=== PATIENT | male | born 1945 | race Caucasian/White ===

== ENCOUNTER 2017-06-21 17:58 | Emergency (ER) | payer OTHER, BC, MEDICARE ==
[2017-06-21] MEDS ORDERED: HYDROmorphone 0.5 MG/0.5 ML SYRINGE IVPUSH ONE (18:29)
[2017-06-21] MEDS ORDERED: Sodium Chloride 0.9% 10 ML Syringe FLUSH PRN (18:29)
--- NOTE | 2017-06-21 19:23 | CT ---
Head CT Technique: Multiple axial sections through the brain were obtained. Intravenous contrast was not utilized. Comparison: No previous intracranial imaging is available. Findings: Ventricles along with basal cisterns and sulci over the convexities are mildly prominent. Mild diminished density is noted within the periventricular and subcortical white matter which is compatible with small vessel ischemic demyelination change. No evidence of intracranial hemorrhage. No midline shift or mass effect is seen. No acute calvarial abnormality is seen. No acute calvarial abnormality is seen. Atherosclerotic calcification is seen within the vertebral vessels and carotid siphon. Impression: 1. Mild senescent change as described above. 2. No acute intracranial abnormality is seen. No skull fracture is identified. Diagnostic code #2
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
--- NOTE | 2017-06-22 07:22 | CR ---
Chest: Portable view of the chest was obtained. Comparison: No prior chest x-ray. Heart size is normal. Tortuous thoracic aorta is seen. Minimal scarring is seen within the right mid to lower lung. Lungs otherwise are clear. Slight degenerative change is scattered within the spine. Degenerative spurring is seen inferiorly within the acromioclavicular joint on the right side. Impression: 1. Incidental findings. Nothing acute is appreciated on portable chest x-ray. Diagnostic code #2
== END 2017-06-21 21:31 | disposition home or self-care (01) ==
LOC: JD.ED 17:58
DX: R07.89 Other chest pain (principal); I10 Essential (primary) hypertension; E11.9 Type 2 diabetes mellitus without complications; Z87.891 Personal history of nicotine dependence; Z88.8 Allergy status to other drugs, medicaments and biological substances; Z79.899 Other long term (current) drug therapy
CPT/HCPCS: 36415; 70450; 71045; 80053; 82962; 83880; 84484; 85025; 93005; 96374; 99285; J1170; J7050; 93010; 99284

== ENCOUNTER 2017-08-21 09:06 | Day surgery (SDC) | payer MEDICARE, BC ==
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
[~2017-08-21 09:06] MED LIST: Lactated Ringers 1,000 ML IV SCH; Lidocaine 1%/Sod Bicarbonate in NS 8.4% 1 ML Syringe IDERM PRN; Sodium Chloride 0.9% 10 ML Syringe FLUSH PRN
[2017-08-21] MEDS ORDERED: Lidocaine 1% 2 ML ONE ×2 (09:22→09:23)
[2017-08-21] MEDS ORDERED: Propofol 200 MG/20 ML SDV ONE ×2 (09:23→10:49)
--- NOTE | 2017-08-21 10:07 | PCM.PREANE ---
Preanesthetic Assessment - Anesthesia/Transfusion/Family Hx Anesthesia History: Prior Anesthesia Without Reaction Family History of Anesthesia Reaction: No - Review of Systems General: No Symptoms Pulmonary: Other (Sleep apnea, CPAP. Former smoker. ) Cardiovascular: No Symptoms Gastrointestinal: Difficulty Swallowing (Occasional feeling of food becoming stuck, passes with time. Magdalena JOHNSON aware. ) Neurological: Pre-Existing Deficit (Back Surgery x 5, Chronic Pain, Pain radiates to his left side. Op) Other: Reports: Diabetes (DM Type II, a little higher today than usual 212 mg/ dl. Dr. Jones aware. ), Depression - Physical Assessment NPO Status Date: 08/20/17 NPO Status Time: 23:59 O2 Sat by Pulse Oximetry: 95 Respiratory Rate: 16 Vital Signs: Last Vital Signs Temp 37.1 C 08/21/17 09:20 Pulse 82 08/21/17 09:20 Resp 16 08/21/17 09:20 BP 151/67 H 08/21/17 09:20 Pulse Ox 95 08/21/17 09:20 ASA Class: 3 Mental Status: Alert & Oriented x3 Airway Class: Mallampati = 2 Dentition: Reports: Dentures (Upper, prefers to leave in for his procedure. ) Thyro-Mental Finger Breadths: 2 Mouth Opening Finger Breadths: 3 ROM/Head Extension: Full Lungs: Clear to Auscultation, Normal Respiratory Effort Cardiovascular: Regular Rate, Regular Rhythm - Allergies Allergies/Adverse Reactions: Allergies Allergy/AdvReac Type Severity Reaction Status Date / Time zolpidem [Zolpidem] AdvReac Mild Change Verified 06/21/17 18:05 Mental Status - Acknowledgements Anesthesia Type Planned: MAC Pt an Appropriate Candidate for the Planned Anesthesia: Yes Alternatives and Risks of Anesthesia Discussed w Pt/Guardian: Yes Pt/Guardian Understands and Agrees with Anesthesia Plan: Yes PreAnesthesia Questionnaire HEENT History: Reports: Hard of Hearing Cardiovascular History: Reports: High Cholesterol, Hypertension Respiratory History: Reports: Sleep Apnea Gastrointestinal History: Reports: GERD Musculoskeletal History: Reports: Osteoarthritis Neurological History: Reports: Neuropathy, Diabetic Psychiatric History: Reports: Depression, Other (See Below) Other Psychiatric History: insomnia Endocrine/Metabolic History: Reports: Diabetes, Type II, Hypothyroidism - Past Surgical History GI Surgical History: Reports: EGD - SUBSTANCE USE Smoking Status *Q: Former Smoker Recreational Drug Use History: No - HOME MEDS Home Medications: Home Meds Citalopram [Citalopram HBr] 20 mg PO DAILY 06/21/17 [History] Insulin Glarg,Human.Rec.Analog [Lantus] 30 units SUBCUT QPM 06/21/17 [History] Levothyroxine 150 mcg PO DAILY 06/21/17 [History] Lisinopril [Zestril] 5 mg PO DAILY 06/21/17 [History] atorvaSTATin Calcium [Atorvastatin Calcium] 40 mg PO DAILY 06/21/17 [History] Aspirin 325 mg PO DAILY 08/18/17 [History] Cholecalciferol (Vitamin D3) [Vitamin D3] 1 cap PO DAILY 08/18/17 [History] Insulin Aspart [NovoLOG] 1 unit SUBCUT ASDIRECTED 08/18/17 [History] Ranitidine HCl [Zantac] 150 mg PO DAILY 08/18/17 [History] SUMAtriptan Succinate [Imitrex] 100 mg PO ASDIRECTED PRN 08/18/17 [History] - CURRENT (IN HOUSE) MEDS Current Meds: Current Medications Lactated Ringer's (Ringers, Lactated) 1,000 mls @ 125 mls/hr IV ASDIRECTED KARMEN Stop: 08/21/17 23:00 Lidocaine/Sodium Bicarbonate (Buffered Lidocaine 1% In Ns 8.4%) 0.25 ml IDERM ONETIME PRN PRN Reason: Prior to IV Start Stop: 08/21/17 18:00 Sodium Chloride (Saline Flush) 10 ml FLUSH ASDIRECTED PRN PRN Reason: Keep Vein Open Stop: 08/21/17 18:00 Discontinued Medications Lidocaine HCl (Xylocaine-Mpf 1%) Confirm Administered Dose 2 mls @ as directed .ROUTE .STK-MED ONE Stop: 08/21/17 09:23 Lidocaine HCl (Xylocaine-Mpf 1%) Confirm Administered Dose 2 mls @ as directed .ROUTE .STK-MED ONE Stop: 08/21/17 09:24 Propofol (Diprivan 20 Ml) Confirm Administered Dose 200 mg .ROUTE .STK-MED ONE Stop: 08/21/17 09:24
--- NOTE | 2017-08-21 11:09 | PCM48HPAN ---
Post Anesthesia Note - EVALUATION WITHIN 48HRS OF ANESTHETIC Vital Signs in Normal Range: Yes Patient Participated in Evaluation: Yes Respiratory Function Stable: Yes Airway Patent: Yes Cardiovascular Function Stable: Yes Hydration Status Stable: Yes Pain Control Satisfactory: Yes Nausea and Vomiting Control Satisfactory: Yes Mental Status Recovered: Yes Pulse Rate: 79 SaO2: 95 Resp Rate: 14 Temperature: 97.6 C Blood Pressure: 111/72
--- NOTE | 2017-08-21 11:47 | OR ---
DATE OF OPERATION: 08/21/2017 SURGEON: Kg Jones MD PREOPERATIVE DIAGNOSIS: Screening colonoscopy. POSTOPERATIVE DIAGNOSIS: Screening colonoscopy. OPERATION PERFORMED: Colonoscopy to cecum. FINDINGS: Normal study. ANESTHESIA: Done under IV sedation. RECOMMENDATION: No further screening colonoscopies. DESCRIPTION OF PROCEDURE: The patient was taken to the endoscopy room, placed in a supine position, connected to monitoring equipment, given IV sedation. The patient was placed in left lateral position. Perianal area was inspected, was normal rectal exam, showed good sphincter tone. A video Olympus colonoscope was then introduced into the rectum and threaded up without problem to the cecum, where the appendicular orifice and ileocecal valve was noted. The prep was excellent throughout the colon, [place] Cleansing Scale grade A and the scope was slowly withdrawn showing the cecum, ascending colon, transverse colon, descending colon, and sigmoid colon. The study was normal. The patient tolerated the procedure, sent to recovery room in a stable condition, will be followed up as needed in the clinic. ESTIMATED BLOOD LOSS: MMODAL /[id number]
== END 2017-08-21 11:31 | disposition home or self-care (01) ==
LOC: JD.SDS 09:06
PROVIDERS: ATTEND Surgery
DX: D50.9 Iron deficiency anemia, unspecified (principal); I12.9 Hypertensive chronic kidney disease with stage 1 through stage 4 chronic kidney disease, or unspecified chronic kidney disease; E11.22 Type 2 diabetes mellitus with diabetic chronic kidney disease; N18.3 Chronic kidney disease, stage 3 (moderate); E11.40 Type 2 diabetes mellitus with diabetic neuropathy, unspecified; E03.9 Hypothyroidism, unspecified; E78.00 Pure hypercholesterolemia, unspecified; K21.9 Gastro-esophageal reflux disease without esophagitis; G47.33 Obstructive sleep apnea (adult) (pediatric); Z99.89 Dependence on other enabling machines and devices; Z87.891 Personal history of nicotine dependence; Z79.82 Long term (current) use of aspirin; Z79.4 Long term (current) use of insulin; Z79.899 Other long term (current) drug therapy; Z88.8 Allergy status to other drugs, medicaments and biological substances
CPT/HCPCS: 45378; J2001; J7120; J2704

== ENCOUNTER 2018-09-29 16:47 | Emergency (ER) | payer MEDICARE, BC, OTHER ==
[2018-09-29] MEDS ORDERED: HYDROmorphone 0.5 MG/0.5 ML Syringe IVPUSH ONE (17:14)
--- NOTE | 2018-09-29 17:14 | EDM.PDOC ---
<Fritz Jones - Last Filed: 09/29/18 22:44> ED HPI GENERAL MEDICAL PROBLEM - General Chief Complaint: Abdominal Pain Stated Complaint: [facility] Time Seen by Provider: 09/29/18 17:08 - Related Data Allergies Allergy/AdvReac Type Severity Reaction Status Date / Time zolpidem [Zolpidem] AdvReac Mild Change Verified 09/29/18 16:58 Mental Status Home Meds: Home Meds Insulin Glarg,Human.Rec.Analog [Lantus] 16 units SUBCUT QPM 06/21/17 [History] Levothyroxine 25 mcg PO BEDTIME 06/21/17 [History] Insulin Aspart [NovoLOG] 1 unit SUBCUT ASDIRECTED 08/18/17 [History] SUMAtriptan Succinate [Imitrex] 50 mg PO ASDIRECTED PRN 08/18/17 [History] Hydrocodone/Acetaminophen [Hydrocodon-Acetaminophn 10-325] 2 tab PO Q4H PRN 03/27 [History] Polyethylene Glycol 3350 [MiraLAX] 17 gm PO BID 08/07/18 [History] Sennosides [Senna] 17.2 mg PO DAILY 08/07/18 [History] fentaNYL [Fentanyl] 75 mcg TRDERM ASDIRECTED 08/07/18 [History] Lisinopril 2.5 mg PO DAILY 08/08/18 [History] Simvastatin [Zocor] 40 mg PO BEDTIME 08/08/18 [History] Alum Hydrox/Mag Hydrox/Simeth [Mag-Al Plus] 30 ml PO Q4H PRN cup 08/12/18 [Rx] Aspirin [Halfprin] 81 mg PO DAILY tab.ec 08/12/18 [Rx] DULoxetine [Cymbalta] 60 mg PO DAILY cap 08/12/18 [Rx] Enoxaparin [Lovenox] 40 mg SUBCUT DAILY syringe 08/12/18 [Rx] Famotidine [Pepcid] 20 mg PO DAILY tablet 08/12/18 [Rx] Fludrocortisone [Florinef] 0.1 mg PO DAILY tablet 08/12/18 [Rx] Gabapentin [Neurontin] 600 mg PO TID tablet 08/12/18 [Rx] Lidocaine 4% [Aspercreme 4%] 1 each TOP DAILY patch 08/12/18 [Rx] Ondansetron [Zofran] 4 mg IVPUSH Q4H PRN vial 08/12/18 [Rx] Potassium Chloride [Klor-Con M20] 40 meq PO BID tab.er 08/12/18 [Rx] Tamsulosin [Flomax] 0.4 mg PO PCBREAKFAST cap.er 08/12/18 [Rx] Temazepam [Restoril] 7.5 mg PO BEDTIME PRN cap 08/12/18 [Rx] buPROPion [Wellbutrin SR] 100 mg PO DAILY tab.sr 08/12/18 [Rx] Course - Vital Signs Last Recorded V/S: Last Vital Signs Temp 36.6 C 09/29/18 16:54 Pulse 92 09/29/18 16:54 Resp 18 09/29/18 16:54 BP 106/53 L 09/29/18 16:54 Pulse Ox 96 09/29/18 16:54 - Orders/Labs/Meds Labs: Laboratory Tests 09/29/18 09/29/18 09/29/18 Range/Units 17:25 17:52 17:52 WBC 5.74 (4.23-9.07) K/mm3 RBC 3.44 L (4.63-6.08) M/mm3 Hgb 10.1 L D (13.7-17.5) gm/L Hct 31.1 L (40.1-51.0) % MCV 90.4 D (79.0-92.2) fl MCH 29.4 (25.7-32.2) pg MCHC 32.5 (32.2-35.5) g/dl RDW Std Deviation 41.5 (35.1-43.9) fL Plt Count 340 H (163-337) K/mm3 MPV 8.1 L (9.4-12.3) fl Neut % (Auto) 79.4 H (34.0-67.9) % Lymph % (Auto) 9.2 L (21.8-53.1) % [place] % (Auto) 10.5 (5.3-12.2) % Eos % (Auto) 0.3 L (0.8-7.0) Baso % (Auto) 0.3 (0.1-1.2) % Neut # (Auto) 4.55 (1.78-5.38) K/mm3 Lymph # (Auto) 0.53 L (1.32-3.57) K/mm3 [place] # (Auto) 0.60 (0.30-0.82) K/mm3 Eos # (Auto) 0.02 L (0.04-0.54) K/mm3 Baso # (Auto) 0.02 (0.01-0.08) K/mm3 Manual Slide Review Abnormal smear ESR (0-15) mm/hr PT 10.5 (9.7-12.0) SECONDS INR 0.96 Sodium (136-145) mEq/L Potassium (3.5-5.1) mEq/L Chloride (98-107) mEq/L Carbon Dioxide (21-32) mEq/L Anion Gap (5-15) BUN (7-18) mg/dL Creatinine (0.7-1.3) mg/dL Est Cr Clr Drug Dosing mL/min Estimated GFR (MDRD) (>60) mL/min BUN/Creatinine Ratio (14-18) Glucose (83-115) mg/dL POC Glucose (83-110) mg/dL Calcium (8.5-10.1) mg/dL Magnesium (1.8-2.4) mg/dl Total Bilirubin (0.2-1.0) mg/dL AST (15-37) U/L ALT (16-63) U/L Alkaline Phosphatase (46-116) U/L C-Reactive Protein (<1.0) mg/dL NT-Pro-B Natriuret Pep (0-125) pg/mL Total Protein (6.4-8.2) g/dl Albumin (3.4-5.0) g/dl Globulin gm/dL Albumin/Globulin Ratio (1-2) Urine Color Yellow (Yellow) Urine Appearance Clear (Clear) Urine pH 6.0 (5.0-8.0) Ur Specific [place] 1.015 (1.005-1.030) Urine Protein Negative (Negative) Urine Glucose (UA) 2+ H (Negative) Urine Ketones 1+ H (Negative) Urine Occult Blood Negative (Negative) Urine Nitrite Negative (Negative) Urine Bilirubin Negative (Negative) Urine Urobilinogen 0.2 (0.2-1.0) Ur Leukocyte Esterase Negative (Negative) Urine RBC 0-5 (0-5) /hpf Urine WBC 0-5 (0-5) /hpf Ur Squamous Epith Cells 0-5 (0-5) /hpf Urine Bacteria Few (FEW) /hpf Hyaline Casts 0-5 (0-5) /lpf Urine Mucus Not seen (FEW) /hpf 09/29/18 09/29/18 09/29/18 Range/Units 17:52 17:52 17:52 WBC (4.23-9.07) K/mm3 RBC (4.63-6.08) M/mm3 Hgb (13.7-17.5) gm/L Hct (40.1-51.0) % MCV (79.0-92.2) fl MCH (25.7-32.2) pg MCHC (32.2-35.5) g/dl RDW Std Deviation (35.1-43.9) fL Plt Count (163-337) K/mm3 MPV (9.4-12.3) fl Neut % (Auto) (34.0-67.9) % Lymph % (Auto) (21.8-53.1) % [place] % (Auto) (5.3-12.2) % Eos % (Auto) (0.8-7.0) Baso % (Auto) (0.1-1.2) % Neut # (Auto) (1.78-5.38) K/mm3 Lymph # (Auto) (1.32-3.57) K/mm3 [place] # (Auto) (0.30-0.82) K/mm3 Eos # (Auto) (0.04-0.54) K/mm3 Baso # (Auto) (0.01-0.08) K/mm3 Manual Slide Review ESR 33 H (0-15) mm/hr PT (9.7-12.0) SECONDS INR Sodium 144 (136-145) mEq/L Potassium 4.8 (3.5-5.1) mEq/L Chloride 107 (98-107) mEq/L Carbon Dioxide 34 H (21-32) mEq/L Anion Gap 7.8 (5-15) BUN 32 H (7-18) mg/dL Creatinine 1.6 H (0.7-1.3) mg/dL Est Cr Clr Drug Dosing 41.73 mL/min Estimated GFR (MDRD) 43 (>60) mL/min BUN/Creatinine Ratio 20.0 H (14-18) Glucose 56 L (83-115) mg/dL POC Glucose (83-110) mg/dL Calcium 9.8 (8.5-10.1) mg/dL Magnesium 2.2 (1.8-2.4) mg/dl Total Bilirubin 0.3 (0.2-1.0) mg/dL AST 43 H (15-37) U/L ALT 38 (16-63) U/L Alkaline Phosphatase 159 H (46-116) U/L C-Reactive Protein 1.1 H* (<1.0) mg/dL NT-Pro-B Natriuret Pep 457 H (0-125) pg/mL Total Protein 7.6 (6.4-8.2) g/dl Albumin 3.2 L (3.4-5.0) g/dl Globulin 4.4 gm/dL Albumin/Globulin Ratio 0.7 L (1-2) Urine Color (Yellow) Urine Appearance (Clear) Urine pH (5.0-8.0) Ur Specific [place] (1.005-1.030) Urine Protein (Negative) Urine Glucose (UA) (Negative) Urine Ketones (Negative) Urine Occult Blood (Negative) Urine Nitrite (Negative) Urine Bilirubin (Negative) Urine Urobilinogen (0.2-1.0) Ur Leukocyte Esterase (Negative) Urine RBC (0-5) /hpf Urine WBC (0-5) /hpf Ur Squamous Epith Cells (0-5) /hpf Urine Bacteria (FEW) /hpf Hyaline Casts (0-5) /lpf Urine Mucus (FEW) /hpf 09/29/18 09/29/18 09/29/18 Range/Units 19:13 19:47 22:29 WBC (4.23-9.07) K/mm3 RBC (4.63-6.08) M/mm3 Hgb (13.7-17.5) gm/L Hct (40.1-51.0) % MCV (79.0-92.2) fl MCH (25.7-32.2) pg MCHC (32.2-35.5) g/dl RDW Std Deviation (35.1-43.9) fL Plt Count (163-337) K/mm3 MPV (9.4-12.3) fl Neut % (Auto) (34.0-67.9) % Lymph % (Auto) (21.8-53.1) % [place] % (Auto) (5.3-12.2) % Eos % (Auto) (0.8-7.0) Baso % (Auto) (0.1-1.2) % Neut # (Auto) (1.78-5.38) K/mm3 Lymph # (Auto) (1.32-3.57) K/mm3 [place] # (Auto) (0.30-0.82) K/mm3 Eos # (Auto) (0.04-0.54) K/mm3 Baso # (Auto) (0.01-0.08) K/mm3 Manual Slide Review ESR (0-15) mm/hr PT (9.7-12.0) SECONDS INR Sodium (136-145) mEq/L Potassium (3.5-5.1) mEq/L Chloride (98-107) mEq/L Carbon Dioxide (21-32) mEq/L Anion Gap (5-15) BUN (7-18) mg/dL Creatinine (0.7-1.3) mg/dL Est Cr Clr Drug Dosing mL/min Estimated GFR (MDRD) (>60) mL/min BUN/Creatinine Ratio (14-18) Glucose (83-115) mg/dL POC Glucose 38 L 140 H 124 H (83-110) mg/dL Calcium (8.5-10.1) mg/dL Magnesium (1.8-2.4) mg/dl Total Bilirubin (0.2-1.0) mg/dL AST (15-37) U/L ALT (16-63) U/L Alkaline Phosphatase (46-116) U/L C-Reactive Protein (<1.0) mg/dL NT-Pro-B Natriuret Pep (0-125) pg/mL Total Protein (6.4-8.2) g/dl Albumin (3.4-5.0) g/dl Globulin gm/dL Albumin/Globulin Ratio (1-2) Urine Color (Yellow) Urine Appearance (Clear) Urine pH (5.0-8.0) Ur Specific [place] (1.005-1.030) Urine Protein (Negative) Urine Glucose (UA) (Negative) Urine Ketones (Negative) Urine Occult Blood (Negative) Urine Nitrite (Negative) Urine Bilirubin (Negative) Urine Urobilinogen (0.2-1.0) Ur Leukocyte Esterase (Negative) Urine RBC (0-5) /hpf Urine WBC (0-5) /hpf Ur Squamous Epith Cells (0-5) /hpf Urine Bacteria (FEW) /hpf Hyaline Casts (0-5) /lpf Urine Mucus (FEW) /hpf Meds: Medications Discontinued Medications Generic Name Dose Route Start Last Admin Trade Name Jennifer PRN Reason Stop Dose Admin Dextrose/Water Confirm 09/29/18 19:15 09/29/18 19:20 Dextrose 50% In Water Administered 09/29/18 19:16 Not Given Dose 50 ml .ROUTE .STK-MED ONE Dextrose/Water 50 ml 09/29/18 19:15 09/29/18 19:17 Dextrose 50% In Water IVPUSH 09/29/18 19:16 50 ml ASDIRECTED ONE Administration Hydromorphone HCl 0.5 mg 09/29/18 17:14 09/29/18 17:37 Dilaudid IVPUSH 09/29/18 17:15 0.5 mg ONETIME ONE Administration Hydromorphone HCl 1 mg 09/29/18 18:28 09/29/18 19:07 Dilaudid IVPUSH 09/29/18 18:29 1 mg ONETIME ONE Administration Sodium Chloride 1,000 mls @ 150 mls/hr 09/29/18 17:15 09/29/18 17:39 Normal Saline IV 150 mls/hr ASDIRECTED KARMEN Administration Ketorolac Tromethamine 30 mg 09/29/18 22:31 09/29/18 22:39 Toradol IVPUSH 09/29/18 22:32 30 mg ONETIME STA Administration Lidocaine HCl 10 ml 09/29/18 17:22 09/29/18 19:28 Xylocaine 2% Jelly MUCMEM 09/29/18 17:23 10 ml ONETIME ONE Administration Sumatriptan Succinate 50 mg 09/29/18 21:47 09/29/18 22:16 Imitrex PO 09/29/18 21:48 50 mg ONETIME ONE Administration - Re-Assessments/Exams Free Text/Narrative Re-Assessment/Exam: 09/29/18 20:48 Notified by Nadeen RIBERA that the patient was given 2 mineral oil enemas without relief, followed by a soapsuds enema without relief, followed by a third mineral oil enema, still without relief, therefore the nurses are currently manually disimpacting the patient. 09/29/18 22:00 I evaluated the patient by performing a digital rectal exam, finding a moderate amount of relatively soft stool in the rectum. The consistency of the stool was soft enough that the patient should have been able to pass it, however, I proceeded with a manual disimpaction until there was only a tiny amount of stool remaining. The patient should be able to defecate that tiny amount. I cannot say whether or not there is more stool further up the colon, but it is my understanding that the KUB found constipation only in the rectum, not throughout the colon. I have asked the patient to try to defecate the remaining amount of stool. In the meantime, the patient will be given a dose of Imitrex to address his headache. 09/29/18 22:45 The patient was able to have a small bowel movement. Repeat Accu-Chek is 124. The patient will be discharged back to the long-term Departure - Departure Time of Disposition: 22:45 Disposition: Home, Self-Care 01 Clinical Impression: Constipation due to opioid therapy, Hypoglycemia Anemia Qualifiers: Anemia type: due to chronic kidney disease Chronic kidney disease stage: stage 3 (moderate) Qualified Code(s): N18.3 - Chronic kidney disease, stage 3 ( moderate) Congestive heart failure Qualifiers: Heart failure type: unspecified Heart failure chronicity: chronic Qualified Code(s): I50.9 - Heart failure, unspecified - Discharge Information Instructions: Constipation, Adult, [id number], Hypoglycemia Referrals: PCP,None [Primary Care Provider] - Forms: ED Department Discharge Additional Instructions: You were seen in the emergency room for constipation, headache, and, on evaluation, your blood sugar was found to be low. You received several enemas and a manual disimpaction. You received Imitrex for headache, and replacement blood sugar. Going forward, we recommend that you continue to take MiraLAX on a daily basis, along with plenty of water, to prevent constipation. Follow-up with your PCP as needed. If any other problems, please do not hesitate to return to the ER. <Dallin Schmitz - Last Filed: 10/01/18 10:18> ED HPI GENERAL MEDICAL PROBLEM - General Source of Information: Reports: Patient History Limitations: Reports: No Limitations - History of Present Illness INITIAL COMMENTS - FREE TEXT/NARRATIVE: 73-year-old male sent down to the hospital from [facility] in [facility] where he resides. He complains of diffuse abdominal pain which is constant and occasionally worsens ie colicky component. . Feels like he is not ablwe to completely empty his bladder. He has a strong sense of urinary urgency. Patient states he's not had a bowel movement for about a week. He has constant severe rectal pressure discomfort. He states he has had a problem like this 3 or 4 times in the past and had to come to the hospital. [facility] nurses record a hard stool in the rectal vault but did not try an enema etc. He has been able to eat for 2 days. He doesn't believe he's had a fever or any chills. His only abdominal surgery is that of a cholecystectomy. Paramedics have given him 300 bolus of IV fluid en route to [place]. He also recieved fentanyl 50 g 2 doses and Zofran 4 mg IV for relief of abdominal pain. He believes there has been some blood when wiping the anus or rectum. Patient's med list reveals that he is on transdermal fentanyl 75 g per hour coupled with other medications are the cause of his constipation problems. Patient is a type II diabetic controlled with insulin. Onset: Gradual Onset Date: 09/22/18 (He reports no bowel movement for at least a week.) Duration: Day(s):, Getting Worse, Other (Pain is constant but does get worse intermittently compatible with intestinal colic.) Location: Reports: Abdomen (Diffuse abdominal pain with a lot of pressure in the rectal vault. Feels an incomplete sense of ability to empty his bladder as well.) Quality: Reports: Other (Describes the pain as a deep constant aching pain that worsens periodically particularly in the rectum.) Severity: Moderate Improves with: Reports: None (8 out of 10) Worsens with: Reports: None Context: Denies: Activity, Exercise, Lifting, Sick Contact, Trauma, Other Associated Symptoms: Reports: cough w sputum, Loss of Appetite, Malaise, Other ( rectal pain/preasure ). Denies: Confusion, Chest Pain, Cough Treatments [employer]: Reports: Other (see below) (none) Abdominal Pain Score (Numeric/FACES): 9 Past Medical History HEENT History: Reports: Hard of Hearing Cardiovascular History: Reports: High Cholesterol Respiratory History: Reports: Sleep Apnea Gastrointestinal History: Reports: Chronic Constipation, GERD Genitourinary History: Reports: Prostate Disorder Other Genitourinary History: stress incontinence Musculoskeletal History: Reports: Back Pain, Chronic, Osteoarthritis Neurological History: Reports: Neuropathy, Diabetic Psychiatric History: Reports: Depression, Other (See Below) Other Psychiatric History: insomnia Endocrine/Metabolic History: Reports: Diabetes, Type II, Hypothyroidism - Infectious Disease History Infectious Disease History: Reports: Chicken Pox, Measles, Mumps - Past Surgical History HEENT Surgical History: Reports: None Other HEENT Surgeries/Procedures: veneries implants Cardiovascular Surgical History: Reports: None Respiratory Surgical History: Reports: None GI Surgical History: Reports: EGD Endocrine Surgical History: Reports: None Neurological Surgical History: Reports: Discectomy, Spinal Fusion Other Neurological Surgeries/Procedures: 5x disc and fusion surgeries Social & Family History - Family History Family Medical History: Noncontributory - Caffeine Use Caffeine Use: Reports: Coffee, Soda, Tea - Living Situation & Occupation Living situation: Reports: Extended Care Facility (Lives at [facility].) Occupation: Retired ED ROS GENERAL - Review of Systems Review Of Systems: See Below Constitutional: Reports: Malaise, Weakness, Fatigue, Decreased Appetite, Weight Loss (Hasn't been able to eat for 2 days.). Denies: Fever, Chills HEENT: Reports: Hearing Loss (Mild hearing loss.) Respiratory: Denies: Shortness of Breath, Wheezing, Pleuritic Chest Pain, Cough Cardiovascular: Reports: Lightheadedness. Denies: Chest Pain, Blood Pressure Problem, Claudication, Dyspnea on Exertion, Edema, Orthopnea, Palpitations Endocrine: Reports: Fatigue, High Glucose GI/Abdominal: Reports: Abdominal Pain (See history of present illness), Constipation, Decreased Appetite (Chronic constipation issues), Nausea. Denies : Stool Incontinence, Vomiting : Reports: Frequency, Incontinence (Urgency component), Urgency. Denies: Dysuria Musculoskeletal: Reports: Back Pain, Joint Pain (Knees hips lower back and neck at times) Skin: Reports: No Symptoms Neurological: Reports: Headache, Weakness. Denies: Confusion, Dizziness, Pre- Existing Deficit, Syncope, Trouble Speaking, Change in Speech Psychiatric: Reports: Depression, Other (Chronic insomnia) Hematologic/Lymphatic: Reports: No Symptoms Immunologic: Reports: No Symptoms ED EXAM, GI/ABD - Physical Exam Exam: See Below Exam Limited By: No Limitations (Mildly hard of hearing.) General Appearance: Alert, WD/WN, Mild Distress Eyes: Bilateral: Normal Appearance (No scleral icterus or pallor.) Throat/Mouth: Other Head: No: Atraumatic, Normocephalic Neck: Normal Inspection, Tender Lateral (Mild bilaterally). No: Carotid Bruit, Lymphadenopathy (L), Lymphadenopathy (R), Thyromegaly Respiratory/Chest: No Respiratory Distress, Lungs Clear, Normal Breath Sounds, Chest Non-Tender Cardiovascular: Normal Peripheral Pulses, Regular Rate, Rhythm, No Edema, No Gallop, No Murmur, No Rub GI/Abdominal Exam: No Organomegaly, No Abnormal Bruit, Pelvis Stable, Distended (Stented and tympanitic to percussion in all 4 quadrants.), Tender, Abnormal Bowel Sounds (Does have high hyperactive bowel sounds throughout.), Other ( Evidence of laparoscopic cholecystectomy.). No: No Mass (Moderate tenderness left lower quadrant and suprapubically.) (Male) Exam: No Hernia Rectal (Males) Exam: Fecal Impaction Back Exam: Normal Inspection. No: CVA Tenderness (L), CVA Tenderness (R) Extremities: Normal Inspection, Normal Range of Motion, No Pedal Edema Neurological: Alert, Oriented, CN II-XII Intact, Normal Cognition Psychiatric: Flat Affect Skin Exam: Warm, Dry, Intact, Normal Color, No Rash Course - Orders/Labs/Meds Labs: Laboratory Tests 09/29/18 09/29/18 09/29/18 Range/Units 17:25 17:52 17:52 WBC 5.74 (4.23-9.07) K/mm3 RBC 3.44 L (4.63-6.08) M/mm3 Hgb 10.1 L D (13.7-17.5) gm/L Hct 31.1 L (40.1-51.0) % MCV 90.4 D (79.0-92.2) fl MCH 29.4 (25.7-32.2) pg MCHC 32.5 (32.2-35.5) g/dl RDW Std Deviation 41.5 (35.1-43.9) fL Plt Count 340 H (163-337) K/mm3 MPV 8.1 L (9.4-12.3) fl Neut % (Auto) 79.4 H (34.0-67.9) % Lymph % (Auto) 9.2 L (21.8-53.1) % [place] % (Auto) 10.5 (5.3-12.2) % Eos % (Auto) 0.3 L (0.8-7.0) Baso % (Auto) 0.3 (0.1-1.2) % Neut # (Auto) 4.55 (1.78-5.38) K/mm3 Lymph # (Auto) 0.53 L (1.32-3.57) K/mm3 [place] # (Auto) 0.60 (0.30-0.82) K/mm3 Eos # (Auto) 0.02 L (0.04-0.54) K/mm3 Baso # (Auto) 0.02 (0.01-0.08) K/mm3 Manual Slide Review Abnormal smear ESR (0-15) mm/hr PT 10.5 (9.7-12.0) SECONDS INR 0.96 Sodium (136-145) mEq/L Potassium (3.5-5.1) mEq/L Chloride (98-107) mEq/L Carbon Dioxide (21-32) mEq/L Anion Gap (5-15) BUN (7-18) mg/dL Creatinine (0.7-1.3) mg/dL Est Cr Clr Drug Dosing mL/min Estimated GFR (MDRD) (>60) mL/min BUN/Creatinine Ratio (14-18) Glucose (83-115) mg/dL POC Glucose (83-110) mg/dL Calcium (8.5-10.1) mg/dL Magnesium (1.8-2.4) mg/dl Total Bilirubin (0.2-1.0) mg/dL AST (15-37) U/L ALT (16-63) U/L Alkaline Phosphatase (46-116) U/L C-Reactive Protein (<1.0) mg/dL NT-Pro-B Natriuret Pep (0-125) pg/mL Total Protein (6.4-8.2) g/dl Albumin (3.4-5.0) g/dl Globulin gm/dL Albumin/Globulin Ratio (1-2) Urine Color Yellow (Yellow) Urine Appearance Clear (Clear) Urine pH 6.0 (5.0-8.0) Ur Specific [place] 1.015 (1.005-1.030) Urine Protein Negative (Negative) Urine Glucose (UA) 2+ H (Negative) Urine Ketones 1+ H (Negative) Urine Occult Blood Negative (Negative) Urine Nitrite Negative (Negative) Urine Bilirubin Negative (Negative) Urine Urobilinogen 0.2 (0.2-1.0) Ur Leukocyte Esterase Negative (Negative) Urine RBC 0-5 (0-5) /hpf Urine WBC 0-5 (0-5) /hpf Ur Squamous Epith Cells 0-5 (0-5) /hpf Urine Bacteria Few (FEW) /hpf Hyaline Casts 0-5 (0-5) /lpf Urine Mucus Not seen (FEW) /hpf 09/29/18 09/29/18 09/29/18 Range/Units 17:52 17:52 17:52 WBC (4.23-9.07) K/mm3 RBC (4.63-6.08) M/mm3 Hgb (13.7-17.5) gm/L Hct (40.1-51.0) % MCV (79.0-92.2) fl MCH (25.7-32.2) pg MCHC (32.2-35.5) g/dl RDW Std Deviation (35.1-43.9) fL Plt Count (163-337) K/mm3 MPV (9.4-12.3) fl Neut % (Auto) (34.0-67.9) % Lymph % (Auto) (21.8-53.1) % [place] % (Auto) (5.3-12.2) % Eos % (Auto) (0.8-7.0) Baso % (Auto) (0.1-1.2) % Neut # (Auto) (1.78-5.38) K/mm3 Lymph # (Auto) (1.32-3.57) K/mm3 [place] # (Auto) (0.30-0.82) K/mm3 Eos # (Auto) (0.04-0.54) K/mm3 Baso # (Auto) (0.01-0.08) K/mm3 Manual Slide Review ESR 33 H (0-15) mm/hr PT (9.7-12.0) SECONDS INR Sodium 144 (136-145) mEq/L Potassium 4.8 (3.5-5.1) mEq/L Chloride 107 (98-107) mEq/L Carbon Dioxide 34 H (21-32) mEq/L Anion Gap 7.8 (5-15) BUN 32 H (7-18) mg/dL Creatinine 1.6 H (0.7-1.3) mg/dL Est Cr Clr Drug Dosing 41.73 mL/min Estimated GFR (MDRD) 43 (>60) mL/min BUN/Creatinine Ratio 20.0 H (14-18) Glucose 56 L (83-115) mg/dL POC Glucose (83-110) mg/dL Calcium 9.8 (8.5-10.1) mg/dL Magnesium 2.2 (1.8-2.4) mg/dl Total Bilirubin 0.3 (0.2-1.0) mg/dL AST 43 H (15-37) U/L ALT 38 (16-63) U/L Alkaline Phosphatase 159 H (46-116) U/L C-Reactive Protein 1.1 H* (<1.0) mg/dL NT-Pro-B Natriuret Pep 457 H (0-125) pg/mL Total Protein 7.6 (6.4-8.2) g/dl Albumin 3.2 L (3.4-5.0) g/dl Globulin 4.4 gm/dL Albumin/Globulin Ratio 0.7 L (1-2) Urine Color (Yellow) Urine Appearance (Clear) Urine pH (5.0-8.0) Ur Specific [place] (1.005-1.030) Urine Protein (Negative) Urine Glucose (UA) (Negative) Urine Ketones (Negative) Urine Occult Blood (Negative) Urine Nitrite (Negative) Urine Bilirubin (Negative) Urine Urobilinogen (0.2-1.0) Ur Leukocyte Esterase (Negative) Urine RBC (0-5) /hpf Urine WBC (0-5) /hpf Ur Squamous Epith Cells (0-5) /hpf Urine Bacteria (FEW) /hpf Hyaline Casts (0-5) /lpf Urine Mucus (FEW) /hpf 09/29/18 09/29/18 09/29/18 Range/Units 19:13 19:47 22:29 WBC (4.23-9.07) K/mm3 RBC (4.63-6.08) M/mm3 Hgb (13.7-17.5) gm/L Hct (40.1-51.0) % MCV (79.0-92.2) fl MCH (25.7-32.2) pg MCHC (32.2-35.5) g/dl RDW Std Deviation (35.1-43.9) fL Plt Count (163-337) K/mm3 MPV (9.4-12.3) fl Neut % (Auto) (34.0-67.9) % Lymph % (Auto) (21.8-53.1) % [place] % (Auto) (5.3-12.2) % Eos % (Auto) (0.8-7.0) Baso % (Auto) (0.1-1.2) % Neut # (Auto) (1.78-5.38) K/mm3 Lymph # (Auto) (1.32-3.57) K/mm3 [place] # (Auto) (0.30-0.82) K/mm3 Eos # (Auto) (0.04-0.54) K/mm3 Baso # (Auto) (0.01-0.08) K/mm3 Manual Slide Review ESR (0-15) mm/hr PT (9.7-12.0) SECONDS INR Sodium (136-145) mEq/L Potassium (3.5-5.1) mEq/L Chloride (98-107) mEq/L Carbon Dioxide (21-32) mEq/L Anion Gap (5-15) BUN (7-18) mg/dL Creatinine (0.7-1.3) mg/dL Est Cr Clr Drug Dosing mL/min Estimated GFR (MDRD) (>60) mL/min BUN/Creatinine Ratio (14-18) Glucose (83-115) mg/dL POC Glucose 38 L 140 H 124 H (83-110) mg/dL Calcium (8.5-10.1) mg/dL Magnesium (1.8-2.4) mg/dl Total Bilirubin (0.2-1.0) mg/dL AST (15-37) U/L ALT (16-63) U/L Alkaline Phosphatase (46-116) U/L C-Reactive Protein (<1.0) mg/dL NT-Pro-B Natriuret Pep (0-125) pg/mL Total Protein (6.4-8.2) g/dl Albumin (3.4-5.0) g/dl Globulin gm/dL Albumin/Globulin Ratio (1-2) Urine Color (Yellow) Urine Appearance (Clear) Urine pH (5.0-8.0) Ur Specific [place] (1.005-1.030) Urine Protein (Negative) Urine Glucose (UA) (Negative) Urine Ketones (Negative) Urine Occult Blood (Negative) Urine Nitrite (Negative) Urine Bilirubin (Negative) Urine Urobilinogen (0.2-1.0) Ur Leukocyte Esterase (Negative) Urine RBC (0-5) /hpf Urine WBC (0-5) /hpf Ur Squamous Epith Cells (0-5) /hpf Urine Bacteria (FEW) /hpf Hyaline Casts (0-5) /lpf Urine Mucus (FEW) /hpf Meds: Medications Discontinued Medications Generic Name Dose Route Start Last Admin Trade Name Freq PRN Reason Stop Dose Admin Dextrose/Water Confirm 09/29/18 19:15 09/29/18 19:20 Dextrose 50% In Water Administered 09/29/18 19:16 Not Given Dose 50 ml .ROUTE .STK-MED ONE Dextrose/Water 50 ml 09/29/18 19:15 09/29/18 19:17 Dextrose 50% In Water IVPUSH 09/29/18 19:16 50 ml ASDIRECTED ONE Administration Hydromorphone HCl 0.5 mg 09/29/18 17:14 09/29/18 17:37 Dilaudid IVPUSH 09/29/18 17:15 0.5 mg ONETIME ONE Administration Hydromorphone HCl 1 mg 09/29/18 18:28 09/29/18 19:07 Dilaudid IVPUSH 09/29/18 18:29 1 mg ONETIME ONE Administration Sodium Chloride 1,000 mls @ 150 mls/hr 09/29/18 17:15 09/29/18 17:39 Normal Saline IV 150 mls/hr ASDIRECTED KARMEN Administration Ketorolac Tromethamine 30 mg 09/29/18 22:31 09/29/18 22:39 Toradol IVPUSH 09/29/18 22:32 30 mg ONETIME STA Administration Lidocaine HCl 10 ml 09/29/18 17:22 09/29/18 19:28 Xylocaine 2% Jelly MUCMEM 09/29/18 17:23 10 ml ONETIME ONE Administration Sumatriptan Succinate 50 mg 09/29/18 21:47 09/29/18 22:16 Imitrex PO 09/29/18 21:48 50 mg ONETIME ONE Administration - Radiology Interpretation Free Text/Narrative:: 73-year-old male presents to the ED per [facility] from [facility] which is a long-term where he resides. Her to me why he is in the long-term. He apparently has a chronic pain problem and reportedly is on fentanyl transdermal patch 75 g per hour. He does have diabetic no retinopathy in both lower extremities. His chief complaint is diffuse abdominal pain for a week with no bowel movement for a week. Pain is constant and everyone straw gets worse suggesting a colicky component to the pain. Has a lot of pressure in the rectal vault with inability to pass any solid stool. Exam reveals hard stool impacted in the rectal vault. I also suspect that he may be in mild retention as he has pain suprapubically. Reports that he often has urgency to void and will become incontinent if he doesn't get immediate access to a urinal. Shortly after I examined his lower abdomen he had to void. This suggests a neurogenic component to his bladder problem. Possibly related to diabetes. When he will have lab work carried out. Will continue IV fluids i.e. normal saline at 125 mils per hour. Dilaudid 0.5 mg IV as the fentanyl he had received is now worn off. One view of the abdomen will be done and a bladder scan will be completed after he voids. - Re-Assessments/Exams Free Text/Narrative Re-Assessment/Exam: 09/29/18 17:57 bladder scan consistently reveals 121 mils of urine in the bladder after voiding. Mild retention. 09/29/18 18:28 KUB reveals stool primarily in the rectal vault. There is scattered stool in the cecum hepatic flexure and parts of the transverse colon but no signs of significant severe constipation other than the rectal vault. There is some dilated loops of small bowel in the midabdomen. Lab a dilated cecum. No signs of bowel obstruction. Will proceed therefore with Urojet lidocaine to the anus in the hopes of reducing his pain. Will give Fleet enemas with mineral oil 2 and failing this proceed with soap suds enema. He still complaining bitterly of severe pain primarily in the rectal vault. He has a tolerance to narcotics as he is on fentanyl patch 75 g per hour for severe low back pain. The KUB reveals multiple hardware fixation in lumbar 4-5 and S1. I will give him Dilaudid 1 mg IV. 09/29/18 19:11 labs are back.Labs reveal a white count of 5.74 with auto differential of 79.4%. Troponin slightly low at 10.1 with hematocrit of 31.1. Platelet count 340,000 slightly elevated. He is 90.4. There is evidence of macrocytosis on the smear. No sign of band cells. PT was 10.5 with an INR of 0.96. Sodium 144 with potassium of 4.8. Chloride is 107 with a bicarbonate elevated at 34 suggesting is a CO2 retainer. Anion gap is 7.8. BUN is elevated at 32 with a creatinine of 1.6. BUN/creatinine ratio is 20.0. Glucose is low at 56. Calcium is 9.8. Magnesium is 2.2. AST is slightly elevated at 43. Alkaline phosphatase is slightly elevated at 159. C-reactive protein is 1.1. BNP is elevated at 457. Total protein 7.6 with an albumin fraction of 3.2. Urinalysis shows 2+ glucosuria 1+ ketonuria. No signs of infection. Will have his blood sugar checked immediately and see if he needs dextrose. His normal saline infusion will be discontinued as he is in mild heart failure. 09/29/18 19:15: Blood sugar came back at 38. He will therefore receive a full amp of D50 percent dextrose. Blood sugar will be checked every half hour. Care will be transferred to Dr. Jones as it is change of shift. Departure - Departure Condition: Fair - Discharge Information *PRESCRIPTION DRUG MONITORING PROGRAM REVIEWED*: Not Applicable *COPY OF PRESCRIPTION DRUG MONITORING REPORT IN PATIENT JHONY: Not Applicable
[2018-09-29] MEDS ORDERED: Sodium Chloride 0.9% 1,000 ML IV SCH (17:15)
[2018-09-29] MEDS ORDERED: Lidocaine 2% Jelly 10 ML Urojet MUCMEM ONE (17:22)
[2018-09-29] MEDS ORDERED: HYDROmorphone 1 MG/ML Syringe IVPUSH ONE (18:28)
[2018-09-29] MEDS ORDERED: 50% Dextrose in Water 50 ML Syringe ONE (19:15)
[2018-09-29] MEDS ORDERED: 50% Dextrose in Water 50 ML Syringe IVPUSH ONE (19:15)
[2018-09-29] MEDS ORDERED: SUMAtriptan 50 MG Tab PO ONE (21:47)
[2018-09-29] MEDS ORDERED: Ketorolac 30 MG/ML SDV IVPUSH STA (22:31)
--- NOTE | 2018-10-01 07:00 | CR ---
Abdomen: Supine view of the abdomen was obtained. Comparison: Prior CT abdomen and pelvis exam of 08/09/18. Findings: Biliary stent is again noted. Surgical clips are seen within the upper right abdomen. Previous lower lumbar spine surgery is noted. Mild degenerative change is seen within other portions of the spine. Bowel gas pattern is within normal limits. Slight vascular calcification is noted as well as phleboliths within the pelvis. Mild joint space narrowing is seen superiorly within the right hip. Impression: 1. Findings as described above. 2. Nothing acute is appreciated. Diagnostic code #2
== END 2018-09-29 23:53 | disposition home or self-care (01) ==
LOC: JD.ED 16:47
DX: T40.2X1A Poisoning by other opioids, accidental (unintentional), initial encounter (principal); K59.03 Drug induced constipation; I50.9 Heart failure, unspecified; E11.649 Type 2 diabetes mellitus with hypoglycemia without coma; E11.40 Type 2 diabetes mellitus with diabetic neuropathy, unspecified; E11.22 Type 2 diabetes mellitus with diabetic chronic kidney disease; N18.3 Chronic kidney disease, stage 3 (moderate); D63.1 Anemia in chronic kidney disease; E03.9 Hypothyroidism, unspecified; E78.00 Pure hypercholesterolemia, unspecified; M19.90 Unspecified osteoarthritis, unspecified site; Z88.8 Allergy status to other drugs, medicaments and biological substances; Z79.82 Long term (current) use of aspirin; Z79.4 Long term (current) use of insulin; Z79.899 Other long term (current) drug therapy
CPT/HCPCS: 36415; 74018; 80053; 81001; 82962; 83735; 83880; 85025; 85610; 85652; 86140; 96361; 96374; 96375; 96376; 99284; A9270; J1170; J1885; J7040; J7060

== ENCOUNTER 2018-10-14 16:30 | Emergency (ER) | payer MEDICARE, BC, OTHER ==
--- NOTE | 2018-10-14 18:57 | EDM.PDOC ---
ED HPI GENERAL MEDICAL PROBLEM - General Chief Complaint: General Stated Complaint: FALLING Time Seen by Provider: 10/14/18 18:57 Source of Information: Reports: Patient History Limitations: Reports: No Limitations - History of Present Illness INITIAL COMMENTS - FREE TEXT/NARRATIVE: 73-year-old male is brought in by his for falls and increased weakness. Patient reports this is been going on for 2 years. patient was seen by myself in August. He was admitted primarily for pain control. Ultimately he was sent to [facility] for Surgery on his back. This has significantly improved his back pain. He still some pain radiating down his legs but this has significantly improved. He was admitted to [facility] post[facility] for rehabilitation. He was there maybe 5-6 weeks. According to his , he begged them him to release him. He was released just one week ago. reports he is too weak to be cared for at home. They have not followed up with physical therapy since leaving [facility] and his weakness has gotten worse. She feels that he is having more confusion. She states that he will talk to people who aren't there and thinks he is in other places. reports urinary frequency but this is also chronic for him. No fevers or cough. No complaints of any chest pain or abdominal pain. No vomiting or diarrhea. Primary care providers Dr. Farmer Back Pain Score (Numeric/FACES): 7 - Related Data Allergies Allergy/AdvReac Type Severity Reaction Status Date / Time zolpidem [Zolpidem] AdvReac Mild Change Verified 10/14/18 16:44 Mental Status Home Meds: Home Meds Insulin Glarg,Human.Rec.Analog [Lantus] 25 units SUBCUT QAM 06/21/17 [History] Levothyroxine 150 mcg PO QAM 06/21/17 [History] Polyethylene Glycol 3350 [MiraLAX] 17 gm PO BID 08/07/18 [History] fentaNYL [Fentanyl] 50 mcg TRDERM ASDIRECTED 08/07/18 [History] Tamsulosin [Flomax] 0.4 mg PO PCBREAKFAST cap.er 08/12/18 [Rx] buPROPion [Wellbutrin SR] 100 mg PO DAILY tab.sr 08/12/18 [Rx] Gabapentin [Neurontin] 300 mg PO TID 10/14/18 [History] Melatonin 5 mg PO QPM 10/14/18 [History] Ondansetron [Zofran] 4 mg IVPUSH Q6H PRN 10/14/18 [History] Potassium Chloride [Klor-Con M20] 20 meq PO BID 10/14/18 [History] atorvaSTATin [Lipitor] 20 mg PO BEDTIME 10/14/18 [History] buPROPion HCl [Zyban] 100 mg PO QAM 10/14/18 [History] Past Medical History HEENT History: Reports: Hard of Hearing Other HEENT History: wears eyeglasses. Cardiovascular History: Reports: High Cholesterol Respiratory History: Reports: Sleep Apnea Other Respiratory History: states has C-PAP but doesn't use it due to "It's so loud." Gastrointestinal History: Reports: Chronic Constipation, GERD Genitourinary History: Reports: Prostate Disorder Other Genitourinary History: stress incontinence Musculoskeletal History: Reports: Back Pain, Chronic, Osteoarthritis Neurological History: Reports: Neuropathy, Diabetic Psychiatric History: Reports: Depression, Other (See Below) Other Psychiatric History: insomnia Endocrine/Metabolic History: Reports: Diabetes, Type II, Hypothyroidism - Infectious Disease History Infectious Disease History: Reports: Chicken Pox, Measles, Mumps - Past Surgical History HEENT Surgical History: Reports: None Other HEENT Surgeries/Procedures: veneries implants Cardiovascular Surgical History: Reports: None Respiratory Surgical History: Reports: None GI Surgical History: Reports: EGD Endocrine Surgical History: Reports: None Neurological Surgical History: Reports: Discectomy, Spinal Fusion Other Neurological Surgeries/Procedures: 5x disc and fusion surgeries Social & Family History - Family History Family Medical History: Noncontributory - Tobacco Use Smoking Status *Q: Former Smoker Used Tobacco, but Quit: Yes Month/Year Tobacco Last Used: 1994 - Caffeine Use Caffeine Use: Reports: Coffee, Soda - Recreational Drug Use Recreational Drug Use: No - Living Situation & Occupation Living situation: Reports: Extended Care Facility (Lives at [facility].) Occupation: Retired ED ROS GENERAL - Review of Systems Review Of Systems: See Below Constitutional: Reports: Weakness. Denies: Fever Respiratory: Denies: Cough Cardiovascular: Denies: Chest Pain GI/Abdominal: Denies: Abdominal Pain, Diarrhea, Vomiting : Reports: Frequency (chronic) Neurological: Reports: Confusion. Denies: Headache Psychiatric: Reports: Hallucinations ED EXAM, GENERAL - Physical Exam Exam: See Below Exam Limited By: No Limitations General Appearance: Alert, WD/WN, No Apparent Distress Nose: Normal Inspection Throat/Mouth: Normal Inspection, Normal Lips, Normal Voice, No Airway Compromise Respiratory/Chest: No Respiratory Distress, Lungs Clear, Normal Breath Sounds Cardiovascular: Normal Peripheral Pulses, Regular Rate, Rhythm, No Murmur GI/Abdominal: Normal Bowel Sounds, Soft, Non-Tender Neurological: Alert, Oriented, Normal Cognition Psychiatric: Normal Affect, Normal Mood Skin Exam: Warm, Dry, Normal Color EKG INTERPRETATION EKG Date: 10/14/18 Time: 18:02 Rhythm: NSR Rate (Beats/Min): 81 Kent: LAD-Left Kent Deviation P-Wave: Present QRS: Normal ST-T: Normal QT: Normal EKG Interpretation Comments: NSR at 81 bpm. Occasion PAC. Early "R" wave transition. Consider RVH/septal hypertrophy pattern. Near Q wave II, Q waves III, AVF - old inferior wall TX. RSR' V1, V2- RVH. LAD (-95 degrees). Reviewed by myself and Dr. Schmitz. Course - Vital Signs Last Recorded V/S: Last Vital Signs Temp 97.8 F 10/14/18 16:40 Pulse 89 10/14/18 16:40 Resp 16 10/14/18 16:40 BP 145/80 H 10/14/18 16:40 Pulse Ox 100 10/14/18 16:40 - Orders/Labs/Meds Labs: Laboratory Tests 10/14/18 10/14/18 10/14/18 Range/Units 18:04 18:04 18:04 WBC 8.50 (4.23-9.07) K/mm3 RBC 3.59 L (4.63-6.08) M/mm3 Hgb 10.5 L (13.7-17.5) gm/L Hct 31.1 L (40.1-51.0) % MCV 86.6 D (79.0-92.2) fl MCH 29.2 (25.7-32.2) pg MCHC 33.8 (32.2-35.5) g/dl RDW Std Deviation 37.7 (35.1-43.9) fL Plt Count 237 D (163-337) K/mm3 MPV 8.9 L (9.4-12.3) fl Neut % (Auto) 68.3 H (34.0-67.9) % Lymph % (Auto) 17.9 L (21.8-53.1) % Day % (Auto) 10.5 (5.3-12.2) % Eos % (Auto) 2.9 (0.8-7.0) Baso % (Auto) 0.2 (0.1-1.2) % Neut # (Auto) 5.80 H (1.78-5.38) K/mm3 Lymph # (Auto) 1.52 (1.32-3.57) K/mm3 Day # (Auto) 0.89 H (0.30-0.82) K/mm3 Eos # (Auto) 0.25 (0.04-0.54) K/mm3 Baso # (Auto) 0.02 (0.01-0.08) K/mm3 Sodium 138 (136-145) mEq/L Potassium 4.2 (3.5-5.1) mEq/L Chloride 103 (98-107) mEq/L Carbon Dioxide 28 (21-32) mEq/L Anion Gap 11.2 (5-15) BUN 28 H (7-18) mg/dL Creatinine 1.8 H (0.7-1.3) mg/dL Est Cr Clr Drug Dosing 35.70 mL/min Estimated GFR (MDRD) 37 (>60) mL/min BUN/Creatinine Ratio 15.6 (14-18) Glucose 84 (83-115) mg/dL Calcium 9.6 (8.5-10.1) mg/dL Total Bilirubin 0.2 (0.2-1.0) mg/dL AST 22 (15-37) U/L ALT 36 (16-63) U/L Alkaline Phosphatase 184 H (46-116) U/L Total Protein 7.6 (6.4-8.2) g/dl Albumin 3.6 (3.4-5.0) g/dl Globulin 4.0 gm/dL Albumin/Globulin Ratio 0.9 L (1-2) TSH 3rd Generation 0.229 L (0.358-3.74) uIU/mL Urine Color (Yellow) Urine Appearance (Clear) Urine pH (5.0-8.0) Ur Specific Slater (1.005-1.030) Urine Protein (Negative) Urine Glucose (UA) (Negative) Urine Ketones (Negative) Urine Occult Blood (Negative) Urine Nitrite (Negative) Urine Bilirubin (Negative) Urine Urobilinogen (0.2-1.0) Ur Leukocyte Esterase (Negative) Urine RBC (0-5) /hpf Urine WBC (0-5) /hpf Ur Epithelial Cells (0-5) /hpf Urine Bacteria (FEW) /hpf Urine Mucus (FEW) /hpf 10/14/18 Range/Units 19:55 WBC (4.23-9.07) K/mm3 RBC (4.63-6.08) M/mm3 Hgb (13.7-17.5) gm/L Hct (40.1-51.0) % MCV (79.0-92.2) fl MCH (25.7-32.2) pg MCHC (32.2-35.5) g/dl RDW Std Deviation (35.1-43.9) fL Plt Count (163-337) K/mm3 MPV (9.4-12.3) fl Neut % (Auto) (34.0-67.9) % Lymph % (Auto) (21.8-53.1) % Day % (Auto) (5.3-12.2) % Eos % (Auto) (0.8-7.0) Baso % (Auto) (0.1-1.2) % Neut # (Auto) (1.78-5.38) K/mm3 Lymph # (Auto) (1.32-3.57) K/mm3 Day # (Auto) (0.30-0.82) K/mm3 Eos # (Auto) (0.04-0.54) K/mm3 Baso # (Auto) (0.01-0.08) K/mm3 Sodium (136-145) mEq/L Potassium (3.5-5.1) mEq/L Chloride (98-107) mEq/L Carbon Dioxide (21-32) mEq/L Anion Gap (5-15) BUN (7-18) mg/dL Creatinine (0.7-1.3) mg/dL Est Cr Clr Drug Dosing mL/min Estimated GFR (MDRD) (>60) mL/min BUN/Creatinine Ratio (14-18) Glucose (83-115) mg/dL Calcium (8.5-10.1) mg/dL Total Bilirubin (0.2-1.0) mg/dL AST (15-37) U/L ALT (16-63) U/L Alkaline Phosphatase (46-116) U/L Total Protein (6.4-8.2) g/dl Albumin (3.4-5.0) g/dl Globulin gm/dL Albumin/Globulin Ratio (1-2) TSH 3rd Generation (0.358-3.74) uIU/mL Urine Color Yellow (Yellow) Urine Appearance Clear (Clear) Urine pH 5.0 (5.0-8.0) Ur Specific Slater 1.025 (1.005-1.030) Urine Protein Negative (Negative) Urine Glucose (UA) 2+ H (Negative) Urine Ketones Negative (Negative) Urine Occult Blood Negative (Negative) Urine Nitrite Negative (Negative) Urine Bilirubin Negative (Negative) Urine Urobilinogen 0.2 (0.2-1.0) Ur Leukocyte Esterase Negative (Negative) Urine RBC 0-5 (0-5) /hpf Urine WBC 0-5 (0-5) /hpf Ur Epithelial Cells 0-5 (0-5) /hpf Urine Bacteria Not seen (FEW) /hpf Urine Mucus Not seen (FEW) /hpf - Radiology Interpretation Free Text/Narrative:: chest xray shows no acute intrathoracic process. Formal radiology read pending. CT of the head without contrast impression per [facility]: no evidence for acute transcortical infarct, acute intracranial hemorrhage or mass effect. - Re-Assessments/Exams Free Text/Narrative Re-Assessment/Exam: 10/14/18 20:36 I reviewed the labs, EKG and imaging with the patient and his . I am not finding any medical reason that he needs to be admitted tonight. While he is weak, he was able to transfer and stand on his own. I do feel that the best course of action would be for them to contact [facility] of tomorrow about readmission. Their primary care provider can provide him with a referral if needed. Discharge instructions as documented. Departure - Departure Time of Disposition: 20:40 Disposition: Home, Self-Care 01 Condition: Fair Clinical Impression: Weakness - Discharge Information *PRESCRIPTION DRUG MONITORING PROGRAM REVIEWED*: No *COPY OF PRESCRIPTION DRUG MONITORING REPORT IN PATIENT JHONY: No Instructions: Weakness, Qttv-wd-Lpts Referrals: PCP,Not In Area [Primary Care Provider] - Mark Rivas MD [Physician] - Forms: ED Department Discharge Additional Instructions: Contact [facility] tomorrow about the readmission process. Contact Dr. Farmer as needed for assistance with a referral back to [facility]. Recommend getting back into physical therapy. Please return to the ER should your symptoms change or worsen.
--- NOTE | 2018-10-15 09:22 | CT ---
Head CT Technique: Multiple axial sections through the brain were obtained. Intravenous contrast was not utilized. Comparison: No prior intracranial imaging. Findings: Ventricles along with basal cisterns and sulci over the convexities are mildly prominent. Diminished density is noted within the periventricular white matter compatible with small vessel ischemic demyelination change. Similar findings are seen within portions of the basal ganglia. No other abnormal parenchymal densities are seen. No evidence of intracranial hemorrhage. No midline shift or mass effect is seen. Mild atherosclerotic calcification is seen within the carotid siphon and within both vertebral vessels. Bone window settings were reviewed which show no acute calvarial abnormality. Visualized sinuses are clear. Mastoid sinuses are clear. No acute calvarial abnormality is seen. Impression: 1. Senescent change as noted above. 2. No acute intracranial abnormality is identified on noncontrast head CT study. Diagnostic code #2 I agree with preliminary report from [facility], finalized on 10/14/18, 7:22 PM Central Time
--- NOTE | 2018-10-15 09:22 | CR ---
Chest: Portable view of the chest was obtained. Comparison: Prior chest x-ray of 06/21/17. Heart size is normal. Tortuous thoracic aorta is seen. Lungs are clear. Bony structures are grossly intact. Impression: 1. Nothing acute is seen on portable chest x-ray. Diagnostic code #1
== END 2018-10-14 21:00 | disposition home or self-care (01) ==
LOC: JD.ED 16:30
DX: R53.1 Weakness (principal); F32.9 Major depressive disorder, single episode, unspecified; E78.00 Pure hypercholesterolemia, unspecified; K21.9 Gastro-esophageal reflux disease without esophagitis; E03.9 Hypothyroidism, unspecified; E11.9 Type 2 diabetes mellitus without complications; Z88.8 Allergy status to other drugs, medicaments and biological substances; Z79.4 Long term (current) use of insulin; Z79.899 Other long term (current) drug therapy; Z87.891 Personal history of nicotine dependence
CPT/HCPCS: 36415; 51701; 70450; 70450-26; 71045; 71045-26; 80053; 81001; 84443; 85025; 93005; 99284-25

== ENCOUNTER 2018-10-30 18:28 | Inpatient (IN) | payer MEDICARE, BC, OTHER ==
[2018-10-30] MEDS ORDERED: Sodium Chloride 0.9% 1,000 ML IV ONE ×2 (19:33→22:31)
[2018-10-30] MEDS ORDERED: Insulin Regular, Human 100 Units/ML 3 ML Vial IV STA (19:34)
--- NOTE | 2018-10-30 19:36 | EDM.PDOC ---
ED HPI GENERAL MEDICAL PROBLEM - General Chief Complaint: General Stated Complaint: SENT BY GINETTE Time Seen by Provider: 10/30/18 19:06 Source of Information: Reports: Significant Other (Fianc) History Limitations: Reports: Altered Mental Status (Lethargic - did not contribute to history at all) - History of Present Illness INITIAL COMMENTS - FREE TEXT/NARRATIVE: According to the patient's very pleasant fianc, from whom the entire history is acquired, the patient underwent lumbar surgery at [facility] in early July. He then underwent rehabilitation and physical therapy at [place], however, he was either released or checked himself out on 10/05/2018. The patient's fianc states that since coming home from [place], the patient has been weak, and has fallen several times a day. He struck his head when he fell today, although he was not knocked unconscious. She states that he checks his blood sugar several times a day, with typical blood glucoses being between 180 and the low-200s, however, his blood glucoses have been in the 300-400 range over the past couple of weeks. The patient did not check his blood sugar today, which was unusual for him. She states that he was very thirsty today. According to his fiance, he saw his PCP after surgery once, while at [place], then a second time earlier today. Blood work was obtained, the patient was discharged home, however, when the blood results returned to his PCP, the patient was instructed to go to the ER. The blood results were forwarded to us: His CBC was remarkable for an H/H of 11.6/35.3, and was otherwise unremarkable. His CMP was remarkable for sodium of 129, potassium 6.3, and bicarbonate normal at 25. His BUN/Cr were elevated at 33/2.62, and his blood glucose elevated at 911. His aqua phosphatase was elevated at 272. The remainder of his CMP was unremarkable. His hemoglobin A1c was elevated at 10.5%. Here in the ED, the patient appears to be comfortable, although he is lethargic and prefers to sleep. The patient's PCP is Dr. Mark Rivas. - Related Data Allergies Allergy/AdvReac Type Severity Reaction Status Date / Time alprazolam Allergy Change Verified 10/30/18 19:16 Mental Status diazepam Allergy Change Verified 10/30/18 19:16 Mental Status trazodone Allergy Change Verified 10/30/18 19:16 Mental Status zolpidem [Zolpidem] AdvReac Mild Change Verified 10/14/18 16:44 Mental Status Home Meds: Home Meds Insulin Glarg,Human.Rec.Analog [Lantus] 25 units SUBCUT QAM 06/21/17 [History] Levothyroxine 150 mcg PO QAM 06/21/17 [History] Polyethylene Glycol 3350 [MiraLAX] 17 gm PO DAILY PRN 08/07/18 [History] fentaNYL [Fentanyl] 50 mcg TRDERM ASDIRECTED 08/07/18 [History] Tamsulosin [Flomax] 0.4 mg PO PCBREAKFAST cap.er 08/12/18 [Rx] buPROPion [Wellbutrin SR] 100 mg PO DAILY tab.sr 08/12/18 [Rx] Gabapentin [Neurontin] 300 mg PO TID 10/14/18 [History] Melatonin 5 mg PO QPM 10/14/18 [History] Potassium Chloride [Klor-Con M20] 20 meq PO DAILY 10/14/18 [History] atorvaSTATin [Lipitor] 20 mg PO BEDTIME 10/14/18 [History] Aspirin [Halfprin] 81 mg PO DAILY 10/30/18 [History] Cholecalciferol (Vitamin D3) [Vitamin D3] 1,000 unit PO DAILY 10/30/18 [History] Citalopram [Citalopram HBr] 20 mg PO DAILY 10/30/18 [History] DULoxetine [Cymbalta] 40 mg PO DAILY 10/30/18 [History] Finasteride [Proscar] 5 mg PO DAILY 10/30/18 [History] Hydrocodone/Acetaminophen [Hydrocodon-Acetaminophn 10-325] 1 tab PO Q4H PRN [History] Insulin Aspart [NovoLOG] 5 - 10 unit SQ TID 10/30/18 [History] Insulin Lispro [Insulin Lispro Kwikpen U-100] 3 - 21 units SQ QID 10/30/18 [ History] Lidocaine 5% [Lidoderm 5%] 1 patch TOP DAILY 10/30/18 [History] Lisinopril 2.5 mg PO DAILY 10/30/18 [History] Ondansetron [Zofran ODT] 4 mg PO Q6H PRN 10/30/18 [History] Ranitidine [Zantac] 150 mg PO BEDTIME 10/30/18 [History] SUMAtriptan Succinate [Imitrex] 100 mg PO Q2H PRN 10/30/18 [History] Sennosides/Docusate Sodium [Senna-Docusate Sodium Tablet] 2 tab PO BID 10/30/18 [History] Sildenafil [Revatio] 100 mg PO DAILY PRN 10/30/18 [History] diphenhydrAMINE [Benadryl] 25 mg PO QID PRN 10/30/18 [History] Past Medical History HEENT History: Reports: Hard of Hearing Other HEENT History: wears eyeglasses. Cardiovascular History: Reports: High Cholesterol, Hypertension Respiratory History: Reports: Sleep Apnea (noncompliant with CPAP) Gastrointestinal History: Reports: GERD Genitourinary History: Reports: BPH Musculoskeletal History: Reports: Osteoarthritis Neurological History: Reports: Neuropathy, Diabetic, Other (See Below) ( Restless leg syndrome) Psychiatric History: Reports: Addiction (Opioid dependancy), Depression, Other ( See Below) (Insomnia) Endocrine/Metabolic History: Reports: Diabetes, Type II, Hypothyroidism - Infectious Disease History Infectious Disease History: Reports: Chicken Pox, Measles, Mumps - Past Surgical History GI Surgical History: Reports: Cholecystectomy (Jan 2018), Colonoscopy, EGD Neurological Surgical History: Reports: Lumbar Spine (x 5, incl discectomy & fusion) Social & Family History - Family History Family Medical History: Noncontributory - Tobacco Use Smoking Status *Q: Former Smoker Years of Tobacco use: 20 Packs/Tins Daily: 1 Month/Year Tobacco Last Used: Quit 1994 - Caffeine Use Caffeine Use: Reports: Coffee, Soda - Alcohol Use Alcohol Use History: Yes Alcohol Use Frequency: Rarely - Recreational Drug Use Recreational Drug Use: No - Living Situation & Occupation Living situation: Reports: , with Significant Other (Fiance) Occupation: Retired ED ROS GENERAL - Review of Systems Review Of Systems: ROS reveals no pertinent complaints other than HPI. GI/Abdominal: Reports: Constipation (chronic) Musculoskeletal: Reports: Back Pain (chronic) ED EXAM, GENERAL - Physical Exam Exam: See Below Exam Limited By: No Limitations General Appearance: No Apparent Distress, Lethargic (copperates with exam) Eye Exam: Bilateral Eye: EOMI, Normal Inspection Ears: Normal External Exam Nose: Normal Inspection Throat/Mouth: Normal Inspection, Normal Lips, Normal Voice, No Airway Compromise Head: Atraumatic (no visible or palpable injury), Normocephalic Neck: Normal Inspection, Full Range of Motion Respiratory/Chest: No Respiratory Distress, Lungs Clear, Normal Breath Sounds, No Accessory Muscle Use Cardiovascular: Normal Peripheral Pulses, Regular Rate, Rhythm, No Edema, No Gallop, No JVD, No Murmur, No Rub Peripheral Pulses: 4+: Radial (L), Radial (R) GI/Abdominal: Normal Bowel Sounds, Soft, Non-Tender, No Organomegaly, No Distention, No Abnormal Bruit, No Mass (Male) Exam: Deferred Rectal (Males) Exam: Deferred Back Exam: Normal Inspection, Full Range of Motion, NT Extremities: Normal Inspection, Normal Range of Motion, No Pedal Edema, Normal Capillary Refill Neurological: No Motor/Sensory Deficits Skin Exam: Warm, Dry, Intact, Normal Color, No Rash EKG INTERPRETATION EKG Date: 10/30/18 Time: 21:16 Rhythm: NSR Rate (Beats/Min): 80 [place]: LAD-Left [place] Deviation P-Wave: Present QRS: Normal (Late transition) ST-T: Normal QT: Normal Comparison: No Change (10/14/2018) Course - Vital Signs Last Recorded V/S: Last Vital Signs Temp 36.8 C 10/30/18 19:01 Pulse 88 10/30/18 19:01 Resp 22 H 10/30/18 19:01 BP 136/71 10/30/18 19:01 Pulse Ox 97 10/30/18 19:01 - Orders/Labs/Meds Orders: Active Orders 24 hr Category Date Time Status BIPAP Adult [RT BiPAP/CPAP] [RC] ASDIRECTED Care 10/30/18 20:12 Active Blood Glucose Check, Bedside [RC] Q1HR Care 10/30/18 21:38 Active EKG Documentation Completion [RC] STAT Care 10/30/18 19:14 Active Chest 1V Frontal [CR] Stat Exams 10/30/18 19:14 Taken CULTURE BLOOD [BC] Stat Lab 10/30/18 19:40 Received CULTURE BLOOD [BC] Stat Lab 10/30/18 19:57 Received REFLEX LACTIC ACID YES OR NO [CHEM] Routine Lab 10/30/18 19:48 Received Insulin Regular, Human [HumuLIN R] 100 unit Med 10/30/18 19:45 Active Sodium Chloride 0.9% [Normal Saline] 99 ml IV TITRATE Sodium Chloride 0.9% [Normal Saline] 1,000 ml Med 10/30/18 22:31 Ordered IV ONETIME Blood Culture x2 Reflex Set [OM.PC] Stat Oth 10/30/18 19:14 Ordered Medication Orders Insulin Human Regular 100 unit (/ Sodium Chloride) 100 mls @ 7.03 mls/hr IV TITRATE KARMEN; Protocol Last Admin: 10/30/18 20:11 Dose: 0.1 units/kg/hr, 7.03 mls/hr Sodium Chloride (Normal Saline) 1,000 mls @ 999 mls/hr IV ONETIME ONE Stop: 10/30/18 23:31 Last Admin: 10/30/18 22:46 Dose: 999 mls/hr Labs: Laboratory Tests 10/30/18 10/30/18 10/30/18 Range/Units 19:00 19:00 19:00 WBC 8.58 (4.23-9.07) K/mm3 RBC 3.83 L (4.63-6.08) M/mm3 Hgb 11.0 L (13.7-17.5) gm/dl Hct 33.3 L (40.1-51.0) % MCV 86.9 (79.0-92.2) fl MCH 28.7 (25.7-32.2) pg MCHC 33.0 (32.2-35.5) g/dl RDW Std Deviation 38.2 (35.1-43.9) fL Plt Count 298 (163-337) K/mm3 MPV 9.2 L (9.4-12.3) fl Neutrophils % (Manual) 85 H (40-60) % Band Neutrophils % 0 (0-10) % Lymphocytes % (Manual) 9 L (20-40) % Atypical Lymphs % 0 % Monocytes % (Manual) 5 (2-10) % Eosinophils % (Manual) 1 (0.8-7.0) % Basophils % (Manual) 0 L (0.2-1.2) Platelet Estimate Adequate RBC Morph Comment Normal Puncture Site ABG pH (7.35-7.45) ABG pCO2 (35.0-45.0) mmHg ABG pO2 (80.0-100.0) mmHg ABG HCO3 (22.0-26.0) meq/L ABG O2 Saturation (96.0-97.0) % ABG Base Excess (-2-2.0) Melchor Test A-a Gradient mmHg O2 Delivery Device Oxygen Flow Rate FiO2 (21.00-100.00) % Sodium 127 L D (136-145) mEq/L Potassium 5.7 H D (3.5-5.1) mEq/L Chloride 90 L D (98-107) mEq/L Carbon Dioxide 25 (21-32) mEq/L Anion Gap 17.7 H (5-15) BUN 36 H (7-18) mg/dL Creatinine 2.5 H (0.7-1.3) mg/dL Est Cr Clr Drug Dosing 25.84 mL/min Estimated GFR (MDRD) 26 (>60) mL/min BUN/Creatinine Ratio 14.4 (14-18) Glucose 972 H* (83-115) mg/dL Lactic Acid 5.3 H (0.4-2.0) mmol/L Calcium 9.6 (8.5-10.1) mg/dL Magnesium 2.1 (1.8-2.4) mg/dl Total Bilirubin 0.2 (0.2-1.0) mg/dL AST 11 L (15-37) U/L ALT 30 (16-63) U/L Alkaline Phosphatase 276 H (46-116) U/L Troponin I 0.020 (0.00-0.056) ng/mL Total Protein 7.5 (6.4-8.2) g/dl Albumin 3.2 L (3.4-5.0) g/dl Globulin 4.3 gm/dL Albumin/Globulin Ratio 0.7 L (1-2) Urine Color (Yellow) Urine Appearance (Clear) Urine pH (5.0-8.0) Ur Specific [place] (1.005-1.030) Urine Protein (Negative) Urine Glucose (UA) (Negative) Urine Ketones (Negative) Urine Occult Blood (Negative) Urine Nitrite (Negative) Urine Bilirubin (Negative) Urine Urobilinogen (0.2-1.0) Ur Leukocyte Esterase (Negative) Urine RBC (0-5) /hpf Urine WBC (0-5) /hpf Ur Epithelial Cells (0-5) /hpf Urine Bacteria (FEW) /hpf Urine Mucus (FEW) /hpf Ketones (0.0-0.3) mM 10/30/18 10/30/18 10/30/18 Range/Units 19:40 20:03 21:10 WBC (4.23-9.07) K/mm3 RBC (4.63-6.08) M/mm3 Hgb (13.7-17.5) gm/dl Hct (40.1-51.0) % MCV (79.0-92.2) fl MCH (25.7-32.2) pg MCHC (32.2-35.5) g/dl RDW Std Deviation (35.1-43.9) fL Plt Count (163-337) K/mm3 MPV (9.4-12.3) fl Neutrophils % (Manual) (40-60) % Band Neutrophils % (0-10) % Lymphocytes % (Manual) (20-40) % Atypical Lymphs % % Monocytes % (Manual) (2-10) % Eosinophils % (Manual) (0.8-7.0) % Basophils % (Manual) (0.2-1.2) Platelet Estimate RBC Morph Comment Puncture Site Rt radial ABG pH 7.32 L (7.35-7.45) ABG pCO2 48.8 H (35.0-45.0) mmHg ABG pO2 63.0 L (80.0-100.0) mmHg ABG HCO3 24.1 (22.0-26.0) meq/L ABG O2 Saturation 91.4 L (96.0-97.0) % ABG Base Excess -1.7 (-2-2.0) Melchor Test Positive A-a Gradient 27 mmHg O2 Delivery Device Room air Oxygen Flow Rate 0.0 FiO2 21.00 (21.00-100.00) % Sodium (136-145) mEq/L Potassium (3.5-5.1) mEq/L Chloride (98-107) mEq/L Carbon Dioxide (21-32) mEq/L Anion Gap (5-15) BUN (7-18) mg/dL Creatinine (0.7-1.3) mg/dL Est Cr Clr Drug Dosing mL/min Estimated GFR (MDRD) (>60) mL/min BUN/Creatinine Ratio (14-18) Glucose (83-115) mg/dL Lactic Acid (0.4-2.0) mmol/L Calcium (8.5-10.1) mg/dL Magnesium (1.8-2.4) mg/dl Total Bilirubin (0.2-1.0) mg/dL AST (15-37) U/L ALT (16-63) U/L Alkaline Phosphatase (46-116) U/L Troponin I (0.00-0.056) ng/mL Total Protein (6.4-8.2) g/dl Albumin (3.4-5.0) g/dl Globulin gm/dL Albumin/Globulin Ratio (1-2) Urine Color Yellow (Yellow) Urine Appearance Clear (Clear) Urine pH 5.5 (5.0-8.0) Ur Specific [place] 1.010 (1.005-1.030) Urine Protein Negative (Negative) Urine Glucose (UA) 2+ H (Negative) Urine Ketones Trace H (Negative) Urine Occult Blood Negative (Negative) Urine Nitrite Negative (Negative) Urine Bilirubin Negative (Negative) Urine Urobilinogen 0.2 (0.2-1.0) Ur Leukocyte Esterase Negative (Negative) Urine RBC 0-5 (0-5) /hpf Urine WBC 0-5 (0-5) /hpf Ur Epithelial Cells 0-5 (0-5) /hpf Urine Bacteria Few (FEW) /hpf Urine Mucus Few (FEW) /hpf Ketones 0.21 (0.0-0.3) mM 10/30/18 Range/Units 21:40 WBC (4.23-9.07) K/mm3 RBC (4.63-6.08) M/mm3 Hgb (13.7-17.5) gm/dl Hct (40.1-51.0) % MCV (79.0-92.2) fl MCH (25.7-32.2) pg MCHC (32.2-35.5) g/dl RDW Std Deviation (35.1-43.9) fL Plt Count (163-337) K/mm3 MPV (9.4-12.3) fl Neutrophils % (Manual) (40-60) % Band Neutrophils % (0-10) % Lymphocytes % (Manual) (20-40) % Atypical Lymphs % % Monocytes % (Manual) (2-10) % Eosinophils % (Manual) (0.8-7.0) % Basophils % (Manual) (0.2-1.2) Platelet Estimate RBC Morph Comment Puncture Site ABG pH (7.35-7.45) ABG pCO2 (35.0-45.0) mmHg ABG pO2 (80.0-100.0) mmHg ABG HCO3 (22.0-26.0) meq/L ABG O2 Saturation (96.0-97.0) % ABG Base Excess (-2-2.0) Melchor Test A-a Gradient mmHg O2 Delivery Device Oxygen Flow Rate FiO2 (21.00-100.00) % Sodium 128 L (136-145) mEq/L Potassium 4.1 D (3.5-5.1) mEq/L Chloride 94 L (98-107) mEq/L Carbon Dioxide 23 (21-32) mEq/L Anion Gap 15.1 H (5-15) BUN 38 H (7-18) mg/dL Creatinine 2.4 H (0.7-1.3) mg/dL Est Cr Clr Drug Dosing 26.92 mL/min Estimated GFR (MDRD) 27 (>60) mL/min BUN/Creatinine Ratio 15.8 (14-18) Glucose 710 H* (83-115) mg/dL Lactic Acid (0.4-2.0) mmol/L Calcium 9.0 (8.5-10.1) mg/dL Magnesium (1.8-2.4) mg/dl Total Bilirubin (0.2-1.0) mg/dL AST (15-37) U/L ALT (16-63) U/L Alkaline Phosphatase (46-116) U/L Troponin I (0.00-0.056) ng/mL Total Protein (6.4-8.2) g/dl Albumin (3.4-5.0) g/dl Globulin gm/dL Albumin/Globulin Ratio (1-2) Urine Color (Yellow) Urine Appearance (Clear) Urine pH (5.0-8.0) Ur Specific [place] (1.005-1.030) Urine Protein (Negative) Urine Glucose (UA) (Negative) Urine Ketones (Negative) Urine Occult Blood (Negative) Urine Nitrite (Negative) Urine Bilirubin (Negative) Urine Urobilinogen (0.2-1.0) Ur Leukocyte Esterase (Negative) Urine RBC (0-5) /hpf Urine WBC (0-5) /hpf Ur Epithelial Cells (0-5) /hpf Urine Bacteria (FEW) /hpf Urine Mucus (FEW) /hpf Ketones (0.0-0.3) mM Meds: Medications Generic Name Dose Route Start Last Admin Trade Name Freq PRN Reason Stop Dose Admin Insulin Human Regular 100 unit 100 mls @ 7.03 mls/hr 10/30/18 19:45 10/30/18 20:11 / Sodium Chloride IV 0.1 units/kg/hr TITRATE KARMEN 7.03 mls/hr Administration Protocol 0.1 UNITS/KG/HR Sodium Chloride 1,000 mls @ 999 mls/hr 10/30/18 22:31 10/30/18 22:46 Normal Saline IV 10/30/18 23:31 999 mls/hr ONETIME ONE Administration Discontinued Medications Generic Name Dose Route Start Last Admin Trade Name Freq PRN Reason Stop Dose Admin Sodium Chloride 1,000 mls @ 999 mls/hr 10/30/18 19:33 10/30/18 20:08 Normal Saline IV 10/30/18 20:33 999 mls/hr ONETIME ONE Administration Insulin Human Regular 10 unit 10/30/18 19:34 10/30/18 20:08 Humulin R IV 10/30/18 19:35 10 units ONETIME STA Administration - Re-Assessments/Exams Free Text/Narrative Re-Assessment/Exam: 10/30/18 19:33 As per the HPI, lab work drawn earlier today indicates that the patient is hyperglycemic, with a blood glucose of 911. Because of his history of falls, including striking his head today, I have ordered a CT scan of his head without contrast. I have ordered an extensive workup that includes an ABG and a ketone level. In the meantime, the patient will be started on aggressive IV hydration, a small dose of initial insulin, and an insulin drip. He will require admission to the ICU, but it is my understanding at this time that no ICU beds are available at this facility. That may change by the time we are ready for disposition, but if no ICU beds are available, then he will require transfer back to [facility]. 10/30/18 20:13 Notified of the respiratory therapist that when he was drawing the blood gas, the patient appeared to be having periods of apnea while sleeping. The patient does have a history of obstructive sleep apnea, noncompliant with his CPAP. I asked the respiratory therapist to place the patient on BiPAP. We will start at 10/4. 10/30/18 20:56 Portable chest radiograph appears to be grossly normal. The cardiac silhouette is within normal limits. No pulmonary vascular congestion. No pleural effusions seen on this AP view. No focal infiltrate. No pneumothorax. Formal read per the Radiologist pending. 10/30/18 21:04 CT of the head without contrast is read by Dr. Jj as: 1. Senescent change as noted above. No change is identified from previous study. 2. No acute intracranial abnormality is appreciated. 10/30/18 22:04 The patient's CBC is remarkable for an H/H mildly depressed at 11.0/33.3. The remainder of his CBC is unremarkable. The patient's CMP is remarkable for a sodium depressed at 127. His potassium is elevated at 5.7. His bicarbonate is normal at 25. His BUN/Cr are elevated at 36/ 2.5, and his blood glucose is elevated at 972. The remainder of his CMP is unremarkable. His magnesium level is within normal limits at 2.1. His lactic acid level is elevated at 5.3. His troponin is within normal limits at 0.020. His ketones are within normal limits at 0.21. His ABG demonstrates an acute respiratory acidosis with mild hypoxemia. His urinalysis is unremarkable. The patient's sodium corrects to 138. His BUN/Cr were 28/1.8 on 10/14/2018, indicating that this is an [id number] renal failure. Because the patient is not acidotic, his elevated lactic acid appears to be a type B lactic acidosis, due to diabetes, not due to sepsis. I have ordered a BMP, in order to check on the rate of decline of the patient's blood glucose, and to check on his potassium level. 10/30/18 22:19 I was informed that we do have an ICU bed available. Case discussed with Dr. Sun at 22:17. He accepted the patient for admission to the ICU. Departure - Departure Time of Disposition: 22:19 Disposition: Admitted As Inpatient 67 Condition: Fair Clinical Impression: Hyperglycemia due to type 2 diabetes mellitus, [id number] renal failure, Obstructive sleep apnea - Discharge Information *PRESCRIPTION DRUG MONITORING PROGRAM REVIEWED*: Not Applicable *COPY OF PRESCRIPTION DRUG MONITORING REPORT IN PATIENT JHONY: Not Applicable Referrals: Mark Rivas MD [Primary Care Provider] - Forms: ED Department Discharge - My Orders Last 24 Hours: My Active Orders 10/30/18 19:14 EKG Documentation Completion [RC] STAT Chest 1V Frontal [CR] Stat Blood Culture x2 Reflex Set [OM.PC] Stat 10/30/18 19:40 CULTURE BLOOD [BC] Stat 10/30/18 19:45 Insulin Regular, Human [HumuLIN R] 100 unit Sodium Chloride 0.9% [Normal Saline] 99 ml IV TITRATE 10/30/18 19:48 REFLEX LACTIC ACID YES OR NO [CHEM] Routine 10/30/18 19:57 CULTURE BLOOD [BC] Stat 10/30/18 20:12 BIPAP Adult [RT BiPAP/CPAP] [RC] ASDIRECTED 10/30/18 21:38 Blood Glucose Check, Bedside [RC] Q1HR 10/30/18 22:31 Sodium Chloride 0.9% [Normal Saline] 1,000 ml IV ONETIME - Assessment/Plan Last 24 Hours: My Active Orders 10/30/18 19:14 EKG Documentation Completion [RC] STAT Chest 1V Frontal [CR] Stat Blood Culture x2 Reflex Set [OM.PC] Stat 10/30/18 19:40 CULTURE BLOOD [BC] Stat 10/30/18 19:45 Insulin Regular, Human [HumuLIN R] 100 unit Sodium Chloride 0.9% [Normal Saline] 99 ml IV TITRATE 10/30/18 19:48 REFLEX LACTIC ACID YES OR NO [CHEM] Routine 10/30/18 19:57 CULTURE BLOOD [BC] Stat 10/30/18 20:12 BIPAP Adult [RT BiPAP/CPAP] [RC] ASDIRECTED 10/30/18 21:38 Blood Glucose Check, Bedside [RC] Q1HR 10/30/18 22:31 Sodium Chloride 0.9% [Normal Saline] 1,000 ml IV ONETIME
--- NOTE | 2018-10-30 20:55 | CT ---
Head CT Technique: Multiple axial sections through the brain were obtained. Intravenous contrast was not utilized. Comparison: Prior head CT study of 10/14/18. Findings: Ventricles along with basal cisterns and sulci over convexities are mildly prominent. Diminished density is noted within the periventricular white matter which is compatible with small vessel ischemic demyelination change. Mild areas of diminished density are noted within the base basal ganglia compatible with small vessel ischemic demyelination change. No other abnormal parenchymal densities are seen. No evidence of intracranial hemorrhage. No midline shift or mass effect is seen. Bone window settings were reviewed which shows the visualized paranasal sinuses to appear clear. Visualized mastoid sinuses are also clear. No acute calvarial abnormality is seen. Impression: 1. Senescent change as noted above. No change is identified from previous study. 2. No acute intracranial abnormality is appreciated. Diagnostic code #2
[2018-10-30] MEDS ORDERED: Polyethylene Glycol 3350 Powder 17 GM Packet PO PRN ×2 (23:35→23:43)
[2018-10-30] MEDS ORDERED: HYDROmorphone 0.5 MG/0.5 ML Syringe IVPUSH PRN (23:35)
[2018-10-30] MEDS ORDERED: LORazepam 2 MG/ML SDV IV PRN (23:35)
[2018-10-30] MEDS ORDERED: Ondansetron 4 MG/2 ML SDV IV PRN (23:35)
[2018-10-30] MEDS ORDERED: Acetaminophen/HYDROcodone 325-5 MG Tab PO PRN (23:35)
[2018-10-30] MEDS ORDERED: Docusate Sodium 100 MG Cap PO PRN (23:35)
[2018-10-30] MEDS ORDERED: Bisacodyl 5 MG Tab PO PRN (23:35)
[2018-10-30] MEDS ORDERED: Promethazine 6.25 MG in Sodium Chloride 0.9% 50 ML IV PRN (23:35)
[2018-10-30] MEDS ORDERED: Albuterol/Ipratropium 3.0-0.5 MG/3 ML Neb Soln NEB PRN (23:35)
[2018-10-30] MEDS ORDERED: Acetaminophen 325 MG Tab PO PRN (23:35)
[2018-10-30] MEDS ORDERED: Sildenafil 20 MG Tab PO PRN (23:43)
[2018-10-30] MEDS ORDERED: Non-Formulary Medication 1 Each (Hydrocodone/Acetaminophen 1 TAB) PO PRN (23:43)
[2018-10-30] MEDS ORDERED: Ondansetron 4 MG Tab.DIS PO PRN (23:43)
[2018-10-30] MEDS ORDERED: SUMAtriptan 50 MG Tab PO PRN (23:43)
[2018-10-30] MEDS ORDERED: Lactated Ringers 1,000 ML IV SCH (23:45)
[2018-10-31 00:34] LABS: VITAMIN D,25-HYDROXY 19.6 ng/ml (30.0-100.0)
[2018-10-31 00:34] LABS: HEMOGLOBIN A1C 10.5 % (4.50-6.20)
[2018-10-31] MEDS ORDERED: Levothyroxine 50 MCG Tab PO SCH (06:00)
--- NOTE | 2018-10-31 07:25 | CR ---
Chest: Portable view of the chest was obtained. Comparison: Prior chest x-ray of 10/14/18. Heart size is normal. Tortuous thoracic aorta is seen. Lungs are clear with no acute parenchymal change. Bony structures are grossly intact. Surgical clips are noted from prior cholecystectomy. Impression: 1. Findings which are believed to be incidental. Nothing acute is appreciated on portable chest x-ray. Diagnostic code #2
[2018-10-31] MEDS ORDERED: Sodium Chloride 0.9% 1,000 ML IV SCH (09:00)
[2018-10-31] MEDS ORDERED: Pantoprazole 40 MG Vial IV SCH (09:00)
[2018-10-31] MEDS: Cholecalciferol (Vitamin D3) 25 MCG Tab PO SCH (09:19)
[2018-10-31] MEDS: Pantoprazole 40 MG Tab.CR PO SCH ×2 (09:19→21:31)
[2018-10-31] MEDS: buPROPion 100 MG Tab.SR PO SCH (09:20)
[2018-10-31] MEDS: Citalopram 20 MG Tab PO SCH (09:20)
[2018-10-31] MEDS: Finasteride 5 MG Tab PO SCH (09:20)
[2018-10-31] MEDS: Aspirin 81 MG Tab.EC PO SCH (09:20)
[2018-10-31] MEDS: Insulin Glarg,Human.Rec.Analog 100 UNIT/ML ML SUBCUT SCH ×2 (09:20→18:38)
[2018-10-31] MEDS: Tamsulosin 0.4 MG Cap.ER PO SCH (09:20)
[2018-10-31] MEDS: Lidocaine 4% 1 each Patch TOP SCH (09:21)
--- NOTE | 2018-10-31 11:49 | US ---
Renal ultrasound: Multiple real-time images of the kidneys were obtained. Kidneys show no hydronephrosis or mass. Small hyperechoic area is seen within the right kidney possibly due to small cortical calcification. This does not appear to represent an actual nonobstructing calculus. There is diffuse vascular calcification noted within both kidneys. Small cyst is noted within the upper right kidney measuring 1.1 cm. Resistivity indices are increased within both kidneys compatible with medical renal disease. Prevoid bladder volume is 403 mL and post void bladder volume is 38 mL. Impression: 1. Vascular calcification within both kidneys. Other findings believed to be incidental. 2. No hydronephrosis is seen of either kidney. 3. Elevated resistivity indices within both kidneys compatible with medical renal disease. 4. Postvoid residual within the bladder of 38 mL. Diagnostic code #3
[2018-10-31] MEDS ORDERED: Insulin Glarg,Human.Rec.Analog 100 UNIT/ML ML ONE (12:08)
--- NOTE | 2018-10-31 15:51 | PCM.HP.2 ---
<Marcos Stern - Last Filed: 10/31/18 15:40> H&P History of Present Illness - General Date of Service: 10/31/18 Admit Problem/Dx: Admission Diagnosis/Problem Admission Diagnosis/Problem Hyperglycemia without ketosis Source of Information: Patient, EMS Notes Reviewed, Family History Limitations: Reports: Other (Patient history inconsistent with family history) - History of Present Illness Initial Comments - Free Text/Narative: Pt is 73 yo male with history of DM Type II, hyperlipidemia, hypertension, sleep apnea, GERD, BPH, osteoarthritis, diabetic neuropathy, depression, opioid addiction, and hypothyroidism, admitted today from ED with complaints of altered mental status and hyperglycemia. Pt states that yesterday 10/30/18 he saw his PCP for routine lab work, and was notified by the PCP's office that his labs were abnormal and he should come to the ED. Upon presentation to the ED the patient had a blood glucose of 911 and was obtunded. The entire history was received from the patient's fiance. She states the patient had a back surgery in early July, and stayed at [facility] for rehabilitation until 10/05/09. Since returning home, he has fallen down several times, including today. He has not lost consciousness. Today the patient is alert and oriented, but his recall is poor. He states that he has been feeling well preceding this event. He states he has been eating and drinking well, and only missed 2 doses of insulin after his meals in the last 2 days. He states that he did not feel any indication that his blood sugar may be high. Patient's history appears to be unreliable. He was unsure as to the date of his back surgery, stating it may have been at the end of August, as well as being unsure of when he returned to his home. He states the only medicines he takes are insulin and pain medication PRN. In reality, he takes numerous medications on a daily basis, many of which are sedating. His social history has also been presented to different staff members in different ways. He did not seem to recall the events leading up to his admission until he was prompted. Labs drawn in ED show Na+ 127, K+ 5.7, anion gap 17.7, BUN 36, Creatinine 2.5, glucose 972, lactic acid 5.3, alk phos 276. ABG shows pH of 7.32, pCO2 of 68.8, pO2 63. UA shows trace ketones and 2+ glucose. CXR and CT show no acute changes. Generalized Pain Score (Numeric/FACES): 0 - Related Data Allergies/Adverse Reactions: Allergies Allergy/AdvReac Type Severity Reaction Status Date / Time zolpidem [Zolpidem] AdvReac Mild Change Verified 10/14/18 16:44 Mental Status alprazolam AdvReac Change Verified 10/31/18 07:08 Mental Status diazepam AdvReac Change Verified 10/31/18 07:08 Mental Status trazodone AdvReac Change Verified 10/31/18 07:08 Mental Status Home Medications: Home Meds Insulin Glarg,Human.Rec.Analog [Lantus] 25 units SUBCUT QAM 06/21/17 [History] Levothyroxine 150 mcg PO QAM 06/21/17 [History] Polyethylene Glycol 3350 [MiraLAX] 17 gm PO DAILY PRN 08/07/18 [History] fentaNYL [Fentanyl] 50 mcg TRDERM ASDIRECTED 08/07/18 [History] Tamsulosin [Flomax] 0.4 mg PO PCBREAKFAST cap.er 08/12/18 [Rx] buPROPion [Wellbutrin SR] 100 mg PO DAILY tab.sr 08/12/18 [Rx] Gabapentin [Neurontin] 300 mg PO TID 10/14/18 [History] Melatonin 5 mg PO QPM 10/14/18 [History] Potassium Chloride [Klor-Con M20] 20 meq PO DAILY 10/14/18 [History] atorvaSTATin [Lipitor] 20 mg PO BEDTIME 10/14/18 [History] Aspirin [Halfprin] 81 mg PO DAILY 10/30/18 [History] Cholecalciferol (Vitamin D3) [Vitamin D3] 1,000 unit PO DAILY 10/30/18 [History] Citalopram [Citalopram HBr] 20 mg PO DAILY 10/30/18 [History] DULoxetine [Cymbalta] 40 mg PO DAILY 10/30/18 [History] Finasteride [Proscar] 5 mg PO DAILY 10/30/18 [History] Hydrocodone/Acetaminophen [Hydrocodon-Acetaminophn 10-325] 1 tab PO Q4H PRN [History] Insulin Aspart [NovoLOG] 5 - 10 unit SQ TID 10/30/18 [History] Insulin Lispro [Insulin Lispro Kwikpen U-100] 3 - 21 units SQ QID 10/30/18 [ History] Lidocaine 5% [Lidoderm 5%] 1 patch TOP DAILY 10/30/18 [History] Lisinopril 2.5 mg PO DAILY 10/30/18 [History] Ondansetron [Zofran ODT] 4 mg PO Q6H PRN 10/30/18 [History] Ranitidine [Zantac] 150 mg PO BEDTIME 10/30/18 [History] SUMAtriptan Succinate [Imitrex] 100 mg PO Q2H PRN 10/30/18 [History] Sennosides/Docusate Sodium [Senna-Docusate Sodium Tablet] 2 tab PO BID 10/30/18 [History] Sildenafil [Revatio] 100 mg PO DAILY PRN 10/30/18 [History] diphenhydrAMINE [Benadryl] 25 mg PO QID PRN 10/30/18 [History] Past Medical History HEENT History: Reports: Hard of Hearing Other HEENT History: wears eyeglasses. Cardiovascular History: Reports: High Cholesterol, Hypertension Respiratory History: Reports: Sleep Apnea Other Respiratory History: states has C-PAP but doesn't use it due to "It's so loud." Gastrointestinal History: Reports: GERD Genitourinary History: Reports: BPH Other Genitourinary History: stress incontinence Musculoskeletal History: Reports: Osteoarthritis Neurological History: Reports: Neuropathy, Diabetic, Other (See Below) Psychiatric History: Reports: Addiction, Depression, Other (See Below) Other Psychiatric History: insomnia Endocrine/Metabolic History: Reports: Diabetes, Type II, Hypothyroidism - Infectious Disease History Infectious Disease History: Reports: Chicken Pox, Measles, Mumps - Past Surgical History GI Surgical History: Reports: Cholecystectomy, Colonoscopy, EGD Neurological Surgical History: Reports: Lumbar Spine Social & Family History - Family History Family Medical History: Noncontributory - Tobacco Use Smoking Status *Q: Former Smoker Years of Tobacco use: 20 Packs/Tins Daily: 1 Used Tobacco, but Quit: Yes Month/Year Tobacco Last Used: 20 years ago - Caffeine Use Caffeine Use: Reports: Coffee, Soda - Recreational Drug Use Recreational Drug Use: Yes - Living Situation & Occupation Living situation: Reports: , with Significant Other (Fiance) Occupation: Retired H&P Review of Systems - Review of Systems: Review Of Systems: See Below General: Reports: Weakness, Fatigue HEENT: Reports: No Symptoms Pulmonary: Reports: No Symptoms Cardiovascular: Reports: No Symptoms Gastrointestinal: Reports: No Symptoms Genitourinary: Reports: No Symptoms Musculoskeletal: Reports: No Symptoms Skin: Reports: No Symptoms Psychiatric: Reports: No Symptoms Neurological: Reports: No Symptoms Hematologic/Lymphatic: Reports: No Symptoms Immunologic: Reports: No Symptoms Exam - Exam Exam: See Below - Vital Signs Vital Signs: Last Vital Signs Temp 98.3 F 10/31/18 14:00 Pulse 87 10/31/18 14:00 Resp 16 10/31/18 14:00 BP 117/53 L 10/31/18 14:00 Pulse Ox 97 10/31/18 14:00 Weight: 70.54 kg - Exam General: Alert, Oriented HEENT: Conjunctiva Clear, EACs Clear, EOMI, Hearing Intact, Mucosa Moist & [place] , Nares Patent, Normal Nasal Septum Neck: Supple, Trachea Midline Lungs: Clear to Auscultation, Normal Respiratory Effort Cardiovascular: Regular Rhythm, Normal S1, Normal S2, Tachycardia GI/Abdominal Exam: Normal Bowel Sounds, Soft, Non-Tender, No Organomegaly, No Distention, No Mass (Male) Exam: Deferred Rectal (Males) Exam: Deferred Back Exam: Normal Inspection, Full Range of Motion Extremities: Normal Inspection, Normal Range of Motion, Non-Tender, No Pedal Edema, Normal Capillary Refill Skin: Warm, Dry, Intact Neurological: Cranial Nerves Intact. No: Focal Deficit Neuro Extensive - Mental Status: Alert, Oriented x3, Normal Mood/Affect, Normal Cognition, Memory Loss-Recent Events, Nl Response to Commands. No: Memory Intact Neuro Extensive - Motor, Sensory, Reflexes: CN II-XII Intact Psychiatric: Alert, Normal Affect, Normal Mood - Patient Data Lab Results Last 24 hrs: Laboratory Results - last 24 hr 10/30/18 10/30/18 10/30/18 Range/Units 19:00 19:00 19:00 WBC 8.58 (4.23-9.07) K/mm3 RBC 3.83 L (4.63-6.08) M/mm3 Hgb 11.0 L (13.7-17.5) gm/dl Hct 33.3 L (40.1-51.0) % MCV 86.9 (79.0-92.2) fl MCH 28.7 (25.7-32.2) pg MCHC 33.0 (32.2-35.5) g/dl RDW Std Deviation 38.2 (35.1-43.9) fL Plt Count 298 (163-337) K/mm3 MPV 9.2 L (9.4-12.3) fl Neut % (Auto) (34.0-67.9) % Lymph % (Auto) (21.8-53.1) % [place] % (Auto) (5.3-12.2) % Eos % (Auto) (0.8-7.0) Baso % (Auto) (0.1-1.2) % Neut # (Auto) (1.78-5.38) K/mm3 Lymph # (Auto) (1.32-3.57) K/mm3 [place] # (Auto) (0.30-0.82) K/mm3 Eos # (Auto) (0.04-0.54) K/mm3 Baso # (Auto) (0.01-0.08) K/mm3 Neutrophils % (Manual) 85 H (40-60) % Band Neutrophils % 0 (0-10) % Lymphocytes % (Manual) 9 L (20-40) % Atypical Lymphs % 0 % Monocytes % (Manual) 5 (2-10) % Eosinophils % (Manual) 1 (0.8-7.0) % Basophils % (Manual) 0 L (0.2-1.2) Platelet Estimate Adequate RBC Morph Comment Normal Puncture Site ABG pH (7.35-7.45) ABG pCO2 (35.0-45.0) mmHg ABG pO2 (80.0-100.0) mmHg ABG HCO3 (22.0-26.0) meq/L ABG O2 Saturation (96.0-97.0) % ABG Base Excess (-2-2.0) Melchor Test A-a Gradient mmHg O2 Delivery Device Oxygen Flow Rate FiO2 (21.00-100.00) % Sodium 127 L D (136-145) mEq/L Potassium 5.7 H D (3.5-5.1) mEq/L Chloride 90 L D (98-107) mEq/L Carbon Dioxide 25 (21-32) mEq/L Anion Gap 17.7 H (5-15) BUN 36 H (7-18) mg/dL Creatinine 2.5 H (0.7-1.3) mg/dL Est Cr Clr Drug Dosing 25.84 mL/min Estimated GFR (MDRD) 26 (>60) mL/min BUN/Creatinine Ratio 14.4 (14-18) Glucose 972 H* (83-115) mg/dL POC Glucose (83-110) mg/dL Hemoglobin A1c (4.50-6.20) % Serum Osmolality (280-300) mosm/kg Lactic Acid 5.3 H (0.4-2.0) mmol/L Calcium 9.6 (8.5-10.1) mg/dL Phosphorus (2.6-4.7) mg/dL Magnesium 2.1 (1.8-2.4) mg/dl Total Bilirubin 0.2 (0.2-1.0) mg/dL AST 11 L (15-37) U/L ALT 30 (16-63) U/L Alkaline Phosphatase 276 H (46-116) U/L Troponin I 0.020 (0.00-0.056) ng/mL Total Protein 7.5 (6.4-8.2) g/dl Albumin 3.2 L (3.4-5.0) g/dl Globulin 4.3 gm/dL Albumin/Globulin Ratio 0.7 L (1-2) Vitamin D 25-Hydroxy (30.0-100.0) ng/ml Free T4 (0.76-1.46) ng/dL TSH 3rd Generation (0.358-3.74) uIU/mL Urine Color (Yellow) Urine Appearance (Clear) Urine pH (5.0-8.0) Ur Specific [place] (1.005-1.030) Urine Protein (Negative) Urine Glucose (UA) (Negative) Urine Ketones (Negative) Urine Occult Blood (Negative) Urine Nitrite (Negative) Urine Bilirubin (Negative) Urine Urobilinogen (0.2-1.0) Ur Leukocyte Esterase (Negative) Urine RBC (0-5) /hpf Urine WBC (0-5) /hpf Ur Epithelial Cells (0-5) /hpf Urine Bacteria (FEW) /hpf Urine Mucus (FEW) /hpf Urine Osmolality (400-1100) mosm/kg Ur Random Creatinine (30.0-125.0) mg/dL Ur Random Microalbumin (1.3-20.0) mg/L Ur Random Sodium (40-220) mEq/L Microalb/Creat Ratio (0-30) mg/g Ketones (0.0-0.3) mM 10/30/18 10/30/18 10/30/18 Range/Units 19:40 19:40 19:40 WBC (4.23-9.07) K/mm3 RBC (4.63-6.08) M/mm3 Hgb (13.7-17.5) gm/dl Hct (40.1-51.0) % MCV (79.0-92.2) fl MCH (25.7-32.2) pg MCHC (32.2-35.5) g/dl RDW Std Deviation (35.1-43.9) fL Plt Count (163-337) K/mm3 MPV (9.4-12.3) fl Neut % (Auto) (34.0-67.9) % Lymph % (Auto) (21.8-53.1) % [place] % (Auto) (5.3-12.2) % Eos % (Auto) (0.8-7.0) Baso % (Auto) (0.1-1.2) % Neut # (Auto) (1.78-5.38) K/mm3 Lymph # (Auto) (1.32-3.57) K/mm3 [place] # (Auto) (0.30-0.82) K/mm3 Eos # (Auto) (0.04-0.54) K/mm3 Baso # (Auto) (0.01-0.08) K/mm3 Neutrophils % (Manual) (40-60) % Band Neutrophils % (0-10) % Lymphocytes % (Manual) (20-40) % Atypical Lymphs % % Monocytes % (Manual) (2-10) % Eosinophils % (Manual) (0.8-7.0) % Basophils % (Manual) (0.2-1.2) Platelet Estimate RBC Morph Comment Puncture Site ABG pH (7.35-7.45) ABG pCO2 (35.0-45.0) mmHg ABG pO2 (80.0-100.0) mmHg ABG HCO3 (22.0-26.0) meq/L ABG O2 Saturation (96.0-97.0) % ABG Base Excess (-2-2.0) Melchor Test A-a Gradient mmHg O2 Delivery Device Oxygen Flow Rate FiO2 (21.00-100.00) % Sodium (136-145) mEq/L Potassium (3.5-5.1) mEq/L Chloride (98-107) mEq/L Carbon Dioxide (21-32) mEq/L Anion Gap (5-15) BUN (7-18) mg/dL Creatinine (0.7-1.3) mg/dL Est Cr Clr Drug Dosing mL/min Estimated GFR (MDRD) (>60) mL/min BUN/Creatinine Ratio (14-18) Glucose (83-115) mg/dL POC Glucose (83-110) mg/dL Hemoglobin A1c 10.50 H (4.50-6.20) % Serum Osmolality 329 H (280-300) mosm/kg Lactic Acid (0.4-2.0) mmol/L Calcium (8.5-10.1) mg/dL Phosphorus (2.6-4.7) mg/dL Magnesium (1.8-2.4) mg/dl Total Bilirubin (0.2-1.0) mg/dL AST (15-37) U/L ALT (16-63) U/L Alkaline Phosphatase (46-116) U/L Troponin I (0.00-0.056) ng/mL Total Protein (6.4-8.2) g/dl Albumin (3.4-5.0) g/dl Globulin gm/dL Albumin/Globulin Ratio (1-2) Vitamin D 25-Hydroxy (30.0-100.0) ng/ml Free T4 (0.76-1.46) ng/dL TSH 3rd Generation (0.358-3.74) uIU/mL Urine Color (Yellow) Urine Appearance (Clear) Urine pH (5.0-8.0) Ur Specific [place] (1.005-1.030) Urine Protein (Negative) Urine Glucose (UA) (Negative) Urine Ketones (Negative) Urine Occult Blood (Negative) Urine Nitrite (Negative) Urine Bilirubin (Negative) Urine Urobilinogen (0.2-1.0) Ur Leukocyte Esterase (Negative) Urine RBC (0-5) /hpf Urine WBC (0-5) /hpf Ur Epithelial Cells (0-5) /hpf Urine Bacteria (FEW) /hpf Urine Mucus (FEW) /hpf Urine Osmolality (400-1100) mosm/kg Ur Random Creatinine (30.0-125.0) mg/dL Ur Random Microalbumin (1.3-20.0) mg/L Ur Random Sodium (40-220) mEq/L Microalb/Creat Ratio (0-30) mg/g Ketones 0.21 (0.0-0.3) mM 10/30/18 10/30/18 10/30/18 Range/Units 20:03 21:10 21:10 WBC (4.23-9.07) K/mm3 RBC (4.63-6.08) M/mm3 Hgb (13.7-17.5) gm/dl Hct (40.1-51.0) % MCV (79.0-92.2) fl MCH (25.7-32.2) pg MCHC (32.2-35.5) g/dl RDW Std Deviation (35.1-43.9) fL Plt Count (163-337) K/mm3 MPV (9.4-12.3) fl Neut % (Auto) (34.0-67.9) % Lymph % (Auto) (21.8-53.1) % [place] % (Auto) (5.3-12.2) % Eos % (Auto) (0.8-7.0) Baso % (Auto) (0.1-1.2) % Neut # (Auto) (1.78-5.38) K/mm3 Lymph # (Auto) (1.32-3.57) K/mm3 [place] # (Auto) (0.30-0.82) K/mm3 Eos # (Auto) (0.04-0.54) K/mm3 Baso # (Auto) (0.01-0.08) K/mm3 Neutrophils % (Manual) (40-60) % Band Neutrophils % (0-10) % Lymphocytes % (Manual) (20-40) % Atypical Lymphs % % Monocytes % (Manual) (2-10) % Eosinophils % (Manual) (0.8-7.0) % Basophils % (Manual) (0.2-1.2) Platelet Estimate RBC Morph Comment Puncture Site Rt radial ABG pH 7.32 L (7.35-7.45) ABG pCO2 48.8 H (35.0-45.0) mmHg ABG pO2 63.0 L (80.0-100.0) mmHg ABG HCO3 24.1 (22.0-26.0) meq/L ABG O2 Saturation 91.4 L (96.0-97.0) % ABG Base Excess -1.7 (-2-2.0) Melchor Test Positive A-a Gradient 27 mmHg O2 Delivery Device Room air Oxygen Flow Rate 0.0 FiO2 21.00 (21.00-100.00) % Sodium (136-145) mEq/L Potassium (3.5-5.1) mEq/L Chloride (98-107) mEq/L Carbon Dioxide (21-32) mEq/L Anion Gap (5-15) BUN (7-18) mg/dL Creatinine (0.7-1.3) mg/dL Est Cr Clr Drug Dosing mL/min Estimated GFR (MDRD) (>60) mL/min BUN/Creatinine Ratio (14-18) Glucose (83-115) mg/dL POC Glucose (83-110) mg/dL Hemoglobin A1c (4.50-6.20) % Serum Osmolality (280-300) mosm/kg Lactic Acid (0.4-2.0) mmol/L Calcium (8.5-10.1) mg/dL Phosphorus (2.6-4.7) mg/dL Magnesium (1.8-2.4) mg/dl Total Bilirubin (0.2-1.0) mg/dL AST (15-37) U/L ALT (16-63) U/L Alkaline Phosphatase (46-116) U/L Troponin I (0.00-0.056) ng/mL Total Protein (6.4-8.2) g/dl Albumin (3.4-5.0) g/dl Globulin gm/dL Albumin/Globulin Ratio (1-2) Vitamin D 25-Hydroxy (30.0-100.0) ng/ml Free T4 (0.76-1.46) ng/dL TSH 3rd Generation (0.358-3.74) uIU/mL Urine Color Yellow (Yellow) Urine Appearance Clear (Clear) Urine pH 5.5 (5.0-8.0) Ur Specific [place] 1.010 (1.005-1.030) Urine Protein Negative (Negative) Urine Glucose (UA) 2+ H (Negative) Urine Ketones Trace H (Negative) Urine Occult Blood Negative (Negative) Urine Nitrite Negative (Negative) Urine Bilirubin Negative (Negative) Urine Urobilinogen 0.2 (0.2-1.0) Ur Leukocyte Esterase Negative (Negative) Urine RBC 0-5 (0-5) /hpf Urine WBC 0-5 (0-5) /hpf Ur Epithelial Cells 0-5 (0-5) /hpf Urine Bacteria Few (FEW) /hpf Urine Mucus Few (FEW) /hpf Urine Osmolality (400-1100) mosm/kg Ur Random Creatinine 26.3 L (30.0-125.0) mg/dL Ur Random Microalbumin 2.9 (1.3-20.0) mg/L Ur Random Sodium (40-220) mEq/L Microalb/Creat Ratio 11.0 (0-30) mg/g Ketones (0.0-0.3) mM 10/30/18 10/30/18 10/30/18 Range/Units 21:10 21:10 21:40 WBC (4.23-9.07) K/mm3 RBC (4.63-6.08) M/mm3 Hgb (13.7-17.5) gm/dl Hct (40.1-51.0) % MCV (79.0-92.2) fl MCH (25.7-32.2) pg MCHC (32.2-35.5) g/dl RDW Std Deviation (35.1-43.9) fL Plt Count (163-337) K/mm3 MPV (9.4-12.3) fl Neut % (Auto) (34.0-67.9) % Lymph % (Auto) (21.8-53.1) % [place] % (Auto) (5.3-12.2) % Eos % (Auto) (0.8-7.0) Baso % (Auto) (0.1-1.2) % Neut # (Auto) (1.78-5.38) K/mm3 Lymph # (Auto) (1.32-3.57) K/mm3 [place] # (Auto) (0.30-0.82) K/mm3 Eos # (Auto) (0.04-0.54) K/mm3 Baso # (Auto) (0.01-0.08) K/mm3 Neutrophils % (Manual) (40-60) % Band Neutrophils % (0-10) % Lymphocytes % (Manual) (20-40) % Atypical Lymphs % % Monocytes % (Manual) (2-10) % Eosinophils % (Manual) (0.8-7.0) % Basophils % (Manual) (0.2-1.2) Platelet Estimate RBC Morph Comment Puncture Site ABG pH (7.35-7.45) ABG pCO2 (35.0-45.0) mmHg ABG pO2 (80.0-100.0) mmHg ABG HCO3 (22.0-26.0) meq/L ABG O2 Saturation (96.0-97.0) % ABG Base Excess (-2-2.0) Melchor Test A-a Gradient mmHg O2 Delivery Device Oxygen Flow Rate FiO2 (21.00-100.00) % Sodium 128 L (136-145) mEq/L Potassium 4.1 D (3.5-5.1) mEq/L Chloride 94 L (98-107) mEq/L Carbon Dioxide 23 (21-32) mEq/L Anion Gap 15.1 H (5-15) BUN 38 H (7-18) mg/dL Creatinine 2.4 H (0.7-1.3) mg/dL Est Cr Clr Drug Dosing 26.92 mL/min Estimated GFR (MDRD) 27 (>60) mL/min BUN/Creatinine Ratio 15.8 (14-18) Glucose 710 H* (83-115) mg/dL POC Glucose (83-110) mg/dL Hemoglobin A1c (4.50-6.20) % Serum Osmolality (280-300) mosm/kg Lactic Acid (0.4-2.0) mmol/L Calcium 9.0 (8.5-10.1) mg/dL Phosphorus (2.6-4.7) mg/dL Magnesium (1.8-2.4) mg/dl Total Bilirubin (0.2-1.0) mg/dL AST (15-37) U/L ALT (16-63) U/L Alkaline Phosphatase (46-116) U/L Troponin I (0.00-0.056) ng/mL Total Protein (6.4-8.2) g/dl Albumin (3.4-5.0) g/dl Globulin gm/dL Albumin/Globulin Ratio (1-2) Vitamin D 25-Hydroxy (30.0-100.0) ng/ml Free T4 (0.76-1.46) ng/dL TSH 3rd Generation (0.358-3.74) uIU/mL Urine Color (Yellow) Urine Appearance (Clear) Urine pH (5.0-8.0) Ur Specific [place] (1.005-1.030) Urine Protein (Negative) Urine Glucose (UA) (Negative) Urine Ketones (Negative) Urine Occult Blood (Negative) Urine Nitrite (Negative) Urine Bilirubin (Negative) Urine Urobilinogen (0.2-1.0) Ur Leukocyte Esterase (Negative) Urine RBC (0-5) /hpf Urine WBC (0-5) /hpf Ur Epithelial Cells (0-5) /hpf Urine Bacteria (FEW) /hpf Urine Mucus (FEW) /hpf Urine Osmolality 536 (400-1100) mosm/kg Ur Random Creatinine (30.0-125.0) mg/dL Ur Random Microalbumin (1.3-20.0) mg/L Ur Random Sodium 22 L (40-220) mEq/L Microalb/Creat Ratio (0-30) mg/g Ketones (0.0-0.3) mM 10/30/18 10/31/18 10/31/18 Range/Units 21:40 00:40 00:40 WBC (4.23-9.07) K/mm3 RBC (4.63-6.08) M/mm3 Hgb (13.7-17.5) gm/dl Hct (40.1-51.0) % MCV (79.0-92.2) fl MCH (25.7-32.2) pg MCHC (32.2-35.5) g/dl RDW Std Deviation (35.1-43.9) fL Plt Count (163-337) K/mm3 MPV (9.4-12.3) fl Neut % (Auto) (34.0-67.9) % Lymph % (Auto) (21.8-53.1) % [place] % (Auto) (5.3-12.2) % Eos % (Auto) (0.8-7.0) Baso % (Auto) (0.1-1.2) % Neut # (Auto) (1.78-5.38) K/mm3 Lymph # (Auto) (1.32-3.57) K/mm3 [place] # (Auto) (0.30-0.82) K/mm3 Eos # (Auto) (0.04-0.54) K/mm3 Baso # (Auto) (0.01-0.08) K/mm3 Neutrophils % (Manual) (40-60) % Band Neutrophils % (0-10) % Lymphocytes % (Manual) (20-40) % Atypical Lymphs % % Monocytes % (Manual) (2-10) % Eosinophils % (Manual) (0.8-7.0) % Basophils % (Manual) (0.2-1.2) Platelet Estimate RBC Morph Comment Puncture Site ABG pH (7.35-7.45) ABG pCO2 (35.0-45.0) mmHg ABG pO2 (80.0-100.0) mmHg ABG HCO3 (22.0-26.0) meq/L ABG O2 Saturation (96.0-97.0) % ABG Base Excess (-2-2.0) Melchor Test A-a Gradient mmHg O2 Delivery Device Oxygen Flow Rate FiO2 (21.00-100.00) % Sodium (136-145) mEq/L Potassium (3.5-5.1) mEq/L Chloride (98-107) mEq/L Carbon Dioxide (21-32) mEq/L Anion Gap (5-15) BUN (7-18) mg/dL Creatinine (0.7-1.3) mg/dL Est Cr Clr Drug Dosing mL/min Estimated GFR (MDRD) (>60) mL/min BUN/Creatinine Ratio (14-18) Glucose 413 H (83-115) mg/dL POC Glucose (83-110) mg/dL Hemoglobin A1c (4.50-6.20) % Serum Osmolality (280-300) mosm/kg Lactic Acid 2.3 H (0.4-2.0) mmol/L Calcium (8.5-10.1) mg/dL Phosphorus (2.6-4.7) mg/dL Magnesium (1.8-2.4) mg/dl Total Bilirubin (0.2-1.0) mg/dL AST (15-37) U/L ALT (16-63) U/L Alkaline Phosphatase (46-116) U/L Troponin I (0.00-0.056) ng/mL Total Protein (6.4-8.2) g/dl Albumin (3.4-5.0) g/dl Globulin gm/dL Albumin/Globulin Ratio (1-2) Vitamin D 25-Hydroxy 19.6 L (30.0-100.0) ng/ml Free T4 1.34 (0.76-1.46) ng/dL TSH 3rd Generation 0.080 L (0.358-3.74) uIU/mL Urine Color (Yellow) Urine Appearance (Clear) Urine pH (5.0-8.0) Ur Specific [place] (1.005-1.030) Urine Protein (Negative) Urine Glucose (UA) (Negative) Urine Ketones (Negative) Urine Occult Blood (Negative) Urine Nitrite (Negative) Urine Bilirubin (Negative) Urine Urobilinogen (0.2-1.0) Ur Leukocyte Esterase (Negative) Urine RBC (0-5) /hpf Urine WBC (0-5) /hpf Ur Epithelial Cells (0-5) /hpf Urine Bacteria (FEW) /hpf Urine Mucus (FEW) /hpf Urine Osmolality (400-1100) mosm/kg Ur Random Creatinine (30.0-125.0) mg/dL Ur Random Microalbumin (1.3-20.0) mg/L Ur Random Sodium (40-220) mEq/L Microalb/Creat Ratio (0-30) mg/g Ketones (0.0-0.3) mM 10/31/18 10/31/18 10/31/18 Range/Units 02:08 03:12 04:17 WBC (4.23-9.07) K/mm3 RBC (4.63-6.08) M/mm3 Hgb (13.7-17.5) gm/dl Hct (40.1-51.0) % MCV (79.0-92.2) fl MCH (25.7-32.2) pg MCHC (32.2-35.5) g/dl RDW Std Deviation (35.1-43.9) fL Plt Count (163-337) K/mm3 MPV (9.4-12.3) fl Neut % (Auto) (34.0-67.9) % Lymph % (Auto) (21.8-53.1) % [place] % (Auto) (5.3-12.2) % Eos % (Auto) (0.8-7.0) Baso % (Auto) (0.1-1.2) % Neut # (Auto) (1.78-5.38) K/mm3 Lymph # (Auto) (1.32-3.57) K/mm3 [place] # (Auto) (0.30-0.82) K/mm3 Eos # (Auto) (0.04-0.54) K/mm3 Baso # (Auto) (0.01-0.08) K/mm3 Neutrophils % (Manual) (40-60) % Band Neutrophils % (0-10) % Lymphocytes % (Manual) (20-40) % Atypical Lymphs % % Monocytes % (Manual) (2-10) % Eosinophils % (Manual) (0.8-7.0) % Basophils % (Manual) (0.2-1.2) Platelet Estimate RBC Morph Comment Puncture Site ABG pH (7.35-7.45) ABG pCO2 (35.0-45.0) mmHg ABG pO2 (80.0-100.0) mmHg ABG HCO3 (22.0-26.0) meq/L ABG O2 Saturation (96.0-97.0) % ABG Base Excess (-2-2.0) Melchor Test A-a Gradient mmHg O2 Delivery Device Oxygen Flow Rate FiO2 (21.00-100.00) % Sodium (136-145) mEq/L Potassium (3.5-5.1) mEq/L Chloride (98-107) mEq/L Carbon Dioxide (21-32) mEq/L Anion Gap (5-15) BUN (7-18) mg/dL Creatinine (0.7-1.3) mg/dL Est Cr Clr Drug Dosing mL/min Estimated GFR (MDRD) (>60) mL/min BUN/Creatinine Ratio (14-18) Glucose (83-115) mg/dL POC Glucose 222 H 108 74 L (83-110) mg/dL Hemoglobin A1c (4.50-6.20) % Serum Osmolality (280-300) mosm/kg Lactic Acid (0.4-2.0) mmol/L Calcium (8.5-10.1) mg/dL Phosphorus (2.6-4.7) mg/dL Magnesium (1.8-2.4) mg/dl Total Bilirubin (0.2-1.0) mg/dL AST (15-37) U/L ALT (16-63) U/L Alkaline Phosphatase (46-116) U/L Troponin I (0.00-0.056) ng/mL Total Protein (6.4-8.2) g/dl Albumin (3.4-5.0) g/dl Globulin gm/dL Albumin/Globulin Ratio (1-2) Vitamin D 25-Hydroxy (30.0-100.0) ng/ml Free T4 (0.76-1.46) ng/dL TSH 3rd Generation (0.358-3.74) uIU/mL Urine Color (Yellow) Urine Appearance (Clear) Urine pH (5.0-8.0) Ur Specific [place] (1.005-1.030) Urine Protein (Negative) Urine Glucose (UA) (Negative) Urine Ketones (Negative) Urine Occult Blood (Negative) Urine Nitrite (Negative) Urine Bilirubin (Negative) Urine Urobilinogen (0.2-1.0) Ur Leukocyte Esterase (Negative) Urine RBC (0-5) /hpf Urine WBC (0-5) /hpf Ur Epithelial Cells (0-5) /hpf Urine Bacteria (FEW) /hpf Urine Mucus (FEW) /hpf Urine Osmolality (400-1100) mosm/kg Ur Random Creatinine (30.0-125.0) mg/dL Ur Random Microalbumin (1.3-20.0) mg/L Ur Random Sodium (40-220) mEq/L Microalb/Creat Ratio (0-30) mg/g Ketones (0.0-0.3) mM 10/31/18 10/31/18 10/31/18 Range/Units 05:00 05:00 05:00 WBC 8.62 (4.23-9.07) K/mm3 RBC 3.36 L (4.63-6.08) M/mm3 Hgb 9.6 L (13.7-17.5) gm/dl Hct 28.8 L (40.1-51.0) % MCV 85.7 (79.0-92.2) fl MCH 28.6 (25.7-32.2) pg MCHC 33.3 (32.2-35.5) g/dl RDW Std Deviation 36.0 (35.1-43.9) fL Plt Count 256 (163-337) K/mm3 MPV 8.7 L (9.4-12.3) fl Neut % (Auto) 62.4 (34.0-67.9) % Lymph % (Auto) 21.5 L (21.8-53.1) % [place] % (Auto) 12.3 H (5.3-12.2) % Eos % (Auto) 2.9 (0.8-7.0) Baso % (Auto) 0.3 (0.1-1.2) % Neut # (Auto) 5.38 (1.78-5.38) K/mm3 Lymph # (Auto) 1.85 (1.32-3.57) K/mm3 [place] # (Auto) 1.06 H (0.30-0.82) K/mm3 Eos # (Auto) 0.25 (0.04-0.54) K/mm3 Baso # (Auto) 0.03 (0.01-0.08) K/mm3 Neutrophils % (Manual) (40-60) % Band Neutrophils % (0-10) % Lymphocytes % (Manual) (20-40) % Atypical Lymphs % % Monocytes % (Manual) (2-10) % Eosinophils % (Manual) (0.8-7.0) % Basophils % (Manual) (0.2-1.2) Platelet Estimate RBC Morph Comment Puncture Site ABG pH (7.35-7.45) ABG pCO2 (35.0-45.0) mmHg ABG pO2 (80.0-100.0) mmHg ABG HCO3 (22.0-26.0) meq/L ABG O2 Saturation (96.0-97.0) % ABG Base Excess (-2-2.0) Melchor Test A-a Gradient mmHg O2 Delivery Device Oxygen Flow Rate FiO2 (21.00-100.00) % Sodium 139 D (136-145) mEq/L Potassium 4.3 (3.5-5.1) mEq/L Chloride 103 (98-107) mEq/L Carbon Dioxide 28 (21-32) mEq/L Anion Gap 12.3 (5-15) BUN 30 H (7-18) mg/dL Creatinine 1.6 H (0.7-1.3) mg/dL Est Cr Clr Drug Dosing 40.52 mL/min Estimated GFR (MDRD) 43 (>60) mL/min BUN/Creatinine Ratio 18.8 H (14-18) Glucose 104 (83-115) mg/dL POC Glucose (83-110) mg/dL Hemoglobin A1c (4.50-6.20) % Serum Osmolality (280-300) mosm/kg Lactic Acid 0.8 (0.4-2.0) mmol/L Calcium 9.4 (8.5-10.1) mg/dL Phosphorus 4.8 H (2.6-4.7) mg/dL Magnesium 1.8 (1.8-2.4) mg/dl Total Bilirubin (0.2-1.0) mg/dL AST (15-37) U/L ALT (16-63) U/L Alkaline Phosphatase (46-116) U/L Troponin I (0.00-0.056) ng/mL Total Protein (6.4-8.2) g/dl Albumin (3.4-5.0) g/dl Globulin gm/dL Albumin/Globulin Ratio (1-2) Vitamin D 25-Hydroxy (30.0-100.0) ng/ml Free T4 (0.76-1.46) ng/dL TSH 3rd Generation (0.358-3.74) uIU/mL Urine Color (Yellow) Urine Appearance (Clear) Urine pH (5.0-8.0) Ur Specific [place] (1.005-1.030) Urine Protein (Negative) Urine Glucose (UA) (Negative) Urine Ketones (Negative) Urine Occult Blood (Negative) Urine Nitrite (Negative) Urine Bilirubin (Negative) Urine Urobilinogen (0.2-1.0) Ur Leukocyte Esterase (Negative) Urine RBC (0-5) /hpf Urine WBC (0-5) /hpf Ur Epithelial Cells (0-5) /hpf Urine Bacteria (FEW) /hpf Urine Mucus (FEW) /hpf Urine Osmolality (400-1100) mosm/kg Ur Random Creatinine (30.0-125.0) mg/dL Ur Random Microalbumin (1.3-20.0) mg/L Ur Random Sodium (40-220) mEq/L Microalb/Creat Ratio (0-30) mg/g Ketones (0.0-0.3) mM 10/31/18 10/31/18 10/31/18 Range/Units 05:12 06:08 06:56 WBC (4.23-9.07) K/mm3 RBC (4.63-6.08) M/mm3 Hgb (13.7-17.5) gm/dl Hct (40.1-51.0) % MCV (79.0-92.2) fl MCH (25.7-32.2) pg MCHC (32.2-35.5) g/dl RDW Std Deviation (35.1-43.9) fL Plt Count (163-337) K/mm3 MPV (9.4-12.3) fl Neut % (Auto) (34.0-67.9) % Lymph % (Auto) (21.8-53.1) % [place] % (Auto) (5.3-12.2) % Eos % (Auto) (0.8-7.0) Baso % (Auto) (0.1-1.2) % Neut # (Auto) (1.78-5.38) K/mm3 Lymph # (Auto) (1.32-3.57) K/mm3 [place] # (Auto) (0.30-0.82) K/mm3 Eos # (Auto) (0.04-0.54) K/mm3 Baso # (Auto) (0.01-0.08) K/mm3 Neutrophils % (Manual) (40-60) % Band Neutrophils % (0-10) % Lymphocytes % (Manual) (20-40) % Atypical Lymphs % % Monocytes % (Manual) (2-10) % Eosinophils % (Manual) (0.8-7.0) % Basophils % (Manual) (0.2-1.2) Platelet Estimate RBC Morph Comment Puncture Site ABG pH (7.35-7.45) ABG pCO2 (35.0-45.0) mmHg ABG pO2 (80.0-100.0) mmHg ABG HCO3 (22.0-26.0) meq/L ABG O2 Saturation (96.0-97.0) % ABG Base Excess (-2-2.0) Melchor Test A-a Gradient mmHg O2 Delivery Device Oxygen Flow Rate FiO2 (21.00-100.00) % Sodium (136-145) mEq/L Potassium (3.5-5.1) mEq/L Chloride (98-107) mEq/L Carbon Dioxide (21-32) mEq/L Anion Gap (5-15) BUN (7-18) mg/dL Creatinine (0.7-1.3) mg/dL Est Cr Clr Drug Dosing mL/min Estimated GFR (MDRD) (>60) mL/min BUN/Creatinine Ratio (14-18) Glucose (83-115) mg/dL POC Glucose 96 144 H 165 H (83-110) mg/dL Hemoglobin A1c (4.50-6.20) % Serum Osmolality (280-300) mosm/kg Lactic Acid (0.4-2.0) mmol/L Calcium (8.5-10.1) mg/dL Phosphorus (2.6-4.7) mg/dL Magnesium (1.8-2.4) mg/dl Total Bilirubin (0.2-1.0) mg/dL AST (15-37) U/L ALT (16-63) U/L Alkaline Phosphatase (46-116) U/L Troponin I (0.00-0.056) ng/mL Total Protein (6.4-8.2) g/dl Albumin (3.4-5.0) g/dl Globulin gm/dL Albumin/Globulin Ratio (1-2) Vitamin D 25-Hydroxy (30.0-100.0) ng/ml Free T4 (0.76-1.46) ng/dL TSH 3rd Generation (0.358-3.74) uIU/mL Urine Color (Yellow) Urine Appearance (Clear) Urine pH (5.0-8.0) Ur Specific [place] (1.005-1.030) Urine Protein (Negative) Urine Glucose (UA) (Negative) Urine Ketones (Negative) Urine Occult Blood (Negative) Urine Nitrite (Negative) Urine Bilirubin (Negative) Urine Urobilinogen (0.2-1.0) Ur Leukocyte Esterase (Negative) Urine RBC (0-5) /hpf Urine WBC (0-5) /hpf Ur Epithelial Cells (0-5) /hpf Urine Bacteria (FEW) /hpf Urine Mucus (FEW) /hpf Urine Osmolality (400-1100) mosm/kg Ur Random Creatinine (30.0-125.0) mg/dL Ur Random Microalbumin (1.3-20.0) mg/L Ur Random Sodium (40-220) mEq/L Microalb/Creat Ratio (0-30) mg/g Ketones (0.0-0.3) mM 10/31/18 10/31/18 Range/Units 11:30 14:31 WBC (4.23-9.07) K/mm3 RBC (4.63-6.08) M/mm3 Hgb (13.7-17.5) gm/dl Hct (40.1-51.0) % MCV (79.0-92.2) fl MCH (25.7-32.2) pg MCHC (32.2-35.5) g/dl RDW Std Deviation (35.1-43.9) fL Plt Count (163-337) K/mm3 MPV (9.4-12.3) fl Neut % (Auto) (34.0-67.9) % Lymph % (Auto) (21.8-53.1) % [place] % (Auto) (5.3-12.2) % Eos % (Auto) (0.8-7.0) Baso % (Auto) (0.1-1.2) % Neut # (Auto) (1.78-5.38) K/mm3 Lymph # (Auto) (1.32-3.57) K/mm3 [place] # (Auto) (0.30-0.82) K/mm3 Eos # (Auto) (0.04-0.54) K/mm3 Baso # (Auto) (0.01-0.08) K/mm3 Neutrophils % (Manual) (40-60) % Band Neutrophils % (0-10) % Lymphocytes % (Manual) (20-40) % Atypical Lymphs % % Monocytes % (Manual) (2-10) % Eosinophils % (Manual) (0.8-7.0) % Basophils % (Manual) (0.2-1.2) Platelet Estimate RBC Morph Comment Puncture Site ABG pH (7.35-7.45) ABG pCO2 (35.0-45.0) mmHg ABG pO2 (80.0-100.0) mmHg ABG HCO3 (22.0-26.0) meq/L ABG O2 Saturation (96.0-97.0) % ABG Base Excess (-2-2.0) Melchor Test A-a Gradient mmHg O2 Delivery Device Oxygen Flow Rate FiO2 (21.00-100.00) % Sodium (136-145) mEq/L Potassium (3.5-5.1) mEq/L Chloride (98-107) mEq/L Carbon Dioxide (21-32) mEq/L Anion Gap (5-15) BUN (7-18) mg/dL Creatinine (0.7-1.3) mg/dL Est Cr Clr Drug Dosing mL/min Estimated GFR (MDRD) (>60) mL/min BUN/Creatinine Ratio (14-18) Glucose 533 H (83-115) mg/dL POC Glucose 384 H (83-110) mg/dL Hemoglobin A1c (4.50-6.20) % Serum Osmolality (280-300) mosm/kg Lactic Acid (0.4-2.0) mmol/L Calcium (8.5-10.1) mg/dL Phosphorus (2.6-4.7) mg/dL Magnesium (1.8-2.4) mg/dl Total Bilirubin (0.2-1.0) mg/dL AST (15-37) U/L ALT (16-63) U/L Alkaline Phosphatase (46-116) U/L Troponin I (0.00-0.056) ng/mL Total Protein (6.4-8.2) g/dl Albumin (3.4-5.0) g/dl Globulin gm/dL Albumin/Globulin Ratio (1-2) Vitamin D 25-Hydroxy (30.0-100.0) ng/ml Free T4 (0.76-1.46) ng/dL TSH 3rd Generation (0.358-3.74) uIU/mL Urine Color (Yellow) Urine Appearance (Clear) Urine pH (5.0-8.0) Ur Specific [place] (1.005-1.030) Urine Protein (Negative) Urine Glucose (UA) (Negative) Urine Ketones (Negative) Urine Occult Blood (Negative) Urine Nitrite (Negative) Urine Bilirubin (Negative) Urine Urobilinogen (0.2-1.0) Ur Leukocyte Esterase (Negative) Urine RBC (0-5) /hpf Urine WBC (0-5) /hpf Ur Epithelial Cells (0-5) /hpf Urine Bacteria (FEW) /hpf Urine Mucus (FEW) /hpf Urine Osmolality (400-1100) mosm/kg Ur Random Creatinine (30.0-125.0) mg/dL Ur Random Microalbumin (1.3-20.0) mg/L Ur Random Sodium (40-220) mEq/L Microalb/Creat Ratio (0-30) mg/g Ketones (0.0-0.3) mM Result Diagrams: 10/31/18 05:00 10/31/18 05:00 Problem List Initiated/Reviewed/Updated: Yes Orders Last 24hrs: Active Orders 24 hr Category Date Time Status Admission Status [Patient Status] [ADT] Routine ADT 10/30/18 23:34 Active Antiembolic Devices [RC] Q4HR Care 10/30/18 23:36 Active BIPAP Adult [RT BiPAP/CPAP] [RC] ASDIRECTED Care 10/30/18 20:12 Active Blood Glucose Check, Bedside [RC] Q2HR Care 10/30/18 21:38 Active EKG Documentation Completion [RC] STAT Care 10/30/18 19:14 Active Floyd Catheter Insertion [Insert Urinary Catheter] [OM. Care 10/30/18 23:45 Ordered PC] Q24H Intake and Output [RC] Q4HR Care 10/30/18 23:36 Active Oxygen Therapy [RC] Q4HR Care 10/30/18 23:35 Active RT Aerosol Therapy [RC] ASDIRECTED Care 10/30/18 23:38 Active Up With Assistance [RC] BID Care 10/30/18 23:35 Active VTE/DVT Education [RC] BID Care 10/30/18 23:35 Active Vital Signs [RC] Q2HR Care 10/30/18 23:35 Active Consult to Case Management/Bread Wrapper [CONS] Cons 10/30/18 23:35 Active Routine Consult to Diabetic Nurse Specialist [CONS] Routine Cons 10/30/18 23:35 Active Consult to Tester Vibrator Equipment [CONS] Routine Cons 10/30/18 23:35 Active Consult to Speech Language Pathology [SOUR BLEACHING PLEATER Evaluation Cons 10/31/18 09:51 Active and Treatment] [CONS] Routine Consult to Spiritual Care [CONS] Routine Cons 10/30/18 23:35 Active OT Evaluation and Treatment [CONS] Routine Cons 10/30/18 23:35 Active PT Evaluation and Treatment [CONS] Routine Cons 10/30/18 23:35 Active Respiratory Care Assess and Treatment [CONS] Routine Cons 10/30/18 23:35 Active Consistent Carbohydrate Diet [DIET] Diet 10/31/18 Breakfast Active Heart Healthy Diet [DIET] Diet 10/31/18 Breakfast Active BASIC METABOLIC PANEL,BMP [CHEM] AM Lab 11/01/18 05:11 Ordered BASIC METABOLIC PANEL,BMP [CHEM] AM Lab 11/02/18 05:11 Ordered BASIC METABOLIC PANEL,BMP [CHEM] AM Lab 11/03/18 05:11 Ordered BASIC METABOLIC PANEL,BMP [CHEM] AM Lab 11/04/18 05:11 Ordered CBC WITH AUTO DIFF [HEME] AM Lab 11/01/18 05:11 Ordered CBC WITH AUTO DIFF [HEME] AM Lab 11/02/18 05:11 Ordered CBC WITH AUTO DIFF [HEME] AM Lab 11/03/18 05:11 Ordered CBC WITH AUTO DIFF [HEME] AM Lab 11/04/18 05:11 Ordered CULTURE BLOOD [BC] Stat Lab 10/30/18 19:40 Received CULTURE BLOOD [BC] Stat Lab 10/30/18 19:57 Received MAGNESIUM [CHEM] AM Lab 11/01/18 05:11 Ordered MAGNESIUM [CHEM] AM Lab 11/02/18 05:11 Ordered MAGNESIUM [CHEM] AM Lab 11/03/18 05:11 Ordered MAGNESIUM [CHEM] AM Lab 11/04/18 05:11 Ordered PHOSPHORUS [CHEM] AM Lab 11/01/18 05:11 Ordered PHOSPHORUS [CHEM] AM Lab 11/02/18 05:11 Ordered PHOSPHORUS [CHEM] AM Lab 11/03/18 05:11 Ordered PHOSPHORUS [CHEM] AM Lab 11/04/18 05:11 Ordered Acetaminophen [Tylenol] Med 10/30/18 23:35 Active 650 mg PO Q4H PRN Acetaminophen/HYDROcodone [[place] 325-5 MG] Med 10/30/18 23:35 Active 1 tab PO Q4H PRN Albuterol/Ipratropium [DuoNeb 3.0-0.5 MG/3 ML] Med 10/30/18 23:35 Active 3 ml NEB Q4H PRN Aspirin [Halfprin] Med 10/31/18 09:00 Active 81 mg PO DAILY Bisacodyl [Dulcolax] Med 10/30/18 23:35 Active 5 mg PO DAILY PRN Cholecalciferol (Vitamin D3) [Vitamin D3] Med 10/31/18 09:00 Active 25 mcg PO DAILY Citalopram [Celexa] Med 10/31/18 09:00 Active 20 mg PO DAILY Docusate Sodium [Colace] Med 10/30/18 23:35 Active 100 mg PO BID PRN Docusate Sodium/Sennosides [Senna Plus] Med 10/30/18 23:35 Active 1 tab PO BID PRN Docusate Sodium/Sennosides [Senna Plus] Med 10/31/18 09:00 Active 2 tab PO BID Finasteride [Proscar] Med 10/31/18 09:00 Active 5 mg PO DAILY HYDROmorphone [Dilaudid] Med 10/30/18 23:35 Active 0.25 mg IVPUSH Q2H PRN Insulin Glarg,Human.Rec.Analog [LantUS] Med 10/31/18 21:00 Active 25 unit SUBCUT BEDTIME Insulin Regular, Human [HumuLIN R] 100 unit Med 10/30/18 19:45 Active Sodium Chloride 0.9% [Normal Saline] 99 ml IV TITRATE LORazepam [Ativan] Med 10/30/18 23:35 Active 0.25 mg IV Q6H PRN Levothyroxine [Synthroid] Med 11/01/18 06:00 Active 150 mcg PO ACBREAKFAST Lidocaine 4% [Aspercreme 4%] Med 10/31/18 09:00 Active 1 each TOP DAILY Melatonin Med 10/31/18 18:00 Active 6 mg PO QPM Ondansetron [Zofran ODT] Med 10/30/18 23:43 Active 4 mg PO Q6H PRN Ondansetron [Zofran] Med 10/30/18 23:35 Active 4 mg IV Q6H PRN Pantoprazole [ProTONIX] Med 10/31/18 09:00 Active 40 mg PO BID Polyethylene Glycol 3350 [MiraLAX] Med 10/30/18 23:35 Active 17 gm PO DAILY PRN Promethazine [Phenergan] 6.25 mg Med 10/30/18 23:35 Active Sodium Chloride 0.9% [Normal Saline] 50 ml IV Q6H Remove Patch Med 10/31/18 21:00 Active 1 ea TRDERM BEDTIME SUMAtriptan [Imitrex] Med 10/30/18 23:43 Active 100 mg PO Q2H PRN Simvastatin [Zocor] Med 10/31/18 21:00 Active 20 mg PO BEDTIME Sodium Chloride 0.9% [Normal Saline] 1,000 ml Med 10/31/18 09:00 Active IV ASDIRECTED Tamsulosin [Flomax] Med 10/31/18 10:00 Active 0.4 mg PO PCBREAKFAST Temazepam [Restoril] Med 10/30/18 23:35 Active 7.5 mg PO BEDTIME PRN buPROPion [Wellbutrin SR] Med 10/31/18 09:00 Active 100 mg PO DAILY Blood Culture x2 Reflex Set [OM.PC] Stat Oth 10/30/18 19:14 Ordered Sequential Compression Device [OM.PC] Per Unit Routine Oth 10/30/18 23:36 Ordered Medication Orders Acetaminophen (Tylenol) 650 mg PO Q4H PRN PRN Reason: Pain (Mild 1-3)/fever Hydrocodone Bitart/Acetaminophen ([place] 325-5 Mg) 1 tab PO Q4H PRN PRN Reason: Pain (moderate 4-6) Albuterol/Ipratropium (Duoneb 3.0-0.5 Mg/3 Ml) 3 ml NEB Q4H PRN PRN Reason: Shortness Of Breath/wheezing Aspirin (Halfprin) 81 mg PO DAILY [facility] Last Admin: 10/31/18 09:20 Dose: 81 mg Bisacodyl (Dulcolax) 5 mg PO DAILY PRN PRN Reason: Constipation Bupropion HCl (Wellbutrin Sr) 100 mg PO DAILY [facility] Last Admin: 10/31/18 09:20 Dose: 100 mg Cholecalciferol (Vitamin D3) 25 mcg PO DAILY [facility] Last Admin: 10/31/18 09:19 Dose: 25 mcg Citalopram Hydrobromide (Celexa) 20 mg PO DAILY [facility] Last Admin: 10/31/18 09:20 Dose: 20 mg Docusate Sodium (Colace) 100 mg PO BID PRN PRN Reason: Constipation Finasteride (Proscar) 5 mg PO DAILY [facility] Last Admin: 10/31/18 09:20 Dose: 5 mg Hydromorphone HCl (Dilaudid) 0.25 mg IVPUSH Q2H PRN PRN Reason: Pain (severe 7-10) Insulin Human Regular 100 unit (/ Sodium Chloride) 100 mls @ 7.03 mls/hr IV TITRATE KARMEN; Protocol Last Admin: 10/31/18 12:35 Dose: 0.1 units/kg/hr, 7.03 mls/hr Titration: 10/31/18 12:33 Dose: 0.1 units/kg/hr, 7.03 mls/hr Titration: 10/31/18 12:16 Dose: 7 units/kg/hr, 492.14 mls/hr Titration: 10/31/18 03:16 Dose: 0 units/kg/hr, 0 mls/hr Titration: 10/31/18 02:18 Dose: 0.07 units/kg/hr, 5.2 mls/hr Admin: 10/30/18 20:11 Dose: 0.1 units/kg/hr, 7.03 mls/hr Promethazine HCl 6.25 mg/ (Sodium Chloride) 50.25 mls @ 100 mls/hr IV Q6H PRN PRN Reason: Nausea/Vomiting Sodium Chloride (Normal Saline) 1,000 mls @ 50 mls/hr IV ASDIRECTED [facility] Last Admin: 10/31/18 09:39 Dose: 50 mls/hr Insulin Glargine (Lantus) 25 unit SUBCUT BEDTIME [facility]ARMEN Last Admin: 10/31/18 12:08 Dose: 25 units Levothyroxine Sodium (Synthroid) 150 mcg PO ACBREAKFAST [facility] Lidocaine (Aspercreme 4%) 1 each TOP DAILY [facility] Last Admin: 10/31/18 09:21 Dose: 1 each Lorazepam (Ativan) 0.25 mg IV Q6H PRN PRN Reason: Anxiety Melatonin (Melatonin) 6 mg PO QPM [facility] Miscellaneous Information (Remove Patch) 1 ea TRDERM BEDTIME [facility] Ondansetron HCl (Zofran) 4 mg IV Q6H PRN PRN Reason: Nausea/Vomiting Last Admin: 10/31/18 09:44 Dose: 4 mg Ondansetron HCl (Zofran Odt) 4 mg PO Q6H PRN PRN Reason: Nausea Pantoprazole Sodium (Protonix) 40 mg PO BID [facility] Last Admin: 10/31/18 09:19 Dose: 40 mg Polyethylene Glycol (Miralax) 17 gm PO DAILY PRN PRN Reason: Constipation Senna/Docusate Sodium (Senna Plus) 1 tab PO BID PRN PRN Reason: Constipation Senna/Docusate Sodium (Senna Plus) 2 tab PO BID [facility] Last Admin: 10/31/18 09:20 Dose: 2 tab Simvastatin (Zocor) 20 mg PO BEDTIME KARMEN Sumatriptan Succinate (Imitrex) 100 mg PO Q2H PRN PRN Reason: Headache Tamsulosin HCl (Flomax) 0.4 mg PO PCBREAKFAST [facility] Last Admin: 10/31/18 09:20 Dose: 0.4 mg Temazepam (Restoril) 7.5 mg PO BEDTIME PRN PRN Reason: Sleep Assessment/Plan Comment:: Assessment: Acute: Altered Mental status 2/2 hypoketotic hyperglycemic syndrome - BG of 972 in ED - UA shows trace ketones and 2+ glucose - Pt is on multiple sedating medications--> poor intake - Pt claims he missed 2 doses of insulin - Pt was admitted overnight, started on insulin drip - Pt spiked BG today 2/2 refusal to take lantus, as he states he only takes lantus at night Polypharmacy - pt is on multiple sedating medications including fentanyl patch, bupropion , gabapentin, melatonin, citalopram, duloxetine, hydrocodone, dyphenhydramine - will hold home medications for now Acute Kidney injury - BUN 36 - Creatinine 2.5 - BUN/Creat ratio 14.4 - Likely prerenal azotemia 2/2 volume depletion - Will monitor output - Retroperitoneal US to rule out obstructive nephropathy Chronic: Hyperlipidemia, hypertension, sleep apnea, GERD, BPH, Osteoarthritis, diabetic neuropathy, Depression, opioid addiction, hypothyroidism Plan: -Insulin drip -Initiate sliding scale insulin once glucose is less than 200 - Retroperitoneal US to evaluate nephropathy - Monitor urine output - Cognition eval to assess for mental impairment - Diabetes education consult - Hold home medications - LOS 2-3 days - Prognosis guarded - poor <Miladys Sun T - Last Filed: 10/31/18 17:57> H&P History of Present Illness - General Admit Problem/Dx: Admission Diagnosis/Problem Admission Diagnosis/Problem Hyperglycemia without ketosis Exam - Vital Signs Vital Signs: Last Vital Signs Temp 36.7 C 10/31/18 16:00 Pulse 97 10/31/18 16:00 Resp 16 10/31/18 16:00 BP 115/56 L 10/31/18 16:00 Pulse Ox 96 10/31/18 16:00 - Patient Data Lab Results Last 24 hrs: Laboratory Results - last 24 hr 10/30/18 10/30/18 10/30/18 Range/Units 19:00 19:00 19:00 WBC 8.58 (4.23-9.07) K/mm3 RBC 3.83 L (4.63-6.08) M/mm3 Hgb 11.0 L (13.7-17.5) gm/dl Hct 33.3 L (40.1-51.0) % MCV 86.9 (79.0-92.2) fl MCH 28.7 (25.7-32.2) pg MCHC 33.0 (32.2-35.5) g/dl RDW Std Deviation 38.2 (35.1-43.9) fL Plt Count 298 (163-337) K/mm3 MPV 9.2 L (9.4-12.3) fl Neut % (Auto) (34.0-67.9) % Lymph % (Auto) (21.8-53.1) % [place] % (Auto) (5.3-12.2) % Eos % (Auto) (0.8-7.0) Baso % (Auto) (0.1-1.2) % Neut # (Auto) (1.78-5.38) K/mm3 Lymph # (Auto) (1.32-3.57) K/mm3 [place] # (Auto) (0.30-0.82) K/mm3 Eos # (Auto) (0.04-0.54) K/mm3 Baso # (Auto) (0.01-0.08) K/mm3 Neutrophils % (Manual) 85 H (40-60) % Band Neutrophils % 0 (0-10) % Lymphocytes % (Manual) 9 L (20-40) % Atypical Lymphs % 0 % Monocytes % (Manual) 5 (2-10) % Eosinophils % (Manual) 1 (0.8-7.0) % Basophils % (Manual) 0 L (0.2-1.2) Platelet Estimate Adequate RBC Morph Comment Normal Puncture Site ABG pH (7.35-7.45) ABG pCO2 (35.0-45.0) mmHg ABG pO2 (80.0-100.0) mmHg ABG HCO3 (22.0-26.0) meq/L ABG O2 Saturation (96.0-97.0) % ABG Base Excess (-2-2.0) Melchor Test A-a Gradient mmHg O2 Delivery Device Oxygen Flow Rate FiO2 (21.00-100.00) % Sodium 127 L D (136-145) mEq/L Potassium 5.7 H D (3.5-5.1) mEq/L Chloride 90 L D (98-107) mEq/L Carbon Dioxide 25 (21-32) mEq/L Anion Gap 17.7 H (5-15) BUN 36 H (7-18) mg/dL Creatinine 2.5 H (0.7-1.3) mg/dL Est Cr Clr Drug Dosing 25.84 mL/min Estimated GFR (MDRD) 26 (>60) mL/min BUN/Creatinine Ratio 14.4 (14-18) Glucose 972 H* (83-115) mg/dL POC Glucose (83-110) mg/dL Hemoglobin A1c (4.50-6.20) % Serum Osmolality (280-300) mosm/kg Lactic Acid 5.3 H (0.4-2.0) mmol/L Calcium 9.6 (8.5-10.1) mg/dL Phosphorus (2.6-4.7) mg/dL Magnesium 2.1 (1.8-2.4) mg/dl Total Bilirubin 0.2 (0.2-1.0) mg/dL AST 11 L (15-37) U/L ALT 30 (16-63) U/L Alkaline Phosphatase 276 H (46-116) U/L Troponin I 0.020 (0.00-0.056) ng/mL Total Protein 7.5 (6.4-8.2) g/dl Albumin 3.2 L (3.4-5.0) g/dl Globulin 4.3 gm/dL Albumin/Globulin Ratio 0.7 L (1-2) Vitamin D 25-Hydroxy (30.0-100.0) ng/ml Free T4 (0.76-1.46) ng/dL TSH 3rd Generation (0.358-3.74) uIU/mL Urine Color (Yellow) Urine Appearance (Clear) Urine pH (5.0-8.0) Ur Specific [place] (1.005-1.030) Urine Protein (Negative) Urine Glucose (UA) (Negative) Urine Ketones (Negative) Urine Occult Blood (Negative) Urine Nitrite (Negative) Urine Bilirubin (Negative) Urine Urobilinogen (0.2-1.0) Ur Leukocyte Esterase (Negative) Urine RBC (0-5) /hpf Urine WBC (0-5) /hpf Ur Epithelial Cells (0-5) /hpf Urine Bacteria (FEW) /hpf Urine Mucus (FEW) /hpf Urine Osmolality (400-1100) mosm/kg Ur Random Creatinine (30.0-125.0) mg/dL Ur Random Microalbumin (1.3-20.0) mg/L Ur Random Sodium (40-220) mEq/L Microalb/Creat Ratio (0-30) mg/g Ketones (0.0-0.3) mM 10/30/18 10/30/18 10/30/18 Range/Units 19:40 19:40 19:40 WBC (4.23-9.07) K/mm3 RBC (4.63-6.08) M/mm3 Hgb (13.7-17.5) gm/dl Hct (40.1-51.0) % MCV (79.0-92.2) fl MCH (25.7-32.2) pg MCHC (32.2-35.5) g/dl RDW Std Deviation (35.1-43.9) fL Plt Count (163-337) K/mm3 MPV (9.4-12.3) fl Neut % (Auto) (34.0-67.9) % Lymph % (Auto) (21.8-53.1) % [place] % (Auto) (5.3-12.2) % Eos % (Auto) (0.8-7.0) Baso % (Auto) (0.1-1.2) % Neut # (Auto) (1.78-5.38) K/mm3 Lymph # (Auto) (1.32-3.57) K/mm3 [place] # (Auto) (0.30-0.82) K/mm3 Eos # (Auto) (0.04-0.54) K/mm3 Baso # (Auto) (0.01-0.08) K/mm3 Neutrophils % (Manual) (40-60) % Band Neutrophils % (0-10) % Lymphocytes % (Manual) (20-40) % Atypical Lymphs % % Monocytes % (Manual) (2-10) % Eosinophils % (Manual) (0.8-7.0) % Basophils % (Manual) (0.2-1.2) Platelet Estimate RBC Morph Comment Puncture Site ABG pH (7.35-7.45) ABG pCO2 (35.0-45.0) mmHg ABG pO2 (80.0-100.0) mmHg ABG HCO3 (22.0-26.0) meq/L ABG O2 Saturation (96.0-97.0) % ABG Base Excess (-2-2.0) Melchor Test A-a Gradient mmHg O2 Delivery Device Oxygen Flow Rate FiO2 (21.00-100.00) % Sodium (136-145) mEq/L Potassium (3.5-5.1) mEq/L Chloride (98-107) mEq/L Carbon Dioxide (21-32) mEq/L Anion Gap (5-15) BUN (7-18) mg/dL Creatinine (0.7-1.3) mg/dL Est Cr Clr Drug Dosing mL/min Estimated GFR (MDRD) (>60) mL/min BUN/Creatinine Ratio (14-18) Glucose (83-115) mg/dL POC Glucose (83-110) mg/dL Hemoglobin A1c 10.50 H (4.50-6.20) % Serum Osmolality 329 H (280-300) mosm/kg Lactic Acid (0.4-2.0) mmol/L Calcium (8.5-10.1) mg/dL Phosphorus (2.6-4.7) mg/dL Magnesium (1.8-2.4) mg/dl Total Bilirubin (0.2-1.0) mg/dL AST (15-37) U/L ALT (16-63) U/L Alkaline Phosphatase (46-116) U/L Troponin I (0.00-0.056) ng/mL Total Protein (6.4-8.2) g/dl Albumin (3.4-5.0) g/dl Globulin gm/dL Albumin/Globulin Ratio (1-2) Vitamin D 25-Hydroxy (30.0-100.0) ng/ml Free T4 (0.76-1.46) ng/dL TSH 3rd Generation (0.358-3.74) uIU/mL Urine Color (Yellow) Urine Appearance (Clear) Urine pH (5.0-8.0) Ur Specific [place] (1.005-1.030) Urine Protein (Negative) Urine Glucose (UA) (Negative) Urine Ketones (Negative) Urine Occult Blood (Negative) Urine Nitrite (Negative) Urine Bilirubin (Negative) Urine Urobilinogen (0.2-1.0) Ur Leukocyte Esterase (Negative) Urine RBC (0-5) /hpf Urine WBC (0-5) /hpf Ur Epithelial Cells (0-5) /hpf Urine Bacteria (FEW) /hpf Urine Mucus (FEW) /hpf Urine Osmolality (400-1100) mosm/kg Ur Random Creatinine (30.0-125.0) mg/dL Ur Random Microalbumin (1.3-20.0) mg/L Ur Random Sodium (40-220) mEq/L Microalb/Creat Ratio (0-30) mg/g Ketones 0.21 (0.0-0.3) mM 10/30/18 10/30/18 10/30/18 Range/Units 20:03 21:10 21:10 WBC (4.23-9.07) K/mm3 RBC (4.63-6.08) M/mm3 Hgb (13.7-17.5) gm/dl Hct (40.1-51.0) % MCV (79.0-92.2) fl MCH (25.7-32.2) pg MCHC (32.2-35.5) g/dl RDW Std Deviation (35.1-43.9) fL Plt Count (163-337) K/mm3 MPV (9.4-12.3) fl Neut % (Auto) (34.0-67.9) % Lymph % (Auto) (21.8-53.1) % [place] % (Auto) (5.3-12.2) % Eos % (Auto) (0.8-7.0) Baso % (Auto) (0.1-1.2) % Neut # (Auto) (1.78-5.38) K/mm3 Lymph # (Auto) (1.32-3.57) K/mm3 [place] # (Auto) (0.30-0.82) K/mm3 Eos # (Auto) (0.04-0.54) K/mm3 Baso # (Auto) (0.01-0.08) K/mm3 Neutrophils % (Manual) (40-60) % Band Neutrophils % (0-10) % Lymphocytes % (Manual) (20-40) % Atypical Lymphs % % Monocytes % (Manual) (2-10) % Eosinophils % (Manual) (0.8-7.0) % Basophils % (Manual) (0.2-1.2) Platelet Estimate RBC Morph Comment Puncture Site Rt radial ABG pH 7.32 L (7.35-7.45) ABG pCO2 48.8 H (35.0-45.0) mmHg ABG pO2 63.0 L (80.0-100.0) mmHg ABG HCO3 24.1 (22.0-26.0) meq/L ABG O2 Saturation 91.4 L (96.0-97.0) % ABG Base Excess -1.7 (-2-2.0) Melchor Test Positive A-a Gradient 27 mmHg O2 Delivery Device Room air Oxygen Flow Rate 0.0 FiO2 21.00 (21.00-100.00) % Sodium (136-145) mEq/L Potassium (3.5-5.1) mEq/L Chloride (98-107) mEq/L Carbon Dioxide (21-32) mEq/L Anion Gap (5-15) BUN (7-18) mg/dL Creatinine (0.7-1.3) mg/dL Est Cr Clr Drug Dosing mL/min Estimated GFR (MDRD) (>60) mL/min BUN/Creatinine Ratio (14-18) Glucose (83-115) mg/dL POC Glucose (83-110) mg/dL Hemoglobin A1c (4.50-6.20) % Serum Osmolality (280-300) mosm/kg Lactic Acid (0.4-2.0) mmol/L Calcium (8.5-10.1) mg/dL Phosphorus (2.6-4.7) mg/dL Magnesium (1.8-2.4) mg/dl Total Bilirubin (0.2-1.0) mg/dL AST (15-37) U/L ALT (16-63) U/L Alkaline Phosphatase (46-116) U/L Troponin I (0.00-0.056) ng/mL Total Protein (6.4-8.2) g/dl Albumin (3.4-5.0) g/dl Globulin gm/dL Albumin/Globulin Ratio (1-2) Vitamin D 25-Hydroxy (30.0-100.0) ng/ml Free T4 (0.76-1.46) ng/dL TSH 3rd Generation (0.358-3.74) uIU/mL Urine Color Yellow (Yellow) Urine Appearance Clear (Clear) Urine pH 5.5 (5.0-8.0) Ur Specific [place] 1.010 (1.005-1.030) Urine Protein Negative (Negative) Urine Glucose (UA) 2+ H (Negative) Urine Ketones Trace H (Negative) Urine Occult Blood Negative (Negative) Urine Nitrite Negative (Negative) Urine Bilirubin Negative (Negative) Urine Urobilinogen 0.2 (0.2-1.0) Ur Leukocyte Esterase Negative (Negative) Urine RBC 0-5 (0-5) /hpf Urine WBC 0-5 (0-5) /hpf Ur Epithelial Cells 0-5 (0-5) /hpf Urine Bacteria Few (FEW) /hpf Urine Mucus Few (FEW) /hpf Urine Osmolality (400-1100) mosm/kg Ur Random Creatinine 26.3 L (30.0-125.0) mg/dL Ur Random Microalbumin 2.9 (1.3-20.0) mg/L Ur Random Sodium (40-220) mEq/L Microalb/Creat Ratio 11.0 (0-30) mg/g Ketones (0.0-0.3) mM 10/30/18 10/30/18 10/30/18 Range/Units 21:10 21:10 21:40 WBC (4.23-9.07) K/mm3 RBC (4.63-6.08) M/mm3 Hgb (13.7-17.5) gm/dl Hct (40.1-51.0) % MCV (79.0-92.2) fl MCH (25.7-32.2) pg MCHC (32.2-35.5) g/dl RDW Std Deviation (35.1-43.9) fL Plt Count (163-337) K/mm3 MPV (9.4-12.3) fl Neut % (Auto) (34.0-67.9) % Lymph % (Auto) (21.8-53.1) % [place] % (Auto) (5.3-12.2) % Eos % (Auto) (0.8-7.0) Baso % (Auto) (0.1-1.2) % Neut # (Auto) (1.78-5.38) K/mm3 Lymph # (Auto) (1.32-3.57) K/mm3 [place] # (Auto) (0.30-0.82) K/mm3 Eos # (Auto) (0.04-0.54) K/mm3 Baso # (Auto) (0.01-0.08) K/mm3 Neutrophils % (Manual) (40-60) % Band Neutrophils % (0-10) % Lymphocytes % (Manual) (20-40) % Atypical Lymphs % % Monocytes % (Manual) (2-10) % Eosinophils % (Manual) (0.8-7.0) % Basophils % (Manual) (0.2-1.2) Platelet Estimate RBC Morph Comment Puncture Site ABG pH (7.35-7.45) ABG pCO2 (35.0-45.0) mmHg ABG pO2 (80.0-100.0) mmHg ABG HCO3 (22.0-26.0) meq/L ABG O2 Saturation (96.0-97.0) % ABG Base Excess (-2-2.0) Melchor Test A-a Gradient mmHg O2 Delivery Device Oxygen Flow Rate FiO2 (21.00-100.00) % Sodium 128 L (136-145) mEq/L Potassium 4.1 D (3.5-5.1) mEq/L Chloride 94 L (98-107) mEq/L Carbon Dioxide 23 (21-32) mEq/L Anion Gap 15.1 H (5-15) BUN 38 H (7-18) mg/dL Creatinine 2.4 H (0.7-1.3) mg/dL Est Cr Clr Drug Dosing 26.92 mL/min Estimated GFR (MDRD) 27 (>60) mL/min BUN/Creatinine Ratio 15.8 (14-18) Glucose 710 H* (83-115) mg/dL POC Glucose (83-110) mg/dL Hemoglobin A1c (4.50-6.20) % Serum Osmolality (280-300) mosm/kg Lactic Acid (0.4-2.0) mmol/L Calcium 9.0 (8.5-10.1) mg/dL Phosphorus (2.6-4.7) mg/dL Magnesium (1.8-2.4) mg/dl Total Bilirubin (0.2-1.0) mg/dL AST (15-37) U/L ALT (16-63) U/L Alkaline Phosphatase (46-116) U/L Troponin I (0.00-0.056) ng/mL Total Protein (6.4-8.2) g/dl Albumin (3.4-5.0) g/dl Globulin gm/dL Albumin/Globulin Ratio (1-2) Vitamin D 25-Hydroxy (30.0-100.0) ng/ml Free T4 (0.76-1.46) ng/dL TSH 3rd Generation (0.358-3.74) uIU/mL Urine Color (Yellow) Urine Appearance (Clear) Urine pH (5.0-8.0) Ur Specific [place] (1.005-1.030) Urine Protein (Negative) Urine Glucose (UA) (Negative) Urine Ketones (Negative) Urine Occult Blood (Negative) Urine Nitrite (Negative) Urine Bilirubin (Negative) Urine Urobilinogen (0.2-1.0) Ur Leukocyte Esterase (Negative) Urine RBC (0-5) /hpf Urine WBC (0-5) /hpf Ur Epithelial Cells (0-5) /hpf Urine Bacteria (FEW) /hpf Urine Mucus (FEW) /hpf Urine Osmolality 536 (400-1100) mosm/kg Ur Random Creatinine (30.0-125.0) mg/dL Ur Random Microalbumin (1.3-20.0) mg/L Ur Random Sodium 22 L (40-220) mEq/L Microalb/Creat Ratio (0-30) mg/g Ketones (0.0-0.3) mM 10/30/18 10/31/18 10/31/18 Range/Units 21:40 00:40 00:40 WBC (4.23-9.07) K/mm3 RBC (4.63-6.08) M/mm3 Hgb (13.7-17.5) gm/dl Hct (40.1-51.0) % MCV (79.0-92.2) fl MCH (25.7-32.2) pg MCHC (32.2-35.5) g/dl RDW Std Deviation (35.1-43.9) fL Plt Count (163-337) K/mm3 MPV (9.4-12.3) fl Neut % (Auto) (34.0-67.9) % Lymph % (Auto) (21.8-53.1) % [place] % (Auto) (5.3-12.2) % Eos % (Auto) (0.8-7.0) Baso % (Auto) (0.1-1.2) % Neut # (Auto) (1.78-5.38) K/mm3 Lymph # (Auto) (1.32-3.57) K/mm3 [place] # (Auto) (0.30-0.82) K/mm3 Eos # (Auto) (0.04-0.54) K/mm3 Baso # (Auto) (0.01-0.08) K/mm3 Neutrophils % (Manual) (40-60) % Band Neutrophils % (0-10) % Lymphocytes % (Manual) (20-40) % Atypical Lymphs % % Monocytes % (Manual) (2-10) % Eosinophils % (Manual) (0.8-7.0) % Basophils % (Manual) (0.2-1.2) Platelet Estimate RBC Morph Comment Puncture Site ABG pH (7.35-7.45) ABG pCO2 (35.0-45.0) mmHg ABG pO2 (80.0-100.0) mmHg ABG HCO3 (22.0-26.0) meq/L ABG O2 Saturation (96.0-97.0) % ABG Base Excess (-2-2.0) Melchor Test A-a Gradient mmHg O2 Delivery Device Oxygen Flow Rate FiO2 (21.00-100.00) % Sodium (136-145) mEq/L Potassium (3.5-5.1) mEq/L Chloride (98-107) mEq/L Carbon Dioxide (21-32) mEq/L Anion Gap (5-15) BUN (7-18) mg/dL Creatinine (0.7-1.3) mg/dL Est Cr Clr Drug Dosing mL/min Estimated GFR (MDRD) (>60) mL/min BUN/Creatinine Ratio (14-18) Glucose 413 H (83-115) mg/dL POC Glucose (83-110) mg/dL Hemoglobin A1c (4.50-6.20) % Serum Osmolality (280-300) mosm/kg Lactic Acid 2.3 H (0.4-2.0) mmol/L Calcium (8.5-10.1) mg/dL Phosphorus (2.6-4.7) mg/dL Magnesium (1.8-2.4) mg/dl Total Bilirubin (0.2-1.0) mg/dL AST (15-37) U/L ALT (16-63) U/L Alkaline Phosphatase (46-116) U/L Troponin I (0.00-0.056) ng/mL Total Protein (6.4-8.2) g/dl Albumin (3.4-5.0) g/dl Globulin gm/dL Albumin/Globulin Ratio (1-2) Vitamin D 25-Hydroxy 19.6 L (30.0-100.0) ng/ml Free T4 1.34 (0.76-1.46) ng/dL TSH 3rd Generation 0.080 L (0.358-3.74) uIU/mL Urine Color (Yellow) Urine Appearance (Clear) Urine pH (5.0-8.0) Ur Specific [place] (1.005-1.030) Urine Protein (Negative) Urine Glucose (UA) (Negative) Urine Ketones (Negative) Urine Occult Blood (Negative) Urine Nitrite (Negative) Urine Bilirubin (Negative) Urine Urobilinogen (0.2-1.0) Ur Leukocyte Esterase (Negative) Urine RBC (0-5) /hpf Urine WBC (0-5) /hpf Ur Epithelial Cells (0-5) /hpf Urine Bacteria (FEW) /hpf Urine Mucus (FEW) /hpf Urine Osmolality (400-1100) mosm/kg Ur Random Creatinine (30.0-125.0) mg/dL Ur Random Microalbumin (1.3-20.0) mg/L Ur Random Sodium (40-220) mEq/L Microalb/Creat Ratio (0-30) mg/g Ketones (0.0-0.3) mM 10/31/18 10/31/18 10/31/18 Range/Units 02:08 03:12 04:17 WBC (4.23-9.07) K/mm3 RBC (4.63-6.08) M/mm3 Hgb (13.7-17.5) gm/dl Hct (40.1-51.0) % MCV (79.0-92.2) fl MCH (25.7-32.2) pg MCHC (32.2-35.5) g/dl RDW Std Deviation (35.1-43.9) fL Plt Count (163-337) K/mm3 MPV (9.4-12.3) fl Neut % (Auto) (34.0-67.9) % Lymph % (Auto) (21.8-53.1) % [place] % (Auto) (5.3-12.2) % Eos % (Auto) (0.8-7.0) Baso % (Auto) (0.1-1.2) % Neut # (Auto) (1.78-5.38) K/mm3 Lymph # (Auto) (1.32-3.57) K/mm3 [place] # (Auto) (0.30-0.82) K/mm3 Eos # (Auto) (0.04-0.54) K/mm3 Baso # (Auto) (0.01-0.08) K/mm3 Neutrophils % (Manual) (40-60) % Band Neutrophils % (0-10) % Lymphocytes % (Manual) (20-40) % Atypical Lymphs % % Monocytes % (Manual) (2-10) % Eosinophils % (Manual) (0.8-7.0) % Basophils % (Manual) (0.2-1.2) Platelet Estimate RBC Morph Comment Puncture Site ABG pH (7.35-7.45) ABG pCO2 (35.0-45.0) mmHg ABG pO2 (80.0-100.0) mmHg ABG HCO3 (22.0-26.0) meq/L ABG O2 Saturation (96.0-97.0) % ABG Base Excess (-2-2.0) Melchor Test A-a Gradient mmHg O2 Delivery Device Oxygen Flow Rate FiO2 (21.00-100.00) % Sodium (136-145) mEq/L Potassium (3.5-5.1) mEq/L Chloride (98-107) mEq/L Carbon Dioxide (21-32) mEq/L Anion Gap (5-15) BUN (7-18) mg/dL Creatinine (0.7-1.3) mg/dL Est Cr Clr Drug Dosing mL/min Estimated GFR (MDRD) (>60) mL/min BUN/Creatinine Ratio (14-18) Glucose (83-115) mg/dL POC Glucose 222 H 108 74 L (83-110) mg/dL Hemoglobin A1c (4.50-6.20) % Serum Osmolality (280-300) mosm/kg Lactic Acid (0.4-2.0) mmol/L Calcium (8.5-10.1) mg/dL Phosphorus (2.6-4.7) mg/dL Magnesium (1.8-2.4) mg/dl Total Bilirubin (0.2-1.0) mg/dL AST (15-37) U/L ALT (16-63) U/L Alkaline Phosphatase (46-116) U/L Troponin I (0.00-0.056) ng/mL Total Protein (6.4-8.2) g/dl Albumin (3.4-5.0) g/dl Globulin gm/dL Albumin/Globulin Ratio (1-2) Vitamin D 25-Hydroxy (30.0-100.0) ng/ml Free T4 (0.76-1.46) ng/dL TSH 3rd Generation (0.358-3.74) uIU/mL Urine Color (Yellow) Urine Appearance (Clear) Urine pH (5.0-8.0) Ur Specific [place] (1.005-1.030) Urine Protein (Negative) Urine Glucose (UA) (Negative) Urine Ketones (Negative) Urine Occult Blood (Negative) Urine Nitrite (Negative) Urine Bilirubin (Negative) Urine Urobilinogen (0.2-1.0) Ur Leukocyte Esterase (Negative) Urine RBC (0-5) /hpf Urine WBC (0-5) /hpf Ur Epithelial Cells (0-5) /hpf Urine Bacteria (FEW) /hpf Urine Mucus (FEW) /hpf Urine Osmolality (400-1100) mosm/kg Ur Random Creatinine (30.0-125.0) mg/dL Ur Random Microalbumin (1.3-20.0) mg/L Ur Random Sodium (40-220) mEq/L Microalb/Creat Ratio (0-30) mg/g Ketones (0.0-0.3) mM 10/31/18 10/31/18 10/31/18 Range/Units 05:00 05:00 05:00 WBC 8.62 (4.23-9.07) K/mm3 RBC 3.36 L (4.63-6.08) M/mm3 Hgb 9.6 L (13.7-17.5) gm/dl Hct 28.8 L (40.1-51.0) % MCV 85.7 (79.0-92.2) fl MCH 28.6 (25.7-32.2) pg MCHC 33.3 (32.2-35.5) g/dl RDW Std Deviation 36.0 (35.1-43.9) fL Plt Count 256 (163-337) K/mm3 MPV 8.7 L (9.4-12.3) fl Neut % (Auto) 62.4 (34.0-67.9) % Lymph % (Auto) 21.5 L (21.8-53.1) % [place] % (Auto) 12.3 H (5.3-12.2) % Eos % (Auto) 2.9 (0.8-7.0) Baso % (Auto) 0.3 (0.1-1.2) % Neut # (Auto) 5.38 (1.78-5.38) K/mm3 Lymph # (Auto) 1.85 (1.32-3.57) K/mm3 [place] # (Auto) 1.06 H (0.30-0.82) K/mm3 Eos # (Auto) 0.25 (0.04-0.54) K/mm3 Baso # (Auto) 0.03 (0.01-0.08) K/mm3 Neutrophils % (Manual) (40-60) % Band Neutrophils % (0-10) % Lymphocytes % (Manual) (20-40) % Atypical Lymphs % % Monocytes % (Manual) (2-10) % Eosinophils % (Manual) (0.8-7.0) % Basophils % (Manual) (0.2-1.2) Platelet Estimate RBC Morph Comment Puncture Site ABG pH (7.35-7.45) ABG pCO2 (35.0-45.0) mmHg ABG pO2 (80.0-100.0) mmHg ABG HCO3 (22.0-26.0) meq/L ABG O2 Saturation (96.0-97.0) % ABG Base Excess (-2-2.0) Melchor Test A-a Gradient mmHg O2 Delivery Device Oxygen Flow Rate FiO2 (21.00-100.00) % Sodium 139 D (136-145) mEq/L Potassium 4.3 (3.5-5.1) mEq/L Chloride 103 (98-107) mEq/L Carbon Dioxide 28 (21-32) mEq/L Anion Gap 12.3 (5-15) BUN 30 H (7-18) mg/dL Creatinine 1.6 H (0.7-1.3) mg/dL Est Cr Clr Drug Dosing 40.52 mL/min Estimated GFR (MDRD) 43 (>60) mL/min BUN/Creatinine Ratio 18.8 H (14-18) Glucose 104 (83-115) mg/dL POC Glucose (83-110) mg/dL Hemoglobin A1c (4.50-6.20) % Serum Osmolality (280-300) mosm/kg Lactic Acid 0.8 (0.4-2.0) mmol/L Calcium 9.4 (8.5-10.1) mg/dL Phosphorus 4.8 H (2.6-4.7) mg/dL Magnesium 1.8 (1.8-2.4) mg/dl Total Bilirubin (0.2-1.0) mg/dL AST (15-37) U/L ALT (16-63) U/L Alkaline Phosphatase (46-116) U/L Troponin I (0.00-0.056) ng/mL Total Protein (6.4-8.2) g/dl Albumin (3.4-5.0) g/dl Globulin gm/dL Albumin/Globulin Ratio (1-2) Vitamin D 25-Hydroxy (30.0-100.0) ng/ml Free T4 (0.76-1.46) ng/dL TSH 3rd Generation (0.358-3.74) uIU/mL Urine Color (Yellow) Urine Appearance (Clear) Urine pH (5.0-8.0) Ur Specific [place] (1.005-1.030) Urine Protein (Negative) Urine Glucose (UA) (Negative) Urine Ketones (Negative) Urine Occult Blood (Negative) Urine Nitrite (Negative) Urine Bilirubin (Negative) Urine Urobilinogen (0.2-1.0) Ur Leukocyte Esterase (Negative) Urine RBC (0-5) /hpf Urine WBC (0-5) /hpf Ur Epithelial Cells (0-5) /hpf Urine Bacteria (FEW) /hpf Urine Mucus (FEW) /hpf Urine Osmolality (400-1100) mosm/kg Ur Random Creatinine (30.0-125.0) mg/dL Ur Random Microalbumin (1.3-20.0) mg/L Ur Random Sodium (40-220) mEq/L Microalb/Creat Ratio (0-30) mg/g Ketones (0.0-0.3) mM 10/31/18 10/31/18 10/31/18 Range/Units 05:12 06:08 06:56 WBC (4.23-9.07) K/mm3 RBC (4.63-6.08) M/mm3 Hgb (13.7-17.5) gm/dl Hct (40.1-51.0) % MCV (79.0-92.2) fl MCH (25.7-32.2) pg MCHC (32.2-35.5) g/dl RDW Std Deviation (35.1-43.9) fL Plt Count (163-337) K/mm3 MPV (9.4-12.3) fl Neut % (Auto) (34.0-67.9) % Lymph % (Auto) (21.8-53.1) % [place] % (Auto) (5.3-12.2) % Eos % (Auto) (0.8-7.0) Baso % (Auto) (0.1-1.2) % Neut # (Auto) (1.78-5.38) K/mm3 Lymph # (Auto) (1.32-3.57) K/mm3 [place] # (Auto) (0.30-0.82) K/mm3 Eos # (Auto) (0.04-0.54) K/mm3 Baso # (Auto) (0.01-0.08) K/mm3 Neutrophils % (Manual) (40-60) % Band Neutrophils % (0-10) % Lymphocytes % (Manual) (20-40) % Atypical Lymphs % % Monocytes % (Manual) (2-10) % Eosinophils % (Manual) (0.8-7.0) % Basophils % (Manual) (0.2-1.2) Platelet Estimate RBC Morph Comment Puncture Site ABG pH (7.35-7.45) ABG pCO2 (35.0-45.0) mmHg ABG pO2 (80.0-100.0) mmHg ABG HCO3 (22.0-26.0) meq/L ABG O2 Saturation (96.0-97.0) % ABG Base Excess (-2-2.0) Melchor Test A-a Gradient mmHg O2 Delivery Device Oxygen Flow Rate FiO2 (21.00-100.00) % Sodium (136-145) mEq/L Potassium (3.5-5.1) mEq/L Chloride (98-107) mEq/L Carbon Dioxide (21-32) mEq/L Anion Gap (5-15) BUN (7-18) mg/dL Creatinine (0.7-1.3) mg/dL Est Cr Clr Drug Dosing mL/min Estimated GFR (MDRD) (>60) mL/min BUN/Creatinine Ratio (14-18) Glucose (83-115) mg/dL POC Glucose 96 144 H 165 H (83-110) mg/dL Hemoglobin A1c (4.50-6.20) % Serum Osmolality (280-300) mosm/kg Lactic Acid (0.4-2.0) mmol/L Calcium (8.5-10.1) mg/dL Phosphorus (2.6-4.7) mg/dL Magnesium (1.8-2.4) mg/dl Total Bilirubin (0.2-1.0) mg/dL AST (15-37) U/L ALT (16-63) U/L Alkaline Phosphatase (46-116) U/L Troponin I (0.00-0.056) ng/mL Total Protein (6.4-8.2) g/dl Albumin (3.4-5.0) g/dl Globulin gm/dL Albumin/Globulin Ratio (1-2) Vitamin D 25-Hydroxy (30.0-100.0) ng/ml Free T4 (0.76-1.46) ng/dL TSH 3rd Generation (0.358-3.74) uIU/mL Urine Color (Yellow) Urine Appearance (Clear) Urine pH (5.0-8.0) Ur Specific [place] (1.005-1.030) Urine Protein (Negative) Urine Glucose (UA) (Negative) Urine Ketones (Negative) Urine Occult Blood (Negative) Urine Nitrite (Negative) Urine Bilirubin (Negative) Urine Urobilinogen (0.2-1.0) Ur Leukocyte Esterase (Negative) Urine RBC (0-5) /hpf Urine WBC (0-5) /hpf Ur Epithelial Cells (0-5) /hpf Urine Bacteria (FEW) /hpf Urine Mucus (FEW) /hpf Urine Osmolality (400-1100) mosm/kg Ur Random Creatinine (30.0-125.0) mg/dL Ur Random Microalbumin (1.3-20.0) mg/L Ur Random Sodium (40-220) mEq/L Microalb/Creat Ratio (0-30) mg/g Ketones (0.0-0.3) mM 10/31/18 10/31/18 10/31/18 Range/Units 11:30 14:31 16:37 WBC (4.23-9.07) K/mm3 RBC (4.63-6.08) M/mm3 Hgb (13.7-17.5) gm/dl Hct (40.1-51.0) % MCV (79.0-92.2) fl MCH (25.7-32.2) pg MCHC (32.2-35.5) g/dl RDW Std Deviation (35.1-43.9) fL Plt Count (163-337) K/mm3 MPV (9.4-12.3) fl Neut % (Auto) (34.0-67.9) % Lymph % (Auto) (21.8-53.1) % [place] % (Auto) (5.3-12.2) % Eos % (Auto) (0.8-7.0) Baso % (Auto) (0.1-1.2) % Neut # (Auto) (1.78-5.38) K/mm3 Lymph # (Auto) (1.32-3.57) K/mm3 [place] # (Auto) (0.30-0.82) K/mm3 Eos # (Auto) (0.04-0.54) K/mm3 Baso # (Auto) (0.01-0.08) K/mm3 Neutrophils % (Manual) (40-60) % Band Neutrophils % (0-10) % Lymphocytes % (Manual) (20-40) % Atypical Lymphs % % Monocytes % (Manual) (2-10) % Eosinophils % (Manual) (0.8-7.0) % Basophils % (Manual) (0.2-1.2) Platelet Estimate RBC Morph Comment Puncture Site ABG pH (7.35-7.45) ABG pCO2 (35.0-45.0) mmHg ABG pO2 (80.0-100.0) mmHg ABG HCO3 (22.0-26.0) meq/L ABG O2 Saturation (96.0-97.0) % ABG Base Excess (-2-2.0) Melchor Test A-a Gradient mmHg O2 Delivery Device Oxygen Flow Rate FiO2 (21.00-100.00) % Sodium (136-145) mEq/L Potassium (3.5-5.1) mEq/L Chloride (98-107) mEq/L Carbon Dioxide (21-32) mEq/L Anion Gap (5-15) BUN (7-18) mg/dL Creatinine (0.7-1.3) mg/dL Est Cr Clr Drug Dosing mL/min Estimated GFR (MDRD) (>60) mL/min BUN/Creatinine Ratio (14-18) Glucose 533 H (83-115) mg/dL POC Glucose 384 H 253 H (83-110) mg/dL Hemoglobin A1c (4.50-6.20) % Serum Osmolality (280-300) mosm/kg Lactic Acid (0.4-2.0) mmol/L Calcium (8.5-10.1) mg/dL Phosphorus (2.6-4.7) mg/dL Magnesium (1.8-2.4) mg/dl Total Bilirubin (0.2-1.0) mg/dL AST (15-37) U/L ALT (16-63) U/L Alkaline Phosphatase (46-116) U/L Troponin I (0.00-0.056) ng/mL Total Protein (6.4-8.2) g/dl Albumin (3.4-5.0) g/dl Globulin gm/dL Albumin/Globulin Ratio (1-2) Vitamin D 25-Hydroxy (30.0-100.0) ng/ml Free T4 (0.76-1.46) ng/dL TSH 3rd Generation (0.358-3.74) uIU/mL Urine Color (Yellow) Urine Appearance (Clear) Urine pH (5.0-8.0) Ur Specific [place] (1.005-1.030) Urine Protein (Negative) Urine Glucose (UA) (Negative) Urine Ketones (Negative) Urine Occult Blood (Negative) Urine Nitrite (Negative) Urine Bilirubin (Negative) Urine Urobilinogen (0.2-1.0) Ur Leukocyte Esterase (Negative) Urine RBC (0-5) /hpf Urine WBC (0-5) /hpf Ur Epithelial Cells (0-5) /hpf Urine Bacteria (FEW) /hpf Urine Mucus (FEW) /hpf Urine Osmolality (400-1100) mosm/kg Ur Random Creatinine (30.0-125.0) mg/dL Ur Random Microalbumin (1.3-20.0) mg/L Ur Random Sodium (40-220) mEq/L Microalb/Creat Ratio (0-30) mg/g Ketones (0.0-0.3) mM 10/31/18 Range/Units 17:32 WBC (4.23-9.07) K/mm3 RBC (4.63-6.08) M/mm3 Hgb (13.7-17.5) gm/dl Hct (40.1-51.0) % MCV (79.0-92.2) fl MCH (25.7-32.2) pg MCHC (32.2-35.5) g/dl RDW Std Deviation (35.1-43.9) fL Plt Count (163-337) K/mm3 MPV (9.4-12.3) fl Neut % (Auto) (34.0-67.9) % Lymph % (Auto) (21.8-53.1) % [place] % (Auto) (5.3-12.2) % Eos % (Auto) (0.8-7.0) Baso % (Auto) (0.1-1.2) % Neut # (Auto) (1.78-5.38) K/mm3 Lymph # (Auto) (1.32-3.57) K/mm3 [place] # (Auto) (0.30-0.82) K/mm3 Eos # (Auto) (0.04-0.54) K/mm3 Baso # (Auto) (0.01-0.08) K/mm3 Neutrophils % (Manual) (40-60) % Band Neutrophils % (0-10) % Lymphocytes % (Manual) (20-40) % Atypical Lymphs % % Monocytes % (Manual) (2-10) % Eosinophils % (Manual) (0.8-7.0) % Basophils % (Manual) (0.2-1.2) Platelet Estimate RBC Morph Comment Puncture Site ABG pH (7.35-7.45) ABG pCO2 (35.0-45.0) mmHg ABG pO2 (80.0-100.0) mmHg ABG HCO3 (22.0-26.0) meq/L ABG O2 Saturation (96.0-97.0) % ABG Base Excess (-2-2.0) Melchor Test A-a Gradient mmHg O2 Delivery Device Oxygen Flow Rate FiO2 (21.00-100.00) % Sodium (136-145) mEq/L Potassium (3.5-5.1) mEq/L Chloride (98-107) mEq/L Carbon Dioxide (21-32) mEq/L Anion Gap (5-15) BUN (7-18) mg/dL Creatinine (0.7-1.3) mg/dL Est Cr Clr Drug Dosing mL/min Estimated GFR (MDRD) (>60) mL/min BUN/Creatinine Ratio (14-18) Glucose (83-115) mg/dL POC Glucose 180 H (83-110) mg/dL Hemoglobin A1c (4.50-6.20) % Serum Osmolality (280-300) mosm/kg Lactic Acid (0.4-2.0) mmol/L Calcium (8.5-10.1) mg/dL Phosphorus (2.6-4.7) mg/dL Magnesium (1.8-2.4) mg/dl Total Bilirubin (0.2-1.0) mg/dL AST (15-37) U/L ALT (16-63) U/L Alkaline Phosphatase (46-116) U/L Troponin I (0.00-0.056) ng/mL Total Protein (6.4-8.2) g/dl Albumin (3.4-5.0) g/dl Globulin gm/dL Albumin/Globulin Ratio (1-2) Vitamin D 25-Hydroxy (30.0-100.0) ng/ml Free T4 (0.76-1.46) ng/dL TSH 3rd Generation (0.358-3.74) uIU/mL Urine Color (Yellow) Urine Appearance (Clear) Urine pH (5.0-8.0) Ur Specific [place] (1.005-1.030) Urine Protein (Negative) Urine Glucose (UA) (Negative) Urine Ketones (Negative) Urine Occult Blood (Negative) Urine Nitrite (Negative) Urine Bilirubin (Negative) Urine Urobilinogen (0.2-1.0) Ur Leukocyte Esterase (Negative) Urine RBC (0-5) /hpf Urine WBC (0-5) /hpf Ur Epithelial Cells (0-5) /hpf Urine Bacteria (FEW) /hpf Urine Mucus (FEW) /hpf Urine Osmolality (400-1100) mosm/kg Ur Random Creatinine (30.0-125.0) mg/dL Ur Random Microalbumin (1.3-20.0) mg/L Ur Random Sodium (40-220) mEq/L Microalb/Creat Ratio (0-30) mg/g Ketones (0.0-0.3) mM Result Diagrams: 10/31/18 05:00 10/31/18 05:00 Orders Last 24hrs: Active Orders 24 hr Category Date Time Status Admission Status [Patient Status] [ADT] Routine ADT 10/30/18 23:34 Active Antiembolic Devices [RC] Q4HR Care 10/30/18 23:36 Active BIPAP Adult [RT BiPAP/CPAP] [RC] ASDIRECTED Care 10/30/18 20:12 Active Blood Glucose Check, Bedside [RC] Q2HR Care 10/30/18 21:38 Active EKG Documentation Completion [RC] STAT Care 10/30/18 19:14 Active Floyd Catheter Insertion [Insert Urinary Catheter] [OM. Care 10/30/18 23:45 Ordered PC] Q24H Intake and Output [RC] Q4HR Care 10/30/18 23:36 Active Oxygen Therapy [RC] Q4HR Care 10/30/18 23:35 Active RT Aerosol Therapy [RC] ASDIRECTED Care 10/30/18 23:38 Active Up With Assistance [RC] BID Care 10/30/18 23:35 Active VTE/DVT Education [RC] BID Care 10/30/18 23:35 Active Vital Signs [RC] Q2HR Care 10/30/18 23:35 Active Consult to Case Management/Bread Wrapper [CONS] Cons 10/30/18 23:35 Active Routine Consult to Diabetic Nurse Specialist [CONS] Routine Cons 10/30/18 23:35 Active Consult to Tester Vibrator Equipment [CONS] Routine Cons 10/30/18 23:35 Active Consult to Speech Language Pathology [SOUR BLEACHING PLEATER Evaluation Cons 10/31/18 09:51 Active and Treatment] [CONS] Routine Consult to Spiritual Care [CONS] Routine Cons 10/30/18 23:35 Active OT Evaluation and Treatment [CONS] Routine Cons 10/30/18 23:35 Active PT Evaluation and Treatment [CONS] Routine Cons 10/30/18 23:35 Active Respiratory Care Assess and Treatment [CONS] Routine Cons 10/30/18 23:35 Active Consistent Carbohydrate Diet [DIET] Diet 10/31/18 Breakfast Active Heart Healthy Diet [DIET] Diet 10/31/18 Breakfast Active BASIC METABOLIC PANEL,BMP [CHEM] AM Lab 11/01/18 05:11 Ordered BASIC METABOLIC PANEL,BMP [CHEM] AM Lab 11/02/18 05:11 Ordered BASIC METABOLIC PANEL,BMP [CHEM] AM Lab 11/03/18 05:11 Ordered BASIC METABOLIC PANEL,BMP [CHEM] AM Lab 11/04/18 05:11 Ordered CBC WITH AUTO DIFF [HEME] AM Lab 11/01/18 05:11 Ordered CBC WITH AUTO DIFF [HEME] AM Lab 11/02/18 05:11 Ordered CBC WITH AUTO DIFF [HEME] AM Lab 11/03/18 05:11 Ordered CBC WITH AUTO DIFF [HEME] AM Lab 11/04/18 05:11 Ordered CULTURE BLOOD [BC] Stat Lab 10/30/18 19:40 Received CULTURE BLOOD [BC] Stat Lab 10/30/18 19:57 Received MAGNESIUM [CHEM] AM Lab 11/01/18 05:11 Ordered MAGNESIUM [CHEM] AM Lab 11/02/18 05:11 Ordered MAGNESIUM [CHEM] AM Lab 11/03/18 05:11 Ordered MAGNESIUM [CHEM] AM Lab 11/04/18 05:11 Ordered PHOSPHORUS [CHEM] AM Lab 11/01/18 05:11 Ordered PHOSPHORUS [CHEM] AM Lab 11/02/18 05:11 Ordered PHOSPHORUS [CHEM] AM Lab 11/03/18 05:11 Ordered PHOSPHORUS [CHEM] AM Lab 11/04/18 05:11 Ordered Acetaminophen [Tylenol] Med 10/30/18 23:35 Active 650 mg PO Q4H PRN Acetaminophen/HYDROcodone [[place] 325-5 MG] Med 10/30/18 23:35 Active 1 tab PO Q4H PRN Albuterol/Ipratropium [DuoNeb 3.0-0.5 MG/3 ML] Med 10/30/18 23:35 Active 3 ml NEB Q4H PRN Aspirin [Halfprin] Med 10/31/18 09:00 Active 81 mg PO DAILY Bisacodyl [Dulcolax] Med 10/30/18 23:35 Active 5 mg PO DAILY PRN Cholecalciferol (Vitamin D3) [Vitamin D3] Med 10/31/18 09:00 Active 25 mcg PO DAILY Citalopram [Celexa] Med 10/31/18 09:00 Active 20 mg PO DAILY Docusate Sodium [Colace] Med 10/30/18 23:35 Active 100 mg PO BID PRN Docusate Sodium/Sennosides [Senna Plus] Med 10/30/18 23:35 Active 1 tab PO BID PRN Docusate Sodium/Sennosides [Senna Plus] Med 10/31/18 09:00 Active 2 tab PO BID Finasteride [Proscar] Med 10/31/18 09:00 Active 5 mg PO DAILY HYDROmorphone [Dilaudid] Med 10/30/18 23:35 Active 0.25 mg IVPUSH Q2H PRN Insulin Glarg,Human.Rec.Analog [LantUS] Med 10/31/18 21:00 Active 25 unit SUBCUT BEDTIME Insulin Lispro [HumaLOG] Med 10/31/18 22:00 Active See Protocol SUBCUT QIDACANDBED Insulin Regular, Human [HumuLIN R] 100 unit Med 10/30/18 19:45 Active Sodium Chloride 0.9% [Normal Saline] 99 ml IV TITRATE LORazepam [Ativan] Med 10/30/18 23:35 Active 0.25 mg IV Q6H PRN Levothyroxine [Synthroid] Med 11/01/18 06:00 Active 150 mcg PO ACBREAKFAST Lidocaine 4% [Aspercreme 4%] Med 10/31/18 09:00 Active 1 each TOP DAILY Melatonin Med 10/31/18 18:00 Active 6 mg PO QPM Ondansetron [Zofran ODT] Med 10/30/18 23:43 Active 4 mg PO Q6H PRN Ondansetron [Zofran] Med 10/30/18 23:35 Active 4 mg IV Q6H PRN Pantoprazole [ProTONIX] Med 10/31/18 09:00 Active 40 mg PO BID Polyethylene Glycol 3350 [MiraLAX] Med 10/30/18 23:35 Active 17 gm PO DAILY PRN Promethazine [Phenergan] 6.25 mg Med 10/30/18 23:35 Active Sodium Chloride 0.9% [Normal Saline] 50 ml IV Q6H Remove Patch Med 10/31/18 21:00 Active 1 ea TRDERM BEDTIME SUMAtriptan [Imitrex] Med 10/30/18 23:43 Active 100 mg PO Q2H PRN Simvastatin [Zocor] Med 10/31/18 21:00 Active 20 mg PO BEDTIME Sodium Chloride 0.9% [Normal Saline] 1,000 ml Med 10/31/18 09:00 Active IV ASDIRECTED Tamsulosin [Flomax] Med 10/31/18 10:00 Active 0.4 mg PO PCBREAKFAST Temazepam [Restoril] Med 10/30/18 23:35 Active 7.5 mg PO BEDTIME PRN buPROPion [Wellbutrin SR] Med 10/31/18 09:00 Active 100 mg PO DAILY Blood Culture x2 Reflex Set [OM.PC] Stat Ot 10/30/18 19:14 Ordered Sequential Compression Device [OM.PC] Per Unit Routine Ot 10/30/18 23:36 Ordered Medication Orders Acetaminophen (Tylenol) 650 mg PO Q4H PRN PRN Reason: Pain (Mild 1-3)/fever Hydrocodone Bitart/Acetaminophen ([place] 325-5 Mg) 1 tab PO Q4H PRN PRN Reason: Pain (moderate 4-6) Albuterol/Ipratropium (Duoneb 3.0-0.5 Mg/3 Ml) 3 ml NEB Q4H PRN PRN Reason: Shortness Of Breath/wheezing Aspirin (Halfprin) 81 mg PO DAILY [facility] Last Admin: 10/31/18 09:20 Dose: 81 mg Bisacodyl (Dulcolax) 5 mg PO DAILY PRN PRN Reason: Constipation Bupropion HCl (Wellbutrin Sr) 100 mg PO DAILY [facility] Last Admin: 10/31/18 09:20 Dose: 100 mg Cholecalciferol (Vitamin D3) 25 mcg PO DAILY [facility] Last Admin: 10/31/18 09:19 Dose: 25 mcg Citalopram Hydrobromide (Celexa) 20 mg PO DAILY [facility] Last Admin: 10/31/18 09:20 Dose: 20 mg Docusate Sodium (Colace) 100 mg PO BID PRN PRN Reason: Constipation Finasteride (Proscar) 5 mg PO DAILY [facility] Last Admin: 10/31/18 09:20 Dose: 5 mg Hydromorphone HCl (Dilaudid) 0.25 mg IVPUSH Q2H PRN PRN Reason: Pain (severe 7-10) Insulin Human Regular 100 unit (/ Sodium Chloride) 100 mls @ 7.03 mls/hr IV TITRATE [facility]; Protocol Last Titration: 10/31/18 17:35 Dose: 0 units/kg/hr, 0 mls/hr Admin: 10/31/18 12:35 Dose: 0.1 units/kg/hr, 7.03 mls/hr Titration: 10/31/18 12:33 Dose: 0.1 units/kg/hr, 7.03 mls/hr Titration: 10/31/18 12:16 Dose: 7 units/kg/hr, 492.14 mls/hr Titration: 10/31/18 03:16 Dose: 0 units/kg/hr, 0 mls/hr Titration: 10/31/18 02:18 Dose: 0.07 units/kg/hr, 5.2 mls/hr Admin: 10/30/18 20:11 Dose: 0.1 units/kg/hr, 7.03 mls/hr Promethazine HCl 6.25 mg/ (Sodium Chloride) 50.25 mls @ 100 mls/hr IV Q6H PRN PRN Reason: Nausea/Vomiting Sodium Chloride (Normal Saline) 1,000 mls @ 50 mls/hr IV ASDIRECTED [facility] Last Admin: 10/31/18 09:39 Dose: 50 mls/hr Insulin Glargine (Lantus) 25 unit SUBCUT BEDTIME [facility] Last Admin: 10/31/18 12:08 Dose: 25 units Insulin Human Lispro (Humalog) 0 unit SUBCUT QIDACANDBED [facility]; Protocol Levothyroxine Sodium (Synthroid) 150 mcg PO ACBREAKFAST [facility] Lidocaine (Aspercreme 4%) 1 each TOP DAILY [facility] Last Admin: 10/31/18 09:21 Dose: 1 each Lorazepam (Ativan) 0.25 mg IV Q6H PRN PRN Reason: Anxiety Melatonin (Melatonin) 6 mg PO QPM [facility] Miscellaneous Information (Remove Patch) 1 ea TRDERM BEDTIME [facility] Ondansetron HCl (Zofran) 4 mg IV Q6H PRN PRN Reason: Nausea/Vomiting Last Admin: 10/31/18 09:44 Dose: 4 mg Ondansetron HCl (Zofran Odt) 4 mg PO Q6H PRN PRN Reason: Nausea Pantoprazole Sodium (Protonix) 40 mg PO BID [facility] Last Admin: 10/31/18 09:19 Dose: 40 mg Polyethylene Glycol (Miralax) 17 gm PO DAILY PRN PRN Reason: Constipation Senna/Docusate Sodium (Senna Plus) 1 tab PO BID PRN PRN Reason: Constipation Senna/Docusate Sodium (Senna Plus) 2 tab PO BID [facility] Last Admin: 10/31/18 09:20 Dose: 2 tab Simvastatin (Zocor) 20 mg PO BEDTIME [facility] Sumatriptan Succinate (Imitrex) 100 mg PO Q2H PRN PRN Reason: Headache Tamsulosin HCl (Flomax) 0.4 mg PO PCBREAKFAST [facility] Last Admin: 10/31/18 09:20 Dose: 0.4 mg Temazepam (Restoril) 7.5 mg PO BEDTIME PRN PRN Reason: Sleep Assessment/Plan Comment:: Patient was seen and examined in concert with the medical student. The admission assessment and plans were discussed and agreed upon with me. In additional to above diagnoses, we are also concern of an undiagnosed cognitive dysfunction. His girlfriend confided with me about some memory impairment but she felt maybe due to numerous medications he was on. We will consult [facility] for cognitive eval and Tele-psych to help possibly trim down his psych medications. Earlier today, his glucose shot back up to > 500 because he refused 25 units of Lantus this morning. Hence, we had to re-start insulin drip with the goal of improving his glucose to < 200. Educated patient about the importance of medical compliance. - Mortality Measure Prognosis:: Good
[2018-10-31] MEDS ORDERED: Insulin Glarg,Human.Rec.Analog 100 UNIT/ML ML SUBCUT SCH ×2 (19:00→21:00)
[2018-10-31] MEDS: Insulin Lispro 100 Units/ML 3 ML Vial SUBCUT SCH ×2 (19:11→21:31)
[2018-10-31] MEDS: Melatonin 3 MG Tab PO SCH (19:12)
[2018-10-31] MEDS ORDERED: Insulin Glarg,Human.Rec.Analog 100 UNIT/ML ML SUBCUT ONE (19:45)
[2018-10-31] MEDS ORDERED: Non-Formulary Medication 1 Each (Atorvastatin 20 MG) PO SCH (21:00)
[2018-10-31] MEDS: Simvastatin 20 MG Tab PO SCH (21:31)
[2018-10-31] MEDS: Temazepam 7.5 MG Cap PO PRN (21:36)
[2018-11-01] MEDS: Levothyroxine 50 MCG Tab PO SCH (06:31)
[2018-11-01] MEDS: Insulin Lispro 100 Units/ML 3 ML Vial SUBCUT SCH ×4 (06:33→21:15)
--- NOTE | 2018-11-01 08:31 | CONS ---
CONSULTING PHYSICIAN: Hieu Obrien MD DATE OF CONSULTATION: 10/31/2018 Site where the services are provided is at [facility] in [place], [place]. Site where the services are provided from our office is in [facility]. Length of service for this 60-minute inpatient telemedicine event is 60 minutes. IDENTIFICATION: The patient is a 73-year-old male, who was admitted to the inpatient MICU at [facility] in [place], [place], on 10/30/2018. He is seen for psychiatric consultation per the request of staff attending, Dr. Sun and his treatment team. CHIEF COMPLAINT: "I am a diabetic, and I had a bad diabetic fall out yesterday." HISTORY OF PRESENT ILLNESS: The patient is a 73-year-old male, who reports "I have been doing good," but notes that he got hyperglycemic yesterday, had to come in for medical attention and was subsequently admitted to the MICU at [facility]. The patient states he has been having some problems with his memory. He has been a little bit more down because "I lost my son about 10 years ago," also the diabetes and this is around the anniversary of the time his son . He states "yesterday was just a horrible day for him," and he states he was not managing his diabetes well like he normally does and this is why he is in the hospital. He says that he does acknowledge that he has a history of depression, which has been treated for "about 10 or 15 years" quite well with a combination of Wellbutrin SR and Celexa. He states he is medication compliant with his medications, does really well, but just not been feeling so good just around this time here in general because of the anniversary of his son passing. He states "overall, I feel medications are very effective for me." He denies any problems from a clinical standpoint with depression. He feels that his mood has been actually quite good overall. He states if he can medically stabilized and get discharged back home, he will be doing just fine. He denies any sleep issues or energy issues. Denies any illicit substance use or excessive alcohol use complicating his clinical picture. He denies that he is suicidal or homicidal. He denies any psychotic, delusional, or paranoid symptoms. MEDICATIONS: Psychiatric medications at the time of presentation: 1. Wellbutrin SR 100 mg daily. 2. Celexa 20 mg daily. 3. Melatonin p.r.n. insomnia. ALLERGIES: No known drug allergies. PAST MEDICAL HISTORY: 1. Type 1 diabetes. 2. Status post back surgery in the past in July of 2018. 3. History of sleep apnea. REVIEW OF SYSTEMS: Aside from endocrine, musculoskeletal, and neuro, all other major organ systems are negative at this point in time for acute difficulties or complications. FAMILY PSYCHIATRIC AND CD HISTORY: The patient denies past psychiatric and CD history. The patient reports 1 psychiatric hospitalization in 2009 after his son and then "when I was going through from my divorce." Denies any chemical dependency treatment. He is a nontobacco user x25 years. Denies any previous suicide attempts. He has been treated for depression for the past 10 years. Primary MD is out of the [place]. He really does not have a regular MD; he just goes to [facility] periodically to get a check-up and then he gets prescribed these medications. SOCIAL HISTORY: The patient was born and raised in [place], [place]. He has been twice in his life, first marriage was for 17 years, second marriage was for 18 years. He has been in a current relationship for 14 years. He had 1 boy who is and then 2 girls, they are all from the first marriage. 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 He currently lives [place] of [place] with his girlfriend of 14 years. He was in the [employer] for 3-1/2 years with honorable discharge. Denies any legal difficulties. He was raised [facility] in terms of his wily formation. He enjoys gardening in his spare time. MENTAL STATUS EXAM: The patient is a 73-year-old, pleasant, soft-spoken white male, in no apparent distress. Speech is of regular rate and rhythm. The patient is cognitively oriented. Psychomotor activity is within normal limits. There are no abnormal motor movements or tics observed. Gait and station are not observed. This patient is lying in bed during the consult. Mood is tired, but good overall. Affect is cooperative overall for the purposes of the inpatient consult. There is no behavioral or stated evidence of acute suicidal or homicidal ideation, or acute psychotic, delusional, or paranoid symptoms. Thought processes are organized. There are no manic symptoms or loose associations evident. Judgment and insight appear unimpaired at this point in time. Motivation for help is good. VITALS: 115/56, 97, 16, and 98 degrees. IMPRESSION: Hawkins I: 1. Major depressive disorder, F32. Hawkins II: None. Hawkins III: 1. Type 1 diabetes, currently with complications of hyperglycemia. 2. Status post back surgery in July of 2018. 3. History of sleep apnea. Hawkins IV: Severe. Hawkins V: 60 to 65. PLAN: 1. Continue Celexa 20 mg q.a.m. for mood. 2. Continue Wellbutrin SR 100 mg daily, also for mood. 3. Melatonin p.r.n. for insomnia as currently prescribed by his outpatient care provider at the [facility]. 4. Other medications per patient's primary inpatient medical treatment team. 5. [facility] basis when the patient is medically stabilized and discharged back to community. 6. We will continue to follow up with the patient on an as-needed basis while the patient remains on the inpatient MICU. 7. We will follow up with the patient sooner if any complications in the interim. 8. Crisis plan is in place. ROX /[id number]
[2018-11-01] MEDS ORDERED: fentaNYL 50 MCG/HR Transdermal Patch TRDERM SCH ×2 (09:00→12:30)
[2018-11-01] MEDS: Pantoprazole 40 MG Tab.CR PO SCH ×2 (09:09→21:16)
[2018-11-01] MEDS: Aspirin 81 MG Tab.EC PO SCH (09:09)
[2018-11-01] MEDS: Citalopram 20 MG Tab PO SCH (09:09)
[2018-11-01] MEDS: buPROPion 100 MG Tab.SR PO SCH (09:09)
[2018-11-01] MEDS: Finasteride 5 MG Tab PO SCH (09:09)
[2018-11-01] MEDS: Cholecalciferol (Vitamin D3) 25 MCG Tab PO SCH (09:09)
[2018-11-01] MEDS: Tamsulosin 0.4 MG Cap.ER PO SCH (09:09)
[2018-11-01] MEDS: Lidocaine 4% 1 each Patch TOP SCH ×2 (09:11)
--- NOTE | 2018-11-01 12:16 | PCM.PN ---
<Marcos Stern - Last Filed: 11/01/18 12:19> - General Info Date of Service: 11/01/18 Admission Dx/Problem (Free Text): Admission Diagnosis/Problem Admission Diagnosis/Problem Hyperglycemia without ketosis Subjective Update: Pt is feeling well today. States he slept well and is feeling more energized than yesterday. He is eager to go home, and hopes he can go home today. He had a conversation with Dr. Obrien last night which he found very beneficial. Functional Status: Reports: Pain Controlled - Review of Systems General: Reports: No Symptoms HEENT: Reports: No Symptoms Pulmonary: Reports: No Symptoms Cardiovascular: Reports: No Symptoms Gastrointestinal: Reports: No Symptoms Genitourinary: Reports: No Symptoms Musculoskeletal: Reports: No Symptoms Skin: Reports: No Symptoms Neurological: Reports: No Symptoms Psychiatric: Reports: No Symptoms - Patient Data Vitals - Most Recent: Last Vital Signs Temp 98.1 F 11/01/18 08:00 Pulse 82 11/01/18 08:00 Resp 16 11/01/18 08:00 BP 142/68 H 11/01/18 08:00 Pulse Ox 98 11/01/18 08:00 Weight - Most Recent: 158 lb 11.725 oz I&O - Last 24 Hours: Intake & Output 10/31/18 11/01/18 11/01/18 22:59 06:59 14:59 Intake Total 1463 957 320 Output Total 700 200 200 Balance 763 757 120 Lab Results Last 24 Hours: Laboratory Results - last 24 hr 10/30/18 10/30/18 10/30/18 Range/Units 09:25 09:25 09:25 WBC (4.23-9.07) K/mm3 RBC (4.63-6.08) M/mm3 Hgb (13.7-17.5) gm/dl Hct (40.1-51.0) % MCV (79.0-92.2) fl MCH (25.7-32.2) pg MCHC (32.2-35.5) g/dl RDW Std Deviation (35.1-43.9) fL Plt Count (163-337) K/mm3 MPV (9.4-12.3) fl Neut % (Auto) (34.0-67.9) % Lymph % (Auto) (21.8-53.1) % Elliott % (Auto) (5.3-12.2) % Eos % (Auto) (0.8-7.0) Baso % (Auto) (0.1-1.2) % Neut # (Auto) (1.78-5.38) K/mm3 Lymph # (Auto) (1.32-3.57) K/mm3 Elliott # (Auto) (0.30-0.82) K/mm3 Eos # (Auto) (0.04-0.54) K/mm3 Baso # (Auto) (0.01-0.08) K/mm3 Sodium (136-145) mEq/L Potassium (3.5-5.1) mEq/L Chloride (98-107) mEq/L Carbon Dioxide (21-32) mEq/L Anion Gap (5-15) BUN (7-18) mg/dL Creatinine (0.7-1.3) mg/dL Est Cr Clr Drug Dosing mL/min Estimated GFR (MDRD) (>60) mL/min BUN/Creatinine Ratio (14-18) Glucose (83-115) mg/dL POC Glucose (83-110) mg/dL Calcium (8.5-10.1) mg/dL Phosphorus (2.6-4.7) mg/dL Magnesium (1.8-2.4) mg/dl Ur Eosinophil Smear Eos absent (Eos Absent) % EOS Ur Uric Acid Concent 14.3 mg/dL Ur Urea Nitrogen Conc 462 mg/dL 10/31/18 10/31/18 10/31/18 Range/Units 14:31 16:37 17:32 WBC (4.23-9.07) K/mm3 RBC (4.63-6.08) M/mm3 Hgb (13.7-17.5) gm/dl Hct (40.1-51.0) % MCV (79.0-92.2) fl MCH (25.7-32.2) pg MCHC (32.2-35.5) g/dl RDW Std Deviation (35.1-43.9) fL Plt Count (163-337) K/mm3 MPV (9.4-12.3) fl Neut % (Auto) (34.0-67.9) % Lymph % (Auto) (21.8-53.1) % Elliott % (Auto) (5.3-12.2) % Eos % (Auto) (0.8-7.0) Baso % (Auto) (0.1-1.2) % Neut # (Auto) (1.78-5.38) K/mm3 Lymph # (Auto) (1.32-3.57) K/mm3 Elliott # (Auto) (0.30-0.82) K/mm3 Eos # (Auto) (0.04-0.54) K/mm3 Baso # (Auto) (0.01-0.08) K/mm3 Sodium (136-145) mEq/L Potassium (3.5-5.1) mEq/L Chloride (98-107) mEq/L Carbon Dioxide (21-32) mEq/L Anion Gap (5-15) BUN (7-18) mg/dL Creatinine (0.7-1.3) mg/dL Est Cr Clr Drug Dosing mL/min Estimated GFR (MDRD) (>60) mL/min BUN/Creatinine Ratio (14-18) Glucose (83-115) mg/dL POC Glucose 384 H 253 H 180 H (83-110) mg/dL Calcium (8.5-10.1) mg/dL Phosphorus (2.6-4.7) mg/dL Magnesium (1.8-2.4) mg/dl Ur Eosinophil Smear (Eos Absent) % EOS Ur Uric Acid Concent mg/dL Ur Urea Nitrogen Conc mg/dL 10/31/18 11/01/18 11/01/18 Range/Units 21:30 00:29 02:17 WBC (4.23-9.07) K/mm3 RBC (4.63-6.08) M/mm3 Hgb (13.7-17.5) gm/dl Hct (40.1-51.0) % MCV (79.0-92.2) fl MCH (25.7-32.2) pg MCHC (32.2-35.5) g/dl RDW Std Deviation (35.1-43.9) fL Plt Count (163-337) K/mm3 MPV (9.4-12.3) fl Neut % (Auto) (34.0-67.9) % Lymph % (Auto) (21.8-53.1) % Elliott % (Auto) (5.3-12.2) % Eos % (Auto) (0.8-7.0) Baso % (Auto) (0.1-1.2) % Neut # (Auto) (1.78-5.38) K/mm3 Lymph # (Auto) (1.32-3.57) K/mm3 Elliott # (Auto) (0.30-0.82) K/mm3 Eos # (Auto) (0.04-0.54) K/mm3 Baso # (Auto) (0.01-0.08) K/mm3 Sodium (136-145) mEq/L Potassium (3.5-5.1) mEq/L Chloride (98-107) mEq/L Carbon Dioxide (21-32) mEq/L Anion Gap (5-15) BUN (7-18) mg/dL Creatinine (0.7-1.3) mg/dL Est Cr Clr Drug Dosing mL/min Estimated GFR (MDRD) (>60) mL/min BUN/Creatinine Ratio (14-18) Glucose (83-115) mg/dL POC Glucose 219 H 209 H 191 H (83-110) mg/dL Calcium (8.5-10.1) mg/dL Phosphorus (2.6-4.7) mg/dL Magnesium (1.8-2.4) mg/dl Ur Eosinophil Smear (Eos Absent) % EOS Ur Uric Acid Concent mg/dL Ur Urea Nitrogen Conc mg/dL 11/01/18 11/01/18 11/01/18 Range/Units 04:44 04:49 04:49 WBC 7.20 (4.23-9.07) K/mm3 RBC 3.33 L (4.63-6.08) M/mm3 Hgb 9.5 L (13.7-17.5) gm/dl Hct 28.9 L (40.1-51.0) % MCV 86.8 (79.0-92.2) fl MCH 28.5 (25.7-32.2) pg MCHC 32.9 (32.2-35.5) g/dl RDW Std Deviation 36.7 (35.1-43.9) fL Plt Count 280 (163-337) K/mm3 MPV 9.0 L (9.4-12.3) fl Neut % (Auto) 60.6 (34.0-67.9) % Lymph % (Auto) 27.4 (21.8-53.1) % Elliott % (Auto) 7.9 (5.3-12.2) % Eos % (Auto) 3.3 (0.8-7.0) Baso % (Auto) 0.4 (0.1-1.2) % Neut # (Auto) 4.36 (1.78-5.38) K/mm3 Lymph # (Auto) 1.97 (1.32-3.57) K/mm3 Elliott # (Auto) 0.57 (0.30-0.82) K/mm3 Eos # (Auto) 0.24 (0.04-0.54) K/mm3 Baso # (Auto) 0.03 (0.01-0.08) K/mm3 Sodium 140 (136-145) mEq/L Potassium 4.2 (3.5-5.1) mEq/L Chloride 104 (98-107) mEq/L Carbon Dioxide 26 (21-32) mEq/L Anion Gap 14.2 (5-15) BUN 23 H (7-18) mg/dL Creatinine 1.4 H (0.7-1.3) mg/dL Est Cr Clr Drug Dosing 46.31 mL/min Estimated GFR (MDRD) 50 (>60) mL/min BUN/Creatinine Ratio 16.4 (14-18) Glucose 150 H (83-115) mg/dL POC Glucose 176 H (83-110) mg/dL Calcium 9.1 (8.5-10.1) mg/dL Phosphorus 4.2 (2.6-4.7) mg/dL Magnesium 1.7 L (1.8-2.4) mg/dl Ur Eosinophil Smear (Eos Absent) % EOS Ur Uric Acid Concent mg/dL Ur Urea Nitrogen Conc mg/dL 11/01/18 Range/Units 06:32 WBC (4.23-9.07) K/mm3 RBC (4.63-6.08) M/mm3 Hgb (13.7-17.5) gm/dl Hct (40.1-51.0) % MCV (79.0-92.2) fl MCH (25.7-32.2) pg MCHC (32.2-35.5) g/dl RDW Std Deviation (35.1-43.9) fL Plt Count (163-337) K/mm3 MPV (9.4-12.3) fl Neut % (Auto) (34.0-67.9) % Lymph % (Auto) (21.8-53.1) % Elliott % (Auto) (5.3-12.2) % Eos % (Auto) (0.8-7.0) Baso % (Auto) (0.1-1.2) % Neut # (Auto) (1.78-5.38) K/mm3 Lymph # (Auto) (1.32-3.57) K/mm3 Elliott # (Auto) (0.30-0.82) K/mm3 Eos # (Auto) (0.04-0.54) K/mm3 Baso # (Auto) (0.01-0.08) K/mm3 Sodium (136-145) mEq/L Potassium (3.5-5.1) mEq/L Chloride (98-107) mEq/L Carbon Dioxide (21-32) mEq/L Anion Gap (5-15) BUN (7-18) mg/dL Creatinine (0.7-1.3) mg/dL Est Cr Clr Drug Dosing mL/min Estimated GFR (MDRD) (>60) mL/min BUN/Creatinine Ratio (14-18) Glucose (83-115) mg/dL POC Glucose 118 H (83-110) mg/dL Calcium (8.5-10.1) mg/dL Phosphorus (2.6-4.7) mg/dL Magnesium (1.8-2.4) mg/dl Ur Eosinophil Smear (Eos Absent) % EOS Ur Uric Acid Concent mg/dL Ur Urea Nitrogen Conc mg/dL Panchito Results Last 24 Hours: Microbiology 10/30/18 19:57 Aerobic Blood Culture - Preliminary Blood - Venous - Lab Draw NO GROWTH AFTER 1 DAY Anaerobic Blood Culture - Preliminary NO GROWTH AFTER 1 DAY 10/30/18 19:40 Aerobic Blood Culture - Preliminary Blood - Venous NO GROWTH AFTER 1 DAY Anaerobic Blood Culture - Preliminary NO GROWTH AFTER 1 DAY Med Orders - Current: Current Medications Acetaminophen (Tylenol) 650 mg PO Q4H PRN PRN Reason: Pain (Mild 1-3)/fever Hydrocodone Bitart/Acetaminophen ([place] 325-5 Mg) 1 tab PO Q4H PRN PRN Reason: Pain (moderate 4-6) Albuterol/Ipratropium (Duoneb 3.0-0.5 Mg/3 Ml) 3 ml NEB Q4H PRN PRN Reason: Shortness Of Breath/wheezing Aspirin (Halfprin) 81 mg PO DAILY [facility] Last Admin: 11/01/18 09:09 Dose: 81 mg Bisacodyl (Dulcolax) 5 mg PO DAILY PRN PRN Reason: Constipation Bupropion HCl (Wellbutrin Sr) 100 mg PO DAILY [facility] Last Admin: 11/01/18 09:09 Dose: 100 mg Cholecalciferol (Vitamin D3) 25 mcg PO DAILY [facility] Last Admin: 11/01/18 09:09 Dose: 25 mcg Citalopram Hydrobromide (Celexa) 20 mg PO DAILY [facility] Last Admin: 11/01/18 09:09 Dose: 20 mg Docusate Sodium (Colace) 100 mg PO BID PRN PRN Reason: Constipation Finasteride (Proscar) 5 mg PO DAILY [facility] Last Admin: 11/01/18 09:09 Dose: 5 mg Hydromorphone HCl (Dilaudid) 0.25 mg IVPUSH Q2H PRN PRN Reason: Pain (severe 7-10) Insulin Human Regular 100 unit (/ Sodium Chloride) 100 mls @ 7.03 mls/hr IV TITRATE KARMEN; Protocol Last Titration: 10/31/18 17:35 Dose: 0 units/kg/hr, 0 mls/hr Promethazine HCl 6.25 mg/ (Sodium Chloride) 50.25 mls @ 100 mls/hr IV Q6H PRN PRN Reason: Nausea/Vomiting Sodium Chloride (Normal Saline) 1,000 mls @ 50 mls/hr IV ASDIRECTED [facility] Last Admin: 10/31/18 09:39 Dose: 50 mls/hr Insulin Human Lispro (Humalog) 0 unit SUBCUT QIDACANDBED [facility]; Protocol Last Admin: 11/01/18 06:33 Dose: Not Given Levothyroxine Sodium (Synthroid) 150 mcg PO ACBREAKFAST [facility] Last Admin: 11/01/18 06:31 Dose: 150 mcg Lidocaine (Aspercreme 4%) 1 each TOP DAILY [facility] Last Admin: 11/01/18 09:11 Dose: Not Given Lorazepam (Ativan) 0.25 mg IV Q6H PRN PRN Reason: Anxiety Last Admin: 10/31/18 23:40 Dose: 0.25 mg Melatonin (Melatonin) 6 mg PO QPM [facility] Last Admin: 10/31/18 19:12 Dose: 6 mg Miscellaneous Information (Remove Patch) 1 ea TRDERM BEDTIME [facility] Last Admin: 10/31/18 21:44 Dose: Not Given Ondansetron HCl (Zofran) 4 mg IV Q6H PRN PRN Reason: Nausea/Vomiting Last Admin: 10/31/18 09:44 Dose: 4 mg Ondansetron HCl (Zofran Odt) 4 mg PO Q6H PRN PRN Reason: Nausea Pantoprazole Sodium (Protonix) 40 mg PO BID [facility] Last Admin: 11/01/18 09:09 Dose: 40 mg Polyethylene Glycol (Miralax) 17 gm PO DAILY PRN PRN Reason: Constipation Senna/Docusate Sodium (Senna Plus) 1 tab PO BID PRN PRN Reason: Constipation Senna/Docusate Sodium (Senna Plus) 2 tab PO BID [facility] Last Admin: 11/01/18 09:10 Dose: 2 tab Simvastatin (Zocor) 20 mg PO BEDTIME [facility] Last Admin: 10/31/18 21:31 Dose: 20 mg Sumatriptan Succinate (Imitrex) 100 mg PO Q2H PRN PRN Reason: Headache Tamsulosin HCl (Flomax) 0.4 mg PO PCBREAKFAST [facility] Last Admin: 11/01/18 09:09 Dose: 0.4 mg Temazepam (Restoril) 7.5 mg PO BEDTIME PRN PRN Reason: Sleep Last Admin: 10/31/18 21:36 Dose: 7.5 mg Discontinued Medications Fentanyl (Duragesic) 50 mcg TRDERM Q72H [facility] Sodium Chloride (Normal Saline) 1,000 mls @ 999 mls/hr IV ONETIME ONE Stop: 10/30/18 20:33 Last Admin: 10/30/18 20:08 Dose: 999 mls/hr Sodium Chloride (Normal Saline) 1,000 mls @ 999 mls/hr IV ONETIME ONE Stop: 10/30/18 23:31 Last Admin: 10/30/18 22:46 Dose: 999 mls/hr Lactated Ringer's (Ringers, Lactated) 1,000 mls @ 125 mls/hr IV ASDIRECTED [facility] Last Admin: 10/31/18 00:14 Dose: 125 mls/hr Insulin Glargine (Lantus) 25 unit SUBCUT QAM [facility] Last Admin: 10/31/18 18:38 Dose: Not Given Insulin Glargine (Lantus) 25 unit SUBCUT BEDTIME [facility] Last Admin: 10/31/18 12:08 Dose: 25 units Insulin Glargine (Lantus) 12 unit SUBCUT BEDTIME [facility] Insulin Glargine (Lantus) 12 unit SUBCUT ONETIME ONE Stop: 10/31/18 19:46 Last Admin: 10/31/18 19:50 Dose: 12 units Insulin Glargine (Lantus) 25 unit .ROUTE .STK-MED ONE Stop: 10/31/18 12:09 Insulin Human Regular (Humulin R) 10 unit IV ONETIME STA Stop: 10/30/18 19:35 Last Admin: 10/30/18 20:08 Dose: 10 units Levothyroxine Sodium (Synthroid) 150 mcg PO ACBREAKFAST [facility] Last Admin: 10/31/18 06:03 Dose: 150 mcg Miscellaneous Information (Remove Patch) 0 ea TRDERM Q72H [facility] Non-Formulary Medication (Hydrocodone/Acetaminophen) 1 tab PO Q4H PRN PRN Reason: Pain Pantoprazole Sodium (Protonix Iv) 40 mg IV Q12HR [facility] Polyethylene Glycol (Miralax) 17 gm PO DAILY PRN PRN Reason: Constipation Sildenafil Citrate (Revatio) 100 mg PO DAILY PRN PRN Reason: other - Exam General: Alert, Oriented, Cooperative, No Acute Distress HEENT: Pupils Equal, Pupils Reactive, EOMI, Mucous Membr. Moist/[place] Neck: Supple, Trachea Midline, No JVD, No Thyromegaly Lungs: Clear to Auscultation, Normal Respiratory Effort. No: Crackles, Rales, Rhonchi, Rub, Wheezing Cardiovascular: Regular Rate, Regular Rhythm, No Murmurs. No: Gallops, Rubs GI/Abdominal Exam: Normal Bowel Sounds, Soft, Non-Tender, No Organomegaly, No Distention, No Mass. No: Rigid, Rebound (Male) Exam: Deferred Back Exam: Normal Inspection, Full Range of Motion. No: CVA Tenderness (L), CVA Tenderness (R) Extremities: Normal Inspection, Normal Range of Motion, Non-Tender, No Pedal Edema. No: Joint Swelling, Arm Pain, Leg Pain Skin: Warm, Dry, Intact Neurological: No New Focal Deficit, Normal Gait, Normal Speech, Normal Tone, Cranial Nerves Intact Psy/Mental Status: Alert, Normal Affect, Normal Mood - Plan Plan:: Assessment: Acute: Altered Mental status 2/2 hypoketotic hyperglycemic syndrome - BG of 972 in ED - UA shows trace ketones and 2+ glucose - Pt is on multiple sedating medications--> poor intake - Pt claims he missed 2 doses of insulin - Pt was admitted overnight, started on insulin drip - Pt spiked BG today 2/2 refusal to take lantus, as he states he only takes lantus at night Polypharmacy - pt is on multiple sedating medications including fentanyl patch, bupropion , gabapentin, melatonin, citalopram, duloxetine, hydrocodone, dyphenhydramine - will hold home medications for now - consult Dr. Obrien to address possible trimming of home medications --> done last night Acute Kidney injury, improving - BUN 36--> 23 - Creatinine 2.5-->1.4 - BUN/Creat ratio 14.4 - Likely prerenal azotemia 2/2 volume depletion - Will monitor output - Retroperitoneal US to rule out obstructive nephropathy Cognitive Impairment, Mild - providing different histories to different members of medical staff - unable to recall days leading up to event - Pt's fiance confirms that she has been suspicious of memory loss - Provides history only with prompting - Consult with Dr. Obrien --> done last night Chronic: Hyperlipidemia, hypertension, sleep apnea, GERD, BPH, Osteoarthritis, diabetic neuropathy, Depression, opioid addiction, hypothyroidism Plan: -Initiate sliding scale insulin once glucose is less than 200 - Retroperitoneal US to evaluate nephropathy - Monitor urine output - Cognition eval to assess for mental impairment - Diabetes education consult - Hold home medications - LOS 2-3 days - Prognosis guarded - poor <Moreno Coughlin III - Last Filed: 11/01/18 19:49> - Patient Data Vitals - Most Recent: Last Vital Signs Temp 98.2 F 11/01/18 15:46 Pulse 76 11/01/18 15:46 Resp 18 11/01/18 15:46 BP 144/89 H 11/01/18 15:46 Pulse Ox 98 11/01/18 15:46 I&O - Last 24 Hours: Intake & Output 11/01/18 11/01/18 11/01/18 06:59 14:59 22:59 Intake Total 957 570 Output Total 200 650 300 Balance 757 -80 -300 Lab Results Last 24 Hours: Laboratory Results - last 24 hr 10/30/18 10/30/18 10/30/18 Range/Units 09:25 09:25 09:25 WBC (4.23-9.07) K/mm3 RBC (4.63-6.08) M/mm3 Hgb (13.7-17.5) gm/dl Hct (40.1-51.0) % MCV (79.0-92.2) fl MCH (25.7-32.2) pg MCHC (32.2-35.5) g/dl RDW Std Deviation (35.1-43.9) fL Plt Count (163-337) K/mm3 MPV (9.4-12.3) fl Neut % (Auto) (34.0-67.9) % Lymph % (Auto) (21.8-53.1) % Elliott % (Auto) (5.3-12.2) % Eos % (Auto) (0.8-7.0) Baso % (Auto) (0.1-1.2) % Neut # (Auto) (1.78-5.38) K/mm3 Lymph # (Auto) (1.32-3.57) K/mm3 Elliott # (Auto) (0.30-0.82) K/mm3 Eos # (Auto) (0.04-0.54) K/mm3 Baso # (Auto) (0.01-0.08) K/mm3 Sodium (136-145) mEq/L Potassium (3.5-5.1) mEq/L Chloride (98-107) mEq/L Carbon Dioxide (21-32) mEq/L Anion Gap (5-15) BUN (7-18) mg/dL Creatinine (0.7-1.3) mg/dL Est Cr Clr Drug Dosing mL/min Estimated GFR (MDRD) (>60) mL/min BUN/Creatinine Ratio (14-18) Glucose (83-115) mg/dL POC Glucose (83-110) mg/dL Calcium (8.5-10.1) mg/dL Phosphorus (2.6-4.7) mg/dL Magnesium (1.8-2.4) mg/dl Ur Eosinophil Smear Eos absent (Eos Absent) % EOS Ur Uric Acid Concent 14.3 mg/dL Ur Urea Nitrogen Conc 462 mg/dL 10/31/18 11/01/18 11/01/18 Range/Units 21:30 00:29 02:17 WBC (4.23-9.07) K/mm3 RBC (4.63-6.08) M/mm3 Hgb (13.7-17.5) gm/dl Hct (40.1-51.0) % MCV (79.0-92.2) fl MCH (25.7-32.2) pg MCHC (32.2-35.5) g/dl RDW Std Deviation (35.1-43.9) fL Plt Count (163-337) K/mm3 MPV (9.4-12.3) fl Neut % (Auto) (34.0-67.9) % Lymph % (Auto) (21.8-53.1) % Elliott % (Auto) (5.3-12.2) % Eos % (Auto) (0.8-7.0) Baso % (Auto) (0.1-1.2) % Neut # (Auto) (1.78-5.38) K/mm3 Lymph # (Auto) (1.32-3.57) K/mm3 Elliott # (Auto) (0.30-0.82) K/mm3 Eos # (Auto) (0.04-0.54) K/mm3 Baso # (Auto) (0.01-0.08) K/mm3 Sodium (136-145) mEq/L Potassium (3.5-5.1) mEq/L Chloride (98-107) mEq/L Carbon Dioxide (21-32) mEq/L Anion Gap (5-15) BUN (7-18) mg/dL Creatinine (0.7-1.3) mg/dL Est Cr Clr Drug Dosing mL/min Estimated GFR (MDRD) (>60) mL/min BUN/Creatinine Ratio (14-18) Glucose (83-115) mg/dL POC Glucose 219 H 209 H 191 H (83-110) mg/dL Calcium (8.5-10.1) mg/dL Phosphorus (2.6-4.7) mg/dL Magnesium (1.8-2.4) mg/dl Ur Eosinophil Smear (Eos Absent) % EOS Ur Uric Acid Concent mg/dL Ur Urea Nitrogen Conc mg/dL 11/01/18 11/01/18 11/01/18 Range/Units 04:44 04:49 04:49 WBC 7.20 (4.23-9.07) K/mm3 RBC 3.33 L (4.63-6.08) M/mm3 Hgb 9.5 L (13.7-17.5) gm/dl Hct 28.9 L (40.1-51.0) % MCV 86.8 (79.0-92.2) fl MCH 28.5 (25.7-32.2) pg MCHC 32.9 (32.2-35.5) g/dl RDW Std Deviation 36.7 (35.1-43.9) fL Plt Count 280 (163-337) K/mm3 MPV 9.0 L (9.4-12.3) fl Neut % (Auto) 60.6 (34.0-67.9) % Lymph % (Auto) 27.4 (21.8-53.1) % Elliott % (Auto) 7.9 (5.3-12.2) % Eos % (Auto) 3.3 (0.8-7.0) Baso % (Auto) 0.4 (0.1-1.2) % Neut # (Auto) 4.36 (1.78-5.38) K/mm3 Lymph # (Auto) 1.97 (1.32-3.57) K/mm3 Elliott # (Auto) 0.57 (0.30-0.82) K/mm3 Eos # (Auto) 0.24 (0.04-0.54) K/mm3 Baso # (Auto) 0.03 (0.01-0.08) K/mm3 Sodium 140 (136-145) mEq/L Potassium 4.2 (3.5-5.1) mEq/L Chloride 104 (98-107) mEq/L Carbon Dioxide 26 (21-32) mEq/L Anion Gap 14.2 (5-15) BUN 23 H (7-18) mg/dL Creatinine 1.4 H (0.7-1.3) mg/dL Est Cr Clr Drug Dosing 46.31 mL/min Estimated GFR (MDRD) 50 (>60) mL/min BUN/Creatinine Ratio 16.4 (14-18) Glucose 150 H (83-115) mg/dL POC Glucose 176 H (83-110) mg/dL Calcium 9.1 (8.5-10.1) mg/dL Phosphorus 4.2 (2.6-4.7) mg/dL Magnesium 1.7 L (1.8-2.4) mg/dl Ur Eosinophil Smear (Eos Absent) % EOS Ur Uric Acid Concent mg/dL Ur Urea Nitrogen Conc mg/dL 11/01/18 11/01/18 11/01/18 Range/Units 06:32 12:22 18:08 WBC (4.23-9.07) K/mm3 RBC (4.63-6.08) M/mm3 Hgb (13.7-17.5) gm/dl Hct (40.1-51.0) % MCV (79.0-92.2) fl MCH (25.7-32.2) pg MCHC (32.2-35.5) g/dl RDW Std Deviation (35.1-43.9) fL Plt Count (163-337) K/mm3 MPV (9.4-12.3) fl Neut % (Auto) (34.0-67.9) % Lymph % (Auto) (21.8-53.1) % Elliott % (Auto) (5.3-12.2) % Eos % (Auto) (0.8-7.0) Baso % (Auto) (0.1-1.2) % Neut # (Auto) (1.78-5.38) K/mm3 Lymph # (Auto) (1.32-3.57) K/mm3 Elliott # (Auto) (0.30-0.82) K/mm3 Eos # (Auto) (0.04-0.54) K/mm3 Baso # (Auto) (0.01-0.08) K/mm3 Sodium (136-145) mEq/L Potassium (3.5-5.1) mEq/L Chloride (98-107) mEq/L Carbon Dioxide (21-32) mEq/L Anion Gap (5-15) BUN (7-18) mg/dL Creatinine (0.7-1.3) mg/dL Est Cr Clr Drug Dosing mL/min Estimated GFR (MDRD) (>60) mL/min BUN/Creatinine Ratio (14-18) Glucose (83-115) mg/dL POC Glucose 118 H 322 H 240 H (83-110) mg/dL Calcium (8.5-10.1) mg/dL Phosphorus (2.6-4.7) mg/dL Magnesium (1.8-2.4) mg/dl Ur Eosinophil Smear (Eos Absent) % EOS Ur Uric Acid Concent mg/dL Ur Urea Nitrogen Conc mg/dL [facility] Results Last 24 Hours: Microbiology 10/30/18 19:57 Aerobic Blood Culture - Preliminary Blood - Venous - Lab Draw NO GROWTH AFTER 1 DAY Anaerobic Blood Culture - Preliminary NO GROWTH AFTER 1 DAY 10/30/18 19:40 Aerobic Blood Culture - Preliminary Blood - Venous NO GROWTH AFTER 1 DAY Anaerobic Blood Culture - Preliminary NO GROWTH AFTER 1 DAY Med Orders - Current: Current Medications Acetaminophen (Tylenol) 650 mg PO Q4H PRN PRN Reason: Pain (Mild 1-3)/fever Hydrocodone Bitart/Acetaminophen (Aurora 325-5 Mg) 1 tab PO Q4H PRN PRN Reason: Pain (moderate 4-6) Albuterol/Ipratropium (Duoneb 3.0-0.5 Mg/3 Ml) 3 ml NEB Q4H PRN PRN Reason: Shortness Of Breath/wheezing Aspirin (Halfprin) 81 mg PO DAILY [facility] Last Admin: 11/01/18 09:09 Dose: 81 mg Bisacodyl (Dulcolax) 5 mg PO DAILY PRN PRN Reason: Constipation Bupropion HCl (Wellbutrin Sr) 100 mg PO DAILY [facility] Last Admin: 11/01/18 09:09 Dose: 100 mg Cholecalciferol (Vitamin D3) 25 mcg PO DAILY [facility] Last Admin: 11/01/18 09:09 Dose: 25 mcg Citalopram Hydrobromide (Celexa) 20 mg PO DAILY [facility] Last Admin: 11/01/18 09:09 Dose: 20 mg Docusate Sodium (Colace) 100 mg PO BID PRN PRN Reason: Constipation Fentanyl (Duragesic) 50 mcg TRDERM Q72H [facility] Last Admin: 11/01/18 12:34 Dose: 50 mcg Finasteride (Proscar) 5 mg PO DAILY [facility] Last Admin: 11/01/18 09:09 Dose: 5 mg Insulin Glargine (Lantus) 25 unit SUBCUT BEDTIME [facility] Insulin Human Lispro (Humalog) 0 unit SUBCUT QIDACANDBED [facility]; Protocol Last Admin: 11/01/18 18:17 Dose: 4 units Levothyroxine Sodium (Synthroid) 150 mcg PO ACBREAKFAST [facility] Last Admin: 11/01/18 06:31 Dose: 150 mcg Lidocaine (Aspercreme 4%) 1 each TOP DAILY [facility] Last Admin: 11/01/18 09:11 Dose: Not Given Melatonin (Melatonin) 6 mg PO QPM [facility] Last Admin: 11/01/18 18:22 Dose: 6 mg Miscellaneous Information (Remove Patch) 1 ea TRDERM BEDTIME [facility] Last Admin: 10/31/18 21:44 Dose: Not Given Miscellaneous Information (Remove Patch) 1 ea TRDERM Q72H [facility] Ondansetron HCl (Zofran Odt) 4 mg PO Q6H PRN PRN Reason: Nausea Pantoprazole Sodium (Protonix) 40 mg PO BID [facility] Last Admin: 11/01/18 09:09 Dose: 40 mg Polyethylene Glycol (Miralax) 17 gm PO DAILY PRN PRN Reason: Constipation Senna/Docusate Sodium (Senna Plus) 1 tab PO BID PRN PRN Reason: Constipation Senna/Docusate Sodium (Senna Plus) 2 tab PO BID [facility] Last Admin: 11/01/18 09:10 Dose: 2 tab Simvastatin (Zocor) 20 mg PO BEDTIME [facility] Last Admin: 10/31/18 21:31 Dose: 20 mg Sumatriptan Succinate (Imitrex) 100 mg PO Q2H PRN PRN Reason: Headache Tamsulosin HCl (Flomax) 0.4 mg PO PCBREAKFAST [facility] Last Admin: 11/01/18 09:09 Dose: 0.4 mg Temazepam (Restoril) 7.5 mg PO BEDTIME PRN PRN Reason: Sleep Last Admin: 10/31/18 21:36 Dose: 7.5 mg Discontinued Medications Fentanyl (Duragesic) 50 mcg TRDERM Q72H KARMEN Hydromorphone HCl (Dilaudid) 0.25 mg IVPUSH Q2H PRN PRN Reason: Pain (severe 7-10) Insulin Human Regular 100 unit (/ Sodium Chloride) 100 mls @ 7.03 mls/hr IV TITRATE KARMEN; Protocol Last Titration: 10/31/18 17:35 Dose: 0 units/kg/hr, 0 mls/hr Sodium Chloride (Normal Saline) 1,000 mls @ 999 mls/hr IV ONETIME ONE Stop: 10/30/18 20:33 Last Admin: 10/30/18 20:08 Dose: 999 mls/hr Sodium Chloride (Normal Saline) 1,000 mls @ 999 mls/hr IV ONETIME ONE Stop: 10/30/18 23:31 Last Admin: 10/30/18 22:46 Dose: 999 mls/hr Lactated Ringer's (Ringers, Lactated) 1,000 mls @ 125 mls/hr IV ASDIRECTED [facility] Last Admin: 10/31/18 00:14 Dose: 125 mls/hr Promethazine HCl 6.25 mg/ (Sodium Chloride) 50.25 mls @ 100 mls/hr IV Q6H PRN PRN Reason: Nausea/Vomiting Sodium Chloride (Normal Saline) 1,000 mls @ 50 mls/hr IV ASDIRECTED [facility] Last Admin: 10/31/18 09:39 Dose: 50 mls/hr Insulin Glargine (Lantus) 25 unit SUBCUT QAM [facility] Last Admin: 10/31/18 18:38 Dose: Not Given Insulin Glargine (Lantus) 25 unit SUBCUT BEDTIME [facility] Last Admin: 10/31/18 12:08 Dose: 25 units Insulin Glargine (Lantus) 12 unit SUBCUT BEDTIME [facility] Insulin Glargine (Lantus) 12 unit SUBCUT ONETIME ONE Stop: 10/31/18 19:46 Last Admin: 10/31/18 19:50 Dose: 12 units Insulin Glargine (Lantus) 25 unit .ROUTE .STK-MED ONE Stop: 10/31/18 12:09 Insulin Human Lispro (Humalog) 0 unit SUBCUT QIDACANDBED [facility]; Protocol Last Admin: 11/01/18 12:27 Dose: 8 units Insulin Human Regular (Humulin R) 10 unit IV ONETIME STA Stop: 10/30/18 19:35 Last Admin: 10/30/18 20:08 Dose: 10 units Levothyroxine Sodium (Synthroid) 150 mcg PO ACBREAKFAST KARMEN Last Admin: 10/31/18 06:03 Dose: 150 mcg Lorazepam (Ativan) 0.25 mg IV Q6H PRN PRN Reason: Anxiety Last Admin: 10/31/18 23:40 Dose: 0.25 mg Miscellaneous Information (Remove Patch) 0 ea TRDERM Q72H [facility] Non-Formulary Medication (Hydrocodone/Acetaminophen) 1 tab PO Q4H PRN PRN Reason: Pain Ondansetron HCl (Zofran) 4 mg IV Q6H PRN PRN Reason: Nausea/Vomiting Last Admin: 10/31/18 09:44 Dose: 4 mg Pantoprazole Sodium (Protonix Iv) 40 mg IV Q12HR [facility] Polyethylene Glycol (Miralax) 17 gm PO DAILY PRN PRN Reason: Constipation Sildenafil Citrate (Revatio) 100 mg PO DAILY PRN PRN Reason: other - Problem List Review Problem List Initiated/Reviewed/Updated: Yes - My Orders Last 24 Hours: My Active Orders 11/01/18 12:24 Patient Status [ADT] Routine 11/01/18 12:30 fentaNYL [Duragesic] 50 mcg TRDERM Q72H 11/01/18 12:53 Resuscitation Status Routine 11/01/18 21:00 Insulin Glarg,Human.Rec.Analog [LantUS] 25 unit SUBCUT BEDTIME 11/04/18 12:30 Remove Patch 1 ea TRDERM Q72H - Plan Plan:: Patient was seen, examined, and evaluated personally and I agree with the above findings, assessment, and plan. Patient would benefit from skilled care or other rehabilitation stay.
[2018-11-01] MEDS: Melatonin 3 MG Tab PO SCH (18:22)
[2018-11-01] MEDS ORDERED: Insulin Glarg,Human.Rec.Analog 100 UNIT/ML ML SUBCUT SCH (21:00)
[2018-11-01] MEDS: Simvastatin 20 MG Tab PO SCH (21:16)
[2018-11-01] MEDS: Temazepam 7.5 MG Cap PO PRN (21:24)
[2018-11-02] MEDS: Levothyroxine 50 MCG Tab PO SCH (05:21)
[2018-11-02] MEDS: Insulin Lispro 100 Units/ML 3 ML Vial SUBCUT SCH (06:00)
[2018-11-02] MEDS ORDERED: Magnesium Sulfate/Water 4 GM in Premix Bag 1 BAG IV ONE (08:40)
[2018-11-02] MEDS: Finasteride 5 MG Tab PO SCH (10:04)
[2018-11-02] MEDS: Cholecalciferol (Vitamin D3) 25 MCG Tab PO SCH (10:05)
[2018-11-02] MEDS: buPROPion 100 MG Tab.SR PO SCH (10:05)
[2018-11-02] MEDS: Citalopram 20 MG Tab PO SCH (10:05)
[2018-11-02] MEDS: Aspirin 81 MG Tab.EC PO SCH (10:06)
[2018-11-02] MEDS: Pantoprazole 40 MG Tab.CR PO SCH (10:06)
[2018-11-02] MEDS: Tamsulosin 0.4 MG Cap.ER PO SCH (10:06)
[2018-11-02] MEDS: Lidocaine 4% 1 each Patch TOP SCH (10:07)
[2018-11-02] MEDS ORDERED: Insulin Lispro 100 Units/ML 3 ML Vial SUBCUT SCH (11:18)
[2018-11-02] MEDS ORDERED: fentaNYL 75 MCG/HR Transdermal Patch TRDERM SCH (13:00)
[2018-11-02] MEDS ORDERED: Magnesium Oxide 400 MG Tab PO SCH (13:45)
--- NOTE | 2018-11-02 15:45 | PCM.DCSUM1 ---
Discharge Summary - Hospital Course HPI Initial Comments: Pt is 73 yo male with history of DM Type II, hyperlipidemia, hypertension, sleep apnea, GERD, BPH, osteoarthritis, diabetic neuropathy, depression, opioid addiction, and hypothyroidism, admitted today from ED with complaints of altered mental status and hyperglycemia. Pt states that yesterday 10/30/18 he saw his PCP for routine lab work, and was notified by the PCP's office that his labs were abnormal and he should come to the ED. Upon presentation to the ED the patient had a blood glucose of 911 and was obtunded. The entire history was received from the patient's fiance. She states the patient had a back surgery in early July, and stayed at [facility] for rehabilitation until 10/05/09. Since returning home, he has fallen down several times, including today. He has not lost consciousness. Today the patient is alert and oriented, but his recall is poor. He states that he has been feeling well preceding this event. He states he has been eating and drinking well, and only missed 2 doses of insulin after his meals in the last 2 days. He states that he did not feel any indication that his blood sugar may be high. Patient's history appears to be unreliable. He was unsure as to the date of his back surgery, stating it may have been at the end of August, as well as being unsure of when he returned to his home. He states the only medicines he takes are insulin and pain medication PRN. In reality, he takes numerous medications on a daily basis, many of which are sedating. His social history has also been presented to different staff members in different ways. He did not seem to recall the events leading up to his admission until he was prompted. Labs drawn in ED show Na+ 127, K+ 5.7, anion gap 17.7, BUN 36, Creatinine 2.5, glucose 972, lactic acid 5.3, alk phos 276. ABG shows pH of 7.32, pCO2 of 68.8, pO2 63. UA shows trace ketones and 2+ glucose. CXR and CT show no acute changes. Diagnosis: Stroke: No - Discharge Data Discharge Date: 11/02/18 Discharge Disposition: Against Medical Advice 07 Condition: Good - Referral to Home Health Primary Care Physician: Mark Rivas MD - Patient Summary/Data Consults: Consultations 10/30/18 23:35 Consult to Case Management/Accounting System Expert [CONS] Routine Consult to Diabetic Nurse Specialist [CONS] Routine Consult to Sanitation Lead [CONS] Routine Consult to Spiritual Care [CONS] Routine OT Evaluation and Treatment [CONS] Routine PT Evaluation and Treatment [CONS] Routine Respiratory Care Assess and Treatment [CONS] Routine 10/31/18 09:51 Consult to Speech Language Pathology [EMERGENCY MANAGEMENT CONSULTANT Evaluation and Treatment] [CONS] Routine Hospital Course: Altered Mental status 2/2 hypoketotic hyperglycemic syndrome - BG of 972 in ED - UA shows trace ketones and 2+ glucose - Pt is on multiple sedating medications--> poor intake - Pt claims he missed 2 doses of insulin - Pt was admitted overnight, started on insulin drip - Pt spiked BG today 2/2 refusal to take lantus, as he states he only takes lantus at night Polypharmacy - pt is on multiple sedating medications including fentanyl patch, bupropion , gabapentin, melatonin, citalopram, duloxetine, hydrocodone, dyphenhydramine - will hold home medications for now - consult Dr. Obrien to address possible trimming of home medications --> done last night Acute Kidney injury, improving - BUN 36--> 23 - Creatinine 2.5-->1.4 - BUN/Creat ratio 14.4 - Likely prerenal azotemia 2/2 volume depletion - Will monitor output - Retroperitoneal US to rule out obstructive nephropathy Cognitive Impairment, Mild - providing different histories to different members of medical staff - unable to recall days leading up to event - Pt's fiance confirms that she has been suspicious of memory loss - Provides history only with prompting - Consult with Dr. Obrien --> done last night Chronic: Hyperlipidemia, hypertension, sleep apnea, GERD, BPH, Osteoarthritis, diabetic neuropathy, Depression, opioid addiction, hypothyroidism Plan was to have patient go to a care home facility, but his fiance him decided that he wanted to go home instead. He refused home health. Therefore, he went home AGAINST MEDICAL ADVICE. Renal U/S report read as vascular calcification within both kidneys. No hydronephrosis. Elevated resistivity indices within both kidneys compatible with medical renal disease. Post void residual within the bladder of 38 ml. - Discharge Plan *PRESCRIPTION DRUG MONITORING PROGRAM REVIEWED*: Not Applicable *COPY OF PRESCRIPTION DRUG MONITORING REPORT IN PATIENT JHONY: Not Applicable Home Medications: Home Meds Insulin Glarg,Human.Rec.Analog [Lantus] 25 units SUBCUT QPM 06/21/17 [History] Levothyroxine 150 mcg PO QAM 06/21/17 [History] Polyethylene Glycol 3350 [MiraLAX] 17 gm PO DAILY PRN 08/07/18 [History] fentaNYL [Fentanyl] 50 mcg TRDERM ASDIRECTED 08/07/18 [History] Tamsulosin [Flomax] 0.4 mg PO PCBREAKFAST cap.er 08/12/18 [Rx] buPROPion [Wellbutrin SR] 100 mg PO DAILY tab.sr 08/12/18 [Rx] Gabapentin [Neurontin] 300 mg PO TID 10/14/18 [History] Melatonin 5 mg PO QPM 10/14/18 [History] Potassium Chloride [Klor-Con M20] 20 meq PO DAILY 10/14/18 [History] atorvaSTATin [Lipitor] 20 mg PO BEDTIME 10/14/18 [History] Aspirin [Halfprin] 81 mg PO DAILY 10/30/18 [History] Cholecalciferol (Vitamin D3) [Vitamin D3] 1,000 unit PO DAILY 10/30/18 [History] Citalopram [Citalopram HBr] 20 mg PO DAILY 10/30/18 [History] DULoxetine [Cymbalta] 40 mg PO DAILY 10/30/18 [History] Finasteride [Proscar] 5 mg PO DAILY 10/30/18 [History] Hydrocodone/Acetaminophen [Hydrocodon-Acetaminophn 10-325] 1 tab PO Q4H PRN [History] Insulin Aspart [NovoLOG] 5 - 10 unit SQ TID 10/30/18 [History] Insulin Lispro [Insulin Lispro Kwikpen U-100] 3 - 21 units SQ QID 10/30/18 [ History] Lidocaine 5% [Lidoderm 5%] 1 patch TOP DAILY 10/30/18 [History] Lisinopril 2.5 mg PO DAILY 10/30/18 [History] Ondansetron [Zofran ODT] 4 mg PO Q6H PRN 10/30/18 [History] Ranitidine [Zantac] 150 mg PO BEDTIME 10/30/18 [History] SUMAtriptan Succinate [Imitrex] 100 mg PO Q2H PRN 10/30/18 [History] Sennosides/Docusate Sodium [Senna-Docusate Sodium Tablet] 2 tab PO BID 10/30/18 [History] Sildenafil [Revatio] 100 mg PO DAILY PRN 10/30/18 [History] diphenhydrAMINE [Benadryl] 25 mg PO QID PRN 10/30/18 [History] Patient Handouts: Insulin Storage and Care, Hyperglycemic Hyperosmolar State, Diabetes Mellitus and Sick Day Management Forms: ED Department Discharge Referrals: Casey Melendez II, DPM [Physician] - 11/13/18 10:30 am (Refuge Worker appointment. Please reshcedule this appointment with someone in [facility] [place] if needed. If you would like the [place] to cover this appointment, you would need to obtain a referral to podiatry from the [place] clinic provider, [facility].) Mark Rivas MD [Primary Care Provider] - - Discharge Summary/Plan Comment DC Time >30 min.: Yes Discharge Summary/Plan Comment: patient went home AGAINST MEDICAL ADVICE. I did still order outpatient physical therapy. He will need follow-up with his primary care provider. He is at very high risk for complications from his sedating medications and did not feel he was ready for discharge home. Fortunately, he did have a caregiver with him to help him with his medications. - General Info Date of Service: 11/02/18 Admission Dx/Problem (Free Text: Admission Diagnosis/Problem Admission Diagnosis/Problem Hyperglycemia without ketosis Subjective Update: patient was very insistent that he was going home even after I explained to him multiple times he would benefit from a care home facility. - Review of Systems General: Reports: No Symptoms HEENT: Reports: No Symptoms Pulmonary: Reports: No Symptoms Cardiovascular: Reports: No Symptoms Gastrointestinal: Reports: No Symptoms - Patient Data Vitals - Most Recent: Last Vital Signs Temp 98.2 F 11/02/18 09:16 Pulse 81 11/02/18 09:16 Resp 16 11/02/18 09:16 BP 152/75 H 11/02/18 09:16 Pulse Ox 96 11/02/18 09:16 Weight - Most Recent: 153 lb 6.4 oz I&O - Last 24 hours: Intake & Output 11/02/18 11/02/18 11/02/18 06:59 14:59 22:59 Intake Total 360 120 Balance 360 120 Lab Results - Last 24 hrs: Laboratory Results - last 24 hr 11/01/18 11/01/18 11/02/18 Range/Units 18:08 21:13 05:00 WBC 5.91 (4.23-9.07) K/mm3 RBC 3.59 L (4.63-6.08) M/mm3 Hgb 10.1 L (13.7-17.5) gm/dl Hct 30.8 L (40.1-51.0) % MCV 85.8 (79.0-92.2) fl MCH 28.1 (25.7-32.2) pg MCHC 32.8 (32.2-35.5) g/dl RDW Std Deviation 36.6 (35.1-43.9) fL Plt Count 286 (163-337) K/mm3 MPV 9.1 L (9.4-12.3) fl Neut % (Auto) 61.5 (34.0-67.9) % Lymph % (Auto) 23.4 (21.8-53.1) % [place]ward % (Auto) 9.5 (5.3-12.2) % Eos % (Auto) 4.6 (0.8-7.0) Baso % (Auto) 0.3 (0.1-1.2) % Neut # (Auto) 3.64 (1.78-5.38) K/mm3 Lymph # (Auto) 1.38 (1.32-3.57) K/mm3 Woodward # (Auto) 0.56 (0.30-0.82) K/mm3 Eos # (Auto) 0.27 (0.04-0.54) K/mm3 Baso # (Auto) 0.02 (0.01-0.08) K/mm3 Sodium (136-145) mEq/L Potassium (3.5-5.1) mEq/L Chloride (98-107) mEq/L Carbon Dioxide (21-32) mEq/L Anion Gap (5-15) BUN (7-18) mg/dL Creatinine (0.7-1.3) mg/dL Est Cr Clr Drug Dosing mL/min Estimated GFR (MDRD) (>60) mL/min BUN/Creatinine Ratio (14-18) Glucose (83-115) mg/dL POC Glucose 240 H 224 H (83-110) mg/dL Calcium (8.5-10.1) mg/dL Phosphorus (2.6-4.7) mg/dL Magnesium (1.8-2.4) mg/dl 11/02/18 11/02/18 11/02/18 Range/Units 05:00 05:25 06:03 WBC (4.23-9.07) K/mm3 RBC (4.63-6.08) M/mm3 Hgb (13.7-17.5) gm/dl Hct (40.1-51.0) % MCV (79.0-92.2) fl MCH (25.7-32.2) pg MCHC (32.2-35.5) g/dl RDW Std Deviation (35.1-43.9) fL Plt Count (163-337) K/mm3 MPV (9.4-12.3) fl Neut % (Auto) (34.0-67.9) % Lymph % (Auto) (21.8-53.1) % Woodward % (Auto) (5.3-12.2) % Eos % (Auto) (0.8-7.0) Baso % (Auto) (0.1-1.2) % Neut # (Auto) (1.78-5.38) K/mm3 Lymph # (Auto) (1.32-3.57) K/mm3 Woodward # (Auto) (0.30-0.82) K/mm3 Eos # (Auto) (0.04-0.54) K/mm3 Baso # (Auto) (0.01-0.08) K/mm3 Sodium 141 (136-145) mEq/L Potassium 3.8 (3.5-5.1) mEq/L Chloride 104 (98-107) mEq/L Carbon Dioxide 28 (21-32) mEq/L Anion Gap 12.8 (5-15) BUN 16 (7-18) mg/dL Creatinine 1.3 (0.7-1.3) mg/dL Est Cr Clr Drug Dosing 49.88 mL/min Estimated GFR (MDRD) 54 (>60) mL/min BUN/Creatinine Ratio 12.3 L (14-18) Glucose 67 L (83-115) mg/dL POC Glucose 65 L 68 L (83-110) mg/dL Calcium 9.2 (8.5-10.1) mg/dL Phosphorus 4.2 (2.6-4.7) mg/dL Magnesium 1.6 L (1.8-2.4) mg/dl 11/02/18 11/02/18 Range/Units 06:34 11:16 WBC (4.23-9.07) K/mm3 RBC (4.63-6.08) M/mm3 Hgb (13.7-17.5) gm/dl Hct (40.1-51.0) % MCV (79.0-92.2) fl MCH (25.7-32.2) pg MCHC (32.2-35.5) g/dl RDW Std Deviation (35.1-43.9) fL Plt Count (163-337) K/mm3 MPV (9.4-12.3) fl Neut % (Auto) (34.0-67.9) % Lymph % (Auto) (21.8-53.1) % Woodward % (Auto) (5.3-12.2) % Eos % (Auto) (0.8-7.0) Baso % (Auto) (0.1-1.2) % Neut # (Auto) (1.78-5.38) K/mm3 Lymph # (Auto) (1.32-3.57) K/mm3 Woodward # (Auto) (0.30-0.82) K/mm3 Eos # (Auto) (0.04-0.54) K/mm3 Baso # (Auto) (0.01-0.08) K/mm3 Sodium (136-145) mEq/L Potassium (3.5-5.1) mEq/L Chloride (98-107) mEq/L Carbon Dioxide (21-32) mEq/L Anion Gap (5-15) BUN (7-18) mg/dL Creatinine (0.7-1.3) mg/dL Est Cr Clr Drug Dosing mL/min Estimated GFR (MDRD) (>60) mL/min BUN/Creatinine Ratio (14-18) Glucose (83-115) mg/dL POC Glucose 114 H 193 H (83-110) mg/dL Calcium (8.5-10.1) mg/dL Phosphorus (2.6-4.7) mg/dL Magnesium (1.8-2.4) mg/dl KEANU Results - Last 24 hrs: Microbiology 10/30/18 19:57 Aerobic Blood Culture - Preliminary Blood - Venous - Lab Draw NO GROWTH AFTER 2 DAYS Anaerobic Blood Culture - Preliminary NO GROWTH AFTER 2 DAYS 10/30/18 19:40 Aerobic Blood Culture - Preliminary Blood - Venous NO GROWTH AFTER 2 DAYS Anaerobic Blood Culture - Preliminary NO GROWTH AFTER 2 DAYS Med Orders - Current: Current Medications Acetaminophen (Tylenol) 650 mg PO Q4H PRN PRN Reason: Pain (Mild 1-3)/fever Last Admin: 11/02/18 11:12 Dose: 650 mg Hydrocodone Bitart/Acetaminophen ([place] 325-5 Mg) 1 tab PO Q4H PRN PRN Reason: Pain (moderate 4-6) Last Admin: 11/02/18 10:27 Dose: 1 tab Albuterol/Ipratropium (Duoneb 3.0-0.5 Mg/3 Ml) 3 ml NEB Q4H PRN PRN Reason: Shortness Of Breath/wheezing Aspirin (Halfprin) 81 mg PO DAILY [facility] Last Admin: 11/02/18 10:06 Dose: 81 mg Bisacodyl (Dulcolax) 5 mg PO DAILY PRN PRN Reason: Constipation Bupropion HCl (Wellbutrin Sr) 100 mg PO DAILY [facility] Last Admin: 11/02/18 10:05 Dose: 100 mg Cholecalciferol (Vitamin D3) 25 mcg PO DAILY [facility] Last Admin: 11/02/18 10:05 Dose: 25 mcg Citalopram Hydrobromide (Celexa) 20 mg PO DAILY [facility] Last Admin: 11/02/18 10:05 Dose: 20 mg Docusate Sodium (Colace) 100 mg PO BID PRN PRN Reason: Constipation Fentanyl (Duragesic) 75 mcg TRDERM Q72H [facility] Finasteride (Proscar) 5 mg PO DAILY [facility] Last Admin: 11/02/18 10:04 Dose: 5 mg Insulin Glargine (Lantus) 25 unit SUBCUT BEDTIME [facility] Last Admin: 11/01/18 21:11 Dose: 25 units Insulin Human Lispro (Humalog) 0 unit SUBCUT TIDAC [facility]; Protocol Last Admin: 11/02/18 13:21 Dose: 2 units Levothyroxine Sodium (Levothyroxine) 150 mcg PO ACBREAKFAST [facility] Lidocaine (Aspercreme 4%) 1 each TOP DAILY [facility] Last Admin: 11/02/18 10:07 Dose: Not Given Magnesium Oxide (Magnesium Oxide) 400 mg PO BID [facility] Last Admin: 11/02/18 14:26 Dose: 400 mg Melatonin (Melatonin) 6 mg PO QPM [facility] Last Admin: 11/01/18 18:22 Dose: 6 mg Miscellaneous Information (Remove Patch) 1 ea TRDERM BEDTIME [facility] Last Admin: 11/01/18 21:17 Dose: Not Given Miscellaneous Information (Remove Patch) 0 ea TRDERM Q72H [facility] Ondansetron HCl (Zofran Odt) 4 mg PO Q6H PRN PRN Reason: Nausea Last Admin: 11/02/18 11:12 Dose: 4 mg Pantoprazole Sodium (Protonix) 40 mg PO BID [facility] Last Admin: 11/02/18 10:06 Dose: 40 mg Polyethylene Glycol (Miralax) 17 gm PO DAILY PRN PRN Reason: Constipation Senna/Docusate Sodium (Senna Plus) 1 tab PO BID PRN PRN Reason: Constipation Senna/Docusate Sodium (Senna Plus) 2 tab PO BID [facility] Last Admin: 11/02/18 10:12 Dose: 2 tab Simvastatin (Zocor) 20 mg PO BEDTIME [facility] Last Admin: 11/01/18 21:16 Dose: 20 mg Sumatriptan Succinate (Imitrex) 100 mg PO Q2H PRN PRN Reason: Headache Tamsulosin HCl (Flomax) 0.4 mg PO PCBREAKFAST [facility] Last Admin: 11/02/18 10:06 Dose: 0.4 mg Discontinued Medications Fentanyl (Duragesic) 50 mcg TRDERM Q72H [facility] Fentanyl (Duragesic) 50 mcg TRDERM Q72H [facility] Last Admin: 11/01/18 12:34 Dose: 50 mcg Hydromorphone HCl (Dilaudid) 0.25 mg IVPUSH Q2H PRN PRN Reason: Pain (severe 7-10) Insulin Human Regular 100 unit (/ Sodium Chloride) 100 mls @ 7.03 mls/hr IV TITRATE [facility]; Protocol Last Titration: 10/31/18 17:35 Dose: 0 units/kg/hr, 0 mls/hr Sodium Chloride (Normal Saline) 1,000 mls @ 999 mls/hr IV ONETIME ONE Stop: 10/30/18 20:33 Last Admin: 10/30/18 20:08 Dose: 999 mls/hr Sodium Chloride (Normal Saline) 1,000 mls @ 999 mls/hr IV ONETIME ONE Stop: 10/30/18 23:31 Last Admin: 10/30/18 22:46 Dose: 999 mls/hr Lactated Ringer's (Ringers, Lactated) 1,000 mls @ 125 mls/hr IV ASDIRECTED [facility] Last Admin: 10/31/18 00:14 Dose: 125 mls/hr Promethazine HCl 6.25 mg/ (Sodium Chloride) 50.25 mls @ 100 mls/hr IV Q6H PRN PRN Reason: Nausea/Vomiting Sodium Chloride (Normal Saline) 1,000 mls @ 50 mls/hr IV ASDIRECTED [facility] Last Admin: 10/31/18 09:39 Dose: 50 mls/hr Magnesium Sulfate 4 gm/ Premix 50 mls @ 12.5 mls/hr IV ONETIME ONE Stop: 11/02/18 12:39 Last Admin: 11/02/18 13:21 Dose: Not Given Insulin Glargine (Lantus) 25 unit SUBCUT QAM [facility] Last Admin: 10/31/18 18:38 Dose: Not Given Insulin Glargine (Lantus) 25 unit SUBCUT BEDTIME [facility] Last Admin: 10/31/18 12:08 Dose: 25 units Insulin Glargine (Lantus) 12 unit SUBCUT BEDTIME [facility] Insulin Glargine (Lantus) 12 unit SUBCUT ONETIME ONE Stop: 10/31/18 19:46 Last Admin: 10/31/18 19:50 Dose: 12 units Insulin Glargine (Lantus) 25 unit .ROUTE .STK-MED ONE Stop: 10/31/18 12:09 Insulin Human Lispro (Humalog) 0 unit SUBCUT QIDACANDBED [facility]; Protocol Last Admin: 11/01/18 12:27 Dose: 8 units Insulin Human Lispro (Humalog) 0 unit SUBCUT QIDACANDBED [facility]; Protocol Last Admin: 11/02/18 06:00 Dose: Not Given Insulin Human Regular (Humulin R) 10 unit IV ONETIME STA Stop: 10/30/18 19:35 Last Admin: 10/30/18 20:08 Dose: 10 units Levothyroxine Sodium (Synthroid) 150 mcg PO ACBREAKFAST [facility] Last Admin: 10/31/18 06:03 Dose: 150 mcg Levothyroxine Sodium (Synthroid) 150 mcg PO ACBREAKFAST [facility]ARM[facility] Last Admin: 11/02/18 05:21 Dose: 150 mcg Lorazepam (Ativan) 0.25 mg IV Q6H PRN PRN Reason: Anxiety Last Admin: 10/31/18 23:40 Dose: 0.25 mg Miscellaneous Information (Remove Patch) 0 ea TRDERM Q72H [facility] Miscellaneous Information (Remove Patch) 1 ea TRDERM Q72H [facility] Non-Formulary Medication (Hydrocodone/Acetaminophen) 1 tab PO Q4H PRN PRN Reason: Pain Ondansetron HCl (Zofran) 4 mg IV Q6H PRN PRN Reason: Nausea/Vomiting Last Admin: 10/31/18 09:44 Dose: 4 mg Pantoprazole Sodium (Protonix Iv) 40 mg IV Q12HR [facility] Polyethylene Glycol (Miralax) 17 gm PO DAILY PRN PRN Reason: Constipation Sildenafil Citrate (Revatio) 100 mg PO DAILY PRN PRN Reason: other Temazepam (Restoril) 7.5 mg PO BEDTIME PRN PRN Reason: Sleep Last Admin: 11/01/18 21:24 Dose: 7.5 mg - Exam Quality Assessment: Denies: Supplemental Oxygen General: Reports: Alert HEENT: Reports: Pupils Equal Neck: Reports: Supple Lungs: Reports: Clear to Auscultation, Normal Respiratory Effort Cardiovascular: Reports: Regular Rate, Regular Rhythm Skin: Reports: Warm, Dry, Intact Psy/Mental Status: Reports: Alert, Agitated
[2018-11-03] MEDS ORDERED: Levothyroxine 75 MCG Tab PO SCH (06:00)
== END 2018-11-02 16:07 | disposition left against medical advice (07) | DRG 638 ==
LOC: JD.ED 18:28 → JD.ICU 23:37 → JD.MS 11-01 15:38
PROVIDERS: ADMIT Family Medicine; ATTEND Family Medicine
DX: E11.10 Type 2 diabetes mellitus with ketoacidosis without coma (principal); E11.22 Type 2 diabetes mellitus with diabetic chronic kidney disease; I12.9 Hypertensive chronic kidney disease with stage 1 through stage 4 chronic kidney disease, or unspecified chronic kidney disease; N18.9 Chronic kidney disease, unspecified; N17.9 Acute kidney failure, unspecified; F11.20 Opioid dependence, uncomplicated; G47.33 Obstructive sleep apnea (adult) (pediatric); S09.90XA Unspecified injury of head, initial encounter; N13.8 Other obstructive and reflux uropathy; G31.84 Mild cognitive impairment of uncertain or unknown etiology; E78.00 Pure hypercholesterolemia, unspecified; R79.89 Other specified abnormal findings of blood chemistry; E78.5 Hyperlipidemia, unspecified; I10 Essential (primary) hypertension; G47.30 Sleep apnea, unspecified; K21.9 Gastro-esophageal reflux disease without esophagitis; N40.0 Benign prostatic hyperplasia without lower urinary tract symptoms; Z91.81 History of falling; W19.XXXA Unspecified fall, initial encounter; M19.90 Unspecified osteoarthritis, unspecified site; E11.40 Type 2 diabetes mellitus with diabetic neuropathy, unspecified; F32.9 Major depressive disorder, single episode, unspecified; E03.9 Hypothyroidism, unspecified; Z88.8 Allergy status to other drugs, medicaments and biological substances; Z79.82 Long term (current) use of aspirin; Z79.890 Hormone replacement therapy; Z79.899 Other long term (current) drug therapy; Z90.49 Acquired absence of other specified parts of digestive tract; Z87.891 Personal history of nicotine dependence; Z79.4 Long term (current) use of insulin
CPT/HCPCS: 36415; 36600; 70450; 71045; 80048; 80053; 81001; 82009; 82043; 82306; 82803; 83036; 83605; 83735; 83930; 83935; 84300; 84439; 84443; 84484; 84540; 84560; 85007; 85027; 85999; 87040 ×2; 93005; 94660; 96365; 96366; 96376; 99285; J1815 ×2; J7030; J7040 ×2; 76770; 76770-26; 82947; 82962; 84100; 85025; 92507-GN; 92523-GN; 93010; 97112-GP; 97116-GP; 97161-GP; 97165-GO; 99284; A9270-GY; J2060; J2405; J7120; Q3014

== ENCOUNTER 2018-11-07 16:18 | Inpatient (IN) | payer MEDICARE, BC, OTHER ==
[2018-11-07] MEDS ORDERED: Ondansetron 4 MG/2 ML SDV IVPUSH ONE (16:30)
[2018-11-07] MEDS ORDERED: Sodium Chloride 0.9% 10 ML Syringe FLUSH PRN (16:30)
[2018-11-07] MEDS ORDERED: Sodium Chloride 0.9% 1,000 ML IV STA (16:30)
[2018-11-07] MEDS ORDERED: HYDROmorphone 0.5 MG/0.5 ML Syringe IVPUSH ONE (16:34)
--- NOTE | 2018-11-07 16:34 | EDM.PDOC ---
ED HPI GENERAL MEDICAL PROBLEM - General Chief Complaint: Diabetic Complaint Stated Complaint: [facility] Time Seen by Provider: 11/07/18 16:27 Source of Information: Reports: Patient, EMS History Limitations: Reports: No Limitations - History of Present Illness INITIAL COMMENTS - FREE TEXT/NARRATIVE: The patient presents by [facility] for not feeling well. He was driving from [place] to [place] to visit friends. He also was nauseated, lightheaded and he had back pain. He has a history of chronic back pain. He also has type II diabetes treated with insulin. He also is short of breath with no chest pain. He was admitted to the hospital on 10/30/18 until the for hyperglycemic, hyperosmolar state. When he got home he was sick with nausea , vomiting and diarrhea. He felt good yesterday but today he did not feel good. He did not check his sugar this morning and did not take his insulin. Onset: Gradual Duration: Hour(s): Location: Reports: Back Quality: Reports: Sharp Severity: Moderate Improves with: Reports: None Worsens with: Reports: None Associated Symptoms: Reports: Nausea/Vomiting, Shortness of Breath. Denies: Chest Pain, Cough, Fever/Chills, Headaches Middle Back Pain Score (Numeric/FACES): 7 - Related Data Allergies Allergy/AdvReac Type Severity Reaction Status Date / Time zolpidem [Zolpidem] AdvReac Mild Change Verified 11/07/18 16:27 Mental Status alprazolam AdvReac Change Verified 11/07/18 16:27 Mental Status diazepam AdvReac Change Verified 11/07/18 16:27 Mental Status trazodone AdvReac Change Verified 11/07/18 16:27 Mental Status Home Meds: Home Meds Insulin Glarg,Human.Rec.Analog [Lantus] 25 units SUBCUT QPM 06/21/17 [History] Levothyroxine 150 mcg PO QAM 06/21/17 [History] Polyethylene Glycol 3350 [MiraLAX] 17 gm PO DAILY PRN 08/07/18 [History] fentaNYL [Fentanyl] 75 mcg TRDERM ASDIRECTED 08/07/18 [History] Gabapentin [Neurontin] 300 mg PO TID 10/14/18 [History] Potassium Chloride [Klor-Con M20] 20 meq PO DAILY 10/14/18 [History] atorvaSTATin [Lipitor] 20 mg PO BEDTIME 10/14/18 [History] Aspirin [Halfprin] 81 mg PO DAILY 10/30/18 [History] Citalopram [Citalopram HBr] 20 mg PO DAILY 10/30/18 [History] Hydrocodone/Acetaminophen [Hydrocodon-Acetaminophn 10-325] 1 tab PO Q4H PRN [History] Insulin Aspart [NovoLOG] 5 - 10 unit SQ TID 10/30/18 [History] Insulin Lispro [Insulin Lispro Kwikpen U-100] 3 - 21 units SQ QID 10/30/18 [ History] Lisinopril 2.5 mg PO DAILY 10/30/18 [History] Ranitidine [Zantac] 150 mg PO BEDTIME 10/30/18 [History] SUMAtriptan Succinate [Imitrex] 100 mg PO Q2H PRN 10/30/18 [History] diphenhydrAMINE [Benadryl] 25 mg PO QID PRN 10/30/18 [History] Past Medical History HEENT History: Reports: Hard of Hearing Other HEENT History: wears eyeglasses. Cardiovascular History: Reports: High Cholesterol, Hypertension Respiratory History: Reports: Sleep Apnea Other Respiratory History: states has C-PAP but doesn't use it due to "It's so loud." Gastrointestinal History: Reports: GERD Genitourinary History: Reports: BPH Other Genitourinary History: stress incontinence Musculoskeletal History: Reports: Osteoarthritis Neurological History: Reports: Neuropathy, Diabetic Psychiatric History: Reports: Addiction, Depression, Other (See Below) Other Psychiatric History: insomnia Endocrine/Metabolic History: Reports: Diabetes, Type II, Hypothyroidism Hematologic History: Reports: None Immunologic History: Reports: None Oncologic (Cancer) History: Reports: None Dermatologic History: Reports: None - Infectious Disease History Infectious Disease History: Reports: Chicken Pox, Measles, Mumps - Past Surgical History GI Surgical History: Reports: Cholecystectomy, Colonoscopy, EGD Neurological Surgical History: Reports: Lumbar Spine Other Musculoskeletal Surgeries/Procedures:: 6 Back Surgeries Social & Family History - Family History Family Medical History: Noncontributory - Tobacco Use Smoking Status *Q: Never Smoker - Caffeine Use Caffeine Use: Reports: Coffee, Soda - Recreational Drug Use Recreational Drug Use: No - Living Situation & Occupation Living situation: Reports: , with Significant Other (Fiance) Occupation: Retired ED ROS GENERAL - Review of Systems Review Of Systems: See Below Constitutional: Reports: Malaise, Weakness, Fatigue HEENT: Reports: No Symptoms Respiratory: Reports: Shortness of Breath Cardiovascular: Reports: No Symptoms Endocrine: Reports: High Glucose GI/Abdominal: Reports: Nausea. Denies: Abdominal Pain, Vomiting : Reports: No Symptoms Musculoskeletal: Reports: Back Pain ED EXAM GENERAL NO PERIP PULSE - Physical Exam Exam: See Below Exam Limited By: No Limitations General Appearance: Alert, No Apparent Distress Ears: Normal External Exam Nose: Normal Inspection Head: Atraumatic, Normocephalic Neck: Normal Inspection Respiratory/Chest: No Respiratory Distress, Lungs Clear, Normal Breath Sounds Cardiovascular: Regular Rate, Rhythm, No Edema, No Murmur GI/Abdominal: Soft, Non-Tender, No Organomegaly, No Mass Back Exam: Other (Pain upon palpation to the lower back) Extremities: Normal Inspection Neurological: Alert, Oriented, No Motor/Sensory Deficits EKG INTERPRETATION EKG Date: 11/07/18 Time: 16:21 Rhythm: NSR Rate (Beats/Min): 94 [place]: Normal P-Wave: Present QRS: Normal ST-T: Other (Hyper acute T waves in V3, V4, V5 and II) QT: Normal Course - Vital Signs Last Recorded V/S: Last Vital Signs Temp 97.5 F 11/07/18 16:22 Pulse 95 11/07/18 16:22 Resp 18 11/07/18 16:22 BP 121/50 L 11/07/18 16:22 Pulse Ox 100 11/07/18 17:39 - Orders/Labs/Meds Orders: Active Orders 24 hr Category Date Time Status EKG Documentation Completion [RC] ASDIRECTED Care 11/07/18 17:17 Active Influenza Vaccine Charge [RC] .DISCHARGE Care 11/07/18 16:30 Active POC Glucose [Blood Glucose Check, Bedside] [RC] ONETIME Care 11/07/18 18:24 Active Peripheral IV Care [RC] . DIRECTED Care 11/07/18 16:31 Active RT Aerosol Therapy [RC] ASDIRECTED Care 11/07/18 17:39 Active GLUCOSE RANDOM [CHEM] Stat Lab 11/07/18 18:24 Ordered UA W/MICROSCOPIC [URIN] Stat Lab 11/07/18 16:30 Ordered Insulin Regular, Human [HumuLIN R] 100 unit Med 11/07/18 17:45 Active Sodium Chloride 0.9% [Normal Saline] 99 ml IV TITRATE Lactated Ringers [Ringers, Lactated] 1,000 ml Med 11/07/18 17:30 Active IV .BOLUS Sodium Chloride 0.9% [Saline Flush] Med 11/07/18 16:30 Active 10 ml FLUSH ASDIRECTED PRN ED Antiemetic Medication Reflex [OM.PC] Stat Oth 11/07/18 16:31 Ordered Peripheral IV Insertion Adult [OM.PC] Stat Oth 11/07/18 16:30 Ordered EKG 12 Lead [EK] Stat Ther 11/07/18 17:16 Ordered Medication Orders Lactated Ringer's (Ringers, Lactated) 1,000 mls @ 1,000 mls/hr IV .BOLUS ONE Stop: 11/07/18 18:29 Last Admin: 11/07/18 17:59 Dose: 1,000 mls/hr Insulin Human Regular 100 unit (/ Sodium Chloride) 100 mls @ 7.07 mls/hr IV TITRATE KARMEN; Protocol Last Admin: 11/07/18 18:13 Dose: 0.1 units/kg/hr, 7.07 mls/hr Sodium Chloride (Saline Flush) 10 ml FLUSH ASDIRECTED PRN PRN Reason: Keep Vein Open Last Admin: 11/07/18 16:55 Dose: 10 ml Labs: Laboratory Tests 11/07/18 11/07/18 11/07/18 Range/Units 16:25 16:25 16:25 WBC 8.96 (4.23-9.07) K/mm3 RBC 3.57 L (4.63-6.08) M/mm3 Hgb 10.4 L (13.7-17.5) gm/dl Hct 31.2 L (40.1-51.0) % MCV 87.4 (79.0-92.2) fl MCH 29.1 (25.7-32.2) pg MCHC 33.3 (32.2-35.5) g/dl RDW Std Deviation 37.7 (35.1-43.9) fL Plt Count 287 (163-337) K/mm3 MPV 9.3 L (9.4-12.3) fl Neut % (Auto) 90.7 H (34.0-67.9) % Lymph % (Auto) 5.4 L (21.8-53.1) % [place] % (Auto) 3.6 L (5.3-12.2) % Eos % (Auto) 0.1 L (0.8-7.0) Baso % (Auto) 0.2 (0.1-1.2) % Neut # (Auto) 8.13 H (1.78-5.38) K/mm3 Lymph # (Auto) 0.48 L (1.32-3.57) K/mm3 [place] # (Auto) 0.32 (0.30-0.82) K/mm3 Eos # (Auto) 0.01 L (0.04-0.54) K/mm3 Baso # (Auto) 0.02 (0.01-0.08) K/mm3 Manual Slide Review Abnormal smear VBG pH (7.30-7.40) VBG pCO2 (41-51) mmHg VBG pO2 (40-80) mmHG VBG HCO3 (22-26) meq/L VBG O2 Saturation VBG Base Excess (-4.0-2.0) O2 Delivery Device Sodium 122 L D (136-145) mEq/L Potassium 7.0 H* D (3.5-5.1) mEq/L Chloride 85 L D (98-107) mEq/L Carbon Dioxide 19 L (21-32) mEq/L Anion Gap 25.0 H (5-15) BUN 26 H (7-18) mg/dL Creatinine 2.2 H (0.7-1.3) mg/dL Est Cr Clr Drug Dosing 28.38 mL/min Estimated GFR (MDRD) 30 (>60) mL/min BUN/Creatinine Ratio 11.8 L (14-18) Glucose 1020 H* (83-115) mg/dL Serum Osmolality 331 H (280-300) mosm/kg Calcium 9.0 (8.5-10.1) mg/dL Magnesium 1.9 (1.8-2.4) mg/dl Total Bilirubin 0.4 (0.2-1.0) mg/dL AST 18 (15-37) U/L ALT 32 (16-63) U/L Alkaline Phosphatase 210 H (46-116) U/L Troponin I < 0.017 (0.00-0.056) ng/mL Total Protein 7.2 (6.4-8.2) g/dl Albumin 3.1 L (3.4-5.0) g/dl Globulin 4.1 gm/dL Albumin/Globulin Ratio 0.8 L (1-2) Ketones 4.92 (0.0-0.3) mM 11/07/18 Range/Units 17:54 WBC (4.23-9.07) K/mm3 RBC (4.63-6.08) M/mm3 Hgb (13.7-17.5) gm/dl Hct (40.1-51.0) % MCV (79.0-92.2) fl MCH (25.7-32.2) pg MCHC (32.2-35.5) g/dl RDW Std Deviation (35.1-43.9) fL Plt Count (163-337) K/mm3 MPV (9.4-12.3) fl Neut % (Auto) (34.0-67.9) % Lymph % (Auto) (21.8-53.1) % [place] % (Auto) (5.3-12.2) % Eos % (Auto) (0.8-7.0) Baso % (Auto) (0.1-1.2) % Neut # (Auto) (1.78-5.38) K/mm3 Lymph # (Auto) (1.32-3.57) K/mm3 [place] # (Auto) (0.30-0.82) K/mm3 Eos # (Auto) (0.04-0.54) K/mm3 Baso # (Auto) (0.01-0.08) K/mm3 Manual Slide Review VBG pH 7.21 L (7.30-7.40) VBG pCO2 44.1 (41-51) mmHg VBG pO2 33.0 L (40-80) mmHG VBG HCO3 16.9 L (22-26) meq/L VBG O2 Saturation 47.1 VBG Base Excess -10.1 L (-4.0-2.0) O2 Delivery Device Room air Sodium (136-145) mEq/L Potassium (3.5-5.1) mEq/L Chloride (98-107) mEq/L Carbon Dioxide (21-32) mEq/L Anion Gap (5-15) BUN (7-18) mg/dL Creatinine (0.7-1.3) mg/dL Est Cr Clr Drug Dosing mL/min Estimated GFR (MDRD) (>60) mL/min BUN/Creatinine Ratio (14-18) Glucose (83-115) mg/dL Serum Osmolality (280-300) mosm/kg Calcium (8.5-10.1) mg/dL Magnesium (1.8-2.4) mg/dl Total Bilirubin (0.2-1.0) mg/dL AST (15-37) U/L ALT (16-63) U/L Alkaline Phosphatase (46-116) U/L Troponin I (0.00-0.056) ng/mL Total Protein (6.4-8.2) g/dl Albumin (3.4-5.0) g/dl Globulin gm/dL Albumin/Globulin Ratio (1-2) Ketones (0.0-0.3) mM Meds: Medications Generic Name Dose Route Start Last Admin Trade Name Freq PRN Reason Stop Dose Admin Lactated Ringer's 1,000 mls @ 1,000 mls/hr 11/07/18 17:30 11/07/18 17:59 Ringers, Lactated IV 11/07/18 18:29 1,000 mls/hr .BOLUS ONE Administration Insulin Human Regular 100 unit 100 mls @ 7.07 mls/hr 11/07/18 17:45 11/07/18 18:13 / Sodium Chloride IV 0.1 units/kg/hr TITRATE KARMEN 7.07 mls/hr Administration Protocol 0.1 UNITS/KG/HR Sodium Chloride 10 ml 11/07/18 16:30 11/07/18 16:55 Saline Flush FLUSH 10 ml ASDIRECTED PRN Administration Keep Vein Open Discontinued Medications Generic Name Dose Route Start Last Admin Trade Name Freq PRN Reason Stop Dose Admin Albuterol 2.5 mg 11/07/18 17:39 11/07/18 18:18 Proventil Neb Soln NEB 11/07/18 17:40 2.5 mg ONETIME ONE Administration Calcium Gluconate 1 gm 11/07/18 17:38 11/07/18 17:49 Calcium Gluconate IV 11/07/18 17:39 1 gm ONETIME ONE Administration Hydromorphone HCl 0.5 mg 11/07/18 16:34 11/07/18 16:52 Dilaudid IVPUSH 11/07/18 16:35 0.5 mg ONETIME ONE Administration Sodium Chloride 1,000 mls @ 1,000 mls/hr 11/07/18 16:30 11/07/18 16:51 Normal Saline IV 11/07/18 17:29 1,000 mls/hr .BOLUS STA Administration Influenza Virus Vaccine 1 each 11/07/18 16:30 Pharmacy To Dose - Influenza Vaccine IM 11/07/18 16:31 ONETIME ONE Influenza Virus Vaccine 180 mcg 11/07/18 16:45 11/07/18 18:10 Fluzone High-Dose 2019-20 Syringe IM 11/07/18 16:46 180 mcg .ONCE ONE Administration Metoclopramide HCl 10 mg 11/07/18 18:04 11/07/18 18:10 Reglan IVPUSH 11/07/18 18:05 10 mg ONETIME ONE Administration Ondansetron HCl 4 mg 11/07/18 16:30 11/07/18 16:52 Zofran IVPUSH 11/07/18 16:31 4 mg ONETIME ONE Administration Sodium Polystyrene Sulfonate 45 gm 11/07/18 17:38 11/07/18 17:47 Kayexalate PO 11/07/18 17:39 45 gm NOW ONE Administration - Re-Assessments/Exams Free Text/Narrative Re-Assessment/Exam: 11/07/18 18:29 I ordered an IV NS 1L bolus, EKG, labs, zofran 4mg IV, dilaudid 0.5mg IV and ABG. His EKG shows a NSR with hyper acute T waves in leads V3, V4, V5 and II. His CBC looks good. His pH was elevated at 7.21. His Na was low at 122. His K was elevated at 7. I ordered another liter of fluid but switched to LR, calcium gluconate 1 gram IV, kaexylate 45grams PO, albuterol treatment and insulin drip at 7 units per hour. His anion gap is elevated at 25. His creatinine is elevated at 2.2. His glucose is 1020. His serum osmolalit is 331. His alk phos is elevated at 210. His troponin is negative. His ketones are elevated at 4.92. I feel he needs to be admitted. I called Dr Rowland and she accepted the patient. Departure - Departure Time of Disposition: 18:35 Disposition: Admitted As Inpatient 67 Condition: Serious Clinical Impression: Hyperglycemia, Hyperosmolality, Hypokalemia, Hyponatremia - Discharge Information Referrals: Mark Rivas MD [Primary Care Provider] - Forms: ED Department Discharge - My Orders Last 24 Hours: My Active Orders 11/07/18 16:30 Influenza Vaccine Charge [RC] .DISCHARGE UA W/MICROSCOPIC [URIN] Stat Sodium Chloride 0.9% [Saline Flush] 10 ml FLUSH ASDIRECTED PRN Peripheral IV Insertion Adult [OM.PC] Stat 11/07/18 16:31 Peripheral IV Care [RC] . DIRECTED ED Antiemetic Medication Reflex [OM.PC] Stat 11/07/18 17:16 EKG 12 Lead [EK] Stat 11/07/18 17:17 EKG Documentation Completion [RC] ASDIRECTED 11/07/18 17:30 Lactated Ringers [Ringers, Lactated] 1,000 ml IV .BOLUS 11/07/18 17:39 RT Aerosol Therapy [RC] ASDIRECTED 11/07/18 17:45 Insulin Regular, Human [HumuLIN R] 100 unit Sodium Chloride 0.9% [Normal Saline] 99 ml IV TITRATE 11/07/18 18:24 POC Glucose [Blood Glucose Check, Bedside] [RC] ONETIME GLUCOSE RANDOM [CHEM] Stat - Assessment/Plan Last 24 Hours: My Active Orders 11/07/18 16:30 Influenza Vaccine Charge [RC] .DISCHARGE UA W/MICROSCOPIC [URIN] Stat Sodium Chloride 0.9% [Saline Flush] 10 ml FLUSH ASDIRECTED PRN Peripheral IV Insertion Adult [OM.PC] Stat 11/07/18 16:31 Peripheral IV Care [RC] . DIRECTED ED Antiemetic Medication Reflex [OM.PC] Stat 11/07/18 17:16 EKG 12 Lead [EK] Stat 11/07/18 17:17 EKG Documentation Completion [RC] ASDIRECTED 11/07/18 17:30 Lactated Ringers [Ringers, Lactated] 1,000 ml IV .BOLUS 11/07/18 17:39 RT Aerosol Therapy [RC] ASDIRECTED 11/07/18 17:45 Insulin Regular, Human [HumuLIN R] 100 unit Sodium Chloride 0.9% [Normal Saline] 99 ml IV TITRATE 11/07/18 18:24 POC Glucose [Blood Glucose Check, Bedside] [RC] ONETIME GLUCOSE RANDOM [CHEM] Stat
[2018-11-07] MEDS ORDERED: Lactated Ringers 1,000 ML IV ONE ×3 (17:30→23:45)
[2018-11-07] MEDS ORDERED: Calcium Gluconate 10% 1 GM/10 ML SDV IV ONE (17:38)
[2018-11-07] MEDS ORDERED: Sodium Polystyrene Sulfonate 15 GM/60 ML Susp 60 ML Bot PO ONE (17:38)
[2018-11-07] MEDS ORDERED: Albuterol 0.083% 2.5 MG/3 ML Neb Soln NEB ONE (17:39)
[2018-11-07] MEDS ORDERED: Metoclopramide 10 MG/2 ML SDV IVPUSH ONE (18:04)
[2018-11-07] MEDS: Melatonin 3 MG Tab PO PRN (22:10)
[2018-11-07] MEDS: Morphine 2 MG/ML Syringe IVPUSH PRN (22:11)
[2018-11-07] MEDS ORDERED: Magnesium Sulfate/Water 4 GM in Premix Bag 1 BAG IV ONE (22:22)
[2018-11-08] MEDS ORDERED: Dextrose 10% in Water 1,000 ML IV SCH (03:15)
[2018-11-08] MEDS ORDERED: Insulin Glarg,Human.Rec.Analog 100 UNIT/ML ML SUBCUT ONE (05:21)
[2018-11-08] MEDS ORDERED: Lactated Ringers 1,000 ML IV SCH (05:30)
[2018-11-08] MEDS: Morphine 2 MG/ML Syringe IVPUSH PRN ×2 (06:47→11:23)
[2018-11-08] MEDS: Insulin Lispro 100 Units/ML 3 ML Vial SUBCUT SCH ×3 (08:20→16:52)
[2018-11-08] MEDS ORDERED: Acetaminophen/Codeine 300-30 MG Tab PO PRN (11:28)
[2018-11-08] MEDS ORDERED: Morphine 2 MG/ML Syringe IVPUSH PRN (11:32)
[2018-11-08] MEDS: Enoxaparin 40 MG/0.4 ML Syringe SUBCUT SCH (12:28)
--- NOTE | 2018-11-08 14:37 | PCM.HP.2 ---
H&P History of Present Illness - General Date of Service: 11/07/18 (w) Admit Problem/Dx: Admission Diagnosis/Problem Admission Diagnosis/Problem Hyperglycemia Middle Back Pain Score (Numeric/FACES): 7 - Related Data Allergies/Adverse Reactions: Allergies Allergy/AdvReac Type Severity Reaction Status Date / Time zolpidem [Zolpidem] AdvReac Mild Change Verified 11/07/18 23:23 Mental Status alprazolam AdvReac Change Verified 11/07/18 23:23 Mental Status diazepam AdvReac Change Verified 11/07/18 23:23 Mental Status trazodone AdvReac Change Verified 11/07/18 23:23 Mental Status Home Medications: Home Meds Insulin Glarg,Human.Rec.Analog [Lantus] 25 units SUBCUT QPM 06/21/17 [History] Levothyroxine 150 mcg PO QAM 06/21/17 [History] Polyethylene Glycol 3350 [MiraLAX] 17 gm PO DAILY PRN 08/07/18 [History] fentaNYL [Fentanyl] 75 mcg TRDERM ASDIRECTED 08/07/18 [History] Gabapentin [Neurontin] 300 mg PO TID 10/14/18 [History] Potassium Chloride [Klor-Con M20] 20 meq PO DAILY 10/14/18 [History] atorvaSTATin [Lipitor] 20 mg PO BEDTIME 10/14/18 [History] Aspirin [Halfprin] 81 mg PO DAILY 10/30/18 [History] Citalopram [Citalopram HBr] 20 mg PO DAILY 10/30/18 [History] Hydrocodone/Acetaminophen [Hydrocodon-Acetaminophn 10-325] 1 tab PO Q4H PRN [History] Insulin Aspart [NovoLOG] 5 - 10 unit SQ TID 10/30/18 [History] Insulin Lispro [Insulin Lispro Kwikpen U-100] 3 - 21 units SQ QID 10/30/18 [ History] Lisinopril 2.5 mg PO DAILY 10/30/18 [History] Ranitidine [Zantac] 150 mg PO BEDTIME 10/30/18 [History] SUMAtriptan Succinate [Imitrex] 100 mg PO Q2H PRN 10/30/18 [History] diphenhydrAMINE [Benadryl] 25 mg PO BEDTIME PRN 10/30/18 [History] Past Medical History HEENT History: Reports: Hard of Hearing Other HEENT History: wears eyeglasses. Cardiovascular History: Reports: High Cholesterol, Hypertension Respiratory History: Reports: Sleep Apnea Other Respiratory History: states has C-PAP but doesn't use it due to "It's so loud." Gastrointestinal History: Reports: GERD Genitourinary History: Reports: BPH Other Genitourinary History: stress incontinence Musculoskeletal History: Reports: Osteoarthritis Neurological History: Reports: Neuropathy, Diabetic Psychiatric History: Reports: Addiction, Depression, Other (See Below) Other Psychiatric History: insomnia Endocrine/Metabolic History: Reports: Diabetes, Type II, Hypothyroidism Hematologic History: Reports: None Immunologic History: Reports: None Oncologic (Cancer) History: Reports: None Dermatologic History: Reports: None - Infectious Disease History Infectious Disease History: Reports: Chicken Pox, Measles, Mumps - Past Surgical History Cardiovascular Surgical History: Reports: None GI Surgical History: Reports: Cholecystectomy, Colonoscopy, EGD Neurological Surgical History: Reports: Lumbar Spine Other Musculoskeletal Surgeries/Procedures:: 6 Back Surgeries Social & Family History - Family History Family Medical History: Noncontributory - Tobacco Use Smoking Status *Q: Never Smoker Second Hand Smoke Exposure: No - Caffeine Use Caffeine Use: Reports: Coffee, Soda - Recreational Drug Use Recreational Drug Use: No - Living Situation & Occupation Living situation: Reports: , with Significant Other (Fiance) Occupation: Retired Exam - Vital Signs Vital Signs: Last Vital Signs Temp 36.5 C 11/08/18 13:22 Pulse 95 11/07/18 16:22 Resp 16 11/08/18 13:22 BP 110/55 L 11/08/18 13:22 Pulse Ox 95 11/08/18 13:22 Weight: 71.214 kg - Patient Data Lab Results Last 24 hrs: Laboratory Results - last 24 hr 11/07/18 11/07/18 11/07/18 Range/Units 16:25 16:25 16:25 WBC 8.96 (4.23-9.07) K/mm3 RBC 3.57 L (4.63-6.08) M/mm3 Hgb 10.4 L (13.7-17.5) gm/dl Hct 31.2 L (40.1-51.0) % MCV 87.4 (79.0-92.2) fl MCH 29.1 (25.7-32.2) pg MCHC 33.3 (32.2-35.5) g/dl RDW Std Deviation 37.7 (35.1-43.9) fL Plt Count 287 (163-337) K/mm3 MPV 9.3 L (9.4-12.3) fl Neut % (Auto) 90.7 H (34.0-67.9) % Lymph % (Auto) 5.4 L (21.8-53.1) % Maverick % (Auto) 3.6 L (5.3-12.2) % Eos % (Auto) 0.1 L (0.8-7.0) Baso % (Auto) 0.2 (0.1-1.2) % Neut # (Auto) 8.13 H (1.78-5.38) K/mm3 Lymph # (Auto) 0.48 L (1.32-3.57) K/mm3 Maverick # (Auto) 0.32 (0.30-0.82) K/mm3 Eos # (Auto) 0.01 L (0.04-0.54) K/mm3 Baso # (Auto) 0.02 (0.01-0.08) K/mm3 Manual Slide Review Abnormal smear Puncture Site ABG pH (7.35-7.45) ABG pCO2 (35.0-45.0) mmHg ABG pO2 (80.0-100.0) mmHg ABG HCO3 (22.0-26.0) meq/L ABG O2 Saturation (96.0-97.0) % ABG Base Excess (-2-2.0) Melchor Test VBG pH (7.30-7.40) VBG pCO2 (41-51) mmHg VBG pO2 (40-80) mmHG VBG HCO3 (22-26) meq/L VBG O2 Saturation VBG Base Excess (-4.0-2.0) A-a Gradient mmHg O2 Delivery Device FiO2 (21.00-100.00) % Sodium 122 L D (136-145) mEq/L Potassium 7.0 H* D (3.5-5.1) mEq/L Chloride 85 L D (98-107) mEq/L Carbon Dioxide 19 L (21-32) mEq/L Anion Gap 25.0 H (5-15) BUN 26 H (7-18) mg/dL Creatinine 2.2 H (0.7-1.3) mg/dL Est Cr Clr Drug Dosing 28.38 mL/min Estimated GFR (MDRD) 30 (>60) mL/min BUN/Creatinine Ratio 11.8 L (14-18) Glucose 1020 H* (83-115) mg/dL POC Glucose (83-110) mg/dL Hemoglobin A1c (4.50-6.20) % Serum Osmolality 331 H (280-300) mosm/kg Calcium 9.0 (8.5-10.1) mg/dL Phosphorus (2.6-4.7) mg/dL Magnesium 1.9 (1.8-2.4) mg/dl Total Bilirubin 0.4 (0.2-1.0) mg/dL AST 18 (15-37) U/L ALT 32 (16-63) U/L Alkaline Phosphatase 210 H (46-116) U/L Troponin I < 0.017 (0.00-0.056) ng/mL Total Protein 7.2 (6.4-8.2) g/dl Albumin 3.1 L (3.4-5.0) g/dl Globulin 4.1 gm/dL Albumin/Globulin Ratio 0.8 L (1-2) Triglycerides (<150) mg/dL Urine Color (Yellow) Urine Appearance (Clear) Urine pH (5.0-8.0) Ur Specific Gentry (1.005-1.030) Urine Protein (Negative) Urine Glucose (UA) (Negative) Urine Ketones (Negative) Urine Occult Blood (Negative) Urine Nitrite (Negative) Urine Bilirubin (Negative) Urine Urobilinogen (0.2-1.0) Ur Leukocyte Esterase (Negative) Urine RBC (0-5) /hpf Urine WBC (0-5) /hpf Ur Squamous Epith Cells (0-5) /hpf Urine Bacteria (FEW) /hpf Urine Mucus (FEW) /hpf Urine Yeast (Budding) (NOT SEEN) Ketones 4.92 (0.0-0.3) mM 11/07/18 11/07/18 11/07/18 Range/Units 16:27 17:54 18:30 WBC (4.23-9.07) K/mm3 RBC (4.63-6.08) M/mm3 Hgb (13.7-17.5) gm/dl Hct (40.1-51.0) % MCV (79.0-92.2) fl MCH (25.7-32.2) pg MCHC (32.2-35.5) g/dl RDW Std Deviation (35.1-43.9) fL Plt Count (163-337) K/mm3 MPV (9.4-12.3) fl Neut % (Auto) (34.0-67.9) % Lymph % (Auto) (21.8-53.1) % Maverick % (Auto) (5.3-12.2) % Eos % (Auto) (0.8-7.0) Baso % (Auto) (0.1-1.2) % Neut # (Auto) (1.78-5.38) K/mm3 Lymph # (Auto) (1.32-3.57) K/mm3 Maverick # (Auto) (0.30-0.82) K/mm3 Eos # (Auto) (0.04-0.54) K/mm3 Baso # (Auto) (0.01-0.08) K/mm3 Manual Slide Review Puncture Site ABG pH (7.35-7.45) ABG pCO2 (35.0-45.0) mmHg ABG pO2 (80.0-100.0) mmHg ABG HCO3 (22.0-26.0) meq/L ABG O2 Saturation (96.0-97.0) % ABG Base Excess (-2-2.0) Melchor Test VBG pH 7.21 L (7.30-7.40) VBG pCO2 44.1 (41-51) mmHg VBG pO2 33.0 L (40-80) mmHG VBG HCO3 16.9 L (22-26) meq/L VBG O2 Saturation 47.1 VBG Base Excess -10.1 L (-4.0-2.0) A-a Gradient mmHg O2 Delivery Device Room air FiO2 (21.00-100.00) % Sodium (136-145) mEq/L Potassium (3.5-5.1) mEq/L Chloride (98-107) mEq/L Carbon Dioxide (21-32) mEq/L Anion Gap (5-15) BUN (7-18) mg/dL Creatinine (0.7-1.3) mg/dL Est Cr Clr Drug Dosing mL/min Estimated GFR (MDRD) (>60) mL/min BUN/Creatinine Ratio (14-18) Glucose 990 H* (83-115) mg/dL POC Glucose (83-110) mg/dL Hemoglobin A1c 10.00 H (4.50-6.20) % Serum Osmolality (280-300) mosm/kg Calcium (8.5-10.1) mg/dL Phosphorus (2.6-4.7) mg/dL Magnesium (1.8-2.4) mg/dl Total Bilirubin (0.2-1.0) mg/dL AST (15-37) U/L ALT (16-63) U/L Alkaline Phosphatase (46-116) U/L Troponin I (0.00-0.056) ng/mL Total Protein (6.4-8.2) g/dl Albumin (3.4-5.0) g/dl Globulin gm/dL Albumin/Globulin Ratio (1-2) Triglycerides (<150) mg/dL Urine Color (Yellow) Urine Appearance (Clear) Urine pH (5.0-8.0) Ur Specific Gentry (1.005-1.030) Urine Protein (Negative) Urine Glucose (UA) (Negative) Urine Ketones (Negative) Urine Occult Blood (Negative) Urine Nitrite (Negative) Urine Bilirubin (Negative) Urine Urobilinogen (0.2-1.0) Ur Leukocyte Esterase (Negative) Urine RBC (0-5) /hpf Urine WBC (0-5) /hpf Ur Squamous Epith Cells (0-5) /hpf Urine Bacteria (FEW) /hpf Urine Mucus (FEW) /hpf Urine Yeast (Budding) (NOT SEEN) Ketones (0.0-0.3) mM 11/07/18 11/07/18 11/07/18 Range/Units 19:50 20:20 21:45 WBC (4.23-9.07) K/mm3 RBC (4.63-6.08) M/mm3 Hgb (13.7-17.5) gm/dl Hct (40.1-51.0) % MCV (79.0-92.2) fl MCH (25.7-32.2) pg MCHC (32.2-35.5) g/dl RDW Std Deviation (35.1-43.9) fL Plt Count (163-337) K/mm3 MPV (9.4-12.3) fl Neut % (Auto) (34.0-67.9) % Lymph % (Auto) (21.8-53.1) % Maverick % (Auto) (5.3-12.2) % Eos % (Auto) (0.8-7.0) Baso % (Auto) (0.1-1.2) % Neut # (Auto) (1.78-5.38) K/mm3 Lymph # (Auto) (1.32-3.57) K/mm3 Maverick # (Auto) (0.30-0.82) K/mm3 Eos # (Auto) (0.04-0.54) K/mm3 Baso # (Auto) (0.01-0.08) K/mm3 Manual Slide Review Puncture Site ABG pH (7.35-7.45) ABG pCO2 (35.0-45.0) mmHg ABG pO2 (80.0-100.0) mmHg ABG HCO3 (22.0-26.0) meq/L ABG O2 Saturation (96.0-97.0) % ABG Base Excess (-2-2.0) Melchor Test VBG pH (7.30-7.40) VBG pCO2 (41-51) mmHg VBG pO2 (40-80) mmHG VBG HCO3 (22-26) meq/L VBG O2 Saturation VBG Base Excess (-4.0-2.0) A-a Gradient mmHg O2 Delivery Device FiO2 (21.00-100.00) % Sodium 129 L (136-145) mEq/L Potassium 4.7 D (3.5-5.1) mEq/L Chloride 93 L (98-107) mEq/L Carbon Dioxide 17 L (21-32) mEq/L Anion Gap 23.7 H (5-15) BUN 26 H (7-18) mg/dL Creatinine 2.3 H (0.7-1.3) mg/dL Est Cr Clr Drug Dosing 27.14 mL/min Estimated GFR (MDRD) 28 (>60) mL/min BUN/Creatinine Ratio 11.3 L (14-18) Glucose 861 H* 637 H* (83-115) mg/dL POC Glucose (83-110) mg/dL Hemoglobin A1c (4.50-6.20) % Serum Osmolality (280-300) mosm/kg Calcium 8.9 (8.5-10.1) mg/dL Phosphorus 4.3 (2.6-4.7) mg/dL Magnesium 1.7 L (1.8-2.4) mg/dl Total Bilirubin (0.2-1.0) mg/dL AST (15-37) U/L ALT (16-63) U/L Alkaline Phosphatase (46-116) U/L Troponin I (0.00-0.056) ng/mL Total Protein (6.4-8.2) g/dl Albumin (3.4-5.0) g/dl Globulin gm/dL Albumin/Globulin Ratio (1-2) Triglycerides (<150) mg/dL Urine Color Light yellow (Yellow) Urine Appearance Clear (Clear) Urine pH 5.5 (5.0-8.0) Ur Specific Gentry 1.020 (1.005-1.030) Urine Protein Negative (Negative) Urine Glucose (UA) 2+ H (Negative) Urine Ketones 3+ H (Negative) Urine Occult Blood Negative (Negative) Urine Nitrite Negative (Negative) Urine Bilirubin Negative (Negative) Urine Urobilinogen 0.2 (0.2-1.0) Ur Leukocyte Esterase Negative (Negative) Urine RBC Not seen (0-5) /hpf Urine WBC 0-5 (0-5) /hpf Ur Squamous Epith Cells 0-5 (0-5) /hpf Urine Bacteria Occasional (FEW) /hpf Urine Mucus Not seen (FEW) /hpf Urine Yeast (Budding) Few H (NOT SEEN) Ketones (0.0-0.3) mM 11/07/18 11/07/18 11/07/18 Range/Units 21:45 21:45 23:00 WBC (4.23-9.07) K/mm3 RBC (4.63-6.08) M/mm3 Hgb (13.7-17.5) gm/dl Hct (40.1-51.0) % MCV (79.0-92.2) fl MCH (25.7-32.2) pg MCHC (32.2-35.5) g/dl RDW Std Deviation (35.1-43.9) fL Plt Count (163-337) K/mm3 MPV (9.4-12.3) fl Neut % (Auto) (34.0-67.9) % Lymph % (Auto) (21.8-53.1) % Maverick % (Auto) (5.3-12.2) % Eos % (Auto) (0.8-7.0) Baso % (Auto) (0.1-1.2) % Neut # (Auto) (1.78-5.38) K/mm3 Lymph # (Auto) (1.32-3.57) K/mm3 Maverick # (Auto) (0.30-0.82) K/mm3 Eos # (Auto) (0.04-0.54) K/mm3 Baso # (Auto) (0.01-0.08) K/mm3 Manual Slide Review Puncture Site ABG pH (7.35-7.45) ABG pCO2 (35.0-45.0) mmHg ABG pO2 (80.0-100.0) mmHg ABG HCO3 (22.0-26.0) meq/L ABG O2 Saturation (96.0-97.0) % ABG Base Excess (-2-2.0) Melchor Test VBG pH (7.30-7.40) VBG pCO2 (41-51) mmHg VBG pO2 (40-80) mmHG VBG HCO3 (22-26) meq/L VBG O2 Saturation VBG Base Excess (-4.0-2.0) A-a Gradient mmHg O2 Delivery Device FiO2 (21.00-100.00) % Sodium (136-145) mEq/L Potassium (3.5-5.1) mEq/L Chloride (98-107) mEq/L Carbon Dioxide (21-32) mEq/L Anion Gap (5-15) BUN (7-18) mg/dL Creatinine (0.7-1.3) mg/dL Est Cr Clr Drug Dosing mL/min Estimated GFR (MDRD) (>60) mL/min BUN/Creatinine Ratio (14-18) Glucose 511 H (83-115) mg/dL POC Glucose (83-110) mg/dL Hemoglobin A1c (4.50-6.20) % Serum Osmolality (280-300) mosm/kg Calcium (8.5-10.1) mg/dL Phosphorus (2.6-4.7) mg/dL Magnesium (1.8-2.4) mg/dl Total Bilirubin (0.2-1.0) mg/dL AST (15-37) U/L ALT (16-63) U/L Alkaline Phosphatase (46-116) U/L Troponin I (0.00-0.056) ng/mL Total Protein (6.4-8.2) g/dl Albumin (3.4-5.0) g/dl Globulin gm/dL Albumin/Globulin Ratio (1-2) Triglycerides 65 (<150) mg/dL Urine Color (Yellow) Urine Appearance (Clear) Urine pH (5.0-8.0) Ur Specific Gentry (1.005-1.030) Urine Protein (Negative) Urine Glucose (UA) (Negative) Urine Ketones (Negative) Urine Occult Blood (Negative) Urine Nitrite (Negative) Urine Bilirubin (Negative) Urine Urobilinogen (0.2-1.0) Ur Leukocyte Esterase (Negative) Urine RBC (0-5) /hpf Urine WBC (0-5) /hpf Ur Squamous Epith Cells (0-5) /hpf Urine Bacteria (FEW) /hpf Urine Mucus (FEW) /hpf Urine Yeast (Budding) (NOT SEEN) Ketones 1.73 (0.0-0.3) mM 11/08/18 11/08/18 11/08/18 Range/Units 00:15 01:01 02:01 WBC (4.23-9.07) K/mm3 RBC (4.63-6.08) M/mm3 Hgb (13.7-17.5) gm/dl Hct (40.1-51.0) % MCV (79.0-92.2) fl MCH (25.7-32.2) pg MCHC (32.2-35.5) g/dl RDW Std Deviation (35.1-43.9) fL Plt Count (163-337) K/mm3 MPV (9.4-12.3) fl Neut % (Auto) (34.0-67.9) % Lymph % (Auto) (21.8-53.1) % Maverick % (Auto) (5.3-12.2) % Eos % (Auto) (0.8-7.0) Baso % (Auto) (0.1-1.2) % Neut # (Auto) (1.78-5.38) K/mm3 Lymph # (Auto) (1.32-3.57) K/mm3 Maverick # (Auto) (0.30-0.82) K/mm3 Eos # (Auto) (0.04-0.54) K/mm3 Baso # (Auto) (0.01-0.08) K/mm3 Manual Slide Review Puncture Site ABG pH (7.35-7.45) ABG pCO2 (35.0-45.0) mmHg ABG pO2 (80.0-100.0) mmHg ABG HCO3 (22.0-26.0) meq/L ABG O2 Saturation (96.0-97.0) % ABG Base Excess (-2-2.0) Melchor Test VBG pH (7.30-7.40) VBG pCO2 (41-51) mmHg VBG pO2 (40-80) mmHG VBG HCO3 (22-26) meq/L VBG O2 Saturation VBG Base Excess (-4.0-2.0) A-a Gradient mmHg O2 Delivery Device FiO2 (21.00-100.00) % Sodium (136-145) mEq/L Potassium (3.5-5.1) mEq/L Chloride (98-107) mEq/L Carbon Dioxide (21-32) mEq/L Anion Gap (5-15) BUN (7-18) mg/dL Creatinine (0.7-1.3) mg/dL Est Cr Clr Drug Dosing mL/min Estimated GFR (MDRD) (>60) mL/min BUN/Creatinine Ratio (14-18) Glucose 387 H (83-115) mg/dL POC Glucose 311 H 246 H (83-110) mg/dL Hemoglobin A1c (4.50-6.20) % Serum Osmolality (280-300) mosm/kg Calcium (8.5-10.1) mg/dL Phosphorus (2.6-4.7) mg/dL Magnesium (1.8-2.4) mg/dl Total Bilirubin (0.2-1.0) mg/dL AST (15-37) U/L ALT (16-63) U/L Alkaline Phosphatase (46-116) U/L Troponin I (0.00-0.056) ng/mL Total Protein (6.4-8.2) g/dl Albumin (3.4-5.0) g/dl Globulin gm/dL Albumin/Globulin Ratio (1-2) Triglycerides (<150) mg/dL Urine Color (Yellow) Urine Appearance (Clear) Urine pH (5.0-8.0) Ur Specific Gentry (1.005-1.030) Urine Protein (Negative) Urine Glucose (UA) (Negative) Urine Ketones (Negative) Urine Occult Blood (Negative) Urine Nitrite (Negative) Urine Bilirubin (Negative) Urine Urobilinogen (0.2-1.0) Ur Leukocyte Esterase (Negative) Urine RBC (0-5) /hpf Urine WBC (0-5) /hpf Ur Squamous Epith Cells (0-5) /hpf Urine Bacteria (FEW) /hpf Urine Mucus (FEW) /hpf Urine Yeast (Budding) (NOT SEEN) Ketones (0.0-0.3) mM 11/08/18 11/08/18 11/08/18 Range/Units 02:04 03:04 04:09 WBC (4.23-9.07) K/mm3 RBC (4.63-6.08) M/mm3 Hgb (13.7-17.5) gm/dl Hct (40.1-51.0) % MCV (79.0-92.2) fl MCH (25.7-32.2) pg MCHC (32.2-35.5) g/dl RDW Std Deviation (35.1-43.9) fL Plt Count (163-337) K/mm3 MPV (9.4-12.3) fl Neut % (Auto) (34.0-67.9) % Lymph % (Auto) (21.8-53.1) % Maverick % (Auto) (5.3-12.2) % Eos % (Auto) (0.8-7.0) Baso % (Auto) (0.1-1.2) % Neut # (Auto) (1.78-5.38) K/mm3 Lymph # (Auto) (1.32-3.57) K/mm3 Maverick # (Auto) (0.30-0.82) K/mm3 Eos # (Auto) (0.04-0.54) K/mm3 Baso # (Auto) (0.01-0.08) K/mm3 Manual Slide Review Puncture Site ABG pH (7.35-7.45) ABG pCO2 (35.0-45.0) mmHg ABG pO2 (80.0-100.0) mmHg ABG HCO3 (22.0-26.0) meq/L ABG O2 Saturation (96.0-97.0) % ABG Base Excess (-2-2.0) Melchor Test VBG pH (7.30-7.40) VBG pCO2 (41-51) mmHg VBG pO2 (40-80) mmHG VBG HCO3 (22-26) meq/L VBG O2 Saturation VBG Base Excess (-4.0-2.0) A-a Gradient mmHg O2 Delivery Device FiO2 (21.00-100.00) % Sodium 133 L (136-145) mEq/L Potassium 3.9 (3.5-5.1) mEq/L Chloride 98 (98-107) mEq/L Carbon Dioxide 27 D (21-32) mEq/L Anion Gap 11.9 (5-15) BUN 25 H (7-18) mg/dL Creatinine 2.0 H (0.7-1.3) mg/dL Est Cr Clr Drug Dosing 31.21 mL/min Estimated GFR (MDRD) 33 (>60) mL/min BUN/Creatinine Ratio 12.5 L (14-18) Glucose 250 H (83-115) mg/dL POC Glucose 171 H 136 H (83-110) mg/dL Hemoglobin A1c (4.50-6.20) % Serum Osmolality (280-300) mosm/kg Calcium 9.0 (8.5-10.1) mg/dL Phosphorus (2.6-4.7) mg/dL Magnesium 2.9 H (1.8-2.4) mg/dl Total Bilirubin (0.2-1.0) mg/dL AST (15-37) U/L ALT (16-63) U/L Alkaline Phosphatase (46-116) U/L Troponin I (0.00-0.056) ng/mL Total Protein (6.4-8.2) g/dl Albumin (3.4-5.0) g/dl Globulin gm/dL Albumin/Globulin Ratio (1-2) Triglycerides (<150) mg/dL Urine Color (Yellow) Urine Appearance (Clear) Urine pH (5.0-8.0) Ur Specific Gentry (1.005-1.030) Urine Protein (Negative) Urine Glucose (UA) (Negative) Urine Ketones (Negative) Urine Occult Blood (Negative) Urine Nitrite (Negative) Urine Bilirubin (Negative) Urine Urobilinogen (0.2-1.0) Ur Leukocyte Esterase (Negative) Urine RBC (0-5) /hpf Urine WBC (0-5) /hpf Ur Squamous Epith Cells (0-5) /hpf Urine Bacteria (FEW) /hpf Urine Mucus (FEW) /hpf Urine Yeast (Budding) (NOT SEEN) Ketones (0.0-0.3) mM 11/08/18 11/08/18 11/08/18 Range/Units 05:05 05:54 05:54 WBC 9.40 H (4.23-9.07) K/mm3 RBC 3.21 L (4.63-6.08) M/mm3 Hgb 9.4 L (13.7-17.5) gm/dl Hct 27.2 L (40.1-51.0) % MCV 84.7 (79.0-92.2) fl MCH 29.3 (25.7-32.2) pg MCHC 34.6 (32.2-35.5) g/dl RDW Std Deviation 35.4 (35.1-43.9) fL Plt Count 296 (163-337) K/mm3 MPV 8.7 L (9.4-12.3) fl Neut % (Auto) 73.5 H (34.0-67.9) % Lymph % (Auto) 15.2 L (21.8-53.1) % Maverick % (Auto) 10.2 (5.3-12.2) % Eos % (Auto) 0.9 (0.8-7.0) Baso % (Auto) 0.2 (0.1-1.2) % Neut # (Auto) 6.91 H (1.78-5.38) K/mm3 Lymph # (Auto) 1.43 (1.32-3.57) K/mm3 Ma[place]ick # (Auto) 0.96 H (0.30-0.82) K/mm3 Eos # (Auto) 0.08 (0.04-0.54) K/mm3 Baso # (Auto) 0.02 (0.01-0.08) K/mm3 Manual Slide Review Puncture Site ABG pH (7.35-7.45) ABG pCO2 (35.0-45.0) mmHg ABG pO2 (80.0-100.0) mmHg ABG HCO3 (22.0-26.0) meq/L ABG O2 Saturation (96.0-97.0) % ABG Base Excess (-2-2.0) Melchor Test VBG pH (7.30-7.40) VBG pCO2 (41-51) mmHg VBG pO2 (40-80) mmHG VBG HCO3 (22-26) meq/L VBG O2 Saturation VBG Base Excess (-4.0-2.0) A-a Gradient mmHg O2 Delivery Device FiO2 (21.00-100.00) % Sodium 135 L (136-145) mEq/L Potassium 4.3 (3.5-5.1) mEq/L Chloride 99 (98-107) mEq/L Carbon Dioxide 28 (21-32) mEq/L Anion Gap 12.3 (5-15) BUN 24 H (7-18) mg/dL Creatinine 1.7 H (0.7-1.3) mg/dL Est Cr Clr Drug Dosing 36.72 mL/min Estimated GFR (MDRD) 40 (>60) mL/min BUN/Creatinine Ratio 14.1 (14-18) Glucose 164 H (83-115) mg/dL POC Glucose 131 H (83-110) mg/dL Hemoglobin A1c (4.50-6.20) % Serum Osmolality (280-300) mosm/kg Calcium 9.1 (8.5-10.1) mg/dL Phosphorus (2.6-4.7) mg/dL Magnesium 2.7 H (1.8-2.4) mg/dl Total Bilirubin (0.2-1.0) mg/dL AST (15-37) U/L ALT (16-63) U/L Alkaline Phosphatase (46-116) U/L Troponin I (0.00-0.056) ng/mL Total Protein (6.4-8.2) g/dl Albumin (3.4-5.0) g/dl Globulin gm/dL Albumin/Globulin Ratio (1-2) Triglycerides 66 (<150) mg/dL Urine Color (Yellow) Urine Appearance (Clear) Urine pH (5.0-8.0) Ur Specific Gentry (1.005-1.030) Urine Protein (Negative) Urine Glucose (UA) (Negative) Urine Ketones (Negative) Urine Occult Blood (Negative) Urine Nitrite (Negative) Urine Bilirubin (Negative) Urine Urobilinogen (0.2-1.0) Ur Leukocyte Esterase (Negative) Urine RBC (0-5) /hpf Urine WBC (0-5) /hpf Ur Squamous Epith Cells (0-5) /hpf Urine Bacteria (FEW) /hpf Urine Mucus (FEW) /hpf Urine Yeast (Budding) (NOT SEEN) Ketones (0.0-0.3) mM 11/08/18 11/08/18 11/08/18 Range/Units 05:54 05:54 06:08 WBC (4.23-9.07) K/mm3 RBC (4.63-6.08) M/mm3 Hgb (13.7-17.5) gm/dl Hct (40.1-51.0) % MCV (79.0-92.2) fl MCH (25.7-32.2) pg MCHC (32.2-35.5) g/dl RDW Std Deviation (35.1-43.9) fL Plt Count (163-337) K/mm3 MPV (9.4-12.3) fl Neut % (Auto) (34.0-67.9) % Lymph % (Auto) (21.8-53.1) % Maverick % (Auto) (5.3-12.2) % Eos % (Auto) (0.8-7.0) Baso % (Auto) (0.1-1.2) % Neut # (Auto) (1.78-5.38) K/mm3 Lymph # (Auto) (1.32-3.57) K/mm3 Maverick # (Auto) (0.30-0.82) K/mm3 Eos # (Auto) (0.04-0.54) K/mm3 Baso # (Auto) (0.01-0.08) K/mm3 Manual Slide Review Puncture Site Rt radial ABG pH 7.38 (7.35-7.45) ABG pCO2 46.2 H (35.0-45.0) mmHg ABG pO2 79.0 L (80.0-100.0) mmHg ABG HCO3 26.4 H (22.0-26.0) meq/L ABG O2 Saturation 96.0 (96.0-97.0) % ABG Base Excess 1.5 (-2-2.0) Melchor Test Positive VBG pH (7.30-7.40) VBG pCO2 (41-51) mmHg VBG pO2 (40-80) mmHG VBG HCO3 (22-26) meq/L VBG O2 Saturation VBG Base Excess (-4.0-2.0) A-a Gradient 13 mmHg O2 Delivery Device Room air FiO2 21.00 (21.00-100.00) % Sodium (136-145) mEq/L Potassium (3.5-5.1) mEq/L Chloride (98-107) mEq/L Carbon Dioxide (21-32) mEq/L Anion Gap (5-15) BUN (7-18) mg/dL Creatinine (0.7-1.3) mg/dL Est Cr Clr Drug Dosing mL/min Estimated GFR (MDRD) (>60) mL/min BUN/Creatinine Ratio (14-18) Glucose (83-115) mg/dL POC Glucose (83-110) mg/dL Hemoglobin A1c (4.50-6.20) % Serum Osmolality (280-300) mosm/kg Calcium (8.5-10.1) mg/dL Phosphorus 4.0 (2.6-4.7) mg/dL Magnesium (1.8-2.4) mg/dl Total Bilirubin (0.2-1.0) mg/dL AST (15-37) U/L ALT (16-63) U/L Alkaline Phosphatase (46-116) U/L Troponin I (0.00-0.056) ng/mL Total Protein (6.4-8.2) g/dl Albumin (3.4-5.0) g/dl Globulin gm/dL Albumin/Globulin Ratio (1-2) Triglycerides (<150) mg/dL Urine Color (Yellow) Urine Appearance (Clear) Urine pH (5.0-8.0) Ur Specific Gentry (1.005-1.030) Urine Protein (Negative) Urine Glucose (UA) (Negative) Urine Ketones (Negative) Urine Occult Blood (Negative) Urine Nitrite (Negative) Urine Bilirubin (Negative) Urine Urobilinogen (0.2-1.0) Ur Leukocyte Esterase (Negative) Urine RBC (0-5) /hpf Urine WBC (0-5) /hpf Ur Squamous Epith Cells (0-5) /hpf Urine Bacteria (FEW) /hpf Urine Mucus (FEW) /hpf Urine Yeast (Budding) (NOT SEEN) Ketones 0.54 (0.0-0.3) mM 11/08/18 11/08/18 11/08/18 Range/Units 06:20 09:12 11:57 WBC (4.23-9.07) K/mm3 RBC (4.63-6.08) M/mm3 Hgb (13.7-17.5) gm/dl Hct (40.1-51.0) % MCV (79.0-92.2) fl MCH (25.7-32.2) pg MCHC (32.2-35.5) g/dl RDW Std Deviation (35.1-43.9) fL Plt Count (163-337) K/mm3 MPV (9.4-12.3) fl Neut % (Auto) (34.0-67.9) % Lymph % (Auto) (21.8-53.1) % Maverick % (Auto) (5.3-12.2) % Eos % (Auto) (0.8-7.0) Baso % (Auto) (0.1-1.2) % Neut # (Auto) (1.78-5.38) K/mm3 Lymph # (Auto) (1.32-3.57) K/mm3 Maverick # (Auto) (0.30-0.82) K/mm3 Eos # (Auto) (0.04-0.54) K/mm3 Baso # (Auto) (0.01-0.08) K/mm3 Manual Slide Review Puncture Site ABG pH (7.35-7.45) ABG pCO2 (35.0-45.0) mmHg ABG pO2 (80.0-100.0) mmHg ABG HCO3 (22.0-26.0) meq/L ABG O2 Saturation (96.0-97.0) % ABG Base Excess (-2-2.0) Melchor Test VBG pH (7.30-7.40) VBG pCO2 (41-51) mmHg VBG pO2 (40-80) mmHG VBG HCO3 (22-26) meq/L VBG O2 Saturation VBG Base Excess (-4.0-2.0) A-a Gradient mmHg O2 Delivery Device FiO2 (21.00-100.00) % Sodium (136-145) mEq/L Potassium (3.5-5.1) mEq/L Chloride (98-107) mEq/L Carbon Dioxide (21-32) mEq/L Anion Gap (5-15) BUN (7-18) mg/dL Creatinine (0.7-1.3) mg/dL Est Cr Clr Drug Dosing mL/min Estimated GFR (MDRD) (>60) mL/min BUN/Creatinine Ratio (14-18) Glucose (83-115) mg/dL POC Glucose 155 H 144 H 73 L (83-110) mg/dL Hemoglobin A1c (4.50-6.20) % Serum Osmolality (280-300) mosm/kg Calcium (8.5-10.1) mg/dL Phosphorus (2.6-4.7) mg/dL Magnesium (1.8-2.4) mg/dl Total Bilirubin (0.2-1.0) mg/dL AST (15-37) U/L ALT (16-63) U/L Alkaline Phosphatase (46-116) U/L Troponin I (0.00-0.056) ng/mL Total Protein (6.4-8.2) g/dl Albumin (3.4-5.0) g/dl Globulin gm/dL Albumin/Globulin Ratio (1-2) Triglycerides (<150) mg/dL Urine Color (Yellow) Urine Appearance (Clear) Urine pH (5.0-8.0) Ur Specific Gentry (1.005-1.030) Urine Protein (Negative) Urine Glucose (UA) (Negative) Urine Ketones (Negative) Urine Occult Blood (Negative) Urine Nitrite (Negative) Urine Bilirubin (Negative) Urine Urobilinogen (0.2-1.0) Ur Leukocyte Esterase (Negative) Urine RBC (0-5) /hpf Urine WBC (0-5) /hpf Ur Squamous Epith Cells (0-5) /hpf Urine Bacteria (FEW) /hpf Urine Mucus (FEW) /hpf Urine Yeast (Budding) (NOT SEEN) Ketones (0.0-0.3) mM Result Diagrams: 11/08/18 05:54 11/08/18 05:54 Orders Last 24hrs: Active Orders 24 hr Category Date Time Status Patient Status [ADT] Routine ADT 11/08/18 12:00 Active Blood Glucose Check, Bedside [RC] Q2HR Care 11/08/18 08:00 Inactive DC Floyd Catheter [Urinary Catheter Removal] [RC] Per Care 11/08/18 11:28 Active Unit Routine Insert Floyd Catheter [Insert Urinary Catheter] [OM.PC] Care 11/07/18 20:30 Ordered Q24H POC Glucose [Blood Glucose Check, Bedside] [RC] Care 11/07/18 18:24 Active QIDACANDBED Peripheral IV Care [RC] Q2HR Care 11/07/18 16:31 Active RT Aerosol Therapy [RC] ASDIRECTED Care 11/07/18 17:39 Active RT Arterial Blood Gases, ABG [RC] Click to Edit Care 11/08/18 06:00 Inactive Up With Assistance [RC] ASDIRECTED Care 11/08/18 12:37 Active Urinary Catheter Assessment [RC] Q4HR Care 11/07/18 22:51 Active Consult to Diversified Crops Supervisor [Consult to Diabetic Nurse Cons 11/08/18 07:42 Active Specialist] [CONS] Routine OT Evaluation and Treatment [CONS] Routine Cons 11/08/18 12:15 Active PT Evaluation and Treatment [CONS] Routine Cons 11/08/18 12:15 Active ADA Diabetic [[place] [employer] Diet] [DIET Diet 11/08/18 Breakfast Active ] TRIGLYCERIDES [CHEM] DAILY Lab 11/09/18 06:00 Ordered TRIGLYCERIDES [CHEM] DAILY Lab 11/10/18 06:00 Ordered Acetaminophen/Codeine [Tylenol with Codeine No.3 300MG/ Med 11/08/18 11:28 Active 30MG] 1 - 2 tab PO Q4H PRN Enoxaparin [Lovenox] Med 11/08/18 12:15 Active 40 mg SUBCUT DAILY Insulin Glarg,Human.Rec.Analog [LantUS] Med 11/08/18 21:00 Active 30 unit SUBCUT BEDTIME Insulin Lispro [HumaLOG] Med 11/08/18 08:03 Active 8 unit SUBCUT TIDMEALS Insulin Regular, Human [HumuLIN R] 100 unit Med 11/07/18 17:45 Active Sodium Chloride 0.9% [Normal Saline] 99 ml IV TITRATE Lactated Ringers [Ringers, Lactated] 1,000 ml Med 11/08/18 05:30 Active IV ASDIRECTED Melatonin Med 11/07/18 21:49 Active 9 mg PO BEDTIME PRN Morphine Med 11/08/18 11:32 Active 2 mg IVPUSH Q4H PRN Sodium Chloride 0.9% [Saline Flush] Med 11/07/18 16:30 Active 10 ml FLUSH ASDIRECTED PRN ED Antiemetic Medication Reflex [OM.PC] Stat Oth 11/07/18 16:31 Ordered Peripheral IV Insertion Adult [OM.PC] Stat Oth 11/07/18 16:30 Ordered Code Status [Resuscitation Status] Routine Resus Stat 11/07/18 22:30 Ordered EKG 12 Lead [EK] Stat Ther 11/07/18 17:16 Ordered Medication Orders Acetaminophen/Codeine Phosphate (Tylenol With Codeine No.3 300mg/30mg) 1 - 2 tab PO Q4H PRN PRN Reason: Pain Enoxaparin Sodium (Lovenox) 40 mg SUBCUT DAILY KARMEN Last Admin: 11/08/18 12:28 Dose: 40 mg Insulin Human Regular 100 unit (/ Sodium Chloride) 100 mls @ 7.07 mls/hr IV TITRATE KARMEN; Protocol Last Titration: 11/08/18 04:10 Dose: 0 units/kg/hr, 0 mls/hr Titration: 11/08/18 03:06 Dose: 0.02 units/kg/hr, 2 mls/hr Titration: 11/08/18 02:01 Dose: 0.07 units/kg/hr, 5 mls/hr Titration: 11/08/18 01:04 Dose: 0.09 units/kg/hr, 7 mls/hr Titration: 11/07/18 20:27 Dose: 0.16 units/kg/hr, 12 mls/hr Admin: 11/07/18 18:13 Dose: 0.1 units/kg/hr, 7.07 mls/hr Lactated Ringer's (Ringers, Lactated) 1,000 mls @ 75 mls/hr IV ASDIRECTED [facility] Last Admin: 11/08/18 06:45 Dose: 75 mls/hr Insulin Glargine (Lantus) 30 unit SUBCUT BEDTIME [facility] Insulin Human Lispro (Humalog) 8 unit SUBCUT TIDMEALS [facility] Last Admin: 11/08/18 12:08 Dose: Admin: 11/08/18 08:20 Dose: 8 units Melatonin (Melatonin) 9 mg PO BEDTIME PRN PRN Reason: Insomnia Last Admin: 11/07/18 22:10 Dose: 9 mg Morphine Sulfate (Morphine) 2 mg IVPUSH Q4H PRN PRN Reason: Pain (severe 7-10) Sodium Chloride (Saline Flush) 10 ml FLUSH ASDIRECTED PRN PRN Reason: Keep Vein Open Last Admin: 11/07/18 16:55 Dose: 10 ml
[2018-11-08] MEDS ORDERED: Polyethylene Glycol 3350 Powder 17 GM Packet PO PRN (14:57)
[2018-11-08] MEDS ORDERED: Insulin Regular, Human 100 Units/ML 3 ML Vial SUBCUT ONE (20:31)
[2018-11-08] MEDS: Melatonin 3 MG Tab PO PRN (20:54)
[2018-11-08] MEDS ORDERED: Insulin Glarg,Human.Rec.Analog 100 UNIT/ML ML SUBCUT SCH (21:00)
[2018-11-08] MEDS ORDERED: Simvastatin 20 MG Tab PO SCH (21:00)
[2018-11-09] MEDS ORDERED: 50% Dextrose in Water 50 ML Syringe IVPUSH PRN (06:02)
[2018-11-09] MEDS ORDERED: Levothyroxine 50 MCG Tab PO SCH (08:00)
[2018-11-09] MEDS ORDERED: Levothyroxine 150 MCG Tab PO SCH (08:00)
[2018-11-09] MEDS: Enoxaparin 40 MG/0.4 ML Syringe SUBCUT SCH (08:36)
[2018-11-09] MEDS: Insulin Lispro 100 Units/ML 3 ML Vial SUBCUT SCH (08:37)
[2018-11-09] MEDS ORDERED: Aspirin 81 MG Tab.EC PO SCH (09:00)
[2018-11-09] MEDS ORDERED: Insulin Lispro 100 Units/ML 3 ML Vial SUBCUT SCH (11:00)
[2018-11-09] MEDS ORDERED: Ondansetron 4 MG/2 ML SDV IVPUSH PRN (12:41)
[2018-11-09] MEDS ORDERED: Bisacodyl 10 MG Supp RECTAL ONE (13:01)
--- NOTE | 2018-11-09 14:21 | PCM.DCSUM1 ---
Discharge Summary - Discharge Data Discharge Disposition: DC/Tfer to SNF 03 Condition: Good - Referral to Home Health Primary Care Physician: Mark Rivas MD - Patient Summary/Data Consults: Consultations 11/08/18 07:42 Consult to Mail Machine Operator [Consult to Diabetic Nurse Specialist] [CONS] Routine 11/08/18 12:15 OT Evaluation and Treatment [CONS] Routine PT Evaluation and Treatment [CONS] Routine 11/09/18 10:15 CUSTOMER SERVICE ADMINISTRATOR Eval and Treat [CUSTOMER SERVICE ADMINISTRATOR Evaluation and Treatment] [CONS] Routine - Patient Instructions Diet: Diabetic Diet Activity: As Tolerated - Discharge Plan Prescriptions/Med Rec: Insulin Glarg,Human.Rec.Analog [Lantus] 30 unit SUBCUT BEDTIME #15 ml Insulin Lispro [HumaLOG] 8 unit SUBCUT #1 vial Home Medications: Home Meds Levothyroxine 150 mcg PO QAM 06/21/17 [History] Polyethylene Glycol 3350 [MiraLAX] 17 gm PO DAILY PRN 08/07/18 [History] fentaNYL [Fentanyl] 75 mcg TRDERM ASDIRECTED 08/07/18 [History] Gabapentin [Neurontin] 300 mg PO TID 10/14/18 [History] Potassium Chloride [Klor-Con M20] 20 meq PO DAILY 10/14/18 [History] atorvaSTATin [Lipitor] 20 mg PO BEDTIME 10/14/18 [History] Aspirin [Halfprin] 81 mg PO DAILY 10/30/18 [History] Citalopram [Citalopram HBr] 20 mg PO DAILY 10/30/18 [History] Hydrocodone/Acetaminophen [Hydrocodon-Acetaminophn 10-325] 1 tab PO Q4H PRN [History] Lisinopril 2.5 mg PO DAILY 10/30/18 [History] Ranitidine [Zantac] 150 mg PO BEDTIME 10/30/18 [History] SUMAtriptan Succinate [Imitrex] 100 mg PO Q2H PRN 10/30/18 [History] diphenhydrAMINE [Benadryl] 25 mg PO BEDTIME PRN 10/30/18 [History] Insulin Glarg,Human.Rec.Analog [Lantus] 30 unit SUBCUT BEDTIME #15 ml 11/09/18 [ Rx] Insulin Lispro [HumaLOG] 8 unit SUBCUT 07,11 #1 vial 11/09/18 [Rx] Referrals: Mark Rivas MD [Primary Care Provider] - (5-7 days) - Patient Data Vitals - Most Recent: Last Vital Signs Temp 36.5 C 11/09/18 07:30 Pulse 76 11/09/18 07:30 Resp 20 11/09/18 07:30 BP 152/87 H 11/09/18 07:30 Pulse Ox 99 11/09/18 07:30 Weight - Most Recent: 72.076 kg I&O - Last 24 hours: Intake & Output 11/08/18 11/09/18 11/09/18 22:59 06:59 14:59 Intake Total 1220 150 120 Balance 1220 150 120 Lab Results - Last 24 hrs: Laboratory Results - last 24 hr 11/08/18 11/08/18 11/09/18 Range/Units 16:16 20:43 05:55 POC Glucose 122 H 130 H (83-110) mg/dL Triglycerides 111 (<150) mg/dL 11/09/18 11/09/18 Range/Units 05:58 06:45 POC Glucose 38 L 141 H (83-110) mg/dL Triglycerides (<150) mg/dL Med Orders - Current: Current Medications Acetaminophen/Codeine Phosphate (Tylenol With Codeine No.3 300mg/30mg) 1 - 2 tab PO Q4H PRN PRN Reason: Pain Aspirin (Halfprin) 81 mg PO DAILY [facility] Last Admin: 11/09/18 08:35 Dose: 81 mg Dextrose/Water (Dextrose 50% In Water) 50 ml IVPUSH ASDIRECTED PRN PRN Reason: Hypoglycemia Last Admin: 11/09/18 06:15 Dose: 50 ml Enoxaparin Sodium (Lovenox) 40 mg SUBCUT DAILY [facility] Last Admin: 11/09/18 08:36 Dose: 40 mg Insulin Glargine (Lantus) 30 unit SUBCUT BEDTIME [facility] Last Admin: 11/08/18 20:50 Dose: 30 units Insulin Human Lispro (Humalog) 8 unit SUBCUT 07,11 [facility] Levothyroxine Sodium (Synthroid) 150 mcg PO QAM [facility] Last Admin: 11/09/18 08:35 Dose: 150 mcg Melatonin (Melatonin) 9 mg PO BEDTIME PRN PRN Reason: Insomnia Last Admin: 11/08/18 20:54 Dose: 9 mg Morphine Sulfate (Morphine) 2 mg IVPUSH Q4H PRN PRN Reason: Pain (severe 7-10) Last Admin: 11/08/18 17:53 Dose: 2 mg Ondansetron HCl (Zofran) 4 mg IVPUSH Q4H PRN PRN Reason: Nausea/Vomiting Last Admin: 11/09/18 13:19 Dose: 4 mg Polyethylene Glycol (Miralax) 17 gm PO DAILY PRN PRN Reason: Constipation Last Admin: 11/08/18 17:05 Dose: 17 gm Simvastatin (Zocor) 20 mg PO BEDTIME [facility] Last Admin: 11/08/18 20:54 Dose: 20 mg Sodium Chloride (Saline Flush) 10 ml FLUSH ASDIRECTED PRN PRN Reason: Keep Vein Open Last Admin: 11/07/18 16:55 Dose: 10 ml Discontinued Medications Albuterol (Proventil Neb Soln) 2.5 mg NEB ONETIME ONE Stop: 11/07/18 17:40 Last Admin: 11/07/18 18:18 Dose: 2.5 mg Bisacodyl (Dulcolax) 10 mg RECTAL ONETIME ONE Stop: 11/09/18 13:02 Last Admin: 11/09/18 13:19 Dose: 10 mg Calcium Gluconate (Calcium Gluconate) 1 gm IV ONETIME ONE Stop: 11/07/18 17:39 Last Admin: 11/07/18 17:49 Dose: 1 gm Hydromorphone HCl (Dilaudid) 0.5 mg IVPUSH ONETIME ONE Stop: 11/07/18 16:35 Last Admin: 11/07/18 16:52 Dose: 0.5 mg Sodium Chloride (Normal Saline) 1,000 mls @ 1,000 mls/hr IV .BOLUS STA Stop: 11/07/18 17:29 Last Admin: 11/07/18 16:51 Dose: 1,000 mls/hr Lactated Ringer's (Ringers, Lactated) 1,000 mls @ 1,000 mls/hr IV .BOLUS ONE Stop: 11/07/18 18:29 Last Admin: 11/07/18 17:59 Dose: 1,000 mls/hr Insulin Human Regular 100 unit (/ Sodium Chloride) 100 mls @ 7.07 mls/hr IV TITRATE KARMEN; Protocol Last Titration: 11/08/18 04:10 Dose: 0 units/kg/hr, 0 mls/hr Lactated Ringer's (Ringers, Lactated) 1,000 mls @ 999 mls/hr IV .BOLUS ONE Stop: 11/07/18 21:29 Last Admin: 11/07/18 20:38 Dose: 999 mls/hr Magnesium Sulfate 4 gm/ Premix 50 mls @ 12.5 mls/hr IV ONETIME ONE Stop: 11/08/18 02:21 Last Admin: 11/07/18 22:39 Dose: 12.5 mls/hr Lactated Ringer's (Ringers, Lactated) 1,000 mls @ 150 mls/hr IV ONETIME ONE Stop: 11/08/18 06:24 Last Admin: 11/08/18 00:01 Dose: 150 mls/hr Dextrose/Water (Dextrose 10% In Water) 1,000 mls @ 40 mls/hr IV ASDIRECTED [facility] Last Admin: 11/08/18 03:24 Dose: 40 mls/hr Lactated Ringer's (Ringers, Lactated) 1,000 mls @ 75 mls/hr IV ASDIRECTED [facility] Last Admin: 11/08/18 06:45 Dose: 75 mls/hr Influenza Virus Vaccine (Pharmacy To Dose - Influenza Vaccine) 1 each IM ONETIME ONE Stop: 11/07/18 16:31 Influenza Virus Vaccine (Fluzone High-Dose 2019-20 Syringe) 180 mcg IM .ONCE ONE Stop: 11/07/18 16:46 Last Admin: 11/07/18 18:10 Dose: 180 mcg Insulin Glargine (Lantus) 30 unit SUBCUT ONETIME ONE Stop: 11/08/18 05:22 Last Admin: 11/08/18 05:33 Dose: 30 units Insulin Human Lispro (Humalog) 8 unit SUBCUT TIDMEALS [facility] Last Admin: 11/09/18 08:37 Dose: 8 units Insulin Human Regular (Humulin R) 8 unit SUBCUT ONETIME ONE Stop: 11/08/18 20:32 Last Admin: 11/07/18 20:32 Dose: 8 units Levothyroxine Sodium (Levothyroxine) 150 mcg PO QAM [facility] Metoclopramide HCl (Reglan) 10 mg IVPUSH ONETIME ONE Stop: 11/07/18 18:05 Last Admin: 11/07/18 18:10 Dose: 10 mg Morphine Sulfate (Morphine) 2 mg IVPUSH Q4H PRN PRN Reason: Pain (moderate 4-6) Last Admin: 11/08/18 11:23 Dose: 2 mg Ondansetron HCl (Zofran) 4 mg IVPUSH ONETIME ONE Stop: 11/07/18 16:31 Last Admin: 11/07/18 16:52 Dose: 4 mg Sodium Polystyrene Sulfonate (Kayexalate) 45 gm PO NOW ONE Stop: 11/07/18 17:39 Last Admin: 11/07/18 17:47 Dose: 45 gm
== END 2018-11-09 15:08 | DRG 638 ==
LOC: JD.ED 16:18 → JD.ICU 19:16 → JD.MS 11-08 20:07
PROVIDERS: ADMIT Internal Medicine; ATTEND Internal Medicine
DX: E11.65 Type 2 diabetes mellitus with hyperglycemia (principal); E87.1 Hypo-osmolality and hyponatremia; E78.00 Pure hypercholesterolemia, unspecified; E87.6 Hypokalemia; E11.00 Type 2 diabetes mellitus with hyperosmolarity without nonketotic hyperglycemic-hyperosmolar coma (NKHHC); R06.02 Shortness of breath; R42 Dizziness and giddiness; R11.2 Nausea with vomiting, unspecified; I10 Essential (primary) hypertension; G47.30 Sleep apnea, unspecified; K21.9 Gastro-esophageal reflux disease without esophagitis; N40.0 Benign prostatic hyperplasia without lower urinary tract symptoms; M19.90 Unspecified osteoarthritis, unspecified site; E11.40 Type 2 diabetes mellitus with diabetic neuropathy, unspecified; F32.9 Major depressive disorder, single episode, unspecified; G47.00 Insomnia, unspecified; E03.9 Hypothyroidism, unspecified; G89.29 Other chronic pain; M54.9 Dorsalgia, unspecified; Z79.4 Long term (current) use of insulin; Z79.899 Other long term (current) drug therapy; Z88.8 Allergy status to other drugs, medicaments and biological substances; Z79.82 Long term (current) use of aspirin; Z99.81 Dependence on supplemental oxygen; Z90.49 Acquired absence of other specified parts of digestive tract; Z98.890 Other specified postprocedural states; Z23 Encounter for immunization
CPT/HCPCS: 36415; 80053; 82009; 82803; 82947; 83036; 83735; 83930; 84484; 85025; 90662; 93005; 94640; 96361; 96365; 96366; 96375; 99285; A9270; J0610; J1170; J1815; J2405; J2765; J7030; J7040; J7120; 36600; 51702; 51798; 80048; 81001; 82962; 84100; 84478; 93010; 97162-GP; 97166-GO; 97530-GO; 99284; J1650; J2270; J3475; J7060

== ENCOUNTER 2018-11-23 13:58 | Observation (INO) | payer MEDICARE, BC, OTHER ==
--- NOTE | 2018-11-23 14:44 | EDM.PDOC ---
<Elsa Garcia - Last Filed: 11/23/18 14:38> ED HPI GENERAL MEDICAL PROBLEM - General Chief Complaint: Diabetic Complaint Stated Complaint: [facility] Time Seen by Provider: 11/23/18 14:12 Source of Information: Reports: Senior Living Records, RN Notes Reviewed History Limitations: Reports: Altered Mental Status - History of Present Illness INITIAL COMMENTS - FREE TEXT/NARRATIVE: 73 year old male brought here by ambulance. long-term reports that since November 12, the patient has had increased weakness, lethargy, confusion, twitching, and a poor appetite. [facility]. 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 - Related Data Allergies Allergy/AdvReac Type Severity Reaction Status Date / Time zolpidem [Zolpidem] AdvReac Mild Change Verified 11/23/18 20:48 Mental Status alprazolam AdvReac Change Verified 11/23/18 20:48 Mental Status diazepam AdvReac Change Verified 11/23/18 20:48 Mental Status trazodone AdvReac Change Verified 11/23/18 20:48 Mental Status Home Meds: Home Meds Levothyroxine 150 mcg PO QAM 06/21/17 [History] Polyethylene Glycol 3350 [MiraLAX] 17 gm PO DAILY PRN 08/07/18 [History] fentaNYL [Fentanyl] 75 mcg TRDERM ASDIRECTED 08/07/18 [History] Gabapentin [Neurontin] 300 mg PO TID 10/14/18 [History] Potassium Chloride [Klor-Con M20] 10 meq PO DAILY 10/14/18 [History] atorvaSTATin [Lipitor] 20 mg PO BEDTIME 10/14/18 [History] Aspirin [Halfprin] 81 mg PO DAILY 10/30/18 [History] Citalopram [Citalopram HBr] 20 mg PO DAILY 10/30/18 [History] Hydrocodone/Acetaminophen [Hydrocodon-Acetaminophn 10-325] 1 tab PO Q4H PRN [History] Lisinopril 2.5 mg PO DAILY 10/30/18 [History] Ranitidine [Zantac] 150 mg PO BEDTIME 10/30/18 [History] SUMAtriptan Succinate [Imitrex] 100 mg PO Q2H PRN 10/30/18 [History] diphenhydrAMINE [Benadryl] 25 mg PO BEDTIME PRN 10/30/18 [History] Calcium Carbonate/Vitamin D3 [Calcium 600 + Vit D 200] 1 tab PO DAILY 11/23/18 [ History] Glucagon [Gvoke Syringe] 1 mg IM ASDIRECTED PRN 11/23/18 [History] Insulin Glarg,Human.Rec.Analog [Lantus] 10 unit SUBCUT BEDTIME 11/23/18 [History ] Insulin Lispro [HumaLOG] 2 unit SUBCUT TID 11/23/18 [History] Insulin Lispro [Insulin Lispro Kwikpen U-100] 0 units SUBCUT TID 11/23/18 [ History] Past Medical History HEENT History: Reports: Hard of Hearing Other HEENT History: wears eyeglasses. Cardiovascular History: Reports: High Cholesterol, Hypertension Respiratory History: Reports: Sleep Apnea Other Respiratory History: states has C-PAP but doesn't use it due to "It's so loud." Gastrointestinal History: Reports: GERD Genitourinary History: Reports: BPH Other Genitourinary History: stress incontinence Musculoskeletal History: Reports: Osteoarthritis Neurological History: Reports: Neuropathy, Diabetic Psychiatric History: Reports: Addiction, Depression, Other (See Below) Other Psychiatric History: insomnia Endocrine/Metabolic History: Reports: Diabetes, Type II, Hypothyroidism Hematologic History: Reports: None Immunologic History: Reports: None Oncologic (Cancer) History: Reports: None Dermatologic History: Reports: None - Infectious Disease History Infectious Disease History: Reports: Chicken Pox, Measles, Mumps - Past Surgical History Cardiovascular Surgical History: Reports: None GI Surgical History: Reports: Cholecystectomy, Colonoscopy, EGD Neurological Surgical History: Reports: Lumbar Spine Other Musculoskeletal Surgeries/Procedures:: 6 Back Surgeries Social & Family History - Family History Family Medical History: Noncontributory - Tobacco Use Smoking Status *Q: Unknown Ever Smoked - Caffeine Use Caffeine Use: Reports: Coffee, Soda - Living Situation & Occupation Living situation: Reports: , with Significant Other (Fiance) Occupation: Retired ED ROS GENERAL - Review of Systems Constitutional: Reports: Weakness, Fatigue, Decreased Appetite HEENT: Reports: Glasses Respiratory: Reports: No Symptoms Cardiovascular: Reports: No Symptoms Endocrine: Reports: Fatigue, Low Glucose GI/Abdominal: Reports: Decreased Appetite : Reports: No Symptoms Musculoskeletal: Reports: No Symptoms Skin: Reports: No Symptoms Neurological: Reports: Confusion, Pre-Existing Deficit ([facility] reports that the patient is normally confused, but has been more confused since the Nov.), Weakness Psychiatric: Reports: Confusion Hematologic/Lymphatic: Reports: No Symptoms Immunologic: Reports: No Symptoms ED EXAM GENERAL NO PERIP PULSE - Physical Exam Exam Limited By: Altered Mental Status General Appearance: No Apparent Distress Eye Exam: Bilateral Eye: PERRL Throat/Mouth: Other (tongue is dry) Head: Atraumatic, Normocephalic Neck: Normal Inspection, Supple, Non-Tender Respiratory/Chest: No Respiratory Distress, Lungs Clear, Normal Breath Sounds, No Accessory Muscle Use, Chest Non-Tender Cardiovascular: Normal Peripheral Pulses, Regular Rate, Rhythm, No Edema, No Murmur GI/Abdominal: Normal Bowel Sounds, Soft, Non-Tender (Male) Exam: Deferred Rectal (Males) Exam: Deferred Back Exam: Normal Inspection Extremities: Normal Inspection, No Pedal Edema Neurological: Confused (oriented to person, and place but thinks it's 2007) Psychiatric: Normal Affect Skin Exam: Warm, Dry, Intact, Normal Color Lymphatic: No Adenopathy Course - Vital Signs Last Recorded V/S: Last Vital Signs Temp 98.2 F 11/26/18 14:36 Pulse 78 11/26/18 14:36 Resp 16 11/26/18 14:36 BP 128/76 11/26/18 14:36 Pulse Ox 98 11/26/18 14:36 - Orders/Labs/Meds Orders: Medication Orders Hydrocodone Bitart/Acetaminophen (Avenal 325-10 Mg) 1 tab PO Q4H PRN PRN Reason: Pain Last Admin: 11/26/18 06:35 Dose: 1 tab Admin: 11/25/18 16:44 Dose: 1 tab Admin: 11/25/18 10:57 Dose: 1 tab Admin: 11/25/18 07:24 Dose: 1 tab Admin: 11/24/18 15:41 Dose: 1 tab Aspirin (Halfprin) 81 mg PO DAILY [facility] Last Admin: 11/26/18 09:05 Dose: 81 mg Admin: 11/25/18 09:10 Dose: 81 mg Admin: 11/24/18 10:28 Dose: 81 mg Citalopram Hydrobromide (Celexa) 20 mg PO DAILY [facility] Last Admin: 11/26/18 09:05 Dose: 20 mg Admin: 11/25/18 09:10 Dose: 20 mg Admin: 11/24/18 10:30 Dose: 20 mg Dextrose/Water (Dextrose 50% In Water) 50 ml IVPUSH ASDIRECTED PRN PRN Reason: Hypoglycemia Famotidine (Pepcid) 20 mg PO BEDTIME [facility] Last Admin: 11/25/18 21:59 Dose: 20 mg Admin: 11/24/18 20:31 Dose: 20 mg Admin: 11/23/18 23:58 Dose: 20 mg Fentanyl (Duragesic) 75 mcg TRDERM Q72H [facility] Last Admin: 11/24/18 15:58 Dose: 75 mcg Admin: 11/24/18 10:54 Dose: 75 mcg Gabapentin (Neurontin) 300 mg PO TID [facility] Last Admin: 11/26/18 14:30 Dose: 300 mg Admin: 11/26/18 09:05 Dose: 300 mg Admin: 11/25/18 21:59 Dose: 300 mg Admin: 11/25/18 16:46 Dose: 300 mg Admin: 11/25/18 09:10 Dose: 300 mg Admin: 11/24/18 20:32 Dose: 300 mg Admin: 11/24/18 15:41 Dose: 300 mg Admin: 11/24/18 10:29 Dose: 300 mg Admin: 11/23/18 23:58 Dose: 300 mg Insulin Glargine (Lantus) 15 unit SUBCUT BEDTIME [facility] Last Admin: 11/25/18 21:56 Dose: 15 units Insulin Human Lispro (Humalog) 0 unit SUBCUT QIDACANDBED [facility]; Protocol Last Admin: 11/26/18 18:18 Dose: Admin: 11/26/18 14:43 Dose: 5 units Admin: 11/26/18 12:16 Dose: 5 units Admin: 11/26/18 07:49 Dose: Admin: 11/25/18 22:00 Dose: 5 units Admin: 11/25/18 18:24 Dose: 5 units Admin: 11/25/18 13:21 Dose: 4 units Admin: 11/25/18 06:58 Dose: Not Given Admin: 11/24/18 21:17 Dose: 5 units Admin: 11/24/18 17:34 Dose: 6 units Admin: 11/24/18 12:17 Dose: 2 units Admin: 11/24/18 10:25 Dose: 2 units Admin: 11/23/18 21:53 Dose: 1 units Insulin Human Lispro (Humalog) 2 unit SUBCUT TIDAC [facility] Last Admin: 11/26/18 18:16 Dose: 2 units Admin: 11/25/18 18:26 Dose: 2 units Levothyroxine Sodium (Levothyroxine) 25 mcg PO ACBREAKFAST [facility] Last Admin: 11/26/18 06:36 Dose: 25 mcg Admin: 11/25/18 05:02 Dose: 25 mcg Lisinopril (Prinivil) 2.5 mg PO DAILY [facility] Last Admin: 11/26/18 09:04 Dose: 2.5 mg Admin: 11/25/18 09:09 Dose: 2.5 mg Admin: 11/24/18 10:28 Dose: 2.5 mg Miscellaneous Information (Remove Patch) 1 ea TRDERM Q72H [facility] Last Admin: 11/24/18 09:00 Dose: 1 ea Polyethylene Glycol (Miralax) 17 gm PO DAILY PRN PRN Reason: Constipation Simvastatin (Zocor) 20 mg PO BEDTIME [facility] Last Admin: 11/25/18 21:59 Dose: 20 mg Admin: 11/24/18 20:32 Dose: 20 mg Admin: 11/23/18 23:58 Dose: 20 mg Sumatriptan Succinate (Imitrex) 100 mg PO Q2H PRN PRN Reason: Headache Last Admin: 11/26/18 09:02 Dose: 100 mg Labs: Laboratory Tests 11/23/18 11/23/18 11/23/18 Range/Units 14:33 14:40 15:00 WBC 10.41 H (4.23-9.07) K/mm3 RBC 3.36 L (4.63-6.08) M/mm3 Hgb 9.4 L (13.7-17.5) gm/dl Hct 30.5 L (40.1-51.0) % MCV 90.8 D (79.0-92.2) fl MCH 28.0 (25.7-32.2) pg MCHC 30.8 L (32.2-35.5) g/dl RDW Std Deviation 43.5 (35.1-43.9) fL Plt Count 250 (163-337) K/mm3 MPV 9.1 L (9.4-12.3) fl Neutrophils % (Manual) 84 H (40-60) % Band Neutrophils % 0 (0-10) % Lymphocytes % (Manual) 13 L (20-40) % Atypical Lymphs % 0 % Monocytes % (Manual) 2 (2-10) % Eosinophils % (Manual) 1 (0.8-7.0) % Basophils % (Manual) 0 L (0.2-1.2) Platelet Estimate Adequate Plt Morphology Comment Normal RBC Morph Comment Normal Sodium (136-145) mEq/L Potassium (3.5-5.1) mEq/L Chloride (98-107) mEq/L Carbon Dioxide (21-32) mEq/L Anion Gap (5-15) BUN (7-18) mg/dL Creatinine (0.7-1.3) mg/dL Est Cr Clr Drug Dosing mL/min Estimated GFR (MDRD) (>60) mL/min BUN/Creatinine Ratio (14-18) Glucose (83-115) mg/dL POC Glucose 153 H (83-110) mg/dL Calcium (8.5-10.1) mg/dL Phosphorus (2.6-4.7) mg/dL Magnesium (1.8-2.4) mg/dl Total Bilirubin (0.2-1.0) mg/dL AST (15-37) U/L ALT (16-63) U/L Alkaline Phosphatase (46-116) U/L C-Reactive Protein (<1.0) mg/dL Total Protein (6.4-8.2) g/dl Albumin (3.4-5.0) g/dl Globulin gm/dL Albumin/Globulin Ratio (1-2) Urine Color Yellow (Yellow) Urine Appearance Clear (Clear) Urine pH 6.0 (5.0-8.0) Ur Specific Freeborn 1.025 (1.005-1.030) Urine Protein Negative (Negative) Urine Glucose (UA) Negative (Negative) Urine Ketones Negative (Negative) Urine Occult Blood Negative (Negative) Urine Nitrite Negative (Negative) Urine Bilirubin Negative (Negative) Urine Urobilinogen 0.2 (0.2-1.0) Ur Leukocyte Esterase Negative (Negative) Urine RBC 0-5 (0-5) /hpf Urine WBC 0-5 (0-5) /hpf Ur Epithelial Cells 0-5 (0-5) /hpf Urine Bacteria Few (FEW) /hpf Hyaline Casts 20-30 H (0-5) /lpf Urine Mucus Not seen (FEW) /hpf Urine Yeast (Budding) Many H (NOT SEEN) 11/23/18 11/23/18 11/23/18 Range/Units 15:00 17:55 17:55 WBC (4.23-9.07) K/mm3 RBC (4.63-6.08) M/mm3 Hgb (13.7-17.5) gm/dl Hct (40.1-51.0) % MCV (79.0-92.2) fl MCH (25.7-32.2) pg MCHC (32.2-35.5) g/dl RDW Std Deviation (35.1-43.9) fL Plt Count (163-337) K/mm3 MPV (9.4-12.3) fl Neutrophils % (Manual) (40-60) % Band Neutrophils % (0-10) % Lymphocytes % (Manual) (20-40) % Atypical Lymphs % % Monocytes % (Manual) (2-10) % Eosinophils % (Manual) (0.8-7.0) % Basophils % (Manual) (0.2-1.2) Platelet Estimate Plt Morphology Comment RBC Morph Comment Sodium 138 (136-145) mEq/L Potassium 6.0 H D 5.9 H (3.5-5.1) mEq/L Chloride 104 (98-107) mEq/L Carbon Dioxide 29 (21-32) mEq/L Anion Gap 11.0 (5-15) BUN 37 H (7-18) mg/dL Creatinine 1.9 H (0.7-1.3) mg/dL Est Cr Clr Drug Dosing 32.86 mL/min Estimated GFR (MDRD) 35 (>60) mL/min BUN/Creatinine Ratio 19.5 H (14-18) Glucose 157 H (83-115) mg/dL POC Glucose (83-110) mg/dL Calcium 9.2 (8.5-10.1) mg/dL Phosphorus 4.8 H (2.6-4.7) mg/dL Magnesium 1.9 (1.8-2.4) mg/dl Total Bilirubin 0.4 (0.2-1.0) mg/dL AST 104 H (15-37) U/L ALT 109 H (16-63) U/L Alkaline Phosphatase 237 H (46-116) U/L C-Reactive Protein 6.1 H* (<1.0) mg/dL Total Protein 6.9 (6.4-8.2) g/dl Albumin 2.9 L (3.4-5.0) g/dl Globulin 4.0 gm/dL Albumin/Globulin Ratio 0.7 L (1-2) Urine Color (Yellow) Urine Appearance (Clear) Urine pH (5.0-8.0) Ur Specific Freeborn (1.005-1.030) Urine Protein (Negative) Urine Glucose (UA) (Negative) Urine Ketones (Negative) Urine Occult Blood (Negative) Urine Nitrite (Negative) Urine Bilirubin (Negative) Urine Urobilinogen (0.2-1.0) Ur Leukocyte Esterase (Negative) Urine RBC (0-5) /hpf Urine WBC (0-5) /hpf Ur Epithelial Cells (0-5) /hpf Urine Bacteria (FEW) /hpf Hyaline Casts (0-5) /lpf Urine Mucus (FEW) /hpf Urine Yeast (Budding) (NOT SEEN) Meds: Medications Generic Name Dose Route Start Last Admin Trade Name Freq PRN Reason Stop Dose Admin Hydrocodone Bitart/Acetaminophen 1 tab 11/23/18 20:44 11/26/18 06:35 Avenal 325-10 Mg PO 1 tab Q4H PRN Administration Pain Aspirin 81 mg 11/24/18 09:00 11/26/18 09:05 Halfprin PO 81 mg DAILY [facility] Administration Citalopram Hydrobromide 20 mg 11/24/18 09:00 11/26/18 09:05 Celexa PO 20 mg DAILY [facility] Administration Dextrose/Water 50 ml 11/23/18 20:35 Dextrose 50% In Water IVPUSH ASDIRECTED PRN Hypoglycemia Famotidine 20 mg 11/23/18 22:15 11/25/18 21:59 Pepcid PO 20 mg BEDTIME [facility] Administration Fentanyl 75 mcg 11/24/18 09:00 11/24/18 15:58 Duragesic TRDERM 75 mcg Q72H [facility] Administration Gabapentin 300 mg 11/23/18 21:00 11/26/18 14:30 Neurontin PO 300 mg TID [facility] Administration Insulin Glargine 15 unit 11/25/18 21:00 11/25/18 21:56 Lantus SUBCUT 15 units BEDTIME [facility] Administration Insulin Human Lispro 0 unit 11/23/18 22:00 11/26/18 18:18 Humalog SUBCUT Not Given QIDACANDBED [facility] Protocol Insulin Human Lispro 2 unit 11/26/18 17:36 11/26/18 18:16 Humalog SUBCUT 2 units TIDAC [facility] Administration Levothyroxine Sodium 25 mcg 11/25/18 06:00 11/26/18 06:36 Levothyroxine PO 25 mcg ACBREAKFAST [facility] Administration Lisinopril 2.5 mg 11/24/18 09:00 11/26/18 09:04 Prinivil PO 2.5 mg DAILY [facility] Administration Miscellaneous Information 1 ea 11/24/18 09:00 11/24/18 09:00 Remove Patch TRDERM 1 ea Q72H [facility] Administration Polyethylene Glycol 17 gm 11/23/18 20:44 Miralax PO DAILY PRN Constipation Simvastatin 20 mg 11/23/18 22:15 11/25/18 21:59 Zocor PO 20 mg BEDTIME [facility] Administration Sumatriptan Succinate 100 mg 11/23/18 20:44 11/26/18 09:02 Imitrex PO 100 mg Q2H PRN Administration Headache Discontinued Medications Generic Name Dose Route Start Last Admin Trade Name Freq PRN Reason Stop Dose Admin Sodium Chloride 1,000 mls @ 150 mls/hr 11/23/18 14:45 11/23/18 14:59 Normal Saline IV 150 mls/hr ASDIRECTED [facility] Administration Ferric Sodium Gluconate 120 mls @ 50 mls/hr 11/26/18 16:12 Complex 250 mg/ Sodium IV 11/26/18 18:35 Chloride ONETIME STA Insulin Glargine 10 unit 11/23/18 21:00 11/24/18 21:15 Lantus SUBCUT Not Given BEDTIME [facility] Insulin Glargine 15 unit 11/24/18 21:19 11/24/18 21:39 Lantus SUBCUT 11/24/18 21:20 15 units ONETIME ONE Administration Insulin Glargine 10 unit 11/26/18 16:00 Lantus SUBCUT BIDAC [facility] Levothyroxine Sodium 150 mcg 11/24/18 06:00 11/24/18 08:31 Synthroid PO 11/24/18 06:01 Not Given ACBREAKFAST [facility] Levothyroxine Sodium 150 mcg 11/24/18 08:00 11/24/18 12:18 Synthroid PO Not Given ACBREAKFAST [facility] Levothyroxine Sodium 75 mcg 11/25/18 06:00 Levothyroxine PO ACBREAKFAST [facility] Non-Formulary Medication 150 mg 11/23/18 21:00 11/24/18 08:29 Ranitidine PO Not Given BEDTIME [facility] Departure - Departure Disposition: Refer to Observation Clinical Impression: Altered mental status, Hyperkalemia, Hypoglycemia - Discharge Information <Marcin Rogers - Last Filed: 11/26/18 19:07> ED ROS GENERAL - Review of Systems Review Of Systems: See Below ED EXAM GENERAL NO PERIP PULSE - Physical Exam Exam: See Below Course - Re-Assessments/Exams Free Text/Narrative Re-Assessment/Exam: 11/23/18 18:30 Initial history as noted by Natalie Walsh [facility] student. He was just discharged from this hospital about 2 weeks ago. He is insulin-dependent diabetic. Since going to the [facility] his blood sugars have been very difficult to manage. Over the past 10-12 days there've been numerous episodes of severe hypoglycemia primarily in the morning with many readings in the mid to upper 40s range. He also then had a couple readings in the 500 range. He was back down to about 48. He has been sent here for further evaluation. Glucose readings here have been in the 1:30 to 150 range. However potassium is come back high at 6.0. Repeat potassium 5.9. EKG pending at this time. I have discussed this with Dr Ortiz, his primary care provider. He has asked patient be admitted to try obtain better glucose control. I have discussed this with Dr Rowland, Hospitalist employee relations assistant. She is here to see patient. She will try discuss this with Dr Peoples to try better sort out what has been happening. Departure - Departure Time of Disposition: 18:30 ED Communication - Discussed Case With (1) Discussed Case With (1): Admitting Provider (Dr Rowland, decision to admit at about 18:30.)
[2018-11-23] MEDS ORDERED: Sodium Chloride 0.9% 1,000 ML IV SCH (14:45)
--- NOTE | 2018-11-23 15:17 | CR ---
Chest: Two views of the chest were obtained. Comparison: Prior chest x-ray of 10/30/18. Heart size is normal. Tortuous thoracic aorta is noted. Lungs are clear with no acute parenchymal change. Bony structures are grossly intact. Prior cholecystectomy is noted. Impression: 1. Nothing acute is seen on two-view chest x-ray. Diagnostic code #2
--- NOTE | 2018-11-23 15:17 | CT ---
Head CT Technique: Multiple axial sections through the brain were obtained. Intravenous contrast was not utilized. Comparison: Previous head CT study of 10/30/18. Findings: Ventricles along with basal cisterns and sulci over the convexities are mildly prominent. Diminished density is noted within the periventricular white matter which is similar to prior exam and is compatible with small vessel ischemic demyelination change. 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 No other abnormal parenchymal densities are seen. No evidence of intracranial hemorrhage. No midline shift or mass effect is seen. Atherosclerotic calcification is seen within the vertebral vessels and carotid siphon. Bone window settings were reviewed which show no acute calvarial abnormality. Visualized sinuses show nothing acute. Mastoid sinuses are clear. Impression: 1. Senescent change. No change from previous study. 2. No acute intracranial abnormality is identified. Diagnostic code #2
[2018-11-23] MEDS ORDERED: 50% Dextrose in Water 50 ML Syringe IVPUSH PRN (20:35)
[2018-11-23] MEDS ORDERED: Polyethylene Glycol 3350 Powder 17 GM Packet PO PRN (20:44)
[2018-11-23] MEDS ORDERED: SUMAtriptan 50 MG Tab PO PRN (20:44)
--- NOTE | 2018-11-23 20:46 | PCM.HP.2 ---
H&P History of Present Illness - General Date of Service: 11/23/18 Admit Problem/Dx: Admission Diagnosis/Problem Admission Diagnosis/Problem Diabetic complication - Related Data Allergies/Adverse Reactions: Allergies Allergy/AdvReac Type Severity Reaction Status Date / Time zolpidem [Zolpidem] AdvReac Mild Change Verified 11/23/18 20:48 Mental Status alprazolam AdvReac Change Verified 11/23/18 20:48 Mental Status diazepam AdvReac Change Verified 11/23/18 20:48 Mental Status trazodone AdvReac Change Verified 11/23/18 20:48 Mental Status Home Medications: Home Meds Levothyroxine 150 mcg PO QAM 06/21/17 [History] Polyethylene Glycol 3350 [MiraLAX] 17 gm PO DAILY PRN 08/07/18 [History] fentaNYL [Fentanyl] 75 mcg TRDERM ASDIRECTED 08/07/18 [History] Gabapentin [Neurontin] 300 mg PO TID 10/14/18 [History] Potassium Chloride [Klor-Con M20] 10 meq PO DAILY 10/14/18 [History] atorvaSTATin [Lipitor] 20 mg PO BEDTIME 10/14/18 [History] Aspirin [Halfprin] 81 mg PO DAILY 10/30/18 [History] Citalopram [Citalopram HBr] 20 mg PO DAILY 10/30/18 [History] Hydrocodone/Acetaminophen [Hydrocodon-Acetaminophn 10-325] 1 tab PO Q4H PRN [History] Lisinopril 2.5 mg PO DAILY 10/30/18 [History] Ranitidine [Zantac] 150 mg PO BEDTIME 10/30/18 [History] SUMAtriptan Succinate [Imitrex] 100 mg PO Q2H PRN 10/30/18 [History] diphenhydrAMINE [Benadryl] 25 mg PO BEDTIME PRN 10/30/18 [History] Calcium Carbonate/Vitamin D3 [Calcium 600 + Vit D 200] 1 tab PO DAILY 11/23/18 [ History] Glucagon [Gvoke Syringe] 1 mg IM ASDIRECTED PRN 11/23/18 [History] Insulin Glarg,Human.Rec.Analog [Lantus] 10 unit SUBCUT BEDTIME 11/23/18 [History ] Insulin Lispro [HumaLOG] 2 unit SUBCUT TID 11/23/18 [History] Insulin Lispro [Insulin Lispro Kwikpen U-100] 0 units SUBCUT TID 11/23/18 [ History] Past Medical History HEENT History: Reports: Hard of Hearing Other HEENT History: wears eyeglasses. Cardiovascular History: Reports: High Cholesterol, Hypertension Respiratory History: Reports: Sleep Apnea Other Respiratory History: states has C-PAP but doesn't use it due to "It's so loud." Gastrointestinal History: Reports: GERD Genitourinary History: Reports: BPH Other Genitourinary History: stress incontinence Musculoskeletal History: Reports: Osteoarthritis Neurological History: Reports: Neuropathy, Diabetic Psychiatric History: Reports: Addiction, Depression, Other (See Below) Other Psychiatric History: insomnia Endocrine/Metabolic History: Reports: Diabetes, Type II, Hypothyroidism Hematologic History: Reports: None Immunologic History: Reports: None Oncologic (Cancer) History: Reports: None Dermatologic History: Reports: None - Infectious Disease History Infectious Disease History: Reports: Chicken Pox, Measles, Mumps - Past Surgical History Cardiovascular Surgical History: Reports: None GI Surgical History: Reports: Cholecystectomy, Colonoscopy, EGD Neurological Surgical History: Reports: Lumbar Spine Other Musculoskeletal Surgeries/Procedures:: 6 Back Surgeries Social & Family History - Family History Family Medical History: Noncontributory - Tobacco Use Smoking Status *Q: Unknown Ever Smoked - Caffeine Use Caffeine Use: Reports: Coffee, Soda - Living Situation & Occupation Living situation: Reports: , with Significant Other (Fiance) Occupation: Retired Exam - Vital Signs Vital Signs: Last Vital Signs Temp 36.9 C 11/23/18 14:03 Pulse 85 11/23/18 14:03 Resp BP 106/83 11/23/18 14:03 Pulse Ox 92 L 11/23/18 14:03 Weight: 72.575 kg - Patient Data Lab Results Last 24 hrs: Laboratory Results - last 24 hr 11/23/18 11/23/18 11/23/18 Range/Units 14:33 14:40 15:00 WBC 10.41 H (4.23-9.07) K/mm3 RBC 3.36 L (4.63-6.08) M/mm3 Hgb 9.4 L (13.7-17.5) gm/dl Hct 30.5 L (40.1-51.0) % MCV 90.8 D (79.0-92.2) fl MCH 28.0 (25.7-32.2) pg MCHC 30.8 L (32.2-35.5) g/dl RDW Std Deviation 43.5 (35.1-43.9) fL Plt Count 250 (163-337) K/mm3 MPV 9.1 L (9.4-12.3) fl Neutrophils % (Manual) 84 H (40-60) % Band Neutrophils % 0 (0-10) % Lymphocytes % (Manual) 13 L (20-40) % Atypical Lymphs % 0 % Monocytes % (Manual) 2 (2-10) % Eosinophils % (Manual) 1 (0.8-7.0) % Basophils % (Manual) 0 L (0.2-1.2) Platelet Estimate Adequate Plt Morphology Comment Normal RBC Morph Comment Normal Sodium (136-145) mEq/L Potassium (3.5-5.1) mEq/L Chloride (98-107) mEq/L Carbon Dioxide (21-32) mEq/L Anion Gap (5-15) BUN (7-18) mg/dL Creatinine (0.7-1.3) mg/dL Est Cr Clr Drug Dosing mL/min Estimated GFR (MDRD) (>60) mL/min BUN/Creatinine Ratio (14-18) Glucose (83-115) mg/dL POC Glucose 153 H (83-110) mg/dL Calcium (8.5-10.1) mg/dL Phosphorus (2.6-4.7) mg/dL Magnesium (1.8-2.4) mg/dl Total Bilirubin (0.2-1.0) mg/dL AST (15-37) U/L ALT (16-63) U/L Alkaline Phosphatase (46-116) U/L C-Reactive Protein (<1.0) mg/dL Total Protein (6.4-8.2) g/dl Albumin (3.4-5.0) g/dl Globulin gm/dL Albumin/Globulin Ratio (1-2) Urine Color Yellow (Yellow) Urine Appearance Clear (Clear) Urine pH 6.0 (5.0-8.0) Ur Specific Labelle 1.025 (1.005-1.030) Urine Protein Negative (Negative) Urine Glucose (UA) Negative (Negative) Urine Ketones Negative (Negative) Urine Occult Blood Negative (Negative) Urine Nitrite Negative (Negative) Urine Bilirubin Negative (Negative) Urine Urobilinogen 0.2 (0.2-1.0) Ur Leukocyte Esterase Negative (Negative) Urine RBC 0-5 (0-5) /hpf Urine WBC 0-5 (0-5) /hpf Ur Epithelial Cells 0-5 (0-5) /hpf Urine Bacteria Few (FEW) /hpf Hyaline Casts 20-30 H (0-5) /lpf Urine Mucus Not seen (FEW) /hpf Urine Yeast (Budding) Many H (NOT SEEN) 11/23/18 11/23/18 11/23/18 Range/Units 15:00 17:55 17:55 WBC (4.23-9.07) K/mm3 RBC (4.63-6.08) M/mm3 Hgb (13.7-17.5) gm/dl Hct (40.1-51.0) % MCV (79.0-92.2) fl MCH (25.7-32.2) pg MCHC (32.2-35.5) g/dl RDW Std Deviation (35.1-43.9) fL Plt Count (163-337) K/mm3 MPV (9.4-12.3) fl Neutrophils % (Manual) (40-60) % Band Neutrophils % (0-10) % Lymphocytes % (Manual) (20-40) % Atypical Lymphs % % Monocytes % (Manual) (2-10) % Eosinophils % (Manual) (0.8-7.0) % Basophils % (Manual) (0.2-1.2) Platelet Estimate Plt Morphology Comment RBC Morph Comment Sodium 138 (136-145) mEq/L Potassium 6.0 H D 5.9 H (3.5-5.1) mEq/L Chloride 104 (98-107) mEq/L Carbon Dioxide 29 (21-32) mEq/L Anion Gap 11.0 (5-15) BUN 37 H (7-18) mg/dL Creatinine 1.9 H (0.7-1.3) mg/dL Est Cr Clr Drug Dosing 32.86 mL/min Estimated GFR (MDRD) 35 (>60) mL/min BUN/Creatinine Ratio 19.5 H (14-18) Glucose 157 H (83-115) mg/dL POC Glucose (83-110) mg/dL Calcium 9.2 (8.5-10.1) mg/dL Phosphorus 4.8 H (2.6-4.7) mg/dL Magnesium 1.9 (1.8-2.4) mg/dl Total Bilirubin 0.4 (0.2-1.0) mg/dL AST 104 H (15-37) U/L ALT 109 H (16-63) U/L Alkaline Phosphatase 237 H (46-116) U/L C-Reactive Protein 6.1 H* (<1.0) mg/dL Total Protein 6.9 (6.4-8.2) g/dl Albumin 2.9 L (3.4-5.0) g/dl Globulin 4.0 gm/dL Albumin/Globulin Ratio 0.7 L (1-2) Urine Color (Yellow) Urine Appearance (Clear) Urine pH (5.0-8.0) Ur Specific Labelle (1.005-1.030) Urine Protein (Negative) Urine Glucose (UA) (Negative) Urine Ketones (Negative) Urine Occult Blood (Negative) Urine Nitrite (Negative) Urine Bilirubin (Negative) Urine Urobilinogen (0.2-1.0) Ur Leukocyte Esterase (Negative) Urine RBC (0-5) /hpf Urine WBC (0-5) /hpf Ur Epithelial Cells (0-5) /hpf Urine Bacteria (FEW) /hpf Hyaline Casts (0-5) /lpf Urine Mucus (FEW) /hpf Urine Yeast (Budding) (NOT SEEN) Result Diagrams: 11/23/18 15:00 11/23/18 17:55 - Problem List (1) Labile blood glucose SNOMED Code(s): 053271250 ICD Code: R73.09 - OTHER ABNORMAL GLUCOSE Status: Acute Current Visit: Yes (2) Uncontrolled diabetes mellitus SNOMED Code(s): 00675598, 169281152 ICD Code: E11.65 - TYPE 2 DIABETES MELLITUS WITH HYPERGLYCEMIA Status: Acute Current Visit: Yes (3) Chronic kidney disease (CKD) stage G3b/A1, moderately decreased glomerular filtration rate (GFR) between 30-44 mL/min/1.73 square meter and albuminuria creatinine ratio less than 30 mg/g SNOMED Code(s): 256383801, 232554308 ICD Code: N18.3 - CHRONIC KIDNEY DISEASE, STAGE 3 (MODERATE) Status: Acute Current Visit: Yes (4) Altered mental status SNOMED Code(s): 816938369 ICD Code: R41.82 - ALTERED MENTAL STATUS, UNSPECIFIED Status: Acute Current Visit: Yes (5) Hyperkalemia SNOMED Code(s): 16243789 ICD Code: E87.5 - HYPERKALEMIA Status: Acute Current Visit: Yes (6) Hypoglycemia SNOMED Code(s): 084973026 ICD Code: E16.2 - HYPOGLYCEMIA, UNSPECIFIED Status: Acute Current Visit: Yes (7) Anemia SNOMED Code(s): 937814216 ICD Code: D64.9 - ANEMIA, UNSPECIFIED Status: Acute Priority: Medium Current Visit: No Qualifiers: Anemia type: due to chronic kidney disease Chronic kidney disease stage: stage 3 (moderate) Qualified Code(s): N18.3 - Chronic kidney disease, stage 3 (moderate); D63.1 - Anemia in chronic kidney disease (8) Low back pain SNOMED Code(s): 420910054 ICD Code: M54.5 - LOW BACK PAIN Status: Chronic Current Visit: No (9) Obstructive sleep apnea SNOMED Code(s): 63791203 ICD Code: G47.33 - OBSTRUCTIVE SLEEP APNEA (ADULT) (PEDIATRIC) Status: Chronic Current Visit: No Problem List Initiated/Reviewed/Updated: Yes Assessment/Plan Comment:: Labile blood glucose in the setting of uncontrolled DM, CsL4u-40% PLAN - Accuchecks before meals and bedtime - 6 meals a day ( 3 meals and 3 snacks) - 10u glargine every night - Low sensitivity sliding scale - Hypoglycemia protocol with D50 and juice Altered mental status Patient appears very confused with normal BG PLAN - Let me sleep protocol - UA with microscopy - Avoid central acting medications as much as possible - Hyperkalemia PLAN - Repeat k level in am - Kayaxelate x 1 dose Anemia PLAN - Iron panel ordered - Vitamin b12 level ordered - Folic acid level ordered Leukocytosis PLAN - UA with microscopy - Monitor for fever and obtain blood cultures if he does spike one Chronic kidney disease, Stage 3B (GFR-35) PLAN - Monitor urine output - Keep balance as negative as possible - REnally dosed medications - REpeat BMP with electrolytes every morning and replace as needed Chronic pain PLAN - Continue fentanyl patch Poor social support with low health literacy PROPHYLAXIS DVT-Lovenox GI-continue home med CODE STATUS: DNR/DNI (as per previous visit) DISPOSITION: Patient will be admitted to adjust insulin regimen under monitorization.
[2018-11-23] MEDS ORDERED: Non-Formulary Medication 1 Each (Ranitidine 150 MG) PO SCH (21:00)
[2018-11-23] MEDS ORDERED: Non-Formulary Medication 1 Each (Atorvastatin 20 MG) PO SCH (21:00)
[2018-11-23] MEDS: Insulin Glarg,Human.Rec.Analog 100 UNIT/ML ML SUBCUT SCH (21:50)
[2018-11-23] MEDS: Insulin Lispro 100 Units/ML 3 ML Vial SUBCUT SCH (21:53)
[2018-11-23] MEDS: Simvastatin 20 MG Tab PO SCH (23:58)
[2018-11-23] MEDS: Gabapentin 300 MG Cap PO SCH (23:58)
[2018-11-23] MEDS: Famotidine 20 MG Tab PO SCH (23:58)
[2018-11-24] MEDS ORDERED: Levothyroxine 50 MCG Tab PO SCH (06:00)
[2018-11-24] MEDS ORDERED: Levothyroxine 100 MCG Tab PO SCH (08:00)
--- NOTE | 2018-11-24 08:22 | PCM.PN ---
- General Info Date of Service: 11/24/18 - Patient Data Vitals - Most Recent: Last Vital Signs Temp 36.7 C 11/24/18 04:55 Pulse 85 11/24/18 04:55 Resp 14 11/24/18 04:55 BP 136/69 11/24/18 04:55 Pulse Ox 96 11/24/18 04:55 Weight - Most Recent: 69.4 kg I&O - Last 24 Hours: Intake & Output 11/23/18 11/24/18 11/24/18 22:59 06:59 14:59 Output Total 150 Balance -150 Lab Results Last 24 Hours: Laboratory Results - last 24 hr 11/23/18 11/23/18 11/23/18 Range/Units 14:33 14:40 15:00 WBC 10.41 H (4.23-9.07) K/mm3 RBC 3.36 L (4.63-6.08) M/mm3 Hgb 9.4 L (13.7-17.5) gm/dl Hct 30.5 L (40.1-51.0) % MCV 90.8 D (79.0-92.2) fl MCH 28.0 (25.7-32.2) pg MCHC 30.8 L (32.2-35.5) g/dl RDW Std Deviation 43.5 (35.1-43.9) fL Plt Count 250 (163-337) K/mm3 MPV 9.1 L (9.4-12.3) fl Neut % (Auto) (34.0-67.9) % Lymph % (Auto) (21.8-53.1) % [place] % (Auto) (5.3-12.2) % Eos % (Auto) (0.8-7.0) Baso % (Auto) (0.1-1.2) % Neut # (Auto) (1.78-5.38) K/mm3 Lymph # (Auto) (1.32-3.57) K/mm3 [place] # (Auto) (0.30-0.82) K/mm3 Eos # (Auto) (0.04-0.54) K/mm3 Baso # (Auto) (0.01-0.08) K/mm3 Neutrophils % (Manual) 84 H (40-60) % Band Neutrophils % 0 (0-10) % Lymphocytes % (Manual) 13 L (20-40) % Atypical Lymphs % 0 % Monocytes % (Manual) 2 (2-10) % Eosinophils % (Manual) 1 (0.8-7.0) % Basophils % (Manual) 0 L (0.2-1.2) Platelet Estimate Adequate Plt Morphology Comment Normal RBC Morph Comment Normal Sodium (136-145) mEq/L Potassium (3.5-5.1) mEq/L Chloride (98-107) mEq/L Carbon Dioxide (21-32) mEq/L Anion Gap (5-15) BUN (7-18) mg/dL Creatinine (0.7-1.3) mg/dL Est Cr Clr Drug Dosing mL/min Estimated GFR (MDRD) (>60) mL/min BUN/Creatinine Ratio (14-18) Glucose (83-115) mg/dL POC Glucose 153 H (83-110) mg/dL Calcium (8.5-10.1) mg/dL Phosphorus (2.6-4.7) mg/dL Magnesium (1.8-2.4) mg/dl Total Bilirubin (0.2-1.0) mg/dL AST (15-37) U/L ALT (16-63) U/L Alkaline Phosphatase (46-116) U/L C-Reactive Protein (<1.0) mg/dL Total Protein (6.4-8.2) g/dl Albumin (3.4-5.0) g/dl Globulin gm/dL Albumin/Globulin Ratio (1-2) Urine Color Yellow (Yellow) Urine Appearance Clear (Clear) Urine pH 6.0 (5.0-8.0) Ur Specific [place] 1.025 (1.005-1.030) Urine Protein Negative (Negative) Urine Glucose (UA) Negative (Negative) Urine Ketones Negative (Negative) Urine Occult Blood Negative (Negative) Urine Nitrite Negative (Negative) Urine Bilirubin Negative (Negative) Urine Urobilinogen 0.2 (0.2-1.0) Ur Leukocyte Esterase Negative (Negative) Urine RBC 0-5 (0-5) /hpf Urine WBC 0-5 (0-5) /hpf Ur Epithelial Cells 0-5 (0-5) /hpf Urine Bacteria Few (FEW) /hpf Hyaline Casts 20-30 H (0-5) /lpf Urine Mucus Not seen (FEW) /hpf Urine Yeast (Budding) Many H (NOT SEEN) MRSA (PCR) 11/23/18 11/23/18 11/23/18 Range/Units 15:00 17:55 17:55 WBC (4.23-9.07) K/mm3 RBC (4.63-6.08) M/mm3 Hgb (13.7-17.5) gm/dl Hct (40.1-51.0) % MCV (79.0-92.2) fl MCH (25.7-32.2) pg MCHC (32.2-35.5) g/dl RDW Std Deviation (35.1-43.9) fL Plt Count (163-337) K/mm3 MPV (9.4-12.3) fl Neut % (Auto) (34.0-67.9) % Lymph % (Auto) (21.8-53.1) % [place] % (Auto) (5.3-12.2) % Eos % (Auto) (0.8-7.0) Baso % (Auto) (0.1-1.2) % Neut # (Auto) (1.78-5.38) K/mm3 Lymph # (Auto) (1.32-3.57) K/mm3 [place] # (Auto) (0.30-0.82) K/mm3 Eos # (Auto) (0.04-0.54) K/mm3 Baso # (Auto) (0.01-0.08) K/mm3 Neutrophils % (Manual) (40-60) % Band Neutrophils % (0-10) % Lymphocytes % (Manual) (20-40) % Atypical Lymphs % % Monocytes % (Manual) (2-10) % Eosinophils % (Manual) (0.8-7.0) % Basophils % (Manual) (0.2-1.2) Platelet Estimate Plt Morphology Comment RBC Morph Comment Sodium 138 (136-145) mEq/L Potassium 6.0 H D 5.9 H (3.5-5.1) mEq/L Chloride 104 (98-107) mEq/L Carbon Dioxide 29 (21-32) mEq/L Anion Gap 11.0 (5-15) BUN 37 H (7-18) mg/dL Creatinine 1.9 H (0.7-1.3) mg/dL Est Cr Clr Drug Dosing 32.86 mL/min Estimated GFR (MDRD) 35 (>60) mL/min BUN/Creatinine Ratio 19.5 H (14-18) Glucose 157 H (83-115) mg/dL POC Glucose (83-110) mg/dL Calcium 9.2 (8.5-10.1) mg/dL Phosphorus 4.8 H (2.6-4.7) mg/dL Magnesium 1.9 (1.8-2.4) mg/dl Total Bilirubin 0.4 (0.2-1.0) mg/dL AST 104 H (15-37) U/L ALT 109 H (16-63) U/L Alkaline Phosphatase 237 H (46-116) U/L C-Reactive Protein 6.1 H* (<1.0) mg/dL Total Protein 6.9 (6.4-8.2) g/dl Albumin 2.9 L (3.4-5.0) g/dl Globulin 4.0 gm/dL Albumin/Globulin Ratio 0.7 L (1-2) Urine Color (Yellow) Urine Appearance (Clear) Urine pH (5.0-8.0) Ur Specific [place] (1.005-1.030) Urine Protein (Negative) Urine Glucose (UA) (Negative) Urine Ketones (Negative) Urine Occult Blood (Negative) Urine Nitrite (Negative) Urine Bilirubin (Negative) Urine Urobilinogen (0.2-1.0) Ur Leukocyte Esterase (Negative) Urine RBC (0-5) /hpf Urine WBC (0-5) /hpf Ur Epithelial Cells (0-5) /hpf Urine Bacteria (FEW) /hpf Hyaline Casts (0-5) /lpf Urine Mucus (FEW) /hpf Urine Yeast (Budding) (NOT SEEN) MRSA (PCR) 11/23/18 11/24/18 11/24/18 Range/Units 20:43 00:00 04:40 WBC 7.05 (4.23-9.07) K/mm3 RBC 3.05 L (4.63-6.08) M/mm3 Hgb 8.6 L (13.7-17.5) gm/dl Hct 27.6 L (40.1-51.0) % MCV 90.5 (79.0-92.2) fl MCH 28.2 (25.7-32.2) pg MCHC 31.2 L (32.2-35.5) g/dl RDW Std Deviation 42.6 (35.1-43.9) fL Plt Count 218 (163-337) K/mm3 MPV 9.2 L (9.4-12.3) fl Neut % (Auto) 69.7 H (34.0-67.9) % Lymph % (Auto) 16.9 L (21.8-53.1) % [place] % (Auto) 7.8 (5.3-12.2) % Eos % (Auto) 4.7 (0.8-7.0) Baso % (Auto) 0.6 (0.1-1.2) % Neut # (Auto) 4.92 (1.78-5.38) K/mm3 Lymph # (Auto) 1.19 L (1.32-3.57) K/mm3 [place] # (Auto) 0.55 (0.30-0.82) K/mm3 Eos # (Auto) 0.33 (0.04-0.54) K/mm3 Baso # (Auto) 0.04 (0.01-0.08) K/mm3 Neutrophils % (Manual) (40-60) % Band Neutrophils % (0-10) % Lymphocytes % (Manual) (20-40) % Atypical Lymphs % % Monocytes % (Manual) (2-10) % Eosinophils % (Manual) (0.8-7.0) % Basophils % (Manual) (0.2-1.2) Platelet Estimate Plt Morphology Comment RBC Morph Comment Sodium (136-145) mEq/L Potassium (3.5-5.1) mEq/L Chloride (98-107) mEq/L Carbon Dioxide (21-32) mEq/L Anion Gap (5-15) BUN (7-18) mg/dL Creatinine (0.7-1.3) mg/dL Est Cr Clr Drug Dosing mL/min Estimated GFR (MDRD) (>60) mL/min BUN/Creatinine Ratio (14-18) Glucose (83-115) mg/dL POC Glucose 183 H (83-110) mg/dL Calcium (8.5-10.1) mg/dL Phosphorus (2.6-4.7) mg/dL Magnesium (1.8-2.4) mg/dl Total Bilirubin (0.2-1.0) mg/dL AST (15-37) U/L ALT (16-63) U/L Alkaline Phosphatase (46-116) U/L C-Reactive Protein (<1.0) mg/dL Total Protein (6.4-8.2) g/dl Albumin (3.4-5.0) g/dl Globulin gm/dL Albumin/Globulin Ratio (1-2) Urine Color (Yellow) Urine Appearance (Clear) Urine pH (5.0-8.0) Ur Specific [place] (1.005-1.030) Urine Protein (Negative) Urine Glucose (UA) (Negative) Urine Ketones (Negative) Urine Occult Blood (Negative) Urine Nitrite (Negative) Urine Bilirubin (Negative) Urine Urobilinogen (0.2-1.0) Ur Leukocyte Esterase (Negative) Urine RBC (0-5) /hpf Urine WBC (0-5) /hpf Ur Epithelial Cells (0-5) /hpf Urine Bacteria (FEW) /hpf Hyaline Casts (0-5) /lpf Urine Mucus (FEW) /hpf Urine Yeast (Budding) (NOT SEEN) MRSA (PCR) Negative 11/24/18 Range/Units 04:40 WBC (4.23-9.07) K/mm3 RBC (4.63-6.08) M/mm3 Hgb (13.7-17.5) gm/dl Hct (40.1-51.0) % MCV (79.0-92.2) fl MCH (25.7-32.2) pg MCHC (32.2-35.5) g/dl RDW Std Deviation (35.1-43.9) fL Plt Count (163-337) K/mm3 MPV (9.4-12.3) fl Neut % (Auto) (34.0-67.9) % Lymph % (Auto) (21.8-53.1) % [place] % (Auto) (5.3-12.2) % Eos % (Auto) (0.8-7.0) Baso % (Auto) (0.1-1.2) % Neut # (Auto) (1.78-5.38) K/mm3 Lymph # (Auto) (1.32-3.57) K/mm3 [place] # (Auto) (0.30-0.82) K/mm3 Eos # (Auto) (0.04-0.54) K/mm3 Baso # (Auto) (0.01-0.08) K/mm3 Neutrophils % (Manual) (40-60) % Band Neutrophils % (0-10) % Lymphocytes % (Manual) (20-40) % Atypical Lymphs % % Monocytes % (Manual) (2-10) % Eosinophils % (Manual) (0.8-7.0) % Basophils % (Manual) (0.2-1.2) Platelet Estimate Plt Morphology Comment RBC Morph Comment Sodium 138 (136-145) mEq/L Potassium 5.4 H (3.5-5.1) mEq/L Chloride 103 (98-107) mEq/L Carbon Dioxide 28 (21-32) mEq/L Anion Gap 12.4 (5-15) BUN 34 H (7-18) mg/dL Creatinine 1.6 H (0.7-1.3) mg/dL Est Cr Clr Drug Dosing 39.02 mL/min Estimated GFR (MDRD) 43 (>60) mL/min BUN/Creatinine Ratio 21.3 H (14-18) Glucose 257 H (83-115) mg/dL POC Glucose (83-110) mg/dL Calcium 8.7 (8.5-10.1) mg/dL Phosphorus 4.3 (2.6-4.7) mg/dL Magnesium 1.9 (1.8-2.4) mg/dl Total Bilirubin (0.2-1.0) mg/dL AST (15-37) U/L ALT (16-63) U/L Alkaline Phosphatase (46-116) U/L C-Reactive Protein (<1.0) mg/dL Total Protein (6.4-8.2) g/dl Albumin (3.4-5.0) g/dl Globulin gm/dL Albumin/Globulin Ratio (1-2) Urine Color (Yellow) Urine Appearance (Clear) Urine pH (5.0-8.0) Ur Specific [place] (1.005-1.030) Urine Protein (Negative) Urine Glucose (UA) (Negative) Urine Ketones (Negative) Urine Occult Blood (Negative) Urine Nitrite (Negative) Urine Bilirubin (Negative) Urine Urobilinogen (0.2-1.0) Ur Leukocyte Esterase (Negative) Urine RBC (0-5) /hpf Urine WBC (0-5) /hpf Ur Epithelial Cells (0-5) /hpf Urine Bacteria (FEW) /hpf Hyaline Casts (0-5) /lpf Urine Mucus (FEW) /hpf Urine Yeast (Budding) (NOT SEEN) MRSA (PCR) Med Orders - Current: Current Medications Hydrocodone Bitart/Acetaminophen ([place] 325-10 Mg) 1 tab PO Q4H PRN PRN Reason: Pain Aspirin (Halfprin) 81 mg PO DAILY KARMEN Citalopram Hydrobromide (Celexa) 20 mg PO DAILY KARMEN Dextrose/Water (Dextrose 50% In Water) 50 ml IVPUSH ASDIRECTED PRN PRN Reason: Hypoglycemia Famotidine (Pepcid) 20 mg PO BEDTIME [facility] Last Admin: 11/23/18 23:58 Dose: 20 mg Fentanyl (Duragesic) 75 mcg TRDERM Q72H [facility] Gabapentin (Neurontin) 300 mg PO TID [facility] Last Admin: 11/23/18 23:58 Dose: 300 mg Insulin Glargine (Lantus) 10 unit SUBCUT BEDTIME [facility] Last Admin: 11/23/18 21:50 Dose: 10 units Insulin Human Lispro (Humalog) 0 unit SUBCUT QIDACANDBED [facility]; Protocol Last Admin: 11/23/18 21:53 Dose: 1 units Levothyroxine Sodium (Synthroid) 150 mcg PO ACBREAKFAST [facility] Lisinopril (Prinivil) 2.5 mg PO DAILY [facility] Miscellaneous Information (Remove Patch) 1 ea TRDERM Q72H [facility] Polyethylene Glycol (Miralax) 17 gm PO DAILY PRN PRN Reason: Constipation Simvastatin (Zocor) 20 mg PO BEDTIME [facility] Last Admin: 11/23/18 23:58 Dose: 20 mg Sumatriptan Succinate (Imitrex) 100 mg PO Q2H PRN PRN Reason: Headache Discontinued Medications Sodium Chloride (Normal Saline) 1,000 mls @ 150 mls/hr IV ASDIRECTED KARMEN Last Admin: 11/23/18 14:59 Dose: 150 mls/hr Levothyroxine Sodium (Synthroid) 150 mcg PO ACBREAKFAST [facility] Stop: 11/24/18 06:01 Non-Formulary Medication (Ranitidine) 150 mg PO BEDTIME KARMEN - Problem List & Annotations (1) Labile blood glucose SNOMED Code(s): 185338204 Code(s): R73.09 - OTHER ABNORMAL GLUCOSE Status: Acute Current Visit: Yes (2) Uncontrolled diabetes mellitus SNOMED Code(s): 21144703, 999232903 Code(s): E11.65 - TYPE 2 DIABETES MELLITUS WITH HYPERGLYCEMIA Status: Acute Current Visit: Yes (3) Chronic kidney disease (CKD) stage G3b/A1, moderately decreased glomerular filtration rate (GFR) between 30-44 mL/min/1.73 square meter and albuminuria creatinine ratio less than 30 mg/g SNOMED Code(s): 324997358, 079490179 Code(s): N18.3 - CHRONIC KIDNEY DISEASE, STAGE 3 (MODERATE) Status: Acute Current Visit: Yes (4) Altered mental status SNOMED Code(s): 874162839 Code(s): R41.82 - ALTERED MENTAL STATUS, UNSPECIFIED Status: Acute Current Visit: Yes (5) Hyperkalemia SNOMED Code(s): 60899284 Code(s): E87.5 - HYPERKALEMIA Status: Acute Current Visit: Yes (6) Hypoglycemia SNOMED Code(s): 389730817 Code(s): E16.2 - HYPOGLYCEMIA, UNSPECIFIED Status: Acute Current Visit: Yes (7) Anemia SNOMED Code(s): 761599124 Code(s): D64.9 - ANEMIA, UNSPECIFIED Status: Acute Priority: Medium Current Visit: No Qualifiers: Anemia type: due to chronic kidney disease Chronic kidney disease stage: stage 3 (moderate) Qualified Code(s): N18.3 - Chronic kidney disease, stage 3 (moderate); D63.1 - Anemia in chronic kidney disease (8) Low back pain SNOMED Code(s): 687930350 Code(s): M54.5 - LOW BACK PAIN Status: Chronic Current Visit: No (9) Obstructive sleep apnea SNOMED Code(s): 70036742 Code(s): G47.33 - OBSTRUCTIVE SLEEP APNEA (ADULT) (PEDIATRIC) Status: Chronic Current Visit: No - My Orders Last 24 Hours: My Active Orders 11/23/18 20:35 Blood Glucose Check, Bedside [RC] QIDACANDBED Blood Glucose Check, Bedside [RC] QIDACANDBED Communication Order [RC] QSHIFT Oxygen Therapy [RC] PRN VTE/DVT Education [RC] DAILY Vital Signs [RC] Q4HR Consult to Case Management/S[employer] [CONS] Routine Consult to Diabetic Nurse Specialist [CONS] Routine Consult to Cereal Popper [CONS] Routine Dextrose 50% in Water 50 ml IVPUSH ASDIRECTED PRN 11/23/18 20:44 Acetaminophen/HYDROcodone [[place] 325-10 MG] 1 tab PO Q4H PRN Polyethylene Glycol 3350 [MiraLAX] 17 gm PO DAILY PRN SUMAtriptan [Imitrex] 100 mg PO Q2H PRN 11/23/18 21:00 Gabapentin [Neurontin] 300 mg PO TID Insulin Glarg,Human.Rec.Analog [LantUS] 10 unit SUBCUT BEDTIME 11/23/18 21:21 Resuscitation Status Routine 11/23/18 22:00 Insulin Lispro [HumaLOG] See Protocol SUBCUT QIDACANDBED 11/23/18 22:15 Famotidine [Pepcid] 20 mg PO BEDTIME Simvastatin [Zocor] 20 mg PO BEDTIME 11/23/18 Dinner ADA Diabetic [[place] [employer] Diet] [DIET] 11/24/18 08:00 Levothyroxine [Synthroid] 150 mcg PO ACBREAKFAST 11/24/18 09:00 Aspirin [Halfprin] 81 mg PO DAILY Citalopram [Celexa] 20 mg PO DAILY Lisinopril [Prinivil] 2.5 mg PO DAILY Remove Patch 1 ea TRDERM Q72H fentaNYL [Duragesic] 75 mcg TRDERM Q72H 11/25/18 05:11 LIPID PANEL [CHEM] AM - Plan Plan:: Labile blood glucose in the setting of uncontrolled DM, [id number]% PLAN - Accuchecks before meals and bedtime - 6 meals a day ( 3 meals and 3 snacks) - 10u glargine every night - Low sensitivity sliding scale - Hypoglycemia protocol with D50 and juice Altered mental status Patient appears very confused with normal BG PLAN - Let me sleep protocol - UA with microscopy - Avoid central acting medications as much as possible - Hyperkalemia PLAN - Repeat k level in am - Kayaxelate x 1 dose Anemia PLAN - Iron panel ordered - Vitamin b12 level ordered - Folic acid level ordered Leukocytosis PLAN - UA with microscopy - Monitor for fever and obtain blood cultures if he does spike one Chronic kidney disease, Stage 3B (GFR-35) PLAN - Monitor urine output - Keep balance as negative as possible - REnally dosed medications - REpeat BMP with electrolytes every morning and replace as needed Chronic pain PLAN - Continue fentanyl patch Poor social support with low health literacy PROPHYLAXIS DVT-Lovenox GI-continue home med CODE STATUS: DNR/DNI (as per previous visit) DISPOSITION: Patient will be admitted to adjust insulin regimen under monitorization.
[2018-11-24] MEDS: Insulin Lispro 100 Units/ML 3 ML Vial SUBCUT SCH ×4 (10:25→21:17)
[2018-11-24] MEDS: Lisinopril 2.5 MG Tab PO SCH (10:28)
[2018-11-24] MEDS: Aspirin 81 MG Tab.EC PO SCH (10:28)
[2018-11-24] MEDS: Gabapentin 300 MG Cap PO SCH ×3 (10:29→20:32)
[2018-11-24] MEDS: Citalopram 20 MG Tab PO SCH (10:30)
[2018-11-24] MEDS: fentaNYL 75 MCG/HR Transdermal Patch TRDERM SCH ×2 (10:54→15:58)
[2018-11-24] MEDS: Acetaminophen/HYDROcodone 325-10 MG Tab PO PRN (15:41)
[2018-11-24] MEDS: Famotidine 20 MG Tab PO SCH (20:31)
[2018-11-24] MEDS: Simvastatin 20 MG Tab PO SCH (20:32)
[2018-11-24] MEDS: Insulin Glarg,Human.Rec.Analog 100 UNIT/ML ML SUBCUT SCH (21:15)
[2018-11-24] MEDS ORDERED: Insulin Glarg,Human.Rec.Analog 100 UNIT/ML ML SUBCUT ONE (21:19)
[2018-11-25] MEDS: Levothyroxine 25 MCG Tab PO SCH (05:02)
[2018-11-25] MEDS ORDERED: Levothyroxine 75 MCG Tab PO SCH (06:00)
[2018-11-25] MEDS: Insulin Lispro 100 Units/ML 3 ML Vial SUBCUT SCH ×5 (06:58→22:00)
[2018-11-25] MEDS: Acetaminophen/HYDROcodone 325-10 MG Tab PO PRN ×3 (07:24→16:44)
--- NOTE | 2018-11-25 08:37 | PCM.PN ---
- General Info Date of Service: 11/25/18 - Patient Data Vitals - Most Recent: Last Vital Signs Temp 36.8 C 11/25/18 05:04 Pulse 75 11/25/18 05:04 Resp 12 11/25/18 05:04 BP 136/81 11/25/18 05:04 Pulse Ox 93 L 11/25/18 05:04 Weight - Most Recent: 68.266 kg I&O - Last 24 Hours: Intake & Output 11/24/18 11/25/18 11/25/18 22:59 06:59 14:59 Intake Total 550 200 Output Total 650 Balance 550 -450 Lab Results Last 24 Hours: Laboratory Results - last 24 hr 11/24/18 11/24/18 11/24/18 Range/Units 04:40 06:40 12:14 WBC (4.23-9.07) K/mm3 RBC (4.63-6.08) M/mm3 Hgb (13.7-17.5) gm/dl Hct (40.1-51.0) % MCV (79.0-92.2) fl MCH (25.7-32.2) pg MCHC (32.2-35.5) g/dl RDW Std Deviation (35.1-43.9) fL Plt Count (163-337) K/mm3 MPV (9.4-12.3) fl Neut % (Auto) (34.0-67.9) % Lymph % (Auto) (21.8-53.1) % [place] % (Auto) (5.3-12.2) % Eos % (Auto) (0.8-7.0) Baso % (Auto) (0.1-1.2) % Neut # (Auto) (1.78-5.38) K/mm3 Lymph # (Auto) (1.32-3.57) K/mm3 [place] # (Auto) (0.30-0.82) K/mm3 Eos # (Auto) (0.04-0.54) K/mm3 Baso # (Auto) (0.01-0.08) K/mm3 Sodium (136-145) mEq/L Potassium (3.5-5.1) mEq/L Chloride (98-107) mEq/L Carbon Dioxide (21-32) mEq/L Anion Gap (5-15) BUN (7-18) mg/dL Creatinine (0.7-1.3) mg/dL Est Cr Clr Drug Dosing mL/min Estimated GFR (MDRD) (>60) mL/min BUN/Creatinine Ratio (14-18) Glucose (83-115) mg/dL POC Glucose 226 H 232 H (83-110) mg/dL Calcium (8.5-10.1) mg/dL Phosphorus (2.6-4.7) mg/dL Magnesium (1.8-2.4) mg/dl Iron (65-175) ug/dL Ferritin (26-388) ng/ml Triglycerides (<150) mg/dL Cholesterol (<200) mg/dL LDL Cholesterol Direct (<100) mg/dL HDL Cholesterol (40-59) mg/dL Free T4 1.00 (0.76-1.46) ng/dL TSH 3rd Generation 0.099 L (0.358-3.74) uIU/mL 11/24/18 11/24/18 11/25/18 Range/Units 17:29 20:35 06:23 WBC (4.23-9.07) K/mm3 RBC (4.63-6.08) M/mm3 Hgb (13.7-17.5) gm/dl Hct (40.1-51.0) % MCV (79.0-92.2) fl MCH (25.7-32.2) pg MCHC (32.2-35.5) g/dl RDW Std Deviation (35.1-43.9) fL Plt Count (163-337) K/mm3 MPV (9.4-12.3) fl Neut % (Auto) (34.0-67.9) % Lymph % (Auto) (21.8-53.1) % [place] % (Auto) (5.3-12.2) % Eos % (Auto) (0.8-7.0) Baso % (Auto) (0.1-1.2) % Neut # (Auto) (1.78-5.38) K/mm3 Lymph # (Auto) (1.32-3.57) K/mm3 [place] # (Auto) (0.30-0.82) K/mm3 Eos # (Auto) (0.04-0.54) K/mm3 Baso # (Auto) (0.01-0.08) K/mm3 Sodium 140 (136-145) mEq/L Potassium 5.1 (3.5-5.1) mEq/L Chloride 105 (98-107) mEq/L Carbon Dioxide 31 (21-32) mEq/L Anion Gap 9.1 (5-15) BUN 26 H (7-18) mg/dL Creatinine 1.4 H (0.7-1.3) mg/dL Est Cr Clr Drug Dosing 44.59 mL/min Estimated GFR (MDRD) 50 (>60) mL/min BUN/Creatinine Ratio 18.6 H (14-18) Glucose 423 H 144 H (83-115) mg/dL POC Glucose 391 H (83-110) mg/dL Calcium 9.1 (8.5-10.1) mg/dL Phosphorus 4.1 (2.6-4.7) mg/dL Magnesium 1.8 (1.8-2.4) mg/dl Iron (65-175) ug/dL Ferritin (26-388) ng/ml Triglycerides 61 (<150) mg/dL Cholesterol 139 (<200) mg/dL LDL Cholesterol Direct 55 (<100) mg/dL HDL Cholesterol 66.0 H (40-59) mg/dL Free T4 (0.76-1.46) ng/dL TSH 3rd Generation (0.358-3.74) uIU/mL 11/25/18 11/25/18 11/25/18 Range/Units 06:23 06:23 06:56 WBC 5.45 (4.23-9.07) K/mm3 RBC 3.46 L (4.63-6.08) M/mm3 Hgb 9.7 L (13.7-17.5) gm/dl Hct 31.1 L (40.1-51.0) % MCV 89.9 (79.0-92.2) fl MCH 28.0 (25.7-32.2) pg MCHC 31.2 L (32.2-35.5) g/dl RDW Std Deviation 41.8 (35.1-43.9) fL Plt Count 259 (163-337) K/mm3 MPV 9.1 L (9.4-12.3) fl Neut % (Auto) 56.5 (34.0-67.9) % Lymph % (Auto) 24.0 (21.8-53.1) % [place] % (Auto) 10.6 (5.3-12.2) % Eos % (Auto) 7.9 H (0.8-7.0) Baso % (Auto) 0.6 (0.1-1.2) % Neut # (Auto) 3.08 (1.78-5.38) K/mm3 Lymph # (Auto) 1.31 L (1.32-3.57) K/mm3 [place] # (Auto) 0.58 (0.30-0.82) K/mm3 Eos # (Auto) 0.43 (0.04-0.54) K/mm3 Baso # (Auto) 0.03 (0.01-0.08) K/mm3 Sodium (136-145) mEq/L Potassium (3.5-5.1) mEq/L Chloride (98-107) mEq/L Carbon Dioxide (21-32) mEq/L Anion Gap (5-15) BUN (7-18) mg/dL Creatinine (0.7-1.3) mg/dL Est Cr Clr Drug Dosing mL/min Estimated GFR (MDRD) (>60) mL/min BUN/Creatinine Ratio (14-18) Glucose (83-115) mg/dL POC Glucose 148 H (83-110) mg/dL Calcium (8.5-10.1) mg/dL Phosphorus (2.6-4.7) mg/dL Magnesium (1.8-2.4) mg/dl Iron 27 L (65-175) ug/dL Ferritin 144 (26-388) ng/ml Triglycerides (<150) mg/dL Cholesterol (<200) mg/dL LDL Cholesterol Direct (<100) mg/dL HDL Cholesterol (40-59) mg/dL Free T4 (0.76-1.46) ng/dL TSH 3rd Generation (0.358-3.74) uIU/mL Med Orders - Current: Current Medications Hydrocodone Bitart/Acetaminophen ([place] 325-10 Mg) 1 tab PO Q4H PRN PRN Reason: Pain Last Admin: 11/25/18 07:24 Dose: 1 tab Aspirin (Halfprin) 81 mg PO DAILY KARMEN Last Admin: 11/24/18 10:28 Dose: 81 mg Citalopram Hydrobromide (Celexa) 20 mg PO DAILY [facility] Last Admin: 11/24/18 10:30 Dose: 20 mg Dextrose/Water (Dextrose 50% In Water) 50 ml IVPUSH ASDIRECTED PRN PRN Reason: Hypoglycemia Famotidine (Pepcid) 20 mg PO BEDTIME [facility] Last Admin: 11/24/18 20:31 Dose: 20 mg Fentanyl (Duragesic) 75 mcg TRDERM Q72H KARMEN Last Admin: 11/24/18 15:58 Dose: 75 mcg Gabapentin (Neurontin) 300 mg PO TID [facility] Last Admin: 11/24/18 20:32 Dose: 300 mg Insulin Glargine (Lantus) 15 unit SUBCUT BEDTIME KARMEN Insulin Human Lispro (Humalog) 0 unit SUBCUT QIDACANDBED [facility]; Protocol Last Admin: 11/25/18 06:58 Dose: Not Given Levothyroxine Sodium (Levothyroxine) 25 mcg PO ACBREAKFAST [facility] Last Admin: 11/25/18 05:02 Dose: 25 mcg Lisinopril (Prinivil) 2.5 mg PO DAILY [facility] Last Admin: 11/24/18 10:28 Dose: 2.5 mg Miscellaneous Information (Remove Patch) 1 ea TRDERM Q72H [facility] Last Admin: 11/24/18 09:00 Dose: 1 ea Polyethylene Glycol (Miralax) 17 gm PO DAILY PRN PRN Reason: Constipation Simvastatin (Zocor) 20 mg PO BEDTIME [facility] Last Admin: 11/24/18 20:32 Dose: 20 mg Sumatriptan Succinate (Imitrex) 100 mg PO Q2H PRN PRN Reason: Headache Discontinued Medications Sodium Chloride (Normal Saline) 1,000 mls @ 150 mls/hr IV ASDIRECTED [facility] Last Admin: 11/23/18 14:59 Dose: 150 mls/hr Insulin Glargine (Lantus) 10 unit SUBCUT BEDTIME [facility] Last Admin: 11/24/18 21:15 Dose: Not Given Insulin Glargine (Lantus) 15 unit SUBCUT ONETIME ONE Stop: 11/24/18 21:20 Last Admin: 11/24/18 21:39 Dose: 15 units Levothyroxine Sodium (Synthroid) 150 mcg PO ACBREAKFAST KARMEN Stop: 11/24/18 06:01 Last Admin: 11/24/18 08:31 Dose: Not Given Levothyroxine Sodium (Synthroid) 150 mcg PO ACBREAKFAST [facility] Last Admin: 11/24/18 12:18 Dose: Not Given Levothyroxine Sodium (Levothyroxine) 75 mcg PO ACBREAKFAST [facility] Non-Formulary Medication (Ranitidine) 150 mg PO BEDTIME [facility] Last Admin: 11/24/18 08:29 Dose: Not Given - Problem List & Annotations (1) Labile blood glucose SNOMED Code(s): 923716189 Code(s): R73.09 - OTHER ABNORMAL GLUCOSE Status: Acute Current Visit: Yes (2) Uncontrolled diabetes mellitus SNOMED Code(s): 22180854, 264914213 Code(s): E11.65 - TYPE 2 DIABETES MELLITUS WITH HYPERGLYCEMIA Status: Acute Current Visit: Yes (3) Chronic kidney disease (CKD) stage G3b/A1, moderately decreased glomerular filtration rate (GFR) between 30-44 mL/min/1.73 square meter and albuminuria creatinine ratio less than 30 mg/g SNOMED Code(s): 129508704, 529185333 Code(s): N18.3 - CHRONIC KIDNEY DISEASE, STAGE 3 (MODERATE) Status: Acute Current Visit: Yes (4) Altered mental status SNOMED Code(s): 692129994 Code(s): R41.82 - ALTERED MENTAL STATUS, UNSPECIFIED Status: Acute Current Visit: Yes (5) Hyperkalemia SNOMED Code(s): 44777562 Code(s): E87.5 - HYPERKALEMIA Status: Acute Current Visit: Yes (6) Hypoglycemia SNOMED Code(s): 875052010 Code(s): E16.2 - HYPOGLYCEMIA, UNSPECIFIED Status: Acute Current Visit: Yes (7) Anemia SNOMED Code(s): 291603476 Code(s): D64.9 - ANEMIA, UNSPECIFIED Status: Acute Priority: Medium Current Visit: No Qualifiers: Anemia type: due to chronic kidney disease Chronic kidney disease stage: stage 3 (moderate) Qualified Code(s): N18.3 - Chronic kidney disease, stage 3 (moderate); D63.1 - Anemia in chronic kidney disease (8) Low back pain SNOMED Code(s): 544651926 Code(s): M54.5 - LOW BACK PAIN Status: Chronic Current Visit: No (9) Obstructive sleep apnea SNOMED Code(s): 93726939 Code(s): G47.33 - OBSTRUCTIVE SLEEP APNEA (ADULT) (PEDIATRIC) Status: Chronic Current Visit: No - My Orders Last 24 Hours: My Active Orders 11/24/18 09:00 Aspirin [Halfprin] 81 mg PO DAILY Citalopram [Celexa] 20 mg PO DAILY Lisinopril [Prinivil] 2.5 mg PO DAILY Remove Patch 1 ea TRDERM Q72H fentaNYL [Duragesic] 75 mcg TRDERM Q72H 11/24/18 12:03 Antiembolic Devices [RC] PER UNIT ROUTINE Up ad Maisha [RC] ASDIRECTED AYDIN Hose [Antiembolic Hose] [OM.PC] Routine 11/25/18 06:00 Levothyroxine 25 mcg PO ACBREAKFAST 11/25/18 21:00 Insulin Glarg,Human.Rec.Analog [LantUS] 15 unit SUBCUT BEDTIME - Plan Plan:: Labile blood glucose in the setting of uncontrolled DM, [id number]% PLAN - Accuchecks before meals and bedtime - 6 meals a day ( 3 meals and 3 snacks) - 10u glargine every night - Low sensitivity sliding scale - Hypoglycemia protocol with D50 and juice Altered mental status Patient appears very confused with normal BG PLAN - Let me sleep protocol - UA with microscopy - Avoid central acting medications as much as possible - Hyperkalemia PLAN - Repeat k level in am - Kayaxelate x 1 dose Anemia PLAN - Iron panel ordered - Vitamin b12 level ordered - Folic acid level ordered Leukocytosis PLAN - UA with microscopy - Monitor for fever and obtain blood cultures if he does spike one Chronic kidney disease, Stage 3B (GFR-35) PLAN - Monitor urine output - Keep balance as negative as possible - REnally dosed medications - REpeat BMP with electrolytes every morning and replace as needed Chronic pain PLAN - Continue fentanyl patch Poor social support with low health literacy PROPHYLAXIS DVT-Lovenox GI-continue home med CODE STATUS: DNR/DNI (as per previous visit) DISPOSITION: Patient will be admitted to adjust insulin regimen under monitorization.
[2018-11-25] MEDS: Lisinopril 2.5 MG Tab PO SCH (09:09)
[2018-11-25] MEDS: Citalopram 20 MG Tab PO SCH (09:10)
[2018-11-25] MEDS: Gabapentin 300 MG Cap PO SCH ×3 (09:10→21:59)
[2018-11-25] MEDS: Aspirin 81 MG Tab.EC PO SCH (09:10)
[2018-11-25] MEDS: Insulin Glarg,Human.Rec.Analog 100 UNIT/ML ML SUBCUT SCH (21:56)
[2018-11-25] MEDS: Famotidine 20 MG Tab PO SCH (21:59)
[2018-11-25] MEDS: Simvastatin 20 MG Tab PO SCH (21:59)
[2018-11-26] MEDS: Acetaminophen/HYDROcodone 325-10 MG Tab PO PRN ×2 (06:35→21:18)
[2018-11-26] MEDS: Levothyroxine 25 MCG Tab PO SCH (06:36)
[2018-11-26] MEDS: Insulin Lispro 100 Units/ML 3 ML Vial SUBCUT SCH ×6 (07:49→21:21)
[2018-11-26] MEDS: Lisinopril 2.5 MG Tab PO SCH (09:04)
[2018-11-26] MEDS: Gabapentin 300 MG Cap PO SCH ×3 (09:05→21:17)
[2018-11-26] MEDS: Aspirin 81 MG Tab.EC PO SCH (09:05)
[2018-11-26] MEDS: Citalopram 20 MG Tab PO SCH (09:05)
--- NOTE | 2018-11-26 09:52 | PCM.PN ---
- General Info Date of Service: 11/26/18 Admission Dx/Problem (Free Text): Admission Diagnosis/Problem Admission Diagnosis/Problem Diabetic complication Subjective Update: Jaci was pretty adamant that he was going to be discharged today. His blood sugars were low this AM and then increased to over 400 this afternoon. Plan was to discharge but unfortunately due to this variability that was put on hold. After being told that we were no longer recommending discharge Jaci became pretty upset and threatened to leave AM. After much discussion Jaci agreed to give us another day. 5 units Lanus were ordered immediately. Will leave current dosing as is and increase frequency of bedside glucose checks. Home Health Registered Nurse was consulted and will continue to monitor. Otherwise labs remain stable and Jaci denies any symptoms. Functional Status: Reports: Pain Controlled, Tolerating Diet, Ambulating, Urinating. Denies: New Symptoms - Review of Systems General: Reports: No Symptoms. Denies: Fever, Weakness, Fatigue, Malaise, Chills HEENT: Reports: No Symptoms. Denies: Headaches, Sore Throat Pulmonary: Reports: No Symptoms. Denies: Shortness of Breath, Pleuritic Chest Pain, Cough, Sputum, Wheezing Cardiovascular: Reports: No Symptoms. Denies: Chest Pain, Palpitations, Edema Gastrointestinal: Reports: No Symptoms. Denies: Abdominal Pain, Constipation, Nausea, Vomiting Genitourinary: Reports: No Symptoms. Denies: Pain Musculoskeletal: Reports: No Symptoms Skin: Reports: No Symptoms. Denies: Cyanosis Neurological: Reports: No Symptoms. Denies: Pre-Existing Deficit, Difficulty Walking, Gait Disturbance Psychiatric: Reports: No Symptoms - Patient Data Vitals - Most Recent: Last Vital Signs Temp 98 F 11/26/18 08:54 Pulse 77 11/26/18 08:54 Resp 18 11/26/18 08:54 BP 115/97 H 11/26/18 09:04 Pulse Ox 98 11/26/18 08:54 Weight - Most Recent: 150 lb 14.4 oz I&O - Last 24 Hours: Intake & Output 11/25/18 11/26/18 11/26/18 22:59 06:59 14:59 Intake Total 760 400 Output Total 550 725 300 Balance 210 -325 -300 Lab Results Last 24 Hours: Laboratory Results - last 24 hr 11/25/18 11/25/18 11/25/18 Range/Units 11:39 17:29 21:49 Glucose 402 H (83-115) mg/dL POC Glucose 347 H 359 H (83-110) mg/dL 11/26/18 11/26/18 11/26/18 Range/Units 06:30 06:59 07:43 Glucose (83-115) mg/dL POC Glucose 66 L 56 L 92 (83-110) mg/dL Med Orders - Current: Current Medications Hydrocodone Bitart/Acetaminophen ([place] 325-10 Mg) 1 tab PO Q4H PRN PRN Reason: Pain Last Admin: 11/26/18 06:35 Dose: 1 tab Aspirin (Halfprin) 81 mg PO DAILY [facility] Last Admin: 11/26/18 09:05 Dose: 81 mg Citalopram Hydrobromide (Celexa) 20 mg PO DAILY [facility] Last Admin: 11/26/18 09:05 Dose: 20 mg Dextrose/Water (Dextrose 50% In Water) 50 ml IVPUSH ASDIRECTED PRN PRN Reason: Hypoglycemia Famotidine (Pepcid) 20 mg PO BEDTIME [facility] Last Admin: 11/25/18 21:59 Dose: 20 mg Fentanyl (Duragesic) 75 mcg TRDERM Q72H [facility] Last Admin: 11/24/18 15:58 Dose: 75 mcg Gabapentin (Neurontin) 300 mg PO TID [facility] Last Admin: 11/26/18 09:05 Dose: 300 mg Insulin Glargine (Lantus) 15 unit SUBCUT BEDTIME [facility] Last Admin: 11/25/18 21:56 Dose: 15 units Insulin Human Lispro (Humalog) 0 unit SUBCUT QIDACANDBED [facility]; Protocol Last Admin: 11/26/18 07:49 Dose: Not Given Insulin Human Lispro (Humalog) 2 unit SUBCUT TIDAC [facility] Last Admin: 11/25/18 18:26 Dose: 2 units Levothyroxine Sodium (Levothyroxine) 25 mcg PO ACBREAKFAST [facility] Last Admin: 11/26/18 06:36 Dose: 25 mcg Lisinopril (Prinivil) 2.5 mg PO DAILY [facility] Last Admin: 11/26/18 09:04 Dose: 2.5 mg Miscellaneous Information (Remove Patch) 1 ea TRDERM Q72H [facility] Last Admin: 11/24/18 09:00 Dose: 1 ea Polyethylene Glycol (Miralax) 17 gm PO DAILY PRN PRN Reason: Constipation Simvastatin (Zocor) 20 mg PO BEDTIME [facility] Last Admin: 11/25/18 21:59 Dose: 20 mg Sumatriptan Succinate (Imitrex) 100 mg PO Q2H PRN PRN Reason: Headache Last Admin: 11/26/18 09:02 Dose: 100 mg Discontinued Medications Sodium Chloride (Normal Saline) 1,000 mls @ 150 mls/hr IV ASDIRECTED [facility] Last Admin: 11/23/18 14:59 Dose: 150 mls/hr Insulin Glargine (Lantus) 10 unit SUBCUT BEDTIME [facility] Last Admin: 11/24/18 21:15 Dose: Not Given Insulin Glargine (Lantus) 15 unit SUBCUT ONETIME ONE Stop: 11/24/18 21:20 Last Admin: 11/24/18 21:39 Dose: 15 units Levothyroxine Sodium (Synthroid) 150 mcg PO ACBREAKFAST KARMEN Stop: 11/24/18 06:01 Last Admin: 11/24/18 08:31 Dose: Not Given Levothyroxine Sodium (Synthroid) 150 mcg PO ACBREAKFAST [facility] Last Admin: 11/24/18 12:18 Dose: Not Given Levothyroxine Sodium (Levothyroxine) 75 mcg PO ACBREAKFAST [facility] Non-Formulary Medication (Ranitidine) 150 mg PO BEDTIME [facility] Last Admin: 11/24/18 08:29 Dose: Not Given - Exam Quality Assessment: DVT Prophylaxis General: Alert, Oriented, Cooperative, No Acute Distress HEENT: Pupils Equal, Pupils Reactive, EOMI, Mucous Membr. Moist/[place] Neck: Supple, Trachea Midline, No JVD Lungs: Clear to Auscultation, Normal Respiratory Effort Cardiovascular: Regular Rate, Regular Rhythm GI/Abdominal Exam: Normal Bowel Sounds, Soft, Non-Tender, No Organomegaly, No Distention, No Abnormal Bruit, No Mass (Male) Exam: Deferred Back Exam: Normal Inspection, Full Range of Motion Extremities: Normal Inspection, Normal Range of Motion, Non-Tender, No Pedal Edema, Normal Capillary Refill Peripheral Pulses: 2+: Radial (L), Radial (R), Dorsalis Pedis (L), Dorsalis Pedis (R) Skin: Warm, Dry, Intact Neurological: No New Focal Deficit Psy/Mental Status: Alert, Normal Affect, Normal Mood - Problem List & Annotations (1) Chronic kidney disease (CKD) stage G3b/A1, moderately decreased glomerular filtration rate (GFR) between 30-44 mL/min/1.73 square meter and albuminuria creatinine ratio less than 30 mg/g SNOMED Code(s): 690090387, 680450134 Code(s): N18.3 - CHRONIC KIDNEY DISEASE, STAGE 3 (MODERATE) Status: Acute Priority: High Current Visit: Yes (2) Labile blood glucose SNOMED Code(s): 531839119 Code(s): R73.09 - OTHER ABNORMAL GLUCOSE Status: Acute Priority: High Current Visit: Yes (3) Uncontrolled diabetes mellitus SNOMED Code(s): 86657774, 342152773 Code(s): E11.65 - TYPE 2 DIABETES MELLITUS WITH HYPERGLYCEMIA Status: Acute Priority: High Current Visit: Yes (4) Congestive heart failure SNOMED Code(s): 85653270 Code(s): I50.9 - HEART FAILURE, UNSPECIFIED Status: Acute Current Visit: No Qualifiers: Heart failure type: unspecified Heart failure chronicity: chronic Qualified Code(s): I50.9 - Heart failure, unspecified - Problem List Review Problem List Initiated/Reviewed/Updated: Yes - Plan Plan:: Labile blood glucose in the setting of uncontrolled DM, CsO6e-68% PLAN - Accuchecks before meals and bedtime -> Change to Q3Hr for now - 6 meals a day ( 3 meals and 3 snacks) - 15u glargine every night - Low sensitivity sliding scale - Hypoglycemia protocol with D50 and juice Altered mental status, improved Patient appears very confused with normal BG PLAN - Let me sleep protocol - UA with microscopy - Avoid central acting medications as much as possible - Hyperkalemia, resolved PLAN - Repeat k level in am - Kayaxelate x 1 dose Anemia PLAN - Iron panel ordered -> low Iron - Iron infusion - Vitamin b12 level ordered - Folic acid level ordered Leukocytosis PLAN - UA with microscopy -> negative - Monitor for fever and obtain blood cultures if he does spike one - Likely from Chronic kidney disease, Stage 3B (GFR-35) PLAN - Monitor urine output - Keep balance as negative as possible - Renally dosed medications - Repeat BMP with electrolytes every morning and replace as needed Chronic pain PLAN - Continue fentanyl patch Poor social support with low health literacy PROPHYLAXIS DVT-Lovenox GI-continue home med CODE STATUS: DNR/DNI (as per previous visit) DISPOSITION: Patient will be admitted to adjust insulin regimen under monitorization.
[2018-11-26] MEDS ORDERED: Insulin Glarg,Human.Rec.Analog 100 UNIT/ML ML SUBCUT SCH (16:00)
[2018-11-26] MEDS: Insulin Glarg,Human.Rec.Analog 100 UNIT/ML ML SUBCUT SCH (20:56)
[2018-11-26] MEDS ORDERED: Insulin Glarg,Human.Rec.Analog 100 UNIT/ML ML SUBCUT ONE (21:00)
[2018-11-26] MEDS: Famotidine 20 MG Tab PO SCH (21:17)
[2018-11-26] MEDS: Simvastatin 20 MG Tab PO SCH (21:19)
[2018-11-27] MEDS ORDERED: Magnesium Sulfate/Water 2 GM in Premix Bag 1 BAG IV ONE (07:30)
[2018-11-27] MEDS: Lisinopril 2.5 MG Tab PO SCH (08:39)
[2018-11-27] MEDS: Aspirin 81 MG Tab.EC PO SCH (08:39)
[2018-11-27] MEDS: Gabapentin 300 MG Cap PO SCH ×2 (08:40→14:33)
[2018-11-27] MEDS: Levothyroxine 25 MCG Tab PO SCH (08:41)
[2018-11-27] MEDS: Citalopram 20 MG Tab PO SCH (08:41)
[2018-11-27] MEDS: fentaNYL 75 MCG/HR Transdermal Patch TRDERM SCH (08:42)
[2018-11-27] MEDS: Insulin Lispro 100 Units/ML 3 ML Vial SUBCUT SCH ×4 (08:46→13:02)
[2018-11-27] MEDS ORDERED: Insulin Glarg,Human.Rec.Analog 100 UNIT/ML ML SUBCUT SCH (09:00)
--- NOTE | 2018-11-27 11:47 | PCM.DCSUM1 ---
<Chip Patel - Last Filed: 11/27/18 15:55> Discharge Summary - Hospital Course HPI Initial Comments: Jaci was admitted to the floor after being sent here from [facility] in [place] due to extreme fluctuations in blood sugars. Patient was hospitalized several times in the past month with his most recent admission being 2 weeks prior. He is insulin-dependent diabetic with readings in the upper 40s in the morning. He 's also had a couple readings in the 500 range. Primary care provider requested the patient be admitted to attempt to obtain better glucose control. He carries a history of HLD, hypertension, sleep apnea but refuses to use his CPAP, GERD, BPH, stress incontinence, osteoarthritis, diabetic neuropathy, addiction, depression, insomnia, type II DM, hypothyroidism. He reports chronic back pain with a history of 6 prior back surgeries. shelter notes also reports patient has been more confused as of late and does have a baseline confusion. His PCP is Dr. montero. He is subsequently admitted to the floor as a DNR/ DNI. Diagnosis: Stroke: No - Discharge Data Discharge Date: 11/27/18 (Admit date: 11/23/18) Discharge Disposition: DC/Tfer to SNF 03 Condition: Good - Referral to Home Health Primary Care Physician: Mark Rivas MD - Discharge Diagnosis/Problem(s) (1) Chronic kidney disease (CKD) stage G3b/A1, moderately decreased glomerular filtration rate (GFR) between 30-44 mL/min/1.73 square meter and albuminuria creatinine ratio less than 30 mg/g SNOMED Code(s): 884962940, 446430265 ICD Code: N18.3 - CHRONIC KIDNEY DISEASE, STAGE 3 (MODERATE) Status: Acute Priority: High (2) Labile blood glucose SNOMED Code(s): 847297705 ICD Code: R73.09 - OTHER ABNORMAL GLUCOSE Status: Acute Priority: High (3) Uncontrolled diabetes mellitus SNOMED Code(s): 07816699, 583888565 ICD Code: E11.65 - TYPE 2 DIABETES MELLITUS WITH HYPERGLYCEMIA Status: Acute Priority: High (4) Congestive heart failure SNOMED Code(s): 62741811 ICD Code: I50.9 - HEART FAILURE, UNSPECIFIED Status: Acute Qualifiers: Heart failure type: unspecified Heart failure chronicity: chronic Qualified Code(s): I50.9 - Heart failure, unspecified (5) Anemia SNOMED Code(s): 700513198 ICD Code: D64.9 - ANEMIA, UNSPECIFIED Status: Acute Priority: High Qualifiers: Chronic kidney disease stage: stage 3 (moderate) (6) Iron deficiency anemia SNOMED Code(s): 60323304 ICD Code: D50.9 - IRON DEFICIENCY ANEMIA, UNSPECIFIED Status: Acute Priority: High Qualifiers: Iron deficiency anemia type: unspecified iron deficiency Qualified Code(s) : D50.9 - Iron deficiency anemia, unspecified (7) Hyperkalemia SNOMED Code(s): 96218095 ICD Code: E87.5 - HYPERKALEMIA Status: Acute Priority: High (8) Hypomagnesemia SNOMED Code(s): 788514314 ICD Code: E83.42 - HYPOMAGNESEMIA Status: Acute Priority: High - Patient Summary/Data Consults: Consultations 11/23/18 20:35 Consult to Case Management/Technical Sales Manager [CONS] Routine Consult to Diabetic Nurse Specialist [CONS] Routine Consult to Geoscience Technician [CONS] Routine Labs Pending at D/C: None Recommended Follow-up Testing/Procedures: Follow-up with PCP within 5-7 days of discharge, sooner if needed. Hospital Course: Jaci was admitted to the floor for management of his very difficult diabetes. Per reports patient's primary care provider have been attempting to change the patient's insulin dosing to better accommodate these fluctuations but had failed. He was noted also rapidly change from highs to lows and vice versa. His diet was very poor with poor diabetic diet choices. He also regularly snacks. Our attention did see the patient however she notes after much education he was unable to repeat back to her what good diet choices would be and he was also observed multiple times ordering things that he shouldn't be from the kitchen. Patient was noted to be quite confused at times, reporting that he lives in [place] and also that he is heading to [place] shortly to be with his fiance. Per nursing the patient lives at [facility] and there are no plans for him to leave there anytime soon. While attempting to stabilize his sugars patient became quite upset and was demanding discharge on 11/26/18. We were able to talk him into staying but he reported he would only stay 1 more day and was adamant about being discharged today. Unfortunately we were unable to dilate and his medications exactly, but he did become slightly more stabilized. His insulin was changed prior to discharge by Dr. Rowland and he will be given Lantus 10 units twice a day. He should also receive 2 units of short acting insulin with breakfast, his a.m. snack, lunch, and his p.m. snack. Blood sugar should be checked with each meal, before bed, and with each snack. He was noted to be anemic and his iron panel was obtained showing low iron at 27. B12 and folate were normal. He was given an iron infusion prior to discharge as well. Potassium has been high while here and his home potassium supplement was discontinued. His sliding scale insulin was discontinued although if he is noted to have several episodes over 300 this should be re-added by his primary care provider. His TSH was noted to be low with a normal T4 and Dr. Rowland changed his levothyroxine dose from 150 g down to 25 g daily with breakfast. Prior to discharge our dietitian did contact [facility] to discuss recommendations with their dietitian. He would likely benefit from close following by a certified lactation educator. He should follow- up with his primary care provider within 5-7 days of discharge. recommend rechecking a BMP and magnesium at that time. shelter should closely monitor by mouth intake and blood sugars as noted. Should symptoms return or worsen he should follow up with his primary care provider or return to the emergency room. He was discharged back to [facility] with [facility] today. - Patient Instructions Diet: Diabetic Diet (Consistent carbohydrate ) Diet, Other: Meals/snacks per archeology professor recommendation. Activity: As Tolerated Driving: Do Not Drive Showering/Bathing: May Shower Notify Provider of: Fever, Increased Pain, Nausea and/or Vomiting Other/Special Instructions: Follow-up with primary care provider within 5-7 days of discharge. Follow archeology professor directions for meals/snacks. Check blood sugars QID AC and Bedtime. Blood sugars should also be checked with snacks. Check PRN as needed as well. Changes were made for insulin dosing. This includes long and short acting insulin. Follow prescription closely. Should symtpoms return or worsen contact primary care provider or return to the Emergency Department. - Discharge Plan *PRESCRIPTION DRUG MONITORING PROGRAM REVIEWED*: No *COPY OF PRESCRIPTION DRUG MONITORING REPORT IN PATIENT JHONY: No Prescriptions/Med Rec: Insulin Glarg,Human.Rec.Analog [Lantus] 10 unit SUBCUT BID #14 ml Insulin Lispro [HumaLOG] 2 unit SQ ASDIRECTED #14 ml Levothyroxine 25 mcg PO ACBREAKFAST #20 tablet Home Medications: Home Meds Polyethylene Glycol 3350 [MiraLAX] 17 gm PO DAILY PRN 08/07/18 [History] fentaNYL [Fentanyl] 75 mcg TRDERM ASDIRECTED 08/07/18 [History] Gabapentin [Neurontin] 300 mg PO TID 10/14/18 [History] atorvaSTATin [Lipitor] 20 mg PO BEDTIME 10/14/18 [History] Aspirin [Halfprin] 81 mg PO DAILY 10/30/18 [History] Citalopram [Citalopram HBr] 20 mg PO DAILY 10/30/18 [History] Hydrocodone/Acetaminophen [Hydrocodon-Acetaminophn 10-325] 1 tab PO Q4H PRN [History] Lisinopril 2.5 mg PO DAILY 10/30/18 [History] Ranitidine [Zantac] 150 mg PO BEDTIME 10/30/18 [History] SUMAtriptan Succinate [Imitrex] 100 mg PO Q2H PRN 10/30/18 [History] diphenhydrAMINE [Benadryl] 25 mg PO BEDTIME PRN 10/30/18 [History] Calcium Carbonate/Vitamin D3 [Calcium 600 + Vit D 200] 1 tab PO DAILY 11/23/18 [ History] Glucagon [Gvoke Syringe] 1 mg IM ASDIRECTED PRN 11/23/18 [History] Insulin Glarg,Human.Rec.Analog [Lantus] 10 unit SUBCUT BID #14 ml 11/27/18 [Rx] Insulin Lispro [HumaLOG] 2 unit SQ ASDIRECTED #14 ml 11/27/18 [Rx] Levothyroxine 25 mcg PO ACBREAKFAST #20 tablet 11/27/18 [Rx] Oxygen Therapy Mode: Room Air Referrals: Mark Rivas MD [Primary Care Provider] - 12/05/18 4:30 pm (Please check in at 4:15pm.) - Discharge Summary/Plan Comment DC Time >30 min.: Yes (50 minute) - General Info Date of Service: 11/27/18 Admission Dx/Problem (Free Text: Admission Diagnosis/Problem Admission Diagnosis/Problem Diabetic complication Functional Status: Reports: Pain Controlled, Tolerating Diet, Ambulating, Urinating. Denies: New Symptoms - Review of Systems General: Reports: No Symptoms. Denies: Fever, Weakness, Fatigue, Malaise, Chills HEENT: Reports: No Symptoms. Denies: Headaches, Sore Throat Pulmonary: Reports: No Symptoms. Denies: Shortness of Breath, Pleuritic Chest Pain, Cough, Wheezing Cardiovascular: Reports: No Symptoms. Denies: Chest Pain, Palpitations, Dyspnea on Exertion, Edema Gastrointestinal: Reports: No Symptoms. Denies: Abdominal Pain, Constipation, Diarrhea, Nausea, Vomiting Genitourinary: Reports: No Symptoms. Denies: Pain Musculoskeletal: Reports: No Symptoms Skin: Reports: No Symptoms Neurological: Reports: Confusion. Denies: Trouble Speaking, Difficulty Walking , Gait Disturbance Psychiatric: Reports: No Symptoms - Patient Data Vitals - Most Recent: Last Vital Signs Temp 96.8 F 11/27/18 03:35 Pulse 61 11/27/18 03:35 Resp 16 11/27/18 03:35 BP 132/70 11/27/18 08:39 Pulse Ox 99 11/27/18 03:35 Weight - Most Recent: 69.354 kg I&O - Last 24 hours: Intake & Output 11/26/18 11/27/18 11/27/18 22:59 06:59 14:59 Intake Total 1100 100 240 Output Total 200 Balance 900 100 240 Lab Results - Last 24 hrs: Laboratory Results - last 24 hr 11/26/18 11/26/18 11/26/18 Range/Units 11:30 14:14 16:08 WBC (4.23-9.07) K/mm3 RBC (4.63-6.08) M/mm3 Hgb (13.7-17.5) gm/dl Hct (40.1-51.0) % MCV (79.0-92.2) fl MCH (25.7-32.2) pg MCHC (32.2-35.5) g/dl RDW Std Deviation (35.1-43.9) fL Plt Count (163-337) K/mm3 MPV (9.4-12.3) fl Neut % (Auto) (34.0-67.9) % Lymph % (Auto) (21.8-53.1) % [place] % (Auto) (5.3-12.2) % Eos % (Auto) (0.8-7.0) Baso % (Auto) (0.1-1.2) % Neut # (Auto) (1.78-5.38) K/mm3 Lymph # (Auto) (1.32-3.57) K/mm3 [place] # (Auto) (0.30-0.82) K/mm3 Eos # (Auto) (0.04-0.54) K/mm3 Baso # (Auto) (0.01-0.08) K/mm3 Sodium (136-145) mEq/L Potassium (3.5-5.1) mEq/L Chloride (98-107) mEq/L Carbon Dioxide (21-32) mEq/L Anion Gap (5-15) BUN (7-18) mg/dL Creatinine (0.7-1.3) mg/dL Est Cr Clr Drug Dosing mL/min Estimated GFR (MDRD) (>60) mL/min BUN/Creatinine Ratio (14-18) Glucose 424 H (83-115) mg/dL POC Glucose 350 H 240 H (83-110) mg/dL Calcium (8.5-10.1) mg/dL Phosphorus (2.6-4.7) mg/dL Magnesium (1.8-2.4) mg/dl Total Bilirubin (0.2-1.0) mg/dL AST (15-37) U/L ALT (16-63) U/L Alkaline Phosphatase (46-116) U/L Total Protein (6.4-8.2) g/dl Albumin (3.4-5.0) g/dl Globulin gm/dL Albumin/Globulin Ratio (1-2) Vitamin B12 (193-986) pg/ml Folate (8.6-58.9) ng/mL 11/26/18 11/26/18 11/27/18 Range/Units 18:00 20:43 01:35 WBC (4.23-9.07) K/mm3 RBC (4.63-6.08) M/mm3 Hgb (13.7-17.5) gm/dl Hct (40.1-51.0) % MCV (79.0-92.2) fl MCH (25.7-32.2) pg MCHC (32.2-35.5) g/dl RDW Std Deviation (35.1-43.9) fL Plt Count (163-337) K/mm3 MPV (9.4-12.3) fl Neut % (Auto) (34.0-67.9) % Lymph % (Auto) (21.8-53.1) % [place] % (Auto) (5.3-12.2) % Eos % (Auto) (0.8-7.0) Baso % (Auto) (0.1-1.2) % Neut # (Auto) (1.78-5.38) K/mm3 Lymph # (Auto) (1.32-3.57) K/mm3 [place] # (Auto) (0.30-0.82) K/mm3 Eos # (Auto) (0.04-0.54) K/mm3 Baso # (Auto) (0.01-0.08) K/mm3 Sodium (136-145) mEq/L Potassium (3.5-5.1) mEq/L Chloride (98-107) mEq/L Carbon Dioxide (21-32) mEq/L Anion Gap (5-15) BUN (7-18) mg/dL Creatinine (0.7-1.3) mg/dL Est Cr Clr Drug Dosing mL/min Estimated GFR (MDRD) (>60) mL/min BUN/Creatinine Ratio (14-18) Glucose (83-115) mg/dL POC Glucose 181 H 303 H 265 H (83-110) mg/dL Calcium (8.5-10.1) mg/dL Phosphorus (2.6-4.7) mg/dL Magnesium (1.8-2.4) mg/dl Total Bilirubin (0.2-1.0) mg/dL AST (15-37) U/L ALT (16-63) U/L Alkaline Phosphatase (46-116) U/L Total Protein (6.4-8.2) g/dl Albumin (3.4-5.0) g/dl Globulin gm/dL Albumin/Globulin Ratio (1-2) Vitamin B12 (193-986) pg/ml Folate (8.6-58.9) ng/mL 11/27/18 11/27/18 11/27/18 Range/Units 02:55 05:38 05:38 WBC 4.61 (4.23-9.07) K/mm3 RBC 3.56 L (4.63-6.08) M/mm3 Hgb 9.9 L (13.7-17.5) gm/dl Hct 31.6 L (40.1-51.0) % MCV 88.8 (79.0-92.2) fl MCH 27.8 (25.7-32.2) pg MCHC 31.3 L (32.2-35.5) g/dl RDW Std Deviation 40.3 (35.1-43.9) fL Plt Count 287 (163-337) K/mm3 MPV 9.0 L (9.4-12.3) fl Neut % (Auto) 51.0 (34.0-67.9) % Lymph % (Auto) 26.9 (21.8-53.1) % [place] % (Auto) 13.4 H (5.3-12.2) % Eos % (Auto) 7.4 H (0.8-7.0) Baso % (Auto) 0.4 (0.1-1.2) % Neut # (Auto) 2.35 (1.78-5.38) K/mm3 Lymph # (Auto) 1.24 L (1.32-3.57) K/mm3 [place] # (Auto) 0.62 (0.30-0.82) K/mm3 Eos # (Auto) 0.34 (0.04-0.54) K/mm3 Baso # (Auto) 0.02 (0.01-0.08) K/mm3 Sodium 135 L (136-145) mEq/L Potassium 5.4 H (3.5-5.1) mEq/L Chloride 101 (98-107) mEq/L Carbon Dioxide 31 (21-32) mEq/L Anion Gap 8.4 (5-15) BUN 21 H (7-18) mg/dL Creatinine 1.5 H (0.7-1.3) mg/dL Est Cr Clr Drug Dosing 41.52 mL/min Estimated GFR (MDRD) 46 (>60) mL/min BUN/Creatinine Ratio 14.0 (14-18) Glucose 281 H (83-115) mg/dL POC Glucose 259 H (83-110) mg/dL Calcium 8.8 (8.5-10.1) mg/dL Phosphorus 3.3 (2.6-4.7) mg/dL Magnesium 1.7 L (1.8-2.4) mg/dl Total Bilirubin 0.2 (0.2-1.0) mg/dL AST 98 H (15-37) U/L ALT 128 H (16-63) U/L Alkaline Phosphatase 260 H (46-116) U/L Total Protein 6.6 (6.4-8.2) g/dl Albumin 2.7 L (3.4-5.0) g/dl Globulin 3.9 gm/dL Albumin/Globulin Ratio 0.7 L (1-2) Vitamin B12 (193-986) pg/ml Folate (8.6-58.9) ng/mL 11/27/18 11/27/18 11/27/18 Range/Units 05:38 05:44 08:39 WBC (4.23-9.07) K/mm3 RBC (4.63-6.08) M/mm3 Hgb (13.7-17.5) gm/dl Hct (40.1-51.0) % MCV (79.0-92.2) fl MCH (25.7-32.2) pg MCHC (32.2-35.5) g/dl RDW Std Deviation (35.1-43.9) fL Plt Count (163-337) K/mm3 MPV (9.4-12.3) fl Neut % (Auto) (34.0-67.9) % Lymph % (Auto) (21.8-53.1) % [place] % (Auto) (5.3-12.2) % Eos % (Auto) (0.8-7.0) Baso % (Auto) (0.1-1.2) % Neut # (Auto) (1.78-5.38) K/mm3 Lymph # (Auto) (1.32-3.57) K/mm3 [place] # (Auto) (0.30-0.82) K/mm3 Eos # (Auto) (0.04-0.54) K/mm3 Baso # (Auto) (0.01-0.08) K/mm3 Sodium (136-145) mEq/L Potassium (3.5-5.1) mEq/L Chloride (98-107) mEq/L Carbon Dioxide (21-32) mEq/L Anion Gap (5-15) BUN (7-18) mg/dL Creatinine (0.7-1.3) mg/dL Est Cr Clr Drug Dosing mL/min Estimated GFR (MDRD) (>60) mL/min BUN/Creatinine Ratio (14-18) Glucose (83-115) mg/dL POC Glucose 278 H 296 H (83-110) mg/dL Calcium (8.5-10.1) mg/dL Phosphorus (2.6-4.7) mg/dL Magnesium (1.8-2.4) mg/dl Total Bilirubin (0.2-1.0) mg/dL AST (15-37) U/L ALT (16-63) U/L Alkaline Phosphatase (46-116) U/L Total Protein (6.4-8.2) g/dl Albumin (3.4-5.0) g/dl Globulin gm/dL Albumin/Globulin Ratio (1-2) Vitamin B12 477 (193-986) pg/ml Folate 15.1 (8.6-58.9) ng/mL 11/27/18 Range/Units 10:45 WBC (4.23-9.07) K/mm3 RBC (4.63-6.08) M/mm3 Hgb (13.7-17.5) gm/dl Hct (40.1-51.0) % MCV (79.0-92.2) fl MCH (25.7-32.2) pg MCHC (32.2-35.5) g/dl RDW Std Deviation (35.1-43.9) fL Plt Count (163-337) K/mm3 MPV (9.4-12.3) fl Neut % (Auto) (34.0-67.9) % Lymph % (Auto) (21.8-53.1) % [place] % (Auto) (5.3-12.2) % Eos % (Auto) (0.8-7.0) Baso % (Auto) (0.1-1.2) % Neut # (Auto) (1.78-5.38) K/mm3 Lymph # (Auto) (1.32-3.57) K/mm3 [place] # (Auto) (0.30-0.82) K/mm3 Eos # (Auto) (0.04-0.54) K/mm3 Baso # (Auto) (0.01-0.08) K/mm3 Sodium (136-145) mEq/L Potassium (3.5-5.1) mEq/L Chloride (98-107) mEq/L Carbon Dioxide (21-32) mEq/L Anion Gap (5-15) BUN (7-18) mg/dL Creatinine (0.7-1.3) mg/dL Est Cr Clr Drug Dosing mL/min Estimated GFR (MDRD) (>60) mL/min BUN/Creatinine Ratio (14-18) Glucose (83-115) mg/dL POC Glucose 323 H (83-110) mg/dL Calcium (8.5-10.1) mg/dL Phosphorus (2.6-4.7) mg/dL Magnesium (1.8-2.4) mg/dl Total Bilirubin (0.2-1.0) mg/dL AST (15-37) U/L ALT (16-63) U/L Alkaline Phosphatase (46-116) U/L Total Protein (6.4-8.2) g/dl Albumin (3.4-5.0) g/dl Globulin gm/dL Albumin/Globulin Ratio (1-2) Vitamin B12 (193-986) pg/ml Folate (8.6-58.9) ng/mL Med Orders - Current: Current Medications Hydrocodone Bitart/Acetaminophen ([place] 325-10 Mg) 1 tab PO Q4H PRN PRN Reason: Pain Last Admin: 11/26/18 21:18 Dose: 1 tab Aspirin (Halfprin) 81 mg PO DAILY KARMEN Last Admin: 11/27/18 08:39 Dose: 81 mg Citalopram Hydrobromide (Celexa) 20 mg PO DAILY [facility] Last Admin: 11/27/18 08:41 Dose: 20 mg Dextrose/Water (Dextrose 50% In Water) 50 ml IVPUSH ASDIRECTED PRN PRN Reason: Hypoglycemia Famotidine (Pepcid) 20 mg PO BEDTIME [facility] Last Admin: 11/26/18 21:17 Dose: 20 mg Fentanyl (Duragesic) 75 mcg TRDERM Q72H [facility] Last Admin: 11/27/18 08:42 Dose: 75 mcg Gabapentin (Neurontin) 300 mg PO TID [facility] Last Admin: 11/27/18 08:40 Dose: 300 mg Insulin Glargine (Lantus) 10 unit SUBCUT BID [facility] Last Admin: 11/27/18 08:44 Dose: 10 units Insulin Human Lispro (Humalog) 0 unit SUBCUT QIDACANDBED [facility]; Protocol Last Admin: 11/27/18 08:49 Dose: Not Given Insulin Human Lispro (Humalog) 2 unit SUBCUT TIDAC [facility] Last Admin: 11/27/18 08:46 Dose: 2 units Levothyroxine Sodium (Levothyroxine) 25 mcg PO ACBREAKFAST [facility] Last Admin: 11/27/18 08:41 Dose: 25 mcg Lisinopril (Prinivil) 2.5 mg PO DAILY [facility] Last Admin: 11/27/18 08:39 Dose: 2.5 mg Miscellaneous Information (Remove Patch) 1 ea TRDERM Q72H [facility] Last Admin: 11/27/18 11:06 Dose: 1 ea Polyethylene Glycol (Miralax) 17 gm PO DAILY PRN PRN Reason: Constipation Simvastatin (Zocor) 20 mg PO BEDTIME [facility] Last Admin: 11/26/18 21:19 Dose: 20 mg Sumatriptan Succinate (Imitrex) 100 mg PO Q2H PRN PRN Reason: Headache Last Admin: 11/26/18 09:02 Dose: 100 mg Discontinued Medications Sodium Chloride (Normal Saline) 1,000 mls @ 150 mls/hr IV ASDIRECTED [facility] Last Admin: 11/23/18 14:59 Dose: 150 mls/hr Ferric Sodium Gluconate Complex 250 mg/ Sodium Chloride 120 mls @ 50 mls/hr IV ONETIME STA Stop: 11/26/18 18:35 Last Admin: 11/27/18 08:26 Dose: Not Given Ferric Sodium Gluconate Complex 250 mg/ Sodium Chloride 120 mls @ 60 mls/hr IV ONETIME ONE Stop: 11/27/18 09:59 Last Admin: 11/27/18 11:11 Dose: 60 mls/hr Magnesium Sulfate 2 gm/ Premix 50 mls @ 25 mls/hr IV ONETIME ONE Stop: 11/27/18 09:29 Last Admin: 11/27/18 08:44 Dose: 25 mls/hr Insulin Glargine (Lantus) 10 unit SUBCUT BEDTIME [facility] Last Admin: 11/24/18 21:15 Dose: Not Given Insulin Glargine (Lantus) 15 unit SUBCUT BEDTIME [facility] Last Admin: 11/26/18 20:56 Dose: Not Given Insulin Glargine (Lantus) 15 unit SUBCUT ONETIME ONE Stop: 11/24/18 21:20 Last Admin: 11/24/18 21:39 Dose: 15 units Insulin Glargine (Lantus) 10 unit SUBCUT BIDAC KARMEN Insulin Glargine (Lantus) 10 unit SUBCUT NOW ONE Stop: 11/26/18 21:01 Last Admin: 11/26/18 21:23 Dose: 10 units Levothyroxine Sodium (Synthroid) 150 mcg PO ACBREAKFAST KARMEN Stop: 11/24/18 06:01 Last Admin: 11/24/18 08:31 Dose: Not Given Levothyroxine Sodium (Synthroid) 150 mcg PO ACBREAKFAST [facility]ARM[facility] Last Admin: 11/24/18 12:18 Dose: Not Given Levothyroxine Sodium (Levothyroxine) 75 mcg PO ACBREAKFAST [facility] Non-Formulary Medication (Ranitidine) 150 mg PO BEDTIME [facility] Last Admin: 11/24/18 08:29 Dose: Not Given - Exam Quality Assessment: Reports: DVT Prophylaxis General: Reports: Alert, Oriented, Cooperative, No Acute Distress HEENT: Reports: Pupils Equal, Pupils Reactive, EOMI, Mucous Membr. Moist/[place] Neck: Reports: Supple, Trachea Midline Lungs: Reports: Clear to Auscultation, Normal Respiratory Effort Cardiovascular: Reports: Regular Rate, Regular Rhythm GI/Abdominal Exam: Normal Bowel Sounds, Soft, Non-Tender, No Distention, No Abnormal Bruit (Male) Exam: Deferred Rectal (Males) Exam: Deferred Back Exam: Reports: Normal Inspection, Full Range of Motion Extremities: Normal Inspection, Normal Range of Motion, Non-Tender, No Pedal Edema, Normal Capillary Refill Skin: Reports: Warm, Dry, Intact Neurological: Reports: No New Focal Deficit Psy/Mental Status: Reports: Alert, Normal Affect, Normal Mood <Jana Dutta - Last Filed: 11/30/18 02:51> Discharge Summary - Referral to Home Health Primary Care Physician: Mark Rivas MD - Discharge Diagnosis/Problem(s) (1) Labile blood glucose SNOMED Code(s): 355679032 ICD Code: R73.09 - OTHER ABNORMAL GLUCOSE Status: Acute Priority: High (2) Uncontrolled diabetes mellitus SNOMED Code(s): 35811819, 291976539 ICD Code: E11.65 - TYPE 2 DIABETES MELLITUS WITH HYPERGLYCEMIA Status: Acute Priority: High (3) Chronic kidney disease (CKD) stage G3b/A1, moderately decreased glomerular filtration rate (GFR) between 30-44 mL/min/1.73 square meter and albuminuria creatinine ratio less than 30 mg/g SNOMED Code(s): 814720005, 540860392 ICD Code: N18.3 - CHRONIC KIDNEY DISEASE, STAGE 3 (MODERATE) Status: Acute Priority: High (4) Altered mental status SNOMED Code(s): 001151746 ICD Code: R41.82 - ALTERED MENTAL STATUS, UNSPECIFIED Status: Acute (5) Hyperkalemia SNOMED Code(s): 05927339 ICD Code: E87.5 - HYPERKALEMIA Status: Acute Priority: High (6) Hypoglycemia SNOMED Code(s): 506321089 ICD Code: E16.2 - HYPOGLYCEMIA, UNSPECIFIED Status: Acute (7) Anemia SNOMED Code(s): 344146172 ICD Code: D64.9 - ANEMIA, UNSPECIFIED Status: Acute Priority: High Qualifiers: Chronic kidney disease stage: stage 3 (moderate) (8) Low back pain SNOMED Code(s): 621728086 ICD Code: M54.5 - LOW BACK PAIN Status: Chronic (9) Obstructive sleep apnea SNOMED Code(s): 84063050 ICD Code: G47.33 - OBSTRUCTIVE SLEEP APNEA (ADULT) (PEDIATRIC) Status: Chronic - Patient Summary/Data Consults: Consultations 11/23/18 20:35 Consult to Case Management/Technical Sales Manager [CONS] Routine Consult to Diabetic Nurse Specialist [CONS] Routine Consult to Geoscience Technician [CONS] Routine - Discharge Summary/Plan Comment Discharge Summary/Plan Comment: Patient seen and evaluated by me Case discussed in detail with Chip Patel Patient was brought in for labile blood glucose for stabilization During admission patient's glucose was adjusted repeatedly with sliding scale Dietary was consulted coding educator provided multiple sessions of education to patient Once blood glucose control was achieves patient was discharged to follow up with PCP as an outpatient - Patient Data Vitals - Most Recent: Last Vital Signs Temp 36.6 C 11/27/18 11:10 Pulse 66 11/27/18 11:10 Resp 16 11/27/18 11:10 BP 134/67 11/27/18 11:10 Pulse Ox 100 11/27/18 11:10 Med Orders - Current: Current Medications Discontinued Medications Hydrocodone Bitart/Acetaminophen ([place] 325-10 Mg) 1 tab PO Q4H PRN PRN Reason: Pain Last Admin: 11/26/18 21:18 Dose: 1 tab Aspirin (Halfprin) 81 mg PO DAILY [facility] Last Admin: 11/27/18 08:39 Dose: 81 mg Citalopram Hydrobromide (Celexa) 20 mg PO DAILY [facility] Last Admin: 11/27/18 08:41 Dose: 20 mg Dextrose/Water (Dextrose 50% In Water) 50 ml IVPUSH ASDIRECTED PRN PRN Reason: Hypoglycemia Famotidine (Pepcid) 20 mg PO BEDTIME [facility] Last Admin: 11/26/18 21:17 Dose: 20 mg Fentanyl (Duragesic) 75 mcg TRDERM Q72H [facility] Last Admin: 11/27/18 08:42 Dose: 75 mcg Gabapentin (Neurontin) 300 mg PO TID [facility] Last Admin: 11/27/18 14:33 Dose: 300 mg Sodium Chloride (Normal Saline) 1,000 mls @ 150 mls/hr IV ASDIRECTED [facility] Last Admin: 11/23/18 14:59 Dose: 150 mls/hr Ferric Sodium Gluconate Complex 250 mg/ Sodium Chloride 120 mls @ 50 mls/hr IV ONETIME STA Stop: 11/26/18 18:35 Last Admin: 11/27/18 08:26 Dose: Not Given Ferric Sodium Gluconate Complex 250 mg/ Sodium Chloride 120 mls @ 60 mls/hr IV ONETIME ONE Stop: 11/27/18 09:59 Last Admin: 11/27/18 11:11 Dose: 60 mls/hr Magnesium Sulfate 2 gm/ Premix 50 mls @ 25 mls/hr IV ONETIME ONE Stop: 11/27/18 09:29 Last Admin: 11/27/18 08:44 Dose: 25 mls/hr Insulin Glargine (Lantus) 10 unit SUBCUT BEDTIME [facility] Last Admin: 11/24/18 21:15 Dose: Not Given Insulin Glargine (Lantus) 15 unit SUBCUT BEDTIME [facility] Last Admin: 11/26/18 20:56 Dose: Not Given Insulin Glargine (Lantus) 15 unit SUBCUT ONETIME ONE Stop: 11/24/18 21:20 Last Admin: 11/24/18 21:39 Dose: 15 units Insulin Glargine (Lantus) 10 unit SUBCUT BIDAC [facility] Insulin Glargine (Lantus) 10 unit SUBCUT NOW ONE Stop: 11/26/18 21:01 Last Admin: 11/26/18 21:23 Dose: 10 units Insulin Glargine (Lantus) 10 unit SUBCUT BID [facility] Last Admin: 11/27/18 08:44 Dose: 10 units Insulin Human Lispro (Humalog) 0 unit SUBCUT QIDACANDBED [facility]; Protocol Last Admin: 11/27/18 13:00 Dose: 5 units Insulin Human Lispro (Humalog) 2 unit SUBCUT TIDAC [facility] Last Admin: 11/27/18 13:02 Dose: Not Given Levothyroxine Sodium (Synthroid) 150 mcg PO ACBREAKFAST [facility] Stop: 11/24/18 06:01 Last Admin: 11/24/18 08:31 Dose: Not Given Levothyroxine Sodium (Synthroid) 150 mcg PO ACBREAKFAST [facility] Last Admin: 11/24/18 12:18 Dose: Not Given Levothyroxine Sodium (Levothyroxine) 75 mcg PO ACBREAKFAST [facility] Levothyroxine Sodium (Levothyroxine) 25 mcg PO ACBREAKFAST [facility] Last Admin: 11/27/18 08:41 Dose: 25 mcg Lisinopril (Prinivil) 2.5 mg PO DAILY [facility] Last Admin: 11/27/18 08:39 Dose: 2.5 mg Miscellaneous Information (Remove Patch) 1 ea TRDERM [id number] [facility] Last Admin: 11/27/18 11:06 Dose: 1 ea Non-Formulary Medication (Ranitidine) 150 mg PO BEDTIME [facility] Last Admin: 11/24/18 08:29 Dose: Not Given Polyethylene Glycol (Miralax) 17 gm PO DAILY PRN PRN Reason: Constipation Simvastatin (Zocor) 20 mg PO BEDTIME [facility] Last Admin: 11/26/18 21:19 Dose: 20 mg Sumatriptan Succinate (Imitrex) 100 mg PO Q2H PRN PRN Reason: Headache Last Admin: 11/26/18 09:02 Dose: 100 mg
== END 2018-11-27 15:22 ==
LOC: JD.ED 13:58 → JD.MS 19:05
PROVIDERS: ADMIT Internal Medicine; ATTEND Internal Medicine
DX: E11.65 Type 2 diabetes mellitus with hyperglycemia (principal); I12.9 Hypertensive chronic kidney disease with stage 1 through stage 4 chronic kidney disease, or unspecified chronic kidney disease; E11.22 Type 2 diabetes mellitus with diabetic chronic kidney disease; I50.9 Heart failure, unspecified; N18.3 Chronic kidney disease, stage 3 (moderate); E11.649 Type 2 diabetes mellitus with hypoglycemia without coma; R41.82 Altered mental status, unspecified; E87.5 Hyperkalemia; D63.1 Anemia in chronic kidney disease; M54.5 Low back pain; G47.33 Obstructive sleep apnea (adult) (pediatric); D72.829 Elevated white blood cell count, unspecified; G89.29 Other chronic pain; E78.5 Hyperlipidemia, unspecified; K21.9 Gastro-esophageal reflux disease without esophagitis; G47.30 Sleep apnea, unspecified; N40.0 Benign prostatic hyperplasia without lower urinary tract symptoms; M19.90 Unspecified osteoarthritis, unspecified site; E11.40 Type 2 diabetes mellitus with diabetic neuropathy, unspecified; E03.9 Hypothyroidism, unspecified; E83.42 Hypomagnesemia; Z88.8 Allergy status to other drugs, medicaments and biological substances; Z79.899 Other long term (current) drug therapy; Z79.82 Long term (current) use of aspirin; Z79.4 Long term (current) use of insulin
CPT/HCPCS: 36415; 70450; 71046; 80048; 80053; 80061; 81001; 82607; 82728; 82746; 82947; 82962; 83540; 83735; 84100; 84132; 84439; 84443; 85007; 85025; 85027; 86140; 87641; 96361; 96365; 96366; 96367; 99285; A9270; G0378; J1815; J2916; J3475; J7030; J7040; 96360; 99283